=== PATIENT | male | born 1945 | race Caucasian/White ===

== ENCOUNTER → 2024-09-16 07:57 | Outpatient (REF) | payer MEDICARE, OTHER, SELFPAY | LOC: RAD 07:57 | PROVIDERS: ATTENDING PHYSICIAN Internal Medicine Cardiovascular Disease; FAMILY PHYSICIAN Internal Medicine | DX: I71.40 Abdominal aortic aneurysm, without rupture, unspecified (principal) | CPT/HCPCS: 76770 ==

== ENCOUNTER → 2024-09-18 11:57 | Outpatient (REF) | payer MEDICARE, OTHER, SELFPAY ==
[2024-09-18 14:14] LABS: Blood Urea Nitrogen 17 mg/dl (9-20); Calcium 9.8 mg/dl (8.4-10.2); Carbon Dioxide 25 mmol/L (22-30); Chloride 102 mmol/L (98-107); Glucose 88 mg/dl (70-99); Potassium 4.5 mmol/L (3.5-5.1); Sodium 140 mmol/L (135-145); eGFR > 60.00
== END ==
LOC: REG 11:57
PROVIDERS: ATTENDING PHYSICIAN Surgery Vascular Surgery; FAMILY PHYSICIAN Internal Medicine
DX: I71.43 Infrarenal abdominal aortic aneurysm, without rupture (principal)
CPT/HCPCS: 36415; 80048

== ENCOUNTER → 2024-09-20 16:02 | Outpatient (REF) | payer MEDICARE, OTHER, SELFPAY | LOC: RAD 16:02 | PROVIDERS: ATTENDING PHYSICIAN Surgery Vascular Surgery; FAMILY PHYSICIAN Internal Medicine; OTHER PHYSICIAN Internal Medicine Cardiovascular Disease | DX: I71.43 Infrarenal abdominal aortic aneurysm, without rupture (principal) | CPT/HCPCS: 74174; Q9967 ==

== ENCOUNTER 2024-11-15 06:54 | Inpatient (IN) | payer MEDICARE, OTHER, SELFPAY ==
[2024-11-11 10:40] VITALS: BMI 35.1
[2024-11-11 11:14] LABS: % Basophils 1.2 % (0-2); % Eosinophils 6.4 % (0-6); % Immature Granulocytes 0.4 % (0-0.5); % Monocytes 10.4 % (1.7-9.3); % Neutrophils 57.8 % (42.2-75.2); Absolute Basophils 0.1 10^3/uL (0-0.2); Absolute Eosinophils 0.3 10^3/uL (0-0.7); Absolute Lymphocytes 1.3 10^3/uL (1.2-3.4); Absolute Monocytes 0.5 10^3/uL (0.1-0.6); Absolute Neutrophils 2.9 10^3/uL (1.4-6.5); Hematocrit 35.4 % (39.0-52.0); Hemoglobin 12.6 g/dL (13.0-18.0); Mean Corpuscular Hgb 31.3 pg (27.0-31.0); Mean Corpuscular Volume 89.4 fL (80.0-94.0); Mean Platelet Volume 9.9 fL (7.4-10.4); Nucleated Red Blood Cells % 0 % (-); Platelet Count 128 10^3/uL (130-400); Red Blood Cell Count 4.01 10^6/uL (4.70-6.10); Red Cell Dist. Width 13.9 % (11.5-14.5); White Blood Cell Count 5.2 10^3/uL (4.8-10.8)
[2024-11-11 11:16] LABS: INR 1.07; PT 14.2 Sec (11.4-14.6)
[2024-11-11 11:17] LABS: APTT 36.8 Sec (23.4-35.0)
[2024-11-11 11:41] LABS: Blood Urea Nitrogen 15 mg/dl (9-20); Carbon Dioxide 29 mmol/L (22-30); Chloride 102 mmol/L (98-107); Estimated Creatinine Clearance 76 ml/min; Glucose 91 mg/dl (70-99); Potassium 4.3 mmol/L (3.5-5.1); Sodium 137 mmol/L (135-145); eGFR > 60.00
[2024-11-15] VITALS (16 sets, daily range): BP systolic 93–135; BP diastolic 59–93
[2024-11-15] MEDS: BACTROBAN NASAL 1 GRAM NASAL (07:25)
[2024-11-15] MEDS: PERIDEX 0.12% ORAL RINSE 15 ML PO (07:25)
[2024-11-15] MEDS: NSS 500 IV (07:26)
--- NOTE | 2024-11-15 07:29 | HP.FOC2 ---
Focused History & Physical
Chief Complaint
HPI:
Chief Complaint: AAA (abdominal aortic aneurysm)
HPI / Indication for Planned Procedure: This is a 79-year-old male significant past medical history of AAA, hypertension, dyslipidemia, low HDL, hypertriglycerides, pericarditis, Spears's esophagus, GERD, sleep apnea, and benign prostatic
hypertrophy who presents to [facility] for scheduled endovascular aortic aneurysm repair with Dr. Marco Knight III, access will be bilateral percutaneous femoral with [place] stent graft. Patient denies recent illness, trauma, and
hospitalization. Denies recent fever, chills, cough, shortness of breath, chest pain, abdominal pain, nausea, and vomiting. Reports he is at his baseline health with no recent medication changes.
Relevant Past Medical History: Hypertension and Other (dyslipidemia, low HDL, hypertriglycerides, pericarditis, Spears's esophagus, GERD, sleep apnea, and benign prostatic hypertrophy, AAA, PVCs)
Relevant Social History: Negative (Greater than 10 years ago smoker)
Relevant Family History: Positive for (CAD, bladder cancer)
Relevant Past Surgical History: Positive for (Colonoscopy, endoscopy, cholecystectomy, umbilical hernia repair)
Review of Systems
Review of Pertinent Systems: All Systems Negative
Medication
See Medication form for detailed medications: Yes
Medication List (including Herbals & OTC):
carvedilol 6.25 mg tablet 6.25 mg PO BID 11/07/24
cholecalciferol (vitamin D3) 50 mcg (2,000 unit) tablet (Vitamin D3) 50 mcg PO DAILY 11/07/24
finasteride 5 mg tablet 5 mg PO DAILY 11/07/24
magnesium oxide 400 mg PO BID 11/07/24
multivitamin 1 tab PO DAILY 11/07/24
omeprazole 20 mg tablet,delayed release 20 mg PO DAILY 11/07/24
potassium chloride 10 mEq tablet,extended release 10 meq PO DAILY 11/07/24
rosuvastatin 5 mg tablet 5 mg PO .EVERY OTHER DAY 11/07/24
tamsulosin 0.4 mg capsule 0.4 mg PO DAILY 11/07/24
Medications Reviewed: Yes
Allergies and Reactions
Patient has Allergies: No
Noted Allergies and Reactions:
Allergy/AdvReac Type Severity Reaction Status Date / Time
No Known Allergies Allergy Unverified 11/07/24 11:46
Pertinent Physical Exam
All Other Systems: Negative
Head/Neck: Normal
Lungs: Normal (Bilateral lungs clear to auscultation)
Heart: Normal (RRR)
Abdomen: Normal (Nontender and none distended)
Extremities: Normal (Right DP +1 palpable, left DP +2 palpable)
Neurological: Normal
Diagnosis / Assessment
Assessment: 79-year-old male with infrarenal abdominal aortic aneurysm measuring 5.3 cm
Plan / Procedure
Plan: Will proceed with scheduled endovascular abdominal aortic aneurysm repair with Dr. Marco Knight III
Anesthesia/Sedation to be done by Anesthesia Provider: Yes
--- NOTE | 2024-11-15 08:31 | W.SUR.PREOP ---
Pre-Operative Surgical Note
-
I have examined this patient prior to the performance of the scheduled procedure.
The patient's condition is unchanged from the time of the current History and
Physical and the patient is able to undergo the scheduled procedure.
[2024-11-15 09:35] LABS: ACT-LR - POC 298 Seconds (116-155)
[2024-11-15 10:18] LABS: ACT-LR - POC 265 Seconds (116-155)
--- NOTE | 2024-11-15 10:42 | W.IMMPOSTOP ---
Surgical Immed Post Op Note
-
Primary Surgeon: Eugene
Assisting Surgeon: Pham
Pre-op Diagnosis: Infrarenal abdominal aortic aneurysm
Post-op Diagnosis: Infrarenal abdominal aortic aneurysm
Procedure Performed: Endovascular abdominal aortic aneurysm repair
Anesthesia Type: General
Specimen / Cultures: None
Estimated Blood Loss: 2 cc
Complications: None
Operative Findings: Successful deployment of EVAR [place] stent with deployment of stent to ipsilateral and contralateral iliac limbs
--- NOTE | 2024-11-15 11:54 | OR.RPT ---
Operative Report
Operative Report
Date of Operation: 11/15/2024
Pre Op Diagnosis: Infrarenal abdominal aortic aneurysm
Post Op Diagnosis: Infrarenal abdominal aortic aneurysm
Procedure:
1.) Percutaneous endovascular repair of infrarenal abdominal aortic aneurysm:
����������� GORE Excluder 23 mm x 14.5 mm x 12 cm
����������� GORE 16 mm x 14 cm (LEFT iliac limb)
����������� GORE 18 mm x 12 cm (RIGHT iliac limb)
2.) Introduce wire/catheter abdominal aorta from femoral arterial access (BILATERAL)
3.) Ultrasound-guided percutaneous femoral access (BILATERAL)
Surgeon: Marco Knight III, MD
Fire Extinguisher Mechanic: Charlie Nath MD PGY1
Fluoroscopy:
23.3 minutes
979 mGy
DAP 310.5
Anesthesia: General
Complications: None
History and Indications for Procedure: 79-year-old male with infrarenal abdominal aortic aneurysm.� He was brought to the operating room for endovascular repair
Procedure in Detail: Ismael Franklin was correctly identified and placed supine on the operating table. After adequate induction of anesthesia the abdomen, pelvis and bilateral groins were positioned, prepped and draped in the usual sterile fashion.
Preoperative antibiotics were administered. A timeout procedure was performed with the nursing and anesthesia staff confirming the patient�s identity as well as the nature and laterality of the procedure.
Under ultrasound guidance, bilateral femoral artery sheath access was obtained. The arteries were patent. Ultrasound images of the femoral arteries were saved to the medical record. A pre-close technique was performed bilaterally with 2 offset
Proglide closure devices. The sutures were secured and tucked under surgical towels for use at the end of the case. The patient was systemically heparinized.
From the right a KMP femoral access a KMP catheter and Bentson wire were advanced to the proximal descending thoracic aorta. The wire was exchanged out through the catheter for a Lunderquist wire. From the left femoral access a KMP catheter and
Bentson wire were advanced to the proximal descending thoracic aorta. The wire was exchanged out through the catheter for a Lunderquist wire. Over the stiff wire on the right an 16 Fr Dry Seal sheath was placed. Over the stiff wire on the left a 12
Fr Dry Seal sheath was placed. Both sheath tips were advanced into the aortic aneurysm sac. A marker pigtail catheter was then placed for angiographic purposes through the left femoral sheath and the stiff wire removed to allow it to fall into a
more natural position that would mimic the position during contralateral gate cannulation. The C-arm was then rotated back and forth laterally in order to view the sheath locations relative to one another to assist in orienting the main body.
The aortic main body device was then properly oriented outside the body under fluoro. The 23 mm x 14.5 mm x 12 cm aortic main body device was then loaded onto the right femoral Lunderquist wire and advanced into the abdominal aorta. Appropriate
cranio-caudal C-arm positioning was performed based on preop imaging. With the device in the approximate position an aortogram was performed and identified the origins of the renal arteries bilaterally. The delivery system was then positioned such
that the radiopaque markers were just distal to the lowest renal artery. The ipsilateral sheath was pulled back to below the distal limb marker. The pigtail catheter was pulled back into the aneurysm. The first stage of main body deployment to the
contralateral gate was then performed.
The C-arm was re-oriented to view the contralateral gate. Using the partially formed pigtail catheter poking out of the 12 Fr sheath and a glide wire, the contralateral gate was cannulated easily. The wire and catheter were advanced into the main
body. The pigtail was spun to confirm proper positioning in the main body lumen. Another aortogram was performed at this point to confirm proper positioning of the main body below the renal arteries. �The main body had slipped down slightly relative
to the desired proximal landing zone just below the renal arteries.� Therefore the main body was re-constrained and advanced proximally under roadmap guidance and magnification. �With the device in the desired location the proximal main body
constraining mechanism was released by dialing out the handle. Another aortogram with the pigtail under magnification demonstrated the graft in the desired location. The pigtail catheter was then advanced into the proximal descending thoracic aorta
and a Lunderquist was placed. The 12 Fr sheath was pulled back and a retrograde arteriogram was then performed with the marker pigtail catheter on the stiff wire. The left iliac bifurcation was visualized and lengths were measured for the
contralateral iliac limb. A 16 mm x 14 cm iliac limb was inserted on the left under fluoro. Proper overlap was obtained. The limb was deployed under roadmap guidance without difficulty.
The remainder of the main body and ipsilateral limb deployment was then performed. The delivery system was carefully removed over the wire under fluoro. A marker pigtail catheter was placed on the right Lunderquist wire. The 16 [place] sheath was
pulled back and a retrograde arteriogram was then performed with the marker pigtail catheter on the stiff wire. The right iliac bifurcation was visualized and lengths were measured for the ipsilateral iliac limb extension. A 18 mm x 12 cm iliac limb
was inserted on the right under fluoro. Proper overlap was obtained. The limb was deployed under roadmap guidance without difficulty.
A [place] molding balloon was then inserted from each femoral access, one side at a time. The proximal main body seal zone, all areas of overlap, both iliac limbs and both distal iliac seal zones were profiled with the balloon. The balloon was
readvanced into the main body and the Lunderquist wire removed. A pigtail catheter was inserted and advanced to the proximal main body.
A completion aortogram demonstrated an excellent technical result. The aneurysm was excluded. No endoleaks were seen. There was brisk flow through the stent and iliac limbs. The renal arteries were widely patent bilaterally. The iliac bifurcations
were preserved bilaterally.
The Proglide sutures were secured bilaterally after removing the sheaths and wires. Protamine was administered. Additional pressure was applied to the puncture sites bilaterally for 10 minutes. Hemostasis was achieved bilaterally.
Sterile dressings were applied.
The patient tolerated the procedure well and was taken to the PACU in stable condition.
Attestation: I was present and responsible for the entire procedure
Marco Knight III, MD
[facility]
[phone] (mowc)
[2024-11-15] MEDS: NSS 1000 IV (11:56)
--- NOTE | 2024-11-15 12:29 | PTCARENOTE ---
recd from PACU via bed, settled, see admission documentation. pulse signals palpable x 4, groin punctures glue maintained, soft, non-tender. art line zero and ayla, cuff pressures noted. flat per MD order. sweet draining. no distress. presently
family now visiting.
[2024-11-15] MEDS: ASPIR LOW (ENTERIC COATED) 81 MG PO (12:37)
--- NOTE | 2024-11-15 13:50 | CON.INTV ---
Consultation
Consultation Request
Date/Time Consultation Requested: 11/15/2024-2 PM
Date/Time Consultation Performed: 11/15/2024-2 PM
Requesting Provider: Vascular surgery
Performing Provider: Dr. Dominguez
Reason for Consultation: Postoperative critical care management
Medical History
-
Chief Complaint: PAD
History of Present Illness:
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
Past Medical History
Past Medical History: None (Hypertension. Hyperlipidemia. History of pericarditis. GERD. Spears's esophagus. ARETHA. BPH. AAA. Cholecystectomy 2018. Umbilical hernia 2019. Hernia repair 2019.)
Social History
Tobacco: Former Smoker (Quit 42 years ago)
Alcohol: Occasional
Drug: None
Living: With Family
Occupational Exposures: No known asbestos exposure
Environmental Exposures: No known tuberculosis exposure
Family History
Family History: Reviewed & Not Pertinent, CAD (Premature CAD) and Other (Father-CAD, diabetes, hypertension. Mother-bladder cancer.)
Allergies / Home Medications
Allergies
Allergy/AdvReac Type Severity Reaction Status Date / Time
No Known Allergies Allergy Unverified 11/07/24 11:46
Home Medications
�Medication �Instructions �Recorded �Confirmed �Last Taken �Type
carvedilol 6.25 mg tablet 6.25 mg PO BID 11/07/24 11/15/24 11/15/24 05:30 History
cholecalciferol (vitamin D3) 50 50 mcg PO DAILY 11/07/24 11/15/24 11/14/24 08:00 History
mcg (2,000 unit) tablet (Vitamin
D3)
finasteride 5 mg tablet 5 mg PO DAILY 11/07/24 11/15/24 11/14/24 08:00 History
magnesium oxide 400 mg PO BID 11/07/24 11/15/24 11/14/24 20:00 History
multivitamin 1 tab PO DAILY 11/07/24 11/15/24 11/14/24 08:00 History
omeprazole 20 mg tablet,delayed 20 mg PO DAILY 11/07/24 11/15/24 11/14/24 12:00 History
release
potassium chloride 10 mEq 10 meq PO DAILY 11/07/24 11/15/24 11/14/24 08:00 History
tablet,extended release
rosuvastatin 5 mg tablet 5 mg PO .EVERY OTHER DAY 11/07/24 11/15/24 11/14/24 08:00 History
tamsulosin 0.4 mg capsule 0.4 mg PO DAILY 11/07/24 11/15/24 11/14/24 20:00 History
Review of Systems
-
Unable to Obtain full review of systems at this time due to: Other (Per HPI)
Vitals / Labs / Diagnostic Testing
Vital Signs
Temp Pulse Resp BP Pulse Ox
97.6 F 58 14 104/93 93
11/15/24 12:00 11/15/24 12:45 11/15/24 12:45 11/15/24 12:00 11/15/24 12:56
Lab Data
11/11/24 10:48
11/11/24 10:48
Diagnostic Testing:
Physical Exam
-
Exam:
Well-nourished and well-developed in no apparent distress
HEENT-atraumatic, normocephalic
Neck-supple, no JVD, no bruit
Heart-regular rate and rhythm-no murmurs, rubs or gallops
Chest-clear to auscultation, no wheezes, crackles
Back-no tenderness
Abdomen-soft, nontender, nondistended, no hepatosplenomegaly
Extremities-no cyanosis, clubbing, edema and good peripheral pulses
Integument-intact, no rashes, lesions or ecchymosis
Neurology-alert and oriented, nonfocal motor and sensory exam
Assessment
-
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
Infrarenal AAA
Status post EVAR-Dr. Knight 11/15/2024
Mild [id number] 12.6
Mild thrombocytopenia-platelet 128
Conditions present prior to admission:
Hypertension.
Hyperlipidemia.
History of pericarditis.
GERD.
Spears's esophagus.
ARETHA.
BPH.
AAA.
Cholecystectomy 2018. Umbilical hernia 2019. Hernia repair 2019.
Plan
Postoperative surgical intensive care unit monitoring
Supplemental oxygen as needed
Incentive spirometry
Aspiration precautions
Neuro and vascular checks per protocol
Monitor blood pressure/perfusion pressures and pulses closely
Vascular surgery following-correspondence and operative notes reviewed
DVT prophylaxis
Early nutrition
Early mobilization
Reviewed with at the bedside
Outpatient sleep disordered breathing/ARETHA/CPAP [id number] with Dr. Natalie Aleman-has an appointment next week
Critical care statement: A total of 55 minutes of critical care time was provided for this patient today. This includes management of unstable vital signs, evaluation of the patient at bedside, reviewing the patient's pertinent medical records
including radiographs, microbiology, laboratory evaluations, and discussion with primary team, consultants, pharmacy, nutrition, physical therapy, case management, charge nurse, critical care nursing, and respiratory therapy.
Diagnostic data:
Chest x-ray 11/11/2024-NAD
CT abdomen and pelvis 09/20/2024-infrarenal AAA measuring 5.1 cm, small aneurysms bilateral renal arteries, bilateral renal cysts, pulmonary basilar scarring/fibrosis associated with cylindrical bronchiectatic changes
Echocardiogram 08/17/2022-EF 60-65%, no valvular disease
Data Reviewed
-
EKG: Report reviewed by me
Radiology: Report reviewed by me
CT Scan: Report reviewed by me
Medical Tests (Nuc Med, Echo etc): Report reviewed by me
Old Records: Reviewed
Critical Care Time (in minutes): 55
--- NOTE | 2024-11-15 16:44 | PTCARENOTE ---
ambulated in hallway, tolerated, back to chair. no c/o.
--- NOTE | 2024-11-15 17:03 | W.PN.UPDATE ---
Update Note
Progress Note Update
Patient doing extremely well postoperatively. Tolerating ambulation, and p.o. intake. Denies pain at bilateral groin sites, nausea, abdominal pain, or difficulty with ambulation. Successful spontaneous void following Knight catheter removal.
Radial arterial monitoring site CDI. Per attending Dr. Marco Knight possible discharge later this evening pending his evaluation.
--- NOTE | 2024-11-15 18:12 | W.PN.UPDATE ---
Update Note
Progress Note Update
Looks great
No complaints
Sitting in chair
'I feel like I didnt even have surgery'
Groins soft
Vitals normal/stable
Will discharge home
I'll followup with him over the weekend via telephone.
Aspirin
[id number]
--- NOTE | 2024-11-15 18:29 | PTCARENOTE ---
seen by Dr. Knight in room. plan reviewed. questions answered. discharge paperwork reviewed. family here to ride home. IVs out, getting dressed.
--- NOTE | 2024-11-18 15:29 | W.DCSUMMARY ---
Discharge Summary
Discharge Data
Date of Admission: 11/15/24
Date of Discharge: 11/15/24
-
Pending Results: No
Hospital Course
Attending: Marco Knight III, MD
Consultants: Pulmonary medicine
Allergies: NKDA
Procedure with date: Percutaneous endovascular repair of infrarenal abdominal aortic aneurysm: GORE Excluder 23 mm x 14.5 mm x 12 cm, GORE 16 mm x 14 cm (LEFT iliac limb), GORE 18 mm x 12 cm (RIGHT iliac limb). Introduce wire/catheter abdominal
aorta from femoral arterial access (BILATERAL). Ultrasound-guided percutaneous femoral access (BILATERAL) 11/15/2024 Dr. Marco Knight III, MD
History of present illness: The patient is an 79 -year-old male with multiple medical conditions including: hypertension, dyslipidemia, low HDL, hypertriglycerides, pericarditis, Spears's esophagus, GERD, sleep apnea, and benign prostatic
hypertrophy, AAA, and PVCs. Patient presented on 11/15/2024 for scheduled procedure with Dr. Marco Knight III. Patient presented at baseline health with no reports of recent illness or trauma.
Hospital Course: Briefly, the patient underwent scheduled endovascular pair of infrarenal abdominal aorta aneurysm without complications, and recovered in PACU. Following recovery phase one and two patient was transferred to intensive care unit per
protocol for continued hemodynamic monitoring. Deboning Team Leader consulted to aid in medical management from a critical care perspective. Following appropriate postoperative recovery timeframe arterial line and Knight catheter removed. Patient with
spontaneous void following removal of Knight catheter. Bilateral groin puncture sites remained clean dry and intact with no evidence of hematoma. As the day progressed patient continued to markedly well, and was tolerating p.o. intake denying any
surgical pain. Vital signs remained stable. Patient tolerated ambulation without difficulty. Decision was made to allow patient to be discharged home.
Prescriptions and follow up appointment are included in the DC summary flare maker note. All instructions were given to the patient in both written and verbal form and the patient expressed understanding.
Discharge Plan
-
Patient Disposition: Home (Routine Discharge)
Discharge Diagnosis/Procedures: Endovascular repair of abdominal aortic aneurysm
Condition: Good
Diet: As tolerated
Activity: No strenuous activity
Additional Activity: No strenuous activity for 2 weeks, no lifting greater than 10 pounds for 2 weeks
Driving Restrictions: No driving for 48 hours
Bathing Restrictions: OK to Shower
Stand Alone Forms: DC Instr - Vascular OR
Referrals:
Flora Trujillo PA-C [Specified Professional Personl] - 11/28/24 1:00 pm
Dutch Irwin MD [Family Provider] -
Prescriptions:
New
aspirin 81 mg Tablet,Delayed Release (Dr/Ec)
81 mg PO DAILY Qty: 90 0RF
Continued
multivitamin Tablet
1 tab PO DAILY
carvedilol 6.25 mg Tablet
6.25 mg PO BID
potassium chloride 10 mEq Tablet Extended Release
10 meq PO DAILY
tamsulosin 0.4 mg Capsule
0.4 mg PO DAILY
finasteride 5 mg Tablet
5 mg PO DAILY
rosuvastatin 5 mg Tablet
5 mg PO .EVERY OTHER DAY
omeprazole 20 mg Tablet,Delayed Release (Dr/Ec)
20 mg PO DAILY
cholecalciferol (vitamin D3) [Vitamin D3] 50 mcg (2,000 unit) Tablet
50 mcg PO DAILY
magnesium oxide 400 mg magnesium Tablet
400 mg PO BID
Discharge Orders:
Discharge Patient (As Directed); Ordered 11/15/24
Ordered By: Eunice Kimble
Discharge Date and Time
Discharge Date/Time: 11/15/24 18:48
Print Language: LAO
== END 2024-11-15 18:48 | disposition home or self-care (01) | DRG 269 ==
LOC: ICU 06:54
PROVIDERS: ADMITTING PHYSICIAN Surgery Vascular Surgery; CONSULT PHYSICIAN Internal Medicine Critical Care Medicine; FAMILY PHYSICIAN Internal Medicine
PROC: B4101ZZ Fluoroscopy of Abdominal Aorta using Low Osmolar Contrast (ICD-10-PCS; 2024-11-15)
PROC: 04V03DZ Restriction of Abdominal Aorta with Intraluminal Device, Percutaneous Approach (ICD-10-PCS; 2024-11-15)
DX: I71.43 Infrarenal abdominal aortic aneurysm, without rupture (principal); I10 Essential (primary) hypertension; K21.9 Gastro-esophageal reflux disease without esophagitis; N40.0 Benign prostatic hyperplasia without lower urinary tract symptoms; E78.5 Hyperlipidemia, unspecified; K22.70 Barrett's esophagus without dysplasia; G47.33 Obstructive sleep apnea (adult) (pediatric); D64.9 Anemia, unspecified; D69.6 Thrombocytopenia, unspecified; Z86.79 Personal history of other diseases of the circulatory system; Z80.52 Family history of malignant neoplasm of bladder; Z82.49 Family history of ischemic heart disease and other diseases of the circulatory system; Z90.49 Acquired absence of other specified parts of digestive tract; Z87.891 Personal history of nicotine dependence
CPT/HCPCS: 34705; 34713; 36415; 71046; 80048; 85025; 85610; 85730; 86850; 86900; 86901; C1725; C1760; C1769; C1894; Q9967

== ENCOUNTER → 2024-12-10 08:24 | Outpatient (REF) | payer MEDICARE, OTHER, SELFPAY | LOC: RAD 08:24 | PROVIDERS: ATTENDING PHYSICIAN Registered Nurse; FAMILY PHYSICIAN Internal Medicine | DX: I71.43 Infrarenal abdominal aortic aneurysm, without rupture (principal); Z98.890 Other specified postprocedural states | CPT/HCPCS: 74174; Q9967 ==

== ENCOUNTER 2024-12-20 05:12 | Emergency (ER) | payer MEDICARE, OTHER, SELFPAY ==
[2024-12-20] VITALS (9 sets, daily range): BP systolic 111–136; BP diastolic 65–85; BMI 31.6
[2024-12-20 05:56] LABS: COVID-19 Antigen Negative (Negative)
--- NOTE | 2024-12-20 06:33 | ED.GENMED ---
History of Present Illness
General
Chief Complaint: Chest Pain
Time Seen by Provider: 12/20/24 06:33
History of Present Illness
History of Present Illness:
TIME OF INITIAL ENCOUNTER: 6:35 AM
HPI: The patient has been coughing over the last couple of weeks. About a month ago, he had a uneventful infrarenal AAA repair with Dr. Knight. There were no complications at that time. More recently over the last couple of days he has been having
chest discomfort that worsens with coughing, worsens with position changes. He had low-grade temps of '99 or 100'.
EXAM:
GENERAL: Well appearing in no distress, the patient appears uncomfortable when he tries to flex forward
HEENT: Moist oral mucosa
CARDIOVASCULAR: No murmurs, normal heart rate, regular rhythm, No chest wall tenderness
PULMONARY: No respiratory distress, breath sounds are clear and equal, there is some very faint rales at the bases
ABDOMEN: Soft with no peritoneal signs, no tenderness
NEUROLOGIC: Excellent strength all extremities, no coordination deficits
PSYCHIATRIC: Appropriate mental status, normal insight and judgement
EXTREMITIES: Nontender, no edema, moves all extremities equally
SKIN: No rash, no lesions
NUMBER AND COMPLEXITY OF PROBLEMS ADDRESSED AT THE ENCOUNTER
� Chronic conditions affecting care: GERD, Spears's esophagus, hyperlipidemia, has had bowel blockage in the past, infrarenal AAA repair 2024
� Acute Exacerbation and/or Progression of Chronic Illness: This is an acute problem
� Differential Diagnosis includes: Bronchitis, chest wall pain, chest pain related to coughing
AMOUNT AND/OR COMPLEXITY OF DATA TO BE REVIEWED AND ANALYZED
� I performed an independent evaluation of and my interpretation is:
EKG: Sinus 65, normal axis, no acute ST abnormality
CT:
X-rays: Chest x-ray by my read suggest atelectasis
Laboratory Studies: White count normal, hemoglobin slightly lower than prior at 10.4, chemistries unremarkable, troponin less than 0.012, COVID and flu negative
Other:
� Review of other/old records: I reviewed old records, the patient's hemoglobin was higher 1 month ago 12.6
� Clinical information was obtained by an independent historian: None needed
� Prescriptions/Medications Considered but not given:
� Further testing considered but not performed:
RISK OF COMPLICATIONS AND/OR MORBIDITY OR MORTALITY OF PATIENT MANAGEMENT
� Social determinants of health affecting care: Lives at home
� Discussion with other providers:
� Escalation of care including admission/observation vs risk of discharge considered: The patient was given Toradol.
ANY OTHER UPDATES:
10:40 AM: I reassessed patient and the patient now reports improvement with his pain that he had in his chest. Suspect noncardiac etiology as troponin and EKG are normal and he does report improvement after Toradol was given.
Phy Exam
Physical Exam
Physical Exam:
See HPI
Scores
Heart Score for Chest Pain Patients
STEMI patient?: Not applicable
Sepsis
Sepsis Screening
Sepsis Assessment: Sepsis Ruled Out
Sepsis Screen
Sepsis Screen: Sepsis Ruled Out
Date: 12/20/24
Time: 12:43
Course
Orders/Labs/Results
Orders:
Orders
12/20/24 05:15
EKG [Electrocardiogram (*1)] Urgent
Reason for Study: Chest Pain
12/20/24 05:16
EKG- Treatment ONCE
12/20/24 05:32
COVID-19 Antigen Urgent
Source: Nasal Swab
Influenza A+B Rapid Molecular Urgent
ANG Source: Nasal Swab
Specimen Description:
12/20/24 05:39
Chest [CR Chest - 2 Views ] Urgent
Comment:
Reason For Exam: chest pain
12/20/24 06:53
Complete Blood Count/With Diff Urgent
Comprehensive Metabolic Panel Urgent
Troponin I Urgent
12/20/24 06:54
Ketorolac [Toradol] 15 mg IV NOW STA
Abnormal Lab Results
12/20/24
06:53
RBC 3.45 L 10^6/uL
(4.70-6.10)
Hgb 10.4 L g/dL
(13.0-18.0)
Hct 30.9 L %
(39.0-52.0)
Abs Immat Gran (auto) 0.1 H 10^3/uL
(0-0.05)
Absolute Neuts (auto) 8.1 H 10^3/uL
(1.4-6.5)
Absolute Lymphs (auto) 1.0 L 10^3/uL
(1.2-3.4)
Absolute Monos (auto) 0.8 H 10^3/uL
(0.1-0.6)
Neutrophils % 79.5 H %
(42.2-75.2)
Lymphocytes % 9.6 L %
(20.5-51.1)
Glucose 124 H mg/dl
(70-99)
12/20/24 06:53
12/20/24 06:53
Vital Signs
Initial and Last Documented VS:
Initial Vital Signs
Temp Pulse Resp BP Pulse Ox
37.3 C 72 22 131/80 97
12/20/24 05:24 12/20/24 05:24 12/20/24 05:24 12/20/24 05:24 12/20/24 05:24
Last Documented Vital Signs
Temp Pulse Resp BP Pulse Ox
36.9 C 76 20 131/85 96
12/20/24 10:59 12/20/24 10:59 12/20/24 10:59 12/20/24 10:59 12/20/24 10:59
*Critical Care Note
Total Time (30-74mins, 75-104mins- exclusive of procedures): Not Applicable
ED Attending Note
-
Portions of this chart may have been created with voice recognition software.� Occasional wrong word or��sound alike� substitutions may have occurred due to the inherent limitations of voice recognition software.
Discharge Plan
Departure
Patient Disposition: Home (Routine Discharge)
Date of Disposition: 12/20/24
Time of Disposition: 10:38
Patient with high blood pressure during this ER visit?: Yes
Discharge Problem:
Acute chest wall pain
Prescriptions:
No Action
multivitamin Tablet
1 tab PO DAILY
carvedilol 6.25 mg Tablet
6.25 mg PO BID
potassium chloride 10 mEq Tablet Extended Release
10 meq PO DAILY
tamsulosin 0.4 mg Capsule
0.4 mg PO DAILY
finasteride 5 mg Tablet
5 mg PO DAILY
rosuvastatin 5 mg Tablet
5 mg PO .EVERY OTHER DAY
omeprazole 20 mg Tablet,Delayed Release (Dr/Ec)
20 mg PO DAILY
cholecalciferol (vitamin D3) [Vitamin D3] 50 mcg (2,000 unit) Tablet
50 mcg PO DAILY
magnesium oxide 400 mg magnesium Tablet
400 mg PO BID
aspirin 81 mg Tablet,Delayed Release (Dr/Ec)
81 mg PO DAILY Qty: 90 0RF
Referrals:
Dutch Irwin MD [Family Provider] -
Activity Restrictions/Additional Instructions:
I suspect that your pain is coming from the chest wall related to coughing. Your white blood cell count is normal. I will call you later if the radiologist sees signs of pneumonia (I did not see any clear sign of pneumonia). Cardiac blood work
and EKG showed no sign of heart attack. Consider intermittent use of Aleve. You did receive a dose of Toradol earlier today.
Interventions
Interventions:
*Risk Screen - Suicide Last Done: 12/20/24 05:24
*General Assessment Last Done: 12/20/24 05:53
*Neglect/Abuse Screening Last Done: 12/20/24 10:59
ED- Fall Risk Assessment Last Done: 12/20/24 05:53
*ED COVID-19 Vaccine History Last Done: 12/20/24 05:53
*Nursing Disposition Last Done: 12/20/24 10:59
ED- Cardiac Assessment Last Done: 12/20/24 05:53
Discharge Date and Time
Discharge Date/Time: 12/20/24 11:00
Print Language: PORTUGUESE
[2024-12-20] MEDS: TORADOL 15 MG IV (06:57)
[2024-12-20 07:02] LABS: % Basophils 0.5 % (0-2); % Eosinophils 1.6 % (0-6); % Immature Granulocytes 0.5 % (0-0.5); % Lymphocytes 9.6 % (20.5-51.1); % Monocytes 8.3 % (1.7-9.3); % Neutrophils 79.5 % (42.2-75.2); Absolute Basophils 0.1 10^3/uL (0-0.2); Absolute Eosinophils 0.2 10^3/uL (0-0.7); Absolute Immature Granulocytes 0.1 10^3/uL (0-0.05); Absolute Monocytes 0.8 10^3/uL (0.1-0.6); Absolute Neutrophils 8.1 10^3/uL (1.4-6.5); Hematocrit 30.9 % (39.0-52.0); Hemoglobin 10.4 g/dL (13.0-18.0); Mean Corp Hgb Conc. 33.7 g/dL (33.0-37.0); Mean Corpuscular Hgb 30.1 pg (27.0-31.0); Mean Corpuscular Volume 89.6 fL (80.0-94.0); Mean Platelet Volume 8.9 fL (7.4-10.4); Nucleated Red Blood Cells % 0 % (-); Platelet Count 133 10^3/uL (130-400); Red Blood Cell Count 3.45 10^6/uL (4.70-6.10); Red Cell Dist. Width 13.5 % (11.5-14.5); White Blood Cell Count 10.1 10^3/uL (4.8-10.8)
[2024-12-20 07:15] LABS: ALT (SGPT) 25 U/L (0-50); AST (SGOT) 22 U/L (17-59); Albumin 3.6 g/dl (3.5-5.0); Alkaline Phosphatase 84 U/L (38-126); Blood Urea Nitrogen 12 mg/dl (9-20); Calcium 8.9 mg/dl (8.4-10.2); Carbon Dioxide 28 mmol/L (22-30); Chloride 102 mmol/L (98-107); Estimated Creatinine Clearance 103 ml/min; Glucose 124 mg/dl (70-99); Potassium 4.1 mmol/L (3.5-5.1); Sodium 137 mmol/L (135-145); Total Bilirubin 1.1 mg/dl (0.2-1.3); Total Protein 6.6 g/dl (6.3-8.2); eGFR > 60.00
[2024-12-20 07:26] LABS: Troponin I < 0.012 ng/ml
== END 2024-12-20 11:00 | disposition home or self-care (01) ==
LOC: EMR 05:12
PROVIDERS: Student in an Organized Health Care Education/Training Program; EMERGENCY PHYSICIAN Emergency Medicine; FAMILY PHYSICIAN Internal Medicine
DX: R07.89 Other chest pain (principal)
CPT/HCPCS: 99283; 96374; 71046; 80053; 84484; 85025; 87502; 87811; 93005

== ENCOUNTER 2025-01-06 20:06 | Inpatient (IN) | payer MEDICARE, OTHER, SELFPAY ==
[2025-01-06 20:25] VITALS: BMI 30.7
--- NOTE | 2025-01-06 20:47 | PTCARENOTE ---
Rec'd pt from ambulance stretcher, pt pulled over into the bed. AAOx3, 95% on RA. NSR-SB on cardiac surgeon. BP stable 134/70 on LUE. Pt denies pain/SOB/discomfort at this time. Pt encouraged to alert staff if this changes. Dr. Godfrey to bedside
to assess pt. Pt requests water and crackers at this time, but denies any complaints. Pt oriented to room and call massey system. Admission questions as documented. Awaiting Dr. jaquez.
--- NOTE | 2025-01-06 20:55 | HPS.HSE ---
Family Physician
-
Family Physician: INTERVIEWE UNKNOWN - PT NOT
Chief Complaint
-
back pain
History of Present Illness
79-year-old male past medical history of infrarenal abdominal arctic aneurysm status post percutaneous endovascular repair on 11/15, hypertension, hyperlipidemia, pericarditis, Spears's esophagus, GERD, sleep apnea on CPAP, BPH, PVCs, presenting
with pain in his bilateral back described as aching. This started a week ago patient has also been constipated so his primary care physician gave him MiraLAX and Dulcolax. He has still been constipated.
Pain was worse so he came to [facility]. He had CT scan there which showed endoleak and possible aortitis. Case was discussed with Dr. Golden who recommended patient be transferred here.
Patient denies any fevers or chills, chest pain or shortness of breath. No dizziness, lightheadedness or palpitations. No nausea or vomiting.
Medical History
Past Medical History
Past Medical History: Reports Other ( infrarenal abdominal arctic aneurysm status post percutaneous endovascular repair on 11/15, hypertension, hyperlipidemia, pericarditis, Spears's esophagus, GERD, sleep apnea on CPAP, BPH, PVCs)
Past Surgical History: Reports Other (Colonoscopy, endoscopy, cholecystectomy, umbilical hernia repair))
Social History
Tobacco: Non-smoker
Alcohol: None
Drug: None
Family History
Family History: Not pertinent
Allergies / Home Medications
Allergies reflects when Allergies were last updated in [employer].
Home Medications with original date entered in [employer]
Allergy/Medication List:
Allergies
Allergy/AdvReac Type Severity Reaction Status Date / Time
No Known Allergies Allergy Verified 12/20/24 05:24
Home Medications
carvedilol 6.25 mg tablet 6.25 mg PO BID 11/07/24
cholecalciferol (vitamin D3) 50 mcg (2,000 unit) tablet (Vitamin D3) 50 mcg PO DAILY 11/07/24
finasteride 5 mg tablet 5 mg PO DAILY 11/07/24
magnesium oxide 400 mg PO BID 11/07/24
multivitamin 1 tab PO DAILY 11/07/24
omeprazole 20 mg tablet,delayed release 20 mg PO DAILY 11/07/24
potassium chloride 10 mEq tablet,extended release 10 meq PO DAILY 11/07/24
rosuvastatin 5 mg tablet 5 mg PO .EVERY OTHER DAY 11/07/24
tamsulosin 0.4 mg capsule 0.4 mg PO DAILY 11/07/24
aspirin 81 mg tablet,delayed release 81 mg PO DAILY #90 tabs 11/15/24
Review of Systems
-
History Source: Patient
A 12 point ROS was completed and negative except as noted: Yes
Constitutional: Reports No Symptoms
EENT: Reports No Symptoms
Respiratory: Reports No Symptoms
Cardiac: Reports No Symptoms
Abdomen/GI: Reports No Symptoms
: Reports No Symptoms
Musculoskeletal: Reports No Symptoms
Skin: Reports No Symptoms
Neurological: Reports No Symptoms
Endocrine: Reports No Symptoms
Hematologic/Lymphatic: Reports No Symptoms
Psych: Reports No Symptoms
Physical Exam
Vital Signs
Vital Signs
Temp Pulse Resp Pulse Ox
98.2 F 58 21 95
01/06/25 20:25 01/06/25 20:33 01/06/25 20:33 01/06/25 20:33
Physical Exam
General: Well Developed, Well Nourished and No Apparent Distress
HEENT: NormoCephalic, Moist mucous membranes and Atraumatic
Respiratory: Clear
Cardiac: S1/S2 and Regular Rhythm; No Murmur or Rub
GI: Soft, Non Tender, Non Distended and Normal Bowel Sounds; No Organomegaly
Rectal: Deferred by Provider
Musculoskeletal: No Clubbing, No Cyanosis and No Edema
Skin: No Rash
Neuro: Nonfocal/grossly intact
Data Reviewed
-
Lab Data: Labs Reviewed by me
Old Records: Reviewed
Impression/Plan
-
IMPRESSION:
PLAN:
# Possible endoleak versus aortitis
# Infrarenal abdominal aortic aneurysm status post percutaneous endovascular repair on 11/15
-CT scan abdomen pelvis shows circumferential stranding adjacent to the proximal aspect of the aortic graft proximal to the aneurysm sac
-Vascular recommends blood cultures
-Monitoring with repeat CTA in 1 or 2 days
-Continue aspirin, statin
# Constipation
-Continue MiraLAX, Dulcolax
History of PVCs
History of pericarditis
Essential hypertension
-Continue Coreg
Hyperlipidemia
-continue statin
Spears's esophagus/GERD
-Continue omeprazole
Obstructive sleep apnea
-Continue CPAP
BPH
-Continue tamsulosin, finasteride
Full code
DVT prophylaxis-heparin
Regular diet
[2025-01-06 21:31] LABS: % Basophils 0.7 % (0-2); % Eosinophils 3.2 % (0-6); % Immature Granulocytes 0.4 % (0-0.5); % Lymphocytes 14.9 % (20.5-51.1); % Monocytes 9.7 % (1.7-9.3); % Neutrophils 71.1 % (42.2-75.2); Absolute Basophils 0.1 10^3/uL (0-0.2); Absolute Eosinophils 0.3 10^3/uL (0-0.7); Absolute Lymphocytes 1.2 10^3/uL (1.2-3.4); Absolute Monocytes 0.8 10^3/uL (0.1-0.6); Absolute Neutrophils 5.7 10^3/uL (1.4-6.5); Hematocrit 29.5 % (39.0-52.0); Hemoglobin 9.9 g/dL (13.0-18.0); Mean Corp Hgb Conc. 33.6 g/dL (33.0-37.0); Mean Corpuscular Hgb 29.2 pg (27.0-31.0); Mean Platelet Volume 8.7 fL (7.4-10.4); Nucleated Red Blood Cells % 0 % (-); Platelet Count 205 10^3/uL (130-400); Red Blood Cell Count 3.39 10^6/uL (4.70-6.10); Red Cell Dist. Width 13.3 % (11.5-14.5); White Blood Cell Count 8.1 10^3/uL (4.8-10.8)
[2025-01-06 21:36] VITALS: BP 125/71
[2025-01-06] MEDS: COREG 6.25 MG PO (21:37)
[2025-01-06] MEDS: MAGNESIUM OXIDE 500 MG PO (21:38)
[2025-01-06 21:56] LABS: Blood Urea Nitrogen 14 mg/dl (9-20); Calcium 9.4 mg/dl (8.4-10.2); Carbon Dioxide 25 mmol/L (22-30); Chloride 99 mmol/L (98-107); Estimated Creatinine Clearance 96 ml/min; Glucose 102 mg/dl (70-99); Potassium 4.4 mmol/L (3.5-5.1); Sodium 135 mmol/L (135-145); eGFR > 60.00
[2025-01-06 22:28] VITALS: PULSE 82
[2025-01-07] VITALS (12 sets, daily range): BP systolic 94–112; BP diastolic 59–72; PULSE 58; BMI 30.7
[2025-01-07] MEDS: PERCOCET 5/325 1 TABLET PO ×5 (00:16→22:07)
[2025-01-07 05:54] LABS: % Basophils 0.7 % (0-2); % Eosinophils 4.5 % (0-6); % Immature Granulocytes 0.3 % (0-0.5); % Lymphocytes 17.8 % (20.5-51.1); % Monocytes 13.4 % (1.7-9.3); % Neutrophils 63.3 % (42.2-75.2); Absolute Basophils 0.1 10^3/uL (0-0.2); Absolute Eosinophils 0.3 10^3/uL (0-0.7); Absolute Lymphocytes 1.2 10^3/uL (1.2-3.4); Absolute Monocytes 0.9 10^3/uL (0.1-0.6); Absolute Neutrophils 4.3 10^3/uL (1.4-6.5); Hematocrit 30.3 % (39.0-52.0); Hemoglobin 10.2 g/dL (13.0-18.0); Mean Corp Hgb Conc. 33.7 g/dL (33.0-37.0); Mean Corpuscular Hgb 29.4 pg (27.0-31.0); Mean Corpuscular Volume 87.3 fL (80.0-94.0); Mean Platelet Volume 8.6 fL (7.4-10.4); Nucleated Red Blood Cells % 0 % (-); Platelet Count 191 10^3/uL (130-400); Red Blood Cell Count 3.47 10^6/uL (4.70-6.10); Red Cell Dist. Width 13.5 % (11.5-14.5); White Blood Cell Count 6.9 10^3/uL (4.8-10.8)
[2025-01-07 06:12] LABS: ALT (SGPT) 61 U/L (0-50); AST (SGOT) 48 U/L (17-59); Albumin 3.5 g/dl (3.5-5.0); Alkaline Phosphatase 132 U/L (38-126); Blood Urea Nitrogen 17 mg/dl (9-20); Calcium 9.3 mg/dl (8.4-10.2); Carbon Dioxide 27 mmol/L (22-30); Chloride 101 mmol/L (98-107); Estimated Creatinine Clearance 96 ml/min; Glucose 98 mg/dl (70-99); Potassium 4.6 mmol/L (3.5-5.1); Sodium 136 mmol/L (135-145); Total Bilirubin 1.1 mg/dl (0.2-1.3); Total Protein 6.6 g/dl (6.3-8.2); eGFR > 60.00
[2025-01-07] MEDS: CRESTOR 5 MG PO (07:39)
[2025-01-07] MEDS: VITAMIN D3 (cholecalciferol) 50 MCG PO (07:39)
[2025-01-07] MEDS: KCL 10 MEQ PO (07:40)
[2025-01-07] MEDS: PROSCAR 5 MG PO (07:41)
[2025-01-07] MEDS: ASPIR LOW (ENTERIC COATED) 81 MG PO (07:42)
[2025-01-07] MEDS: COREG 6.25 MG PO (07:42)
[2025-01-07] MEDS: PROTONIX 40 MG PO (07:42)
[2025-01-07] MEDS: THERAGRAN 1 TABLET PO (07:42)
[2025-01-07] MEDS: MAG-TAB SR 84 MG PO ×2 (07:42→20:33)
[2025-01-07] MEDS: HEPARIN 5000 UNITS SC ×2 (07:43→20:33)
[2025-01-07] MEDS: MIRALAX PO (07:50)
--- NOTE | 2025-01-07 08:54 | PTCARENOTE ---
Patient received from [employer] food shift lead. Patient resting comfortably in bed. AAO, VSS. No events noted overnight. Complaints of pain in mid to lower back, see MAR. Currently on Room Air. Awaiting vascular consult. No tests scheduled at this time.
Call massey in reach.
--- NOTE | 2025-01-07 13:15 | CON.VAS ---
Addendum entered and electronically signed by Marco Knight III, MD 01/07/25 19:25:
This patient was seen and examined in collaboration with BILL Harris. I agree with the history and physical exam as well as the assessment and plan. I have the following additions:
Well-known to me
Recent EVAR
Uncomplicated postop course
Postop scan unremarkable the exception of small type II endoleak
Presented to outside emergency room with low back pain
CT there demonstrated inflammatory changes around the proximal infrarenal aortic neck
No recent infections or infectious symptoms
White count normal
No instrumentation or surgical procedures
He denies abdominal pain
Denies epigastric pain
No history of gastric ulcer disease. He does have a history of Spears's and has had upper endoscopies in the past
No vomiting
No GI bleeding
On physical exam he is well-appearing
No acute distress
Nontoxic
Nonlabored breathing
Abdomen is soft and nontender
CT scan personally reviewed. Agree there is hazy inflammatory stranding around the proximal infrarenal aortic neck. No abscess or fluid collection identified. No obvious infection source in the abdomen. Duodenum anterior to the inflammatory
process.
Labs remarkable for elevated inflammatory markers
Continue workup for inflammatory causes
Consider rheum consult
Given proximity of duodenum to the inflammation consider GI consult for upper endoscopy to evaluate third portion of the duodenum for inflammation however in the absence of abdominal pain I suspect this would be unlikely
Continue infectious workup
Will follow along
Call with questions or concerns
Signed:
Marco Knight III, MD
[facility]
[phone] ([phone])
Original Note:
Consultation
Consultation Request
Date/Time Consultation Performed: 01/07/25 1300
Requesting Provider: Hospitalist
Performing Provider: Eunice Kimble, CLERICAL WAREHOUSE WORKER-C for Marco Knight III, MD
Reason for Consultation: CT scan with evidence concerning for aortitis status post EVAR
Medical History
-
Chief Complaint: Lower back pain
History of Present Illness:
This is a 71-year-old male with significant past medical history for hypertension, dyslipidemia, low HDL, hypertriglycerides, pericarditis, Spears's esophagus, GERD, sleep apnea, and benign prostatic hypertrophy, AAA, and PVCs who was an ED to ED
transfer following CT evidence of aortitis at [facility]. Patient states that roughly a couple days to go to a week ago he started experiencing back pain in his lower back right upper buttocks described as aching, and when he began to
experience constipation along with back pain he was concerned for bowel blockage as he is experienced this in the past. He called his PCP who recommended ED evaluation and he presented to [facility], at [facility] CT scan
demonstrated endoleak with possible aortitis prompting transfer to [facility]. Patient denies accompanying nausea, vomiting, fever, chills, malaise, diarrhea, cough, and abdominal pain. However, he does note this a.m. he experienced
burning with urination, but following initial urination in the morning he has not experienced burning since. Denies increase in frequency of urination. Patient is known to our vascular surgical group as he underwent an EVAR on 11/15/2024.
Past Medical History
Past Medical History: GERD, HTN and Other (Dyslipidemia, low HDL, hypertriglycerides, pericarditis, Spears's esophagus, sleep apnea, benign prostate hypertrophy, AAA status post EVAR, PVCs)
Past Surgical History: Other (Colonoscopy, endoscopy, cholecystectomy, umbilical hernia repair)
Social History
Tobacco: Non-Smoker
Alcohol: None
Drug: None
Allergies / Home Medications
Allergy/AdvReac Type Severity Reaction Status Date / Time
No Known Allergies Allergy Verified 12/20/24 05:24
�Medication �Instructions �Recorded �Confirmed �Type
carvedilol 6.25 mg tablet 6.25 mg PO BID Blood Pressure 11/07/24 01/06/25 History
cholecalciferol (vitamin D3) 50 50 mcg PO DAILY Supplement 11/07/24 01/06/25 History
mcg (2,000 unit) tablet (Vitamin
D3)
finasteride 5 mg tablet 5 mg PO DAILY Urinary Issue 11/07/24 01/06/25 History
magnesium oxide 400 mg PO BID Electrolyte Repletion 11/07/24 01/06/25 History
multivitamin 1 tab PO DAILY Supplement 11/07/24 01/06/25 History
omeprazole 20 mg tablet,delayed 20 mg PO DAILY Gastrointestinal 11/07/24 01/06/25 History
release Issue
potassium chloride 10 mEq 10 meq PO DAILY Electrolyte 11/07/24 01/06/25 History
tablet,extended release Repletion
rosuvastatin 5 mg tablet 5 mg PO .EVERY OTHER DAY High 11/07/24 01/06/25 History
Cholesterol
tamsulosin 0.4 mg capsule 0.4 mg PO DAILY Urinary Issue 11/07/24 01/06/25 History
aspirin 81 mg tablet,delayed 81 mg PO DAILY #90 tabs 11/15/24 01/06/25 Rx
release
Review of Systems
-
History Source: Patient
Constitutional: Reports No Symptoms
EENT: Reports No Symptoms
Respiratory: Reports No Symptoms
Cardiac: Reports No Symptoms
Abdomen/GI: Reports No Symptoms
: Reports Dysuria (Occurred once this morning)
Musculoskeletal: Reports Other (Reports lower back pain described as an ache)
Skin: Reports No Symptoms
Neurological: Reports No Symptoms
Endocrine: Reports No Symptoms
Physical Exam
Vital Signs
Temp Pulse Resp BP Pulse Ox
97.9 F 56 17 112/70 92
01/07/25 11:51 01/07/25 07:42 01/07/25 06:00 01/07/25 07:42 01/07/25 09:28
Lab Results
01/07/25 05:29
01/07/25 05:29
Physical Exam
General: No Apparent Distress
HEENT: Normocephalic, Anicteric and Atraumatic
Respiratory: Non Labored Respirations
Cardiac: Negative JVD
GI: Soft, Non Tender and Non Distended
Musculoskeletal: No Edema
Skin: Warm
Neuro: AO x 3
Psych: Calm
Pulses: Bilateral Dorsalis Pedis: +2 and Bilateral Posterior Tibial: +1
Assessment / Plan
-
Assessment: 79-year-old male status post EVAR on 11/15/2024, reporting roughly 1 week of lower back pain with CT scan concerning for aortitis
Plan:
Initiate broad-spectrum antibiotics
Obtain inflammatory markers
Continue observation
I performed this shared service with the attending. I evaluated the patient [id number] and have entered clinical documentation as shown in the encounter note. I performed the following component(s):�history and physical exam. Note that medical
decision making is not final until attested by vascular attending.
--- NOTE | 2025-01-07 13:24 | PHA.VAN.IN ---
Assessment
- Assessment
Renal Function: Appears similar to baseline
Concomitant Antimicrobials: piperacillin/tazobactam
AUC Dosing Plan
- Dosing Variables
Dosing Weight (kg): 92
Dosing CrCl (ml/min): 96
Vd coefficient (L/kg): 0.7
- Empiric Dosing
Initial / Loading Dose: 2000mg - administration pending
Maintenance Regimen: Vanc 1250mg Q12H
Estimated AUC (mcg*h/mL): 491
Estimated Peak (mcg*h/mL): 30.5
Estimated Trough (mcg/ml): 12.6
Estimated Half Life (H): 8.2
- Monitoring
No levels ordered at this time: consider levels in next few days
Pharmacokinetics Vancomycin I
- -
Patient Age: 79
Patient Sex: Male
Vancomycin Day #: 1
Indication: Skin And Soft Tissue
Requesting Provider: Scooter Kimble
Pertinent Antimicrobial Allergies:
NKDA
Height / Weight:
Height 5 ft 8 in
Actual Weight 91.6 kg
Pertinent Past Medical History: BMI ~31
- Vital Signs / Lab Results
Temp Pulse Resp BP Pulse Ox
97.9 F 56 17 112/70 92
01/07/25 11:51 01/07/25 07:42 01/07/25 06:00 01/07/25 07:42 01/07/25 09:28
Lab Results - Hematology
01/06/25 01/07/25
21:23 05:29
WBC 8.1 6.9
Lab Results - Chemistry
01/06/25 01/07/25
21:23 05:29
BUN 14 17
Creatinine 0.7 0.7
Estimated Creat Clear 96 96
Albumin 3.5
[2025-01-07 14:40] LABS: Erythrocyte Sed Rate 93 mm/hour (0-20)
[2025-01-07] MEDS: ZOSYN 50 IV ×2 (14:41→20:34)
[2025-01-07] MEDS: VANCOCIN 540 MG IV (14:42)
[2025-01-07 15:05] LABS: Urine Albumin 1+ (Neg - Trace); Urine Bilirubin Negative (Negative); Urine Character Clear (Clear); Urine Color Yellow; Urine Glucose Negative (Negative); Urine Ketone 1+ (Negative); Urine Leukocyte Negative (Negative); Urine Nitrite Negative (Negative); Urine Occult Blood Negative (Negative); Urine Urobilinogen Negative (Neg - 1+)
[2025-01-07 15:15] LABS: Urine Mucus Many
[2025-01-07 15:18] LABS: Urine Granular Cast 0-2 /LPF (0); Urine Red Blood Cell 0-2 /HPF (0-2); Urine Squamous Cell 0-2 /LPF (Few)
--- NOTE | 2025-01-07 15:20 | W.PN.HOSP.TC ---
Today's Communication/Plan
-
blood cultures
bd spectrum abx
vascular recs
Assessment / Plan
Assessment / Plan
PLAN:
# Possible endoleak versus aortitis
# Infrarenal abdominal aortic aneurysm status post percutaneous endovascular repair on 11/15
-CT scan abdomen pelvis shows circumferential stranding adjacent to the proximal aspect of the aortic graft proximal to the aneurysm sac
-Blood cultures
-Abx
-inflammatory markers
-Continue aspirin, statin
# Constipation
-Continue MiraLAX, Dulcolax
History of PVCs
History of pericarditis
Essential hypertension
-Continue Coreg
Hyperlipidemia
-continue statin
Spears's esophagus/GERD
-Continue omeprazole
Obstructive sleep apnea
-Continue CPAP
BPH
-Continue tamsulosin, finasteride
Full code
DVT prophylaxis-heparin
Regular diet
Anticipated Discharge: > 48 hours
Subjective/Interval History
-
Date of Service: January 07, 2025
No acute events overnight
Objective Data
-
Labs:
Laboratory Results
01/07/25
05:29
WBC 6.9
Hgb 10.2 L
Hct 30.3 L
Plt Count 191
Sodium 136
Potassium 4.6
Chloride 101
Carbon Dioxide 27
BUN 17
Creatinine 0.7
Glucose 98
Calcium 9.3
Total Bilirubin 1.1
AST 48
ALT 61 H
Alkaline Phosphatase 132 H
Vital Signs:
Vital Signs
Temp Pulse Resp BP Pulse Ox
98.1 F 56 17 112/70 92
01/07/25 15:01 01/07/25 07:42 01/07/25 06:00 01/07/25 07:42 01/07/25 09:28
I&O
01/06/25 01/07/25 01/08/25
06:59 06:59 06:59
Intake Total 480 / 480
Output Total 150 / 150
Balance 330 / 330
Review of Systems
-
History Source: Patient
All other systems: Not reviewed unless documented
Data Reviewed
-
Diagnostic Radiology: Report Reviewed by me
CT Scan: Report Reviewed by me
Labs: Labs Reviewed by me
[2025-01-07] MEDS: FLOMAX 0.4 MG PO (20:33)
[2025-01-07] MEDS: COREG PO (21:43)
--- NOTE | 2025-01-07 22:33 | PTCARENOTE ---
assumed care of pt from olivia MAYORGA. Pt aaox3. NSR on monitor. 97% on RA. Pt c/o 5/10 pain in his back, PRN medication given per Rx (see DEC). Hygiene completed. Pt resting in bed with call massey in reach.
[2025-01-08] VITALS (13 sets, daily range): BP systolic 101–132; BP diastolic 58–75; PULSE 62–77
[2025-01-08] MEDS: ZOSYN 50 IV ×4 (02:49→19:50)
[2025-01-08] MEDS: PERCOCET 5/325 1 TABLET PO ×5 (02:57→23:14)
[2025-01-08] MEDS: VANCOCIN 275 MG IV ×2 (05:32→18:13)
[2025-01-08] MEDS: KCL 10 MEQ PO (07:53)
[2025-01-08] MEDS: MAG-TAB SR 84 MG PO ×2 (07:53→19:48)
[2025-01-08] MEDS: THERAGRAN 1 TABLET PO (07:53)
[2025-01-08] MEDS: PROTONIX 40 MG PO (07:53)
[2025-01-08] MEDS: COREG PO ×2 (07:54→20:27)
[2025-01-08] MEDS: VITAMIN D3 (cholecalciferol) 50 MCG PO (07:55)
[2025-01-08] MEDS: ASPIR LOW (ENTERIC COATED) 81 MG PO (07:55)
[2025-01-08] MEDS: MIRALAX 17 GRAMS PO (07:55)
[2025-01-08] MEDS: PROSCAR 5 MG PO (07:55)
--- NOTE | 2025-01-08 07:57 | W.PN.VS ---
Addendum entered and electronically signed by Henrique Golden MD 01/08/25 13:46:
Seen and examined with BRITNEY Kimble. Agree with findings and plan as noted below. Discussed extensively with the patient CT findings, management plan, and answered all his questions to his satisfaction.
Original Note:
Today's Communication / Plan
-
Seen and assessed with Dr. Golden
Assessment/Plan
-
Suspected aortitis
Plan:
-Rheumatology consult
-CTA repeat tomorrow
-Continue broad-spectrum antibiotics for now
Subjective Data
-
Date of Service: January 08, 2025
Patient seen at bedside this a.m. with Dr. Golden. Patient offers no complaints at this time. No events overnight.
Objective Data
-
Vital Signs
Temp Pulse Resp BP Pulse Ox
98.6 F 50 13 109/58 95
01/08/25 07:22 01/08/25 06:00 01/08/25 06:00 01/08/25 06:00 01/08/25 06:00
Intake and Output
01/07/25 01/08/25 01/09/25
06:59 06:59 06:59
Intake Total 480 / 480 1200 / 1200
Output Total 150 / 150 600 / 600
Balance 330 / 330 600 / 600
Intake:
Oral fluids 480 / 480 600 / 600
IV piggybacks 600 / 600
Output:
Urine, Voided 150 / 150 600 / 600
Other:
Number of approximated MODERATE 1
amounts of urine
Lab Results
01/07/25 05:29
01/07/25 05:29
Calcium 9.3 mg/dl (8.4-10.2) 01/07/25 05:29
Total Bilirubin 1.1 mg/dl (0.2-1.3) 01/07/25 05:29
AST 48 U/L (17-59) 01/07/25 05:29
ALT 61 U/L (0-50) H 01/07/25 05:29
Alkaline Phosphatase 132 U/L (38-126) H 01/07/25 05:29
Total Protein 6.6 g/dl (6.3-8.2) 01/07/25 05:
Albumin 3.5 g/dl (3.5-5.0) 01/07/25 05:29
Physical Exam
-
AAOx3
No tachypnea on room air
No tachycardia
Abdomen soft, nontender, nondistended
Denies pain at this time
[2025-01-08] MEDS: HEPARIN 5000 UNITS SC ×2 (08:00→19:48)
--- NOTE | 2025-01-08 09:11 | PHA.VAN.FU ---
Vancomycin Assessment / Plan
- Assessment
Renal Function: No New Labs Today
In the past 24 hrs, patient has been: Afebrile
Concomitant Antimicrobials: piperacillin/tazobactam
- Dosing Plan
Continue: Vanc 1250mg Q12H
- Monitoring Plan
No level(s) ordered at this time: consider levels in next few days
- Follow Up
Pharmacy will continue to follow.
Vancomycin Follow UP
- -
Patient Age: 79
Patient Sex: Male
Vancomycin Day #: 2
Indication: Skin And Soft Tissue
Requesting Provider: Scooter Kimble
Pertinent Antimicrobial Allergies:
NKDA
Height / Weight:
Height 5 ft 8 in
Actual Weight 91.6 kg
Pertinent Past Medical History: BMI ~31
- Vital Signs / Lab Results
Temp Pulse Resp BP Pulse Ox
98.6 F 56 13 109/58 95
01/08/25 07:22 01/08/25 07:54 01/08/25 06:00 01/08/25 06:00 01/08/25 06:00
Lab Results - Hematology
01/06/25 01/07/25
21:23 05:29
WBC 8.1 6.9
Lab Results - Chemistry
01/06/25 01/07/25
21:23 05:29
BUN 14 17
Creatinine 0.7 0.7
Estimated Creat Clear 96 96
Albumin 3.5
Lab Results - Urine
01/07/25
14:51
Urine Nitrite (Reflex) Negative
Leukocyte Esterase Rfl Negative
Ur Squamous Epith Cells 0-2
Microbiology Results
01/07/25 17:43 Nasal Screen MRSA (PCR) - Final
Nose MRSA not detected - performed by PCR methodology.
01/06/25 22:03 Blood Culture - Preliminary
Blood/Venous No Growth in 24 hours- Final report to follow
01/06/25 21:23 Blood Culture - Preliminary
Blood/Venous No Growth in 24 hours- Final report to follow
--- NOTE | 2025-01-08 14:38 | W.PN.HOSP.TC ---
Addendum entered and electronically signed by Jose Pierce MD 01/08/25 18:10:
Engaging with [facility] for transfer
Original Note:
Today's Communication/Plan
-
cta tomorrow
Assessment / Plan
Assessment / Plan
PLAN:
# Possible endoleak versus aortitis
# Infrarenal abdominal aortic aneurysm status post percutaneous endovascular repair on 11/15
-CT scan abdomen pelvis shows circumferential stranding adjacent to the proximal aspect of the aortic graft proximal to the aneurysm sac
-Blood cultures
-Abx
-inflammatory markers
-Continue aspirin, statin
-CTA repeat tomorrow
-If needs rheumatology, will transfer out
# Constipation
-Continue MiraLAX, Dulcolax
History of PVCs
History of pericarditis
Essential hypertension
-Continue Coreg
Hyperlipidemia
-continue statin
Spears's esophagus/GERD
-Continue omeprazole
Obstructive sleep apnea
-Continue CPAP
BPH
-Continue tamsulosin, finasteride
Full code
DVT prophylaxis-heparin
Regular diet
Anticipated Discharge: Within 24 hours
Subjective/Interval History
-
Date of Service: January 08, 2025
No acute events
Objective Data
-
Vital Signs:
Vital Signs
Temp Pulse Resp BP Pulse Ox
97.9 F 56 13 109/58 97
01/08/25 11:14 01/08/25 07:54 01/08/25 06:00 01/08/25 06:00 01/08/25 14:12
I&O
01/07/25 01/08/25 01/09/25
06:59 06:59 06:59
Intake Total 480 / 480 1200 / 1200
Output Total 150 / 150 600 / 600
Balance 330 / 330 600 / 600
Review of Systems
-
History Source: Patient
All other systems: Not reviewed unless documented
Data Reviewed
-
Diagnostic Radiology: Report Reviewed by me
CT Scan: Report Reviewed by me
Labs: Labs Reviewed by me
--- NOTE | 2025-01-08 15:31 | CM ---
internal audit senior manager reviewed patient's chart and met with patient and patient reports that he was admitted from home where he lives with his spouse. Patient resides in a split level home 4-5 steps in and then 5-6 steps to bedroom and bathroom, patient
drives.
PCP: Dr. Dutch Irwin
Pharmacy: [facility] in [place]
Plan; Home when stable, no needs.
--- NOTE | 2025-01-08 16:09 | W.PN.UPDATE ---
Update Note
Progress Note Update
Note rheumatology consult called, however we spoke to the on-duty compensation business partner. They no longer are an inpatient service. However when Case briefly discussed with them, she recommended that this patient be evaluated by an inpatient rheumatology
team. (Based on concern for vasculitis/aortitis). In addition she recommended holding off on any prophylactic treatment with steroids until further workup is entailed. She noted that based on the fact that inpatient service does not exist at
[place], recommended transfer to one of the [facility] tertiary care facilities, [facility] (they have a vasculitis center). Discussed with patient and his all of this. Discussed based on some diagnostic uncertainty
and concern for aortitis (no obvious or definitive diagnosis of aortic infection), I think I would defer to rheumatology group regarding the definitive management here. They understand. They are amenable to this. I spoke to the hospitalist as
well.
--- NOTE | 2025-01-08 18:39 | W.DS.TRANS ---
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
-
Discharge Instructions:
Instructions:
Stand-Alone Forms:
Changes to Home Medications: No
Discharge Medications:
DC Medications w/original date entered in [employer]
carvedilol 6.25 mg tablet 6.25 mg PO BID Blood Pressure 11/07/24
cholecalciferol (vitamin D3) 50 mcg (2,000 unit) tablet (Vitamin D3) 50 mcg PO DAILY Supplement 11/07/24
finasteride 5 mg tablet 5 mg PO DAILY Urinary Issue 11/07/24
magnesium oxide 400 mg PO BID Electrolyte Repletion 11/07/24
multivitamin 1 tab PO DAILY Supplement 11/07/24
omeprazole 20 mg tablet,delayed release 20 mg PO DAILY Gastrointestinal Issue 11/07/24
potassium chloride 10 mEq tablet,extended release 10 meq PO DAILY Electrolyte Repletion 11/07/24
rosuvastatin 5 mg tablet 5 mg PO .EVERY OTHER DAY High Cholesterol 11/07/24
tamsulosin 0.4 mg capsule 0.4 mg PO DAILY Urinary Issue 11/07/24
aspirin 81 mg tablet,delayed release 81 mg PO DAILY #90 tabs 11/15/24
Home Medication Changes
na
Pending Results: Yes
--- NOTE | 2025-01-08 18:39 | PTCARENOTE ---
see nursing flowsheet. pt medicated x 2 with percocet for lower back pain level 5 to 6 with adequate pain relief. sinus ladan with pvcs noted, occasional bigeminy.possible transfer to another facility d/t need for rhematology consult. report given
to [facility].
[2025-01-08] MEDS: FLOMAX 0.4 MG PO (19:48)
--- NOTE | 2025-01-08 22:30 | PTCARENOTE ---
Assumed care of pt from olivia MAYORGA. Pt aaox3. NSR on monitor w/ PVCs. 95% on RA. Pt c/o 04/08 aching pain in his lower back, PRN medication given per Rx (see DEC). Hygiene completed. Pt resting in bed with call massey in reach.
[2025-01-09] VITALS (17 sets, daily range): BP systolic 88–126; BP diastolic 50–79; PULSE 56–65; BMI 30.7
--- NOTE | 2025-01-09 01:17 | PTCARENOTE ---
This RN provided information on pt to Lora from [facility]. Pt is still awaiting bed and per worker, hospital is currently at capacity.
[2025-01-09] MEDS: ZOSYN 50 IV ×4 (02:57→20:14)
[2025-01-09 03:27] LABS: Hematocrit 29.7 % (39.0-52.0); Hemoglobin 10.2 g/dL (13.0-18.0); Mean Corp Hgb Conc. 34.3 g/dL (33.0-37.0); Mean Corpuscular Hgb 29.7 pg (27.0-31.0); Mean Corpuscular Volume 86.3 fL (80.0-94.0); Mean Platelet Volume 8.7 fL (7.4-10.4); Platelet Count 174 10^3/uL (130-400); Red Blood Cell Count 3.44 10^6/uL (4.70-6.10); Red Cell Dist. Width 13.4 % (11.5-14.5); White Blood Cell Count 7.7 10^3/uL (4.8-10.8)
[2025-01-09 03:46] LABS: ALT (SGPT) 52 U/L (0-50); AST (SGOT) 39 U/L (17-59); Albumin 3.2 g/dl (3.5-5.0); Alkaline Phosphatase 154 U/L (38-126); Blood Urea Nitrogen 15 mg/dl (9-20); Calcium 9.2 mg/dl (8.4-10.2); Carbon Dioxide 25 mmol/L (22-30); Chloride 101 mmol/L (98-107); Estimated Creatinine Clearance 61 ml/min; Glucose 109 mg/dl (70-99); Potassium 4.2 mmol/L (3.5-5.1); Sodium 135 mmol/L (135-145); Total Protein 6.3 g/dl (6.3-8.2); eGFR > 60.00
--- NOTE | 2025-01-09 04:01 | PTCARENOTE ---
This RN provided an update on pt to [facility] [place]. Waiting on a bed for the pt at this time
[2025-01-09] MEDS: PERCOCET 5/325 1 TABLET PO ×4 (05:40→23:55)
[2025-01-09] MEDS: VANCOCIN 275 MG IV (05:41)
[2025-01-09] MEDS: COREG 6.25 MG PO (07:30)
[2025-01-09] MEDS: CRESTOR 5 MG PO (07:30)
[2025-01-09] MEDS: MIRALAX 17 GRAMS PO (07:30)
[2025-01-09] MEDS: KCL 10 MEQ PO (07:30)
[2025-01-09] MEDS: ASPIR LOW (ENTERIC COATED) 81 MG PO (07:30)
[2025-01-09] MEDS: HEPARIN 5000 UNITS SC ×2 (07:30→20:14)
[2025-01-09] MEDS: PROTONIX 40 MG PO (07:30)
[2025-01-09] MEDS: VITAMIN D3 (cholecalciferol) 50 MCG PO (07:30)
[2025-01-09] MEDS: MAG-TAB SR 84 MG PO ×2 (07:30→20:13)
[2025-01-09] MEDS: PROSCAR 5 MG PO (07:30)
[2025-01-09] MEDS: THERAGRAN 1 TABLET PO (07:30)
--- NOTE | 2025-01-09 08:08 | W.PN.UPDATE ---
Addendum entered and electronically signed by Henrique Golden MD 01/09/25 14:54:
Seen and examined with BRITNEY Valenzuela. Seen earlier this a.m. this is a late entry. Agree with findings below except with the 1 modification that the patient did not complain about 8 out of 10 testicular pain (that was an error). He actually complains
that his pain for the last few days is improved. He still has to take the pain medicines but the pain medicine now gets him back to 100% of pain relief whereas prior was only getting to about 80% at most. His exam is still benign with no
tenderness on abdominal exam. Repeat CT scan today as discussed below. And potential transfer for inpatient rheumatology evaluation pending as well.
Original Note:
Update Note
Progress Note Update
Patient seen this a.m. with Dr. Golden at bedside. Patient had complained of 8 out of 10 testicular pain overnight which has now resolved. Patient states he has been taking pain medicine for back pain for the past few days and believes his pain has
been reducing and requiring less pain medication.
Patient is set for transfer to [facility] when bed available.
While here we will recheck CT scan today.
--- NOTE | 2025-01-09 09:36 | PHA.VAN.FU ---
Vancomycin Assessment / Plan
- Assessment
Renal Function: SCR Increasing
WBC's are: WNL
In the past 24 hrs, patient has been: Afebrile
Concomitant Antimicrobials: piperacillin/tazobactam
- Dosing Plan
Adjust Regimen to: dosing by level due to SCR increase > 0.3
BUN stable, UOP okay - will switch to dose by level and assess random around when next dose would be due
Possible transfer noted
- Monitoring Plan
Random Level: 01/09 1600
- Follow Up
Pharmacy will continue to follow.
Vancomycin Follow UP
- -
Patient Age: 79
Patient Sex: Male
Vancomycin Day #: 3
Indication: Skin And Soft Tissue
Requesting Provider: Scooter Kimble
Pertinent Antimicrobial Allergies:
NKDA
Height / Weight:
Height 5 ft 8 in
Actual Weight 91.6 kg
Pertinent Past Medical History: BMI ~31
- Vital Signs / Lab Results
Temp Pulse Resp BP Pulse Ox
98.0 F 57 14 112/79 97
01/09/25 07:17 01/09/25 04:00 01/09/25 04:00 01/09/25 04:00 01/09/25 04:00
Lab Results - Hematology
01/06/25 01/07/25 01/09/25
21:23 05:29 03:06
WBC 8.1 6.9 7.7
Lab Results - Chemistry
01/06/25 01/07/25 01/09/25
21:23 05:29 03:06
BUN 14 17 15
Creatinine 0.7 0.7 1.1
Estimated Creat Clear 96 96 61
Albumin 3.5 3.2 L
Microbiology Results
01/06/25 22:03 Blood Culture - Preliminary
Blood/Venous No Growth in 48 hours- Final report to follow
01/06/25 21:23 Blood Culture - Preliminary
Blood/Venous No Growth in 48 hours- Final report to follow
01/07/25 17:43 Nasal Screen MRSA (PCR) - Final
Nose MRSA not detected - performed by PCR methodology.
--- NOTE | 2025-01-09 11:47 | W.PN.HOSP.TC ---
Today's Communication/Plan
-
CT Chest/Abd/Pelv Angio today
Transfer
Assessment / Plan
Assessment / Plan
PLAN:
# Possible endoleak versus aortitis
# Infrarenal abdominal aortic aneurysm status post percutaneous endovascular repair on 11/15
-CT scan abdomen pelvis shows circumferential stranding adjacent to the proximal aspect of the aortic graft proximal to the aneurysm sac
-Blood cultures negative
-concern for possible vasculitis
-cont empiric Abx for now
-inflammatory markers elevated
-Continue aspirin, statin
-CTA chest/a/p today at request of OSH
-Tx pending for higher level of care/rheumatology eval: At this time - They have requested not to start steroids as may blunt inflammatory markers;
# Constipation
-Continue MiraLAX, Dulcolax
History of PVCs
History of pericarditis
Essential hypertension
-Continue Coreg
Hyperlipidemia
-continue statin
Spears's esophagus/GERD
-Continue omeprazole
Obstructive sleep apnea
-Continue CPAP
BPH
-Continue tamsulosin, finasteride
Full code
DVT prophylaxis-heparin
Regular diet
More than 30 minutes spent in discharge including
Final examination of the patient
Summarizing hospital stay
Instructions for continuing care to all relevant caregivers
Preparation of discharge records, prescriptions, and referral forms
Total time spent (35 in minutes):
Anticipated Discharge: Today
Subjective/Interval History
-
Date of Service: January 09, 2025
No acute events, still having persistent 5/6 back pain. Had 8 out of 10 testicular pain which has resolved.
Objective Data
-
Labs:
Laboratory Results
01/09/25
03:06
WBC 7.7
Hgb 10.2 L
Hct 29.7 L
Plt Count 174
Sodium 135
Potassium 4.2
Chloride 101
Carbon Dioxide 25
BUN 15
Creatinine 1.1
Glucose 109 H
Calcium 9.2
Total Bilirubin 1.0
AST 39
ALT 52 H
Alkaline Phosphatase 154 H
Vital Signs:
Vital Signs
Temp Pulse Resp BP Pulse Ox
98.1 F 63 16 126/78 98
01/09/25 10:00 01/09/25 10:00 01/09/25 10:00 01/09/25 10:00 01/09/25 10:00
I&O
01/08/25 01/09/25 01/10/25
06:59 06:59 06:59
Intake Total 1200 / 1200 1095 / 1095
Output Total 600 / 600 450 / 450
Balance 600 / 600 645 / 645
Review of Systems
-
History Source: Patient
All other systems: Not reviewed unless documented
Data Reviewed
-
Diagnostic Radiology: Report Reviewed by me
CT Scan: Report Reviewed by me
Labs: Labs Reviewed by me
--- NOTE | 2025-01-09 11:55 | W.DS.TRANS ---
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
-
Discharge Instructions:
Instructions:
Stand-Alone Forms:
Changes to Home Medications: Yes
Discharge Medications:
DC Medications w/original date entered in [employer]
carvedilol 6.25 mg tablet 6.25 mg PO BID Blood Pressure 11/07/24
cholecalciferol (vitamin D3) 50 mcg (2,000 unit) tablet (Vitamin D3) 50 mcg PO DAILY Supplement 11/07/24
finasteride 5 mg tablet 5 mg PO DAILY Urinary Issue 11/07/24
magnesium oxide 400 mg PO BID Electrolyte Repletion 11/07/24
multivitamin 1 tab PO DAILY Supplement 11/07/24
omeprazole 20 mg tablet,delayed release 20 mg PO DAILY Gastrointestinal Issue 11/07/24
potassium chloride 10 mEq tablet,extended release 10 meq PO DAILY Electrolyte Repletion 11/07/24
rosuvastatin 5 mg tablet 5 mg PO .EVERY OTHER DAY High Cholesterol 11/07/24
tamsulosin 0.4 mg capsule 0.4 mg PO DAILY Urinary Issue 11/07/24
aspirin 81 mg tablet,delayed release 81 mg PO DAILY #90 tabs 11/15/24
Home Medication Changes
Vancomycin, Zosyn added
Pending Results: No
--- NOTE | 2025-01-09 15:08 | PTCARENOTE ---
Patient AAOx3. C/o lower back pain relieved by PRN percocet. NSR to NSB on monitor with PVCs and brief period of ventricular bigeminy. BPs soft at times. Still without BM, doculax ordered. Patient making needs known. Awaiting CT scan and transfer to
another hospital when bed available. Will continue to closely monitor.
[2025-01-09 18:07] LABS: Vancomycin Random 19.9 ug/ml
[2025-01-09] MEDS: COREG PO (20:13)
[2025-01-09] MEDS: FLOMAX 0.4 MG PO (20:13)
--- NOTE | 2025-01-09 23:06 | PTCARENOTE ---
Assumed care of pt from olivia RN. Pt aaox3. NSR on monitor. 98% on RA. Pt ambulated to bathroom and had a small BM. Hygiene completed. Pt resting in bed with call massey in reach.
[2025-01-10] VITALS: BP 96/82
[2025-01-10] MEDS: ZOSYN 50 IV ×2 (01:22→07:58)
[2025-01-10 02:00] VITALS: BP 121/65
[2025-01-10 04:00] VITALS: BP 118/79
[2025-01-10] MEDS: PERCOCET 5/325 1 TABLET PO ×4 (04:09→16:33)
[2025-01-10 06:13] LABS: Vancomycin Random 15.3 ug/ml
[2025-01-10 07:57] VITALS: BP 123/80
[2025-01-10] MEDS: COREG PO (07:57)
[2025-01-10] MEDS: ASPIR LOW (ENTERIC COATED) 81 MG PO (07:58)
[2025-01-10] MEDS: HEPARIN 5000 UNITS SC (07:58)
[2025-01-10] MEDS: MIRALAX 17 GRAMS PO (07:58)
[2025-01-10] MEDS: PROSCAR 5 MG PO (07:58)
[2025-01-10] MEDS: KCL 10 MEQ PO (07:58)
[2025-01-10] MEDS: PROTONIX 40 MG PO (07:58)
[2025-01-10] MEDS: MAG-TAB SR 84 MG PO (07:58)
[2025-01-10] MEDS: VITAMIN D3 (cholecalciferol) 50 MCG PO (07:58)
[2025-01-10] MEDS: THERAGRAN 1 TABLET PO (07:58)
--- NOTE | 2025-01-10 08:16 | PTCARENOTE ---
Patient received from night order selector. Patient resting comfortably in bed. AAO, VSS. No events noted overnight. Continues with complaints of pain in mid to lower back, see MAR. Currently on Room Air. Awaiting transfer to [facility] consult. No furthers
tests scheduled at this time. Call massey in reach.
--- NOTE | 2025-01-10 09:27 | W.PN.HOSP.TC ---
Today's Communication/Plan
-
Vascular following
AM labs pending
empiric Abx
pending transfer to [facility]
Assessment / Plan
Assessment / Plan
PLAN:
# Possible endoleak versus aortitis
# Infrarenal abdominal aortic aneurysm status post percutaneous endovascular repair on 11/15
-CT scan abdomen pelvis shows circumferential stranding adjacent to the proximal aspect of the aortic graft proximal to the aneurysm sac
-CTA: Moderate circumferential wall thickening of the infrarenal abdominal aorta at the proximal end of an infrarenal abdominal aortic endograft suggesting inflammation or infection (ACUTE AORTITIS) which appears new from 12/10/2024. TYPE II
ENDOLEAKS in the [place] aneurysm sac which appear to be arising from both the inferior mesenteric artery and a right-sided lumbar artery. [place] aneurysm sac measuring 5.1 cm diameter without definitive interval change.
-Blood cultures negative
-concern for possible vasculitis
-cont empiric Abx for now
-inflammatory markers elevated
-Continue aspirin, statin
-Tx pending for higher level of care/rheumatology eval: At this time - They have requested not to start steroids as may blunt inflammatory markers
-accepting physician at [facility] is Dr. Valdes - internal medicine.
# Constipation
-Continue MiraLAX, Dulcolax
History of PVCs
History of pericarditis
Essential hypertension
-Continue Coreg
Hyperlipidemia
-continue statin
Spears's esophagus/GERD
-Continue omeprazole
Obstructive sleep apnea
-Continue CPAP
BPH
-Continue tamsulosin, finasteride
Full code
DVT prophylaxis-heparin
Regular diet
More than 30 minutes spent in discharge including
Final examination of the patient
Summarizing hospital stay
Instructions for continuing care to all relevant caregivers
Preparation of discharge records, prescriptions, and referral forms
Total time spent (in minutes): 35
Anticipated Discharge: Within 24 hours
Subjective/Interval History
-
Date of Service: January 10, 2025
Offers no complaints other than constipation
pending transfer to [facility] for rheum/vascular eval
Objective Data
-
Vital Signs:
Vital Signs
Temp Pulse Resp BP Pulse Ox
98.7 F 78 19 123/80 94
01/10/25 07:19 01/10/25 08:00 01/10/25 08:00 01/10/25 07:57 01/10/25 08:00
I&O
01/09/25 01/10/25 01/11/25
06:59 06:59 06:59
Intake Total 1095 / 1095 480 / 480
Output Total 450 / 450 1450 / 1450
Balance 645 / 645 -970 / -970
Physical Exam
-
General: No Apparent Distress
HEENT: Normocephalic and Atraumatic
Respiratory: Negative Wheezes
Cardiac: Regular Rhythm and S1/S2
GI: Soft
Genito-urinary: No Costovertebral Tender
Neuro: AO x 3
Hematologic / Lymphatic: No Lymphadenopathy
Psych: Calm
Data Reviewed
-
Total Time Spent with Patient (in minutes): 42
Labs: Labs Reviewed by me
--- NOTE | 2025-01-10 09:32 | PHA.VAN.FU ---
Vancomycin Assessment / Plan
- Assessment
Renal Function: SCR Increasing
WBC's are: WNL
In the past 24 hrs, patient has been: Afebrile
Concomitant Antimicrobials: piperacillin/tazobactam
- Assessment - Therapeutic Drug Monitoring
Random Level: 15.3 - drawn ~10.5H after previous level of 19.9
Calculated ke: 0.0247
Calculated half life (H): 28.1
Patient likely not at steady state due to increase in SCR --> expect half-life to increase further
- Dosing Plan
Dosing by Level: Hold off on dosing today (given increase in SCR, will hold off on further dosing today)
- Monitoring Plan
Random Level: 01/11 0600
- Follow Up
Pharmacy will continue to follow.
Vancomycin Follow UP
- -
Patient Age: 79
Patient Sex: Male
Vancomycin Day #: 4
Indication: Skin And Soft Tissue
Requesting Provider: Scooter Kimble
Pertinent Antimicrobial Allergies:
NKDA
Height / Weight:
Height 5 ft 8 in
Actual Weight 91.6 kg
Pertinent Past Medical History: BMI ~31
- Vital Signs / Lab Results
Temp Pulse Resp BP Pulse Ox
98.7 F 78 19 123/80 94
01/10/25 07:19 01/10/25 08:00 01/10/25 08:00 01/10/25 07:57 01/10/25 08:00
Lab Results - Hematology
01/09/25
03:06
WBC 7.7
Lab Results - Chemistry
01/09/25
03:06
BUN 15
Creatinine 1.1
Estimated Creat Clear 61
Albumin 3.2 L
Microbiology Results
01/06/25 22:03 Blood Culture - Preliminary
Blood/Venous No Growth in 72 hours- Final report to follow
01/06/25 21:23 Blood Culture - Preliminary
Blood/Venous No Growth in 72 hours- Final report to follow
01/07/25 17:43 Nasal Screen MRSA (PCR) - Final
Nose MRSA not detected - performed by PCR methodology.
Therapeutic Drug Monitoring
Random Vancomycin 15.3 ug/ml 01/10/25 04:12
[2025-01-10 10:00] VITALS: BP 118/72
--- NOTE | 2025-01-10 12:50 | PTCARENOTE ---
SUSSY and Nguyễn given clinical updates. Still awaiting a bed to become available at either location.
[2025-01-10 12:53] LABS: Hematocrit 28.1 % (39.0-52.0); Hemoglobin 9.4 g/dL (13.0-18.0); Mean Corp Hgb Conc. 33.5 g/dL (33.0-37.0); Mean Corpuscular Hgb 29.2 pg (27.0-31.0); Mean Corpuscular Volume 87.3 fL (80.0-94.0); Mean Platelet Volume 8.9 fL (7.4-10.4); Platelet Count 200 10^3/uL (130-400); Red Blood Cell Count 3.22 10^6/uL (4.70-6.10); Red Cell Dist. Width 13.5 % (11.5-14.5); White Blood Cell Count 9.4 10^3/uL (4.8-10.8)
[2025-01-10 13:24] LABS: Blood Urea Nitrogen 17 mg/dl (9-20); Calcium 9.1 mg/dl (8.4-10.2); Carbon Dioxide 27 mmol/L (22-30); Chloride 101 mmol/L (98-107); Estimated Creatinine Clearance 45 ml/min; Glucose 127 mg/dl (70-99); Sodium 135 mmol/L (135-145); eGFR 47.36
[2025-01-10] MEDS: NSS 1000 IV (15:29)
--- NOTE | 2025-01-10 16:39 | CM ---
Patient with Dx Possible endoleak versus aortitis, Infrarenal AAA s/p percutaneous endovascular repair on 11/15. Room air.
Notified by Dr Chadwick patient is pending [facility] Transfer - all forms completed, no ETA on when he may go there.
Plan transfer to [facility] when bed available.
--- NOTE | 2025-01-10 18:23 | PTCARENOTE ---
Report given to MUKESH Sanchez @ [facility].
[2025-01-10 18:28] VITALS: BP 130/72
--- NOTE | 2025-01-10 19:35 | PTCARENOTE ---
Patient transferred to [facility] via EMS.
== END 2025-01-10 19:58 | disposition short-term general hospital (02) | DRG 316 ==
LOC: IMU 20:06
PROVIDERS: Internal Medicine; Nurse Practitioner; ADMITTING PHYSICIAN Hospitalist; ATTENDING PHYSICIAN Internal Medicine; OTHER PHYSICIAN Surgery Vascular Surgery
PROC: 5A09357 Assistance with Respiratory Ventilation, Less than 24 Consecutive Hours, Continuous Positive Airway Pressure (ICD-10-PCS; 2025-01-06)
DX: I97.89 Other postprocedural complications and disorders of the circulatory system, not elsewhere classified (principal); I77.6 Arteritis, unspecified; M54.50 Low back pain, unspecified; G47.33 Obstructive sleep apnea (adult) (pediatric); I10 Essential (primary) hypertension; E78.5 Hyperlipidemia, unspecified; Y83.2 Surgical operation with anastomosis, bypass or graft as the cause of abnormal reaction of the patient, or of later complication, without mention of misadventure at the time of the procedure; K22.70 Barrett's esophagus without dysplasia; K21.9 Gastro-esophageal reflux disease without esophagitis; N40.0 Benign prostatic hyperplasia without lower urinary tract symptoms; I49.3 Ventricular premature depolarization; K59.00 Constipation, unspecified; Z86.79 Personal history of other diseases of the circulatory system
CPT/HCPCS: 71275; 74174; 80048; 80053; 80202; 81003; 81015; 85025; 85027; 85652; 86140; 87040; 87641; 94660; Q9967

== ENCOUNTER 2025-01-19 17:29 | Inpatient (IN) | payer MEDICARE, OTHER, SELFPAY ==
[2025-01-19] VITALS (10 sets, daily range): BP systolic 110–150; BP diastolic 72–83; BMI 30.2; BMI 29.0
--- NOTE | 2025-01-19 13:16 | ED.GENMED ---
History of Present Illness
General
Chief Complaint: Abdominal Symptoms
Time Seen by Provider: 01/19/25 12:51
History of Present Illness
History of Present Illness:
79-year-old male with history of hypertension, hyperlipidemia, and recent AAA repair on 11/15/2024 presenting for lower abdominal pain and dizziness. Patient reports that the abdominal pain has been present for the past week. Patient had hospital
admission on 01/06 to 01/10, admitted for lower back pain, at which time he was found to have type II endoleak with aortitis. Patient had been transferred to [facility] on 01/10 for workup of aortitis. Patient notes that he was discharged on Monday, 2
days ago. He notes that he was not discharged on any medications and notes that his workup was allegedly unremarkable. He started having the pain while he was at [facility], was being treated with oxycodone. Upon discharge, he was not given a
prescription for pain meds so pain has persisted. Denies chest pain or difficulty breathing. Denies fever, nausea, vomiting. He has been having some constipation. He called vascular surgery who advised to come to the hospital today.
Phy Exam
Physical Exam
Physical Exam:
General: Well-appearing, no clinical signs of dehydration, nontoxic and in no acute distress
HEENT: protecting airway
Neck: appears supple
CV: Normal heart rate, regular rhythm
Resp: No accessory muscle use, no increased work of breathing, lungs clear to auscultation bilaterally
Abd: Soft and non-distended, no tenderness to palpation
Extremities: No deformities, no swelling
Neuro: alert, no focal neurologic deficit
: deferred
Rectal: deferred
Psych: Normal affect
Skin: Intact
Course
Orders/Labs/Results
Orders:
Orders
01/19/25 13:07
CT Chest/abd/pelvis Angio W/wo Urgent
Comment:
Reason For Exam: lower abdominal pain, hx AAA repair and endoleak
01/19/25 13:12
Electrocardiogram (*1) Urgent
Reason for Study: Abdominal Pain
EKG- Treatment ONCE
01/19/25 13:14
Complete Blood Count/With Diff Urgent
Comprehensive Metabolic Panel Urgent
PTT Urgent
Prothrombin Time Urgent
01/19/25 13:15
Morphine Sulfate 4 mg IV NOW STA
01/19/25 15:40
Morphine Sulfate 4 mg IV NOW STA
Abnormal Lab Results
01/19/25
13:14
RBC 3.66 L 10^6/uL
(4.70-6.10)
Hgb 10.5 L g/dL
(13.0-18.0)
Hct 31.3 L %
(39.0-52.0)
Abs Immat Gran (auto) 0.1 H 10^3/uL
(0-0.05)
Absolute Neuts (auto) 8.8 H 10^3/uL
(1.4-6.5)
Absolute Lymphs (auto) 1.0 L 10^3/uL
(1.2-3.4)
Absolute Monos (auto) 0.7 H 10^3/uL
(0.1-0.6)
Neutrophils % 81.2 H %
(42.2-75.2)
Lymphocytes % 8.8 L %
(20.5-51.1)
APTT 45.3 H Sec
(23.4-35.0)
Sodium 134 L mmol/L
(135-145)
Glucose 150 H mg/dl
(70-99)
ALT 85 H U/L
(0-50)
Alkaline Phosphatase 262 H U/L
(38-126)
01/19/25 13:14
01/19/25 13:14
Vital Signs
Initial and Last Documented VS:
Initial Vital Signs
Temp Pulse Resp BP Pulse Ox
97.4 F 75 18 129/77 96
01/19/25 12:37 01/19/25 12:37 01/19/25 12:37 01/19/25 12:37 01/19/25 12:37
Last Documented Vital Signs
Temp Pulse Resp BP Pulse Ox
97.4 F 63 16 129/82 97
01/19/25 12:37 01/19/25 16:00 01/19/25 16:00 01/19/25 16:00 01/19/25 16:00
MDM/Problems Addressed
MDM/Problems Addressed:
79-year-old male with history of hypertension, hyperlipidemia, AAA repair with complication of type II endoleak presenting to the emergency department for lower abdominal pain. Vital signs on arrival are normal.
On exam, patient is resting comfortably, no acute distress or discomfort. EMR reviewed, with AAA repair done here 11/15/24, no reported complications, however patient return to the hospital in 01/06 with lower back pain which time he was found to
have aortitis and type II endoleak, transferred to [place] for further rheumatologic workup. Per patient, no significant findings on woke up, had not been discharged on any steroids or pain medications. Patient had called vascular surgery reporting
that he was still having pain, which been present for the past week. Ultimately suspect the pain is still from aortitis. Plan for repeat CT imaging to ensure no additional complicating features and consultation with vascular surgery.
16:00 -CT without any significant change to aortic graft, continued visualization of endoleak. However, inflammation to the aorta appears to have worsened. Will discuss with vascular surgery on-call for management. Ultimate plan for admission
with vascular surgery on consult
*Critical Care Note
Total Time (30-74mins, 75-104mins- exclusive of procedures): Not Applicable
ED Attending Note
-
Portions of this chart may have been created with voice recognition software.� Occasional wrong word or��sound alike� substitutions may have occurred due to the inherent limitations of voice recognition software.
Discharge Plan
Departure
Prescriptions:
No Action
multivitamin Tablet
1 tab PO DAILY
carvedilol 6.25 mg Tablet
6.25 mg PO BID
potassium chloride 10 mEq Tablet Extended Release
10 meq PO DAILY
tamsulosin 0.4 mg Capsule
0.4 mg PO DAILY
Patient Comments:
Pt states he takes HS
finasteride 5 mg Tablet
5 mg PO DAILY
rosuvastatin 5 mg Tablet
5 mg PO .EVERY OTHER DAY
omeprazole 20 mg Tablet,Delayed Release (Dr/Ec)
20 mg PO DAILY
cholecalciferol (vitamin D3) [Vitamin D3] 50 mcg (2,000 unit) Tablet
50 mcg PO DAILY
magnesium oxide 400 mg magnesium Tablet
400 mg PO BID
aspirin 81 mg Tablet,Delayed Release (Dr/Ec)
81 mg PO DAILY Qty: 90 0RF
Referrals:
Dutch Irwin MD [Family Provider] -
Interventions
Interventions:
*Risk Screen - Suicide Last Done: 01/19/25 13:12
*General Assessment Last Done: 01/19/25 13:12
AL-Urnnec-Idwetpwvgy Assessment Last Done: 01/19/25 13:26
Discharge Date and Time
Print Language: FAROESE
[2025-01-19] MEDS: MORPHINE SULFATE 4 MG IV ×2 (13:19→16:07)
[2025-01-19 13:36] LABS: ALT (SGPT) 85 U/L (0-50); AST (SGOT) 57 U/L (17-59); Albumin 3.7 g/dl (3.5-5.0); Alkaline Phosphatase 262 U/L (38-126); Blood Urea Nitrogen 19 mg/dl (9-20); Calcium 9.9 mg/dl (8.4-10.2); Carbon Dioxide 27 mmol/L (22-30); Chloride 98 mmol/L (98-107); Estimated Creatinine Clearance 66 ml/min; Glucose 150 mg/dl (70-99); INR 1.11; PT 14.6 Sec (11.4-14.6); Potassium 5.1 mmol/L (3.5-5.1); Sodium 134 mmol/L (135-145); Total Bilirubin 0.6 mg/dl (0.2-1.3); Total Protein 7.1 g/dl (6.3-8.2); eGFR > 60.00
[2025-01-19 13:37] LABS: APTT 45.3 Sec (23.4-35.0)
[2025-01-19 13:45] LABS: Hematocrit 31.3 % (39.0-52.0); Hemoglobin 10.5 g/dL (13.0-18.0); Mean Corp Hgb Conc. 33.5 g/dL (33.0-37.0); Mean Corpuscular Hgb 28.7 pg (27.0-31.0); Mean Corpuscular Volume 85.5 fL (80.0-94.0); Mean Platelet Volume 8.6 fL (7.4-10.4); Platelet Count 248 10^3/uL (130-400); Red Blood Cell Count 3.66 10^6/uL (4.70-6.10); Red Cell Dist. Width 13.5 % (11.5-14.5); White Blood Cell Count 10.8 10^3/uL (4.8-10.8)
[2025-01-19 13:55] LABS: % Basophils 0.5 % (0-2); % Eosinophils 2.4 % (0-6); % Immature Granulocytes 0.5 % (0-0.5); % Lymphocytes 8.8 % (20.5-51.1); % Monocytes 6.6 % (1.7-9.3); % Neutrophils 81.2 % (42.2-75.2); Absolute Basophils 0.1 10^3/uL (0-0.2); Absolute Eosinophils 0.3 10^3/uL (0-0.7); Absolute Immature Granulocytes 0.1 10^3/uL (0-0.05); Absolute Monocytes 0.7 10^3/uL (0.1-0.6); Absolute Neutrophils 8.8 10^3/uL (1.4-6.5); Nucleated Red Blood Cells % 0 % (-)
--- NOTE | 2025-01-19 17:19 | HPS.HSE ---
Family Physician
-
Family Physician: Dutch Irwin
Chief Complaint
-
abdominal pain
History of Present Illness
79-year-old male past medical history of aortitis with type II endoleak, concern for vasculitis, constipation, PVCs, pericarditis, essential hypertension, hyperlipidemia, Spears's esophagus, GERD, obstructive sleep apnea, BPH, presenting for lower
abdominal pain. He has had been having abdominal pain sometimes in the groin area sometimes in his lower back has been getting worse.
He was admitted from 01/06-01/10 for lower back pain at which time he was found to have type II endoleak with aortitis. He was treated with empiric antibiotics. He was discharged 2 days ago. He reports that he was seen by the monitor and storage bin tender but
workup was largely unremarkable. He was not treated with steroids any other medications.
He was on oxycodone for pain but not given prescription for pain so pain has persisted. He denies any chest pain or shortness of breath. [place] fever nausea or vomiting. He called vascular surgery who told him to come to the hospital today.
Medical History
Past Medical History
Past Medical History: Reports Other (aortitis with type II endoleak, concern for vasculitis, constipation, PVCs, pericarditis, essential hypertension, hyperlipidemia, Spears's esophagus, GERD, obstructive sleep apnea, BPH,)
Past Surgical History: Reports None
Social History
Tobacco: Non-smoker
Alcohol: None
Drug: None
Family History
Family History: Not pertinent
Allergies / Home Medications
Allergies reflects when Allergies were last updated in [employer].
Home Medications with original date entered in [employer]
Allergy/Medication List:
Allergies
Allergy/AdvReac Type Severity Reaction Status Date / Time
No Known Allergies Allergy Verified 01/19/25 13:11
Home Medications
carvedilol 6.25 mg tablet 6.25 mg PO BID Blood Pressure 11/07/24
cholecalciferol (vitamin D3) 50 mcg (2,000 unit) tablet (Vitamin D3) 50 mcg PO DAILY Supplement 11/07/24
finasteride 5 mg tablet 5 mg PO DAILY Urinary Issue 11/07/24
magnesium oxide 400 mg PO BID Electrolyte Repletion 11/07/24
multivitamin 1 tab PO DAILY Supplement 11/07/24
omeprazole 20 mg tablet,delayed release 20 mg PO DAILY Gastrointestinal Issue 11/07/24
potassium chloride 10 mEq tablet,extended release 10 meq PO DAILY Electrolyte Repletion 11/07/24
rosuvastatin 5 mg tablet 5 mg PO .EVERY OTHER DAY High Cholesterol 11/07/24
tamsulosin 0.4 mg capsule 0.4 mg PO DAILY Urinary Issue 11/07/24
aspirin 81 mg tablet,delayed release 81 mg PO DAILY #90 tabs 11/15/24
Review of Systems
-
History Source: Patient
A 12 point ROS was completed and negative except as noted: Yes
Constitutional: Reports No Symptoms
EENT: Reports No Symptoms
Respiratory: Reports No Symptoms
Cardiac: Reports No Symptoms
Abdomen/GI: Reports See HPI
: Reports No Symptoms
Musculoskeletal: Reports No Symptoms
Skin: Reports No Symptoms
Neurological: Reports No Symptoms
Endocrine: Reports No Symptoms
Hematologic/Lymphatic: Reports No Symptoms
Psych: Reports No Symptoms
Physical Exam
Vital Signs
Vital Signs
Temp Pulse Resp BP Pulse Ox
97.4 F 63 16 129/82 97
01/19/25 12:37 01/19/25 16:00 01/19/25 16:00 01/19/25 16:00 01/19/25 16:00
Physical Exam
General: Well Developed, Well Nourished and No Apparent Distress
HEENT: NormoCephalic, Moist mucous membranes and Atraumatic
Respiratory: Clear
Cardiac: S1/S2 and Regular Rhythm; No Murmur or Rub
GI: Soft, Non Tender, Non Distended and Normal Bowel Sounds; No Organomegaly
Rectal: Deferred by Provider
Musculoskeletal: No Clubbing, No Cyanosis and No Edema
Skin: No Rash
Neuro: Nonfocal/grossly intact
Laboratory Results
-
01/19/25 13:14
01/19/25 13:14
Laboratory Results
PT 14.6 Sec (11.4-14.6) 01/19/25 13:14
INR 1.11 01/19/25 13:14
APTT 45.3 Sec (23.4-35.0) H 01/19/25 13:14
Total Bilirubin 0.6 mg/dl (0.2-1.3) 01/19/25 13:14
AST 57 U/L (17-59) 01/19/25 13:14
ALT 85 U/L (0-50) H 01/19/25 13:14
Alkaline Phosphatase 262 U/L (38-126) H 01/19/25 13:14
Data Reviewed
-
Lab Data: Labs Reviewed by me
Old Records: Reviewed
Impression/Plan
-
IMPRESSION:
PLAN:
# Concern for worsening aortitis
# Persistent endoleak
# Infrarenal abdominal aortic aneurysm status post percutaneous endovascular repair on 11/15
-CT chest abdomen pelvis today shows stable position of the aortabiliac stent graft, excluded aneurysm sac measures 5.1 cm in diameter unchanged from prior, circumferential soft tissue thickening redemonstrated on the proximal end of the endograft
and appears increased compared to the previous exam, mild contrast material again noted within the anterior posterior aspects of the excluded aneurysmal sac indicating an endoleak likely type II
-Recently had unremarkable workup and no treatment offered by rheumatology after transfer to [place]
-Check ESR and CRP
-Dilaudid for pain
-Vascular surgery consulted
-Likely needs steroids
History of constipation
History of PVCs
History of pericarditis
Essential hypertension
-Continue Coreg
Hyperlipidemia
-Continue statin
Spears's esophagus/GERD
Obstructive sleep apnea
BPH
-Continue tamsulosin, finasteride
Chronic anemia
-Stable
Full code
DVT prophylaxis�heparin
Regular diet
[2025-01-19] MEDS: MORPHINE SULFATE 2 MG IV (18:37)
[2025-01-19 18:50] LABS: Erythrocyte Sed Rate 103 mm/hour (0-20)
[2025-01-19] MEDS: HEPARIN 5000 UNITS SC (20:22)
[2025-01-19] MEDS: FLOMAX 0.4 MG PO (21:43)
[2025-01-19] MEDS: DILAUDID 0.5 MG IV (21:43)
[2025-01-20] MEDS: MORPHINE SULFATE 2 MG IV ×2 (01:37→05:55)
[2025-01-20 02:59] VITALS: BP 115/79
[2025-01-20] MEDS: ZOFRAN 4 MG IV (05:54)
[2025-01-20 06:42] LABS: Hematocrit 35.6 % (39.0-52.0); Hemoglobin 11.8 g/dL (13.0-18.0); Mean Corp Hgb Conc. 33.1 g/dL (33.0-37.0); Mean Corpuscular Hgb 28.8 pg (27.0-31.0); Mean Corpuscular Volume 86.8 fL (80.0-94.0); Mean Platelet Volume 8.5 fL (7.4-10.4); Platelet Count 302 10^3/uL (130-400); Red Cell Dist. Width 13.8 % (11.5-14.5); White Blood Cell Count 11.8 10^3/uL (4.8-10.8)
[2025-01-20 07:14] LABS: ALT (SGPT) 97 U/L (0-50); AST (SGOT) 68 U/L (17-59); Albumin 3.9 g/dl (3.5-5.0); Alkaline Phosphatase 292 U/L (38-126); Blood Urea Nitrogen 20 mg/dl (9-20); Calcium 10.2 mg/dl (8.4-10.2); Carbon Dioxide 24 mmol/L (22-30); Chloride 98 mmol/L (98-107); Estimated Creatinine Clearance 59 ml/min; Glucose 103 mg/dl (70-99); Potassium 5.3 mmol/L (3.5-5.1); Sodium 134 mmol/L (135-145); Total Bilirubin 0.8 mg/dl (0.2-1.3); Total Protein 7.9 g/dl (6.3-8.2); eGFR > 60.00
[2025-01-20 07:20] LABS: % Basophils 0.7 % (0-2); % Eosinophils 2.3 % (0-6); % Immature Granulocytes 0.4 % (0-0.5); % Lymphocytes 9.2 % (20.5-51.1); % Neutrophils 78.4 % (42.2-75.2); Absolute Basophils 0.1 10^3/uL (0-0.2); Absolute Eosinophils 0.3 10^3/uL (0-0.7); Absolute Immature Granulocytes 0.1 10^3/uL (0-0.05); Absolute Lymphocytes 1.1 10^3/uL (1.2-3.4); Absolute Monocytes 1.1 10^3/uL (0.1-0.6); Absolute Neutrophils 9.3 10^3/uL (1.4-6.5); Nucleated Red Blood Cells % 0 % (-)
[2025-01-20 07:45] VITALS: BP 130/80
[2025-01-20] MEDS: VITAMIN D3 (cholecalciferol) 50 MCG PO (08:34)
[2025-01-20] MEDS: CRESTOR 20 MG PO (08:34)
[2025-01-20] MEDS: COREG 6.25 MG PO ×2 (08:34→21:02)
[2025-01-20] MEDS: THERAGRAN 1 TABLET PO (08:35)
[2025-01-20] MEDS: HEPARIN 5000 UNITS SC ×2 (08:35→21:01)
[2025-01-20] MEDS: MAG-TAB SR 84 MG PO (08:35)
[2025-01-20] MEDS: PROSCAR 5 MG PO (08:35)
[2025-01-20] MEDS: ASPIR LOW (ENTERIC COATED) 81 MG PO (08:35)
[2025-01-20] MEDS: ULTRAM 50 MG PO (08:45)
[2025-01-20] MEDS: NSS 1000 IV (09:55)
[2025-01-20] MEDS: ZOSYN 50 IV (09:55)
--- NOTE | 2025-01-20 09:55 | PHA.VAN.IN ---
Assessment
- Assessment
Renal Function: Appears similar to baseline (SCr slightly elevated 1 vs ~0.7)
Concomitant Antimicrobials: piperacillin/tazobactam
- Previous Dosing Experience
Early this month, patient was on Vanc 1250mg Q12H but SCR increased by > 0.3 and was switched to dosing by level
Prior to 4th maintenance dose of 1250mg Q12H, random level was 19.9
Repeat level the next AM was 15.3, which provided half-life of 28H
SCr peaked at 1.5 last admission and is currently at 1 but remains above prior baseline (~0.7)
Plan
- Plan
Initial / Loading Dose: 2000mg - administration pending
Maintenance Regimen: dosing by level to assess clearance
Monitoring: random 01/21 0600
Pharmacokinetics Vancomycin I
- -
Patient Age: 79
Patient Sex: Male
Vancomycin Day #: 1
Indication: Gi / Intra-Abdominal
Requesting Provider: Jocelyn Valenzuela
Pertinent Antimicrobial Allergies:
NKDA
Height / Weight:
Height 5 ft 8 in
Actual Weight 86.636 kg
- Vital Signs / Lab Results
Temp Pulse Resp BP Pulse Ox
98.8 F 75 18 130/80 96
01/20/25 07:45 01/20/25 07:45 01/20/25 07:45 01/20/25 07:45 01/20/25 07:45
Lab Results - Hematology
01/19/25 01/20/25
13:14 05:46
WBC 10.8 11.8 H
Lab Results - Chemistry
01/19/25 01/20/25
13:14 05:46
BUN 19 20
Creatinine 1.0 1.0
Estimated Creat Clear 66 59
Albumin 3.7 3.9
[2025-01-20] MEDS: DILAUDID 0.5 MG IV ×4 (09:56→23:18)
--- NOTE | 2025-01-20 09:59 | W.PN.HOSP.TC ---
Today's Communication/Plan
-
See plan
Assessment / Plan
Assessment / Plan
Impression:
Presented with persistent lower abdominal, lower back and groin pain.
Arthritis with type II endoleak.
Status post EVAR of infrarenal abdominal aortic aneurysm 11/15/2024.
Hyponatremia
Hyperkalemia
Other conditions:
Hypertension.
Hyperlipidemia.
History of pericarditis.
GERD.
Spears's esophagus.
ARETHA.
BPH.
AAA.
Cholecystectomy 2018. Umbilical hernia 2019. Hernia repair 2019.
Plan:
CTA:
Aortobiiliac endograft with a similar appearance of type II endoleak and stable size of the excluded aneurysm sac compared to the recent CTA from 01/09/2025. Circumferential soft tissue thickening about the proximal end of the infrarenal abdominal
aortic endograft appears increased and again raises the possibility for acute aortitis, which may be on an infectious or inflammatory basis.
Concern for acute aortitis with differential diagnosis infection, rheumatologic (less likely with the endovascular stent on the site)
Recently transferred to [facility] for rheumatologic evaluation, although was not placed on any immunosuppressive therapy. Will obtain medical records
Currently afebrile, nontoxic-appearing, although with persistent lower abdominal pain.
Discussed with vascular surgery.
Repeat blood cultures
UA.
Following inflammatory markers
Consider additional imaging with MRI of the abdomen
Consider empiric broad-spectrum antibiotics after cultures are ongoing
ID consultation
Would consider empiric steroid treatment only if workup leaning away from infectious etiology.
As per vascular surgery consideration of GI consultation for endoscopy given proximity of duodenum to endovascular stent
Pain control with addition of oxycodone, hydromorphone IV for breakthrough
Bowel regimen
Hyponatremia.
Suspect high ADH state in the settings of persistent pain.
Check urine osmolarity and urine sodium.
Follow BMP
Hyperkalemia.
Potassium 5.3. Monitor closely.
IV fluids
If persistent, consider a low potassium diet and further workup
Essential hypertension
Continue Coreg.
Dyslipidemia
Continue statin.
BPH: Continue Proscar and Flomax.
GERD
Continue PPI
DVT prophylaxis: Heparin
Full code
Anticipated Discharge: > 48 hours
Subjective/Interval History
-
Date of Service: January 20, 2025
Objective Data
-
Labs:
Laboratory Results
01/20/25
05:46
WBC 11.8 H
Hgb 11.8 L
Hct 35.6 L
Plt Count 302 D
Sodium 134 L
Potassium 5.3 H
Chloride 98
Carbon Dioxide 24
BUN 20
Creatinine 1.0
Glucose 103 H
Calcium 10.2
Total Bilirubin 0.8
AST 68 H
ALT 97 H
Alkaline Phosphatase 292 H
Vital Signs:
Vital Signs
Temp Pulse Resp BP Pulse Ox
98.8 F 75 18 130/80 96
01/20/25 07:45 01/20/25 07:45 01/20/25 07:45 01/20/25 07:45 01/20/25 07:45
I&O
01/19/25 01/20/25 01/21/25
06:59 06:59 06:59
Intake Total 480 / 480
Balance 480 / 480
Physical Exam
-
General: Well Developed and No Apparent Distress
HEENT: Normocephalic, Atraumatic and Moist Mucous Membranes
Respiratory: Clear to Auscultation
Cardiac: Regular Rhythm and S1/S2; Negative Murmur, Rub or Gallop
GI: Soft, Nontender, Nondistended and Normal Bowel Sounds; Negative Organomegaly
Rectal: Deferred by Provider
Musculoskeletal: No Clubbing, No Cyanosis and No Edema
Skin: Negative Rash
Neuro: Nonfocal/Grossly Intact
--- NOTE | 2025-01-20 10:32 | CM ---
Patient seen bedside.
IA completed.
Patient lives with spouse in a split level home, no steps to enter.
No assistive devices.
Patient dives.
Patient had VN approx 2 years ago with knee replacement, not sure which agency.
Patient independent prior to admission without assistive devices.
Daughter will transport home.
PCP: Dr Irwin
Pharmacy: [facility]
Plan: home no needs anticipated.
[2025-01-20 10:51] VITALS: BMI 29.0
[2025-01-20 11:58] VITALS: BP 122/68
[2025-01-20] MEDS: PROTONIX 40 MG PO (12:00)
[2025-01-20] MEDS: VANCOCIN 540 MG IV (12:02)
[2025-01-20] MEDS: MIRALAX 17 GRAMS PO (14:15)
[2025-01-20 14:35] LABS: Urine Albumin 2+ (Neg - Trace); Urine Bilirubin Negative (Negative); Urine Character Clear (Clear); Urine Color Yellow; Urine Glucose Negative (Negative); Urine Ketone 1+ (Negative); Urine Leukocyte Negative (Negative); Urine Nitrite Negative (Negative); Urine Occult Blood Negative (Negative); Urine Urobilinogen Negative (Neg - 1+)
[2025-01-20 14:43] LABS: Urine Red Blood Cell 0-2 /HPF (0-2); Urine White Cell 0-2 /HPF (0-5)
--- NOTE | 2025-01-20 14:50 | CON.VAS ---
Addendum entered and electronically signed by Marco Knight III, MD 01/20/25 16:28:
This patient was seen and examined in collaboration with BILL Stover. I agree with the history and physical exam as well as the assessment and plan. I have the following additions:
Readmitted yesterday with bilateral suprapubic and groin pain. Perhaps lower abdomen
He has similar distribution of low back pain just above buttock muscles.
Recently admitted here and transferred to [facility] for rheumatologic evaluation for question of aortitis on CT scan ( does not provide inpatient Rheum consults).
The CT angiogram was reviewed personally
He has 2 small endoleak's, type II from the FOX and a lumbar branch
Nonspecific stranding around the proximal aortic neck which to me does not look worse than the previous scan
Infectious workup on prior admission was unremarkable
Follow-up infectious workup here is pending
His groin and suprapubic pain along with low back pain are well away from what would correlate with his radiographic findings in the proximal infrarenal aortic neck. In the region of his pain I do not identify any radiographic abnormality.
Continue to follow up on infectious workup
Pain management
Evalaute other sources of back and pelvic pain (L-spine, GI source)
? initiation of steroids for inflammation seen on CT
We will follow with you
Signed:
Marco Knight III, MD
[facility]
[phone] (donq)
Original Note:
Consultation
Consultation Request
Performing Provider: Eugene
Reason for Consultation: Aortitis/ Type II endoleak
Medical History
-
Chief Complaint: Pain
History of Present Illness:
71-year-old male with significant past medical history for hypertension, dyslipidemia, low HDL, hypertriglycerides, pericarditis, Spears's esophagus, GERD, sleep apnea, and benign prostatic hypertrophy, AAA, and PVCs who was
Recently here from 01/06/25-01/10/2025 then transferred to [facility] for vasculitis workup and they are vasculitis clinic. Patient was discharged from [facility] on 01/17/2025. Patient notes he had been on pain medication during his stay at [facility] and
was discharged without a prescription. Patient had 'intense pain' over the weekend which became unbearable Monday night and led to his ER admission. Patient had EVAR on 11/15/[address] Knight. He began with low back pain and suprapubic pain
around the first week of December and was seen in [facility]'s ER. He had a CT scan at that time that demonstrated an endoleak with possible aortitis prompting a transfer to our hospital at that time.
Patient states while inpatient at [facility] he was not started on steroids and the workup was negative. We have requested records. Patient seen at bedside this afternoon with Dr. Knight. Patient continues to complain of suprapubic and low back pain
when narcotics wear off. He states that when he is unmedicated the pain is 10 out of 10 and he cannot sit or stand comfortably. Denies upper and middle abdominal pain. Denies upper back pain. Afebrile.
Past Medical History
Past Medical History: GERD, HTN and Other (Dyslipidemia, low HDL, hypertriglyceridemia, pericarditis, Spears's esophagus, sleep apnea, benign prostate hypertrophy, AAA status post EVAR, PVCs)
Past Surgical History: Other (Colonoscopy, endoscopy, cholecystectomy, umbilical hernia repair)
Social History
Tobacco: Non-Smoker
Alcohol: None
Drug: None
Family History
Family History: Reviewed & Not Pertinent
Allergies / Home Medications
Allergy/AdvReac Type Severity Reaction Status Date / Time
No Known Allergies Allergy Verified 01/19/25 13:11
�Medication �Instructions �Recorded �Confirmed �Type
carvedilol 6.25 mg tablet 6.25 mg PO BID Blood Pressure 11/07/24 01/19/25 History
cholecalciferol (vitamin D3) 50 50 mcg PO DAILY Supplement 11/07/24 01/19/25 History
mcg (2,000 unit) tablet (Vitamin
D3)
finasteride 5 mg tablet 5 mg PO DAILY Urinary Issue 11/07/24 01/19/25 History
magnesium oxide 400 mg PO BID Electrolyte Repletion 11/07/24 01/19/25 History
omeprazole 20 mg tablet,delayed 20 mg PO NOON Gastrointestinal 11/07/24 01/19/25 History
release Issue
potassium chloride 10 mEq 10 meq PO DAILY Electrolyte 11/07/24 01/19/25 History
tablet,extended release Repletion
tamsulosin 0.4 mg capsule 0.4 mg PO HS Urinary Issue 11/07/24 01/19/25 History
aspirin 81 mg tablet,delayed 81 mg PO DAILY #90 tabs 11/15/24 01/19/25 Rx
release
acetaminophen 500 mg tablet 1,000 mg PO DAILYPRN PRN mild pain 01/19/25 01/19/25 History
bisacodyl 5 mg tablet,delayed 15 mg PO DAILYPRN PRN constipation 01/19/25 01/19/25 History
release (Dulcolax (bisacodyl))
polyethylene glycol 3350 17 gram 17 g PO DAILYPRN PRN constipation 01/19/25 01/19/25 History
oral powder packet
rosuvastatin 20 mg tablet 20 mg PO DAILY 01/19/25 01/19/25 History
therapeutic multivitamin 1 tab PO DAILY 01/19/25 01/19/25 History
tramadol 50 mg tablet 100 mg PO Q6HPRN PRN moderate pain 01/19/25 01/19/25 History
Review of Systems
-
History Source: Patient
All other systems: Negative unless noted
Constitutional: Reports No Symptoms
EENT: Reports No Symptoms
Respiratory: Reports No Symptoms
Cardiac: Reports No Symptoms
Vascular: Denies Leg Pain / Claudication
Abdomen/GI: Reports Abdominal Pain (Suprapubic)
: Reports No Symptoms
Musculoskeletal: Reports Other (Low back pain)
Endocrine: Reports No Symptoms
Physical Exam
Vital Signs
Temp Pulse Resp BP Pulse Ox
99.5 F 70 18 122/68 94
01/20/25 11:58 01/20/25 11:58 01/20/25 11:58 01/20/25 11:58 01/20/25 11:58
Lab Results
01/20/25 05:46
01/20/25 05:46
Physical Exam
General: No Apparent Distress
HEENT: Normocephalic and Atraumatic
Respiratory: Non Labored Respirations
Cardiac: Negative JVD
GI: Soft, Non Tender and Non Distended
Musculoskeletal: No Clubbing and No Cyanosis
Skin: Warm
Neuro: Awake, Alert and Oriented
Psych: Calm
Assessment / Plan
-
79-year-old male s/p EVAR (11/15/24) here with type II endoleak possible aortitis
Plan:
-IV antibiotics
-Blood cultures pending
-Records pending from [facility]
-Location of pain does not isela with radiographic abnormality, plan in evolution
-Pain management
Data Reviewed
-
Labs: Labs Reviewed by me
--- NOTE | 2025-01-20 14:58 | CON.ID ---
Consultation
-
Date/Time Consultation Requested: January 20, 2025 0955
Date/Time Consultation Performed: January 20, 2025 1500
Requesting Provider: Dr. Maikol Mtz
Performing Provider: Dr. Eunice Zarate
Reason for Consultation: Aortitis
Chief Complaint / Past History
Chief Complaint
Severe lower back pain and lower abdominal pain
History of Present Illness
79-year-old male with history of hypertension, BPH, infrarenal abdominal aortic aneurysm status post EVAR with stent graft November 15, 2024 who presented to the hospital January 19 due to severe lower back pain and anterior lower abdominal pain. His
history started approximately early January 06 when he developed acute pain across his lower back and lower abdominal pain. Symptoms thought to be due to constipation. He went to [facility] ER. CAT scan showed type II endoleak with inflammatory
changes concerning for aortitis. He was therefore transferred to [facility] January 06 and was placed on broad-spectrum antibiotics. Admission blood cultures were negative. Vasculitis was entertained and therefore he was transferred to ""[facility] on January 09 for rheumatological evaluation. He was told there was no infection. He was seen by production utility worker without a clear diagnosis, per patient. His pain was managed with OxyContin in the hospital. He was discharged without pain
medication. His pain then recurred and became severe. He therefore came to our hospital January 19. CAT scan angiogram of the abdomen and pelvis showed stable Type II endoleak with slightly increase of circumferential soft tissue thickening about
the proximal and of the infra renal abdominal aortic endograft compared to 01/09/25 CTA, again raising the possibility for acute aortitis which may be infectious or inflammatory. Vascular started Zosyn and vancomycin today. He denies any fevers or
chills. He is still constipated. No urine symptoms. No cough or shortness of breath. Positive weakness. Positive decreased appetite. No recent travel history. No ill contacts.
Past History
Additional Past Medical History:
Hypertension
HLD
History of pericarditis
Spears's esophagus
Sleep apnea
BPH
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
Cholecystectomy
Umbilical hernia repair
Allergy History:
No Known Allergies Allergy (Verified 01/19/25 13:11)
Medications Reviewed: Yes
Current Antibiotics:
None
Social History
Tobacco: Non-Smoker
Alcohol: None
Family History
Family History: Not Pertinent
Review of Systems
Review of Systems
General: Change in Appetite; Negative Fever or Chills
HEENT: Negative Sinus Problems, Headache or Pharyngitis
Cardiovascular: Negative Chest Pain or Dyspnea
Respiratory: Negative Dyspnea or Cough
Gasteroenterology: Negative Nausea, Vomiting or Diarrhea
Genital / Urological: Negative Dysuria or Flank Pain
Endocrine: Weakness and Fatigue
Skin / Hair / Nails: Negative Rash
Neurological: Negative Dizziness
All systems: All other systems were reviewed and were negative
Vital Signs
Temp Pulse Resp BP Pulse Ox
99.5 F 70 18 122/68 94
01/20/25 11:58 01/20/25 11:58 01/20/25 11:58 01/20/25 11:58 01/20/25 11:58
Physical Exam
Physical Exam
Constitutional: No Acute Distress
Head: Other (No frontal or max or sinus tenderness)
Eyes: No Conjunctival Hemorrhage
Pharynx: Benign
Cardiovascular: Regular Rate and S1/S2
Pulmonary: Clear
Gastrointestinal: Soft, Non Tender, Non Distended and Normal Bowel Sounds
Genito-Urinary: Negative Suprapubic Tenderness
Extremities: Negative Edema
Musculoskeletal: Negative Joint Swelling, Joint Effusion or Spinal Tenderness
Neurological: AO x 3; Negative Meningeal Signs
Lab / Diagnostic Study Results
01/20/25 05:46
01/20/25 05:46
Abs Immat Gran (auto) 0.1 10^3/uL (0-0.05) H 01/20/25 05:46
Absolute Neuts (auto) 9.3 10^3/uL (1.4-6.5) H 01/20/25 05:46
Absolute Lymphs (auto) 1.1 10^3/uL (1.2-3.4) L 01/20/25 05:46
Absolute Monos (auto) 1.1 10^3/uL (0.1-0.6) H 01/20/25 05:46
Absolute Basos (auto) 0.1 10^3/uL (0-0.2) 01/20/25 05:46
Immature Gran % 0.4 % (0-0.5) 01/20/25 05:46
Neutrophils % 78.4 % (42.2-75.2) H 01/20/25 05:46
Lymphocytes % 9.2 % (20.5-51.1) L 01/20/25 05:46
Monocytes % 9.0 % (1.7-9.3) 01/20/25 05:46
Eosinophils % 2.3 % (0-6) 01/20/25 05:46
Basophils % 0.7 % (0-2) 01/20/25 05:46
ESR 103 mm/hour (0-20) H 01/19/25 18:34
PT 14.6 Sec (11.4-14.6) 01/19/25 13:14
INR 1.11 01/19/25 13:14
C-Reactive Protein 141.60 mg/L (0.0-10.00) H 01/19/25 18:34
Ur Squamous Epith Cells 3-5 /LPF (Few) 01/20/25 14:26
Microbiology Results
Micro:
01/20/25 10:04 Blood Culture - Pending
Blood/Venous
01/19/25 CTA a/p: Aortobiiliac endograft with a similar appearance of type II endoleak and stable size of the excluded aneurysm sac compared to the recent CTA from 01/09/2025. Circumferential soft tissue thickening about the proximal end of the
infrarenal abdominal aortic endograft appears increased and again raises the possibility for acute aortitis, which may be on an infectious or inflammatory basis.
Assessment / Plan
# Hx of AAA EVAR 11/15/24
# Aortitis with inflammatory changes proximal endograft
# Severe low back pain and lower abdominal pain.
# Elevated ESR/CRP
- Blood cultures pending BUT UNFORTUNATELY DRAWN AFTER ANTIBIOTICS GIVEN ( Zoysn first set bcx; Vanco, Zosyn 2nd set of blood cx)
- DC antibiotics. Repeat blood cultures 72 hours or more after dc abx's.
- IF blood cultures COLLECTED OFF ABX's are negative, then unlikely endograft infection.
- In the meantime, recommend MRI of lumbar sacral spine to look for other potential source of back pain and lower abd pain.
-Obtain records from [facility].
Care Review
Plan reviewed with: Physician (Dr. Mtz)
[2025-01-20 15:19] VITALS: BP 113/70
[2025-01-20] MEDS: ZOSYN IV (16:44)
[2025-01-20 18:04] LABS: Urine Sodium 65 mmol/L (30-90)
[2025-01-20 18:06] LABS: Osmolality Urine 636 mOsm/kg (300-900)
[2025-01-20 19:03] VITALS: BP 115/63
[2025-01-20] MEDS: FLOMAX 0.4 MG PO (21:01)
[2025-01-20] MEDS: ROXICODONE 10 MG PO (21:01)
[2025-01-20 23:07] VITALS: BP 120/74
[2025-01-21] MEDS: DILAUDID 0.5 MG IV ×3 (03:20→12:40)
[2025-01-21 03:22] VITALS: BP 119/75
[2025-01-21] MEDS: DULCOLAX 15 MG PO ×2 (03:32→20:47)
[2025-01-21] MEDS: ROXICODONE 10 MG PO ×3 (05:40→22:48)
[2025-01-21 07:30] VITALS: BP 141/82
[2025-01-21 07:51] LABS: % Basophils 0.6 % (0-2); % Eosinophils 1.7 % (0-6); % Immature Granulocytes 0.4 % (0-0.5); % Lymphocytes 6.8 % (20.5-51.1); % Monocytes 9.4 % (1.7-9.3); % Neutrophils 81.1 % (42.2-75.2); Absolute Basophils 0.1 10^3/uL (0-0.2); Absolute Eosinophils 0.2 10^3/uL (0-0.7); Absolute Immature Granulocytes 0.1 10^3/uL (0-0.05); Absolute Lymphocytes 0.8 10^3/uL (1.2-3.4); Absolute Monocytes 1.1 10^3/uL (0.1-0.6); Absolute Neutrophils 9.4 10^3/uL (1.4-6.5); Hematocrit 29.7 % (39.0-52.0); Mean Corp Hgb Conc. 33.7 g/dL (33.0-37.0); Mean Corpuscular Hgb 28.9 pg (27.0-31.0); Mean Corpuscular Volume 85.8 fL (80.0-94.0); Mean Platelet Volume 8.6 fL (7.4-10.4); Nucleated Red Blood Cells % 0 % (-); Platelet Count 210 10^3/uL (130-400); Red Blood Cell Count 3.46 10^6/uL (4.70-6.10); Red Cell Dist. Width 13.9 % (11.5-14.5); White Blood Cell Count 11.6 10^3/uL (4.8-10.8)
[2025-01-21 08:16] LABS: Blood Urea Nitrogen 20 mg/dl (9-20); Calcium 9.1 mg/dl (8.4-10.2); Carbon Dioxide 23 mmol/L (22-30); Chloride 103 mmol/L (98-107); Estimated Creatinine Clearance 59 ml/min; Glucose 117 mg/dl (70-99); Potassium 4.5 mmol/L (3.5-5.1); Sodium 136 mmol/L (135-145); eGFR > 60.00
[2025-01-21] MEDS: CRESTOR 20 MG PO (08:39)
[2025-01-21] MEDS: ASPIR LOW (ENTERIC COATED) 81 MG PO (08:39)
[2025-01-21] MEDS: THERAGRAN 1 TABLET PO (08:39)
[2025-01-21] MEDS: COREG 6.25 MG PO ×2 (08:40→20:10)
[2025-01-21] MEDS: VITAMIN D3 (cholecalciferol) 50 MCG PO (08:40)
[2025-01-21] MEDS: PROSCAR 5 MG PO (08:40)
[2025-01-21] MEDS: MAG-TAB SR 84 MG PO (08:40)
[2025-01-21] MEDS: HEPARIN 5000 UNITS SC ×2 (08:41→20:10)
--- NOTE | 2025-01-21 09:17 | PN.CDI ---
CDI
- -
CDI:
Physician Documentation Request
Admit Date: 01/19/25 17:29
Dear Doctor Bibi,
Please review the following and provide your response in the progress notes.
Clinical Indicators:
Pt admitted with Aortitis.
01/20 Registered Dietitian Note: 'Chart reviewed due to consult pt with weight loss.
Pt reports has been in a lot of pain and not eating or sleeping.
Diet: regular appropriate to maxmize po intakes.
CBW: 191 bs BMI 29 overweight range (01/20).
Pts weight previous admission listed as 220 bs 11/11/24 reflective of a 29 lb (13%) weight loss in two months, significant per AND/ASPEN criteria.
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
If possible, please provide in your progress notes, additional specificity regarding the severity of the malnutrition:
Moderate Protein Calorie Malnutrition
Other (please specify)
Brule Criteria (ACP Hospitalist 2017)
2 or more criteria must be present for either
non severe or severe malnutrition
Note that the criteria differs related to the
presence of an acute or chronic illness
Chronic Illness
Energy Intake Non Severe: <75% for >1 month
Severe: <75% for >1 month
Weight Loss Non Severe: 5% over 1 month
7.5% over 3 months
10% over 6 months
20% over 1 year
Severe: >5% over 1 month
>7.5% over 3 months
>10% over 6 months
>20% over 1 year
Additional criteria that can be used to Determine if Mild or Moderate Malnutrition (Merck Manual 2018)
Use of terms such as suspected, likely, concern for, or probable (associated with a specific diagnosis that is being evaluated, monitored, or treated as if it exists) are acceptable and can be coded in the inpatient setting, when documented at the
time of discharge.
Thank you,
Jennifer Calixto RN, BSN
CDI Specialist
[employer]
Please use your independent medical judgment in providing your response.
[2025-01-21 11:19] VITALS: BP 102/62
[2025-01-21] MEDS: PROTONIX 40 MG PO (12:07)
[2025-01-21] MEDS: MIRALAX 17 GRAMS PO (14:58)
[2025-01-21 15:26] VITALS: BP 138/71
--- NOTE | 2025-01-21 15:48 | W.PN.HOSP.TC ---
Today's Communication/Plan
-
Ongoing workup for possible arteriolitis versus EVAR infection.
Blood cultures drawn after single dose of antibiotics and negative to date.
Observe off antibiotics for another 24 to 48 hours and repeat blood cultures again.
Adjust analgesic regimen
Follow BMP and CBC
Assessment / Plan
Assessment / Plan
Impression:
Presented with persistent lower abdominal, lower back and groin pain.
Arthritis with type II endoleak.
Status post EVAR of infrarenal abdominal aortic aneurysm 11/15/2024.
Hyponatremia
Hyperkalemia
Other conditions:
Hypertension.
Hyperlipidemia.
History of pericarditis.
GERD.
Spears's esophagus.
ARETHA.
BPH.
AAA.
Cholecystectomy 2018. Umbilical hernia 2019. Hernia repair 2019.
Plan:
CTA:
Aortobiiliac endograft with a similar appearance of type II endoleak and stable size of the excluded aneurysm sac compared to the recent CTA from 01/09/2025. Circumferential soft tissue thickening about the proximal end of the infrarenal abdominal
aortic endograft appears increased and again raises the possibility for acute aortitis, which may be on an infectious or inflammatory basis.
MR lumbar spine:
STIR hyperintense inflammatory changes about the aortobiiliac stent graft, which in correlation with the recent CT examination from 01/19/2025, again raises suspicion for aortitis.
Chronic mild degenerative changes of the lumbar spine.
Concern for acute aortitis with differential diagnosis infection, rheumatologic (less likely with the endovascular stent on the site)
Recently transferred to [facility] for rheumatologic evaluation, although was not placed on any immunosuppressive therapy. Will obtain medical records
Currently afebrile, nontoxic-appearing, although with persistent lower abdominal pain.
Discussed with vascular surgery.
Repeat blood cultures
UA unremarkable
Following inflammatory markers
MRI lumbar spine as above
Consider empiric broad-spectrum antibiotics after cultures are ongoing
Would consider empiric steroid treatment only if workup leaning away from infectious etiology.
As per vascular surgery consideration of GI consultation for endoscopy given proximity of duodenum to endovascular stent
Pain control with addition of oxycodone, hydromorphone IV for breakthrough
Bowel regimen
Hyponatremia.
Suspect high ADH state in the settings of persistent pain.
Urine awesome at 638
Improved
Hyperkalemia.
Potassium 5.3. Monitor closely.
Improved with IV fluids
Essential hypertension
Continue Coreg.
Dyslipidemia
Continue statin.
BPH: Continue Proscar and Flomax.
GERD
Continue PPI
DVT prophylaxis: Heparin
Full code
Anticipated Discharge: > 48 hours
Subjective/Interval History
-
Date of Service: January 21, 2025
Objective Data
-
Labs:
Laboratory Results
01/21/25
07:11
WBC 11.6 H
Hgb 10.0 L
Hct 29.7 L
Plt Count 210 D
Sodium 136
Potassium 4.5
Chloride 103
Carbon Dioxide 23
BUN 20
Creatinine 1.0
Glucose 117 H
Calcium 9.1
Vital Signs:
Vital Signs
Temp Pulse Resp BP Pulse Ox
97.7 F 74 18 138/71 97
01/21/25 15:26 01/21/25 15:26 01/21/25 15:26 01/21/25 15:26 01/21/25 15:26
I&O
01/20/25 01/21/25 01/22/25
06:59 06:59 06:59
Intake Total 480 / 480 1260 / 1260
Output Total 800 / 800
Balance 480 / 480 460 / 460
Physical Exam
-
General: Well Developed and No Apparent Distress
HEENT: Normocephalic, Atraumatic and Moist Mucous Membranes
Respiratory: Clear to Auscultation
Cardiac: Regular Rhythm and S1/S2; Negative Murmur, Rub or Gallop
GI: Soft, Nontender, Nondistended and Normal Bowel Sounds; Negative Organomegaly
Rectal: Deferred by Provider
Musculoskeletal: No Clubbing, No Cyanosis and No Edema
Skin: Negative Rash
Neuro: Nonfocal/Grossly Intact
--- NOTE | 2025-01-21 16:06 | W.PN.ID1 ---
Date of Service
Date of Service: January 21, 2025
Today's Communication
See below.
Assessment / Plan
# Hx of AAA EVAR 11/15/24
# Aortitis with inflammatory changes proximal endograft
# Severe low back pain and lower abdominal pain.
# Elevated ESR/CRP
-MRI L spine wo contrast: limited as pt unable to finish due to pain. + aortitis
- Blood cultures neg to date, BUT UNFORTUNATELY DRAWN AFTER ANTIBIOTICS GIVEN ( Zoysn first set bcx; Vanco, Zosyn 2nd set of blood cx)
- Antibiotics dc'd yesterday.
- Repeat bcx's x 2 tomorrow at 48 hours off antibiotic, then start empiric Unasyn.
- Awaiting records/Rheum eval from [facility]
# Conditions [employer]
Hypertension
HLD
History of pericarditis
Spears's esophagus
Sleep apnea
BPH
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
Cholecystectomy
Umbilical hernia repair
Chief Complaint
-: Leukocytosis and Other (Aortitis)
Subjective / Review of Systems
c/o severe low back pain - uncontrolled.
Vital Signs / Physical Exam
Vital Signs
Vital Signs
Temp Pulse Resp BP Pulse Ox
97.7 F 74 18 138/71 97
01/21/25 15:26 01/21/25 15:26 01/21/25 15:26 01/21/25 15:26 01/21/25 15:26
Physical Exam
Constitutional: Non-toxic
Eyes: Sclera Anicteric
Cardiovascular: Regular Rate and S1/S2
Pulmonary: Clear
Gastrointestinal: Soft, Non Tender and Non Distended
Genito-Urinary: Negative CVA Tenderness
Musculoskeletal: Negative Spinal Tenderness
Neurological: AO x 3
Objective Data
Lab Data
Lab Results
01/21/25 07:11
01/21/25 07:11
ESR 103 mm/hour (0-20) H 01/19/25 18:34
PT 14.6 Sec (11.4-14.6) 01/19/25 13:14
INR 1.11 01/19/25 13:14
APTT 45.3 Sec (23.4-35.0) H 01/19/25 13:14
Estimated Creat Clear 59 ml/min 01/21/25 07:11
Total Bilirubin 0.8 mg/dl (0.2-1.3) 01/20/25 05:46
AST 68 U/L (17-59) H 01/20/25 05:46
ALT 97 U/L (0-50) H 01/20/25 05:46
Alkaline Phosphatase 292 U/L (38-126) H 01/20/25 05:46
C-Reactive Protein 141.60 mg/L (0.0-10.00) H 01/19/25 18:34
Most recent labs reviewed.
Micro Results:
01/20/25 15:02 Blood Culture - Preliminary
Blood/Venous No Growth in 24 hours- Final report to follow
01/20/25 10:04 Blood Culture - Preliminary
Blood/Venous No Growth in 24 hours- Final report to follow
01/19/25 CTA a/p: Aortobiiliac endograft with a similar appearance of type II endoleak and stable size of the excluded aneurysm sac compared to the recent CTA from 01/09/2025. Circumferential soft tissue thickening about the proximal end of the
infrarenal abdominal aortic endograft appears increased and again raises the possibility for acute aortitis, which may be on an infectious or inflammatory basis.
12/23/24 Lumbar spine MRI wo contrast: Limited examination secondary to incomplete sequences. STIR hyperintense inflammatory changes about the aortobiiliac stent graft, which in correlation with the recent CT examination from 01/19/2025, again raises
suspicion for aortitis. Chronic mild degenerative changes of the lumbar spine.
Care Review
Plan reviewed with: Physician (Dr. Mtz)
[2025-01-21] MEDS: DILAUDID 1 MG IV ×2 (16:56→20:47)
[2025-01-21 20:02] VITALS: BP 155/74
[2025-01-21] MEDS: FLOMAX 0.4 MG PO (20:11)
[2025-01-21] MEDS: MELATONIN 5 MG PO (22:48)
[2025-01-21 23:38] VITALS: BP 134/75
[2025-01-22] MEDS: DILAUDID 1 MG IV ×3 (01:08→10:00)
[2025-01-22 03:16] VITALS: BP 107/64
[2025-01-22 07:55] VITALS: BP 112/66
[2025-01-22] MEDS: ASPIR LOW (ENTERIC COATED) 81 MG PO (09:59)
[2025-01-22] MEDS: COREG 6.25 MG PO ×2 (09:59→19:50)
[2025-01-22] MEDS: THERAGRAN 1 TABLET PO (09:59)
[2025-01-22] MEDS: VITAMIN D3 (cholecalciferol) 50 MCG PO (09:59)
[2025-01-22] MEDS: PROSCAR 5 MG PO (10:00)
[2025-01-22] MEDS: HEPARIN 5000 UNITS SC ×2 (10:00→19:50)
[2025-01-22] MEDS: MAG-TAB SR 84 MG PO (10:00)
[2025-01-22] MEDS: CRESTOR 20 MG PO (10:00)
[2025-01-22] MEDS: FLUSH (NSS) 1 FLUSH IV ×3 (10:01→17:33)
[2025-01-22] MEDS: MIRALAX 17 GRAMS PO (10:17)
[2025-01-22 10:29] LABS: % Basophils 0.6 % (0-2); % Eosinophils 2.7 % (0-6); % Immature Granulocytes 0.4 % (0-0.5); % Monocytes 9.4 % (1.7-9.3); % Neutrophils 77.9 % (42.2-75.2); Absolute Basophils 0.1 10^3/uL (0-0.2); Absolute Eosinophils 0.3 10^3/uL (0-0.7); Absolute Immature Granulocytes 0.1 10^3/uL (0-0.05); Absolute Lymphocytes 1.1 10^3/uL (1.2-3.4); Absolute Monocytes 1.1 10^3/uL (0.1-0.6); Absolute Neutrophils 9.4 10^3/uL (1.4-6.5); Hematocrit 31.8 % (39.0-52.0); Hemoglobin 10.4 g/dL (13.0-18.0); Mean Corp Hgb Conc. 32.7 g/dL (33.0-37.0); Mean Corpuscular Hgb 28.6 pg (27.0-31.0); Mean Corpuscular Volume 87.4 fL (80.0-94.0); Mean Platelet Volume 8.6 fL (7.4-10.4); Nucleated Red Blood Cells % 0 % (-); Platelet Count 257 10^3/uL (130-400); Red Blood Cell Count 3.64 10^6/uL (4.70-6.10); Red Cell Dist. Width 13.9 % (11.5-14.5); White Blood Cell Count 12.1 10^3/uL (4.8-10.8)
[2025-01-22 10:53] LABS: Blood Urea Nitrogen 19 mg/dl (9-20); Calcium 9.6 mg/dl (8.4-10.2); Carbon Dioxide 29 mmol/L (22-30); Chloride 97 mmol/L (98-107); Estimated Creatinine Clearance 54 ml/min; Glucose 161 mg/dl (70-99); Potassium 4.9 mmol/L (3.5-5.1); Sodium 136 mmol/L (135-145); eGFR > 60.00
[2025-01-22 11:00] VITALS: BP 123/72
[2025-01-22] MEDS: PROTONIX 40 MG PO (12:07)
[2025-01-22] MEDS: UNASYN IV ×3 (12:08→23:28)
[2025-01-22] MEDS: TYLENOL 1000 MG PO (13:29)
[2025-01-22] MEDS: MIRALAX PO (14:00)
[2025-01-22] MEDS: ROXICODONE 10 MG PO ×3 (14:04→22:19)
--- NOTE | 2025-01-22 14:26 | CM ---
Chart reviewed. Care ongoing at this time.
ID following
Plan: Anticipate home; no needs
--- NOTE | 2025-01-22 15:33 | W.PN.ID1 ---
Date of Service
Date of Service: January 22, 2025
Today's Communication
Start empric Unasyn
Assessment / Plan
# Hx of AAA EVAR 11/15/24
# Aortitis with inflammatory changes proximal endograft
# Severe low back (buttock) pain and suprapubic pain.
# Leukocytosis trending up
# Elevated ESR/CRP
-MRI L spine wo contrast: limited as pt unable to finish due to pain. + aortitis
- Blood cultures neg to date, BUT UNFORTUNATELY DRAWN AFTER ANTIBIOTICS GIVEN ( Zoysn first set bcx; Rafy Kirk 2nd set of blood cx)
-Repeat bcx's x 2 (off abx x 48hrs) pending
-Started empiric Unasyn.
- follow wbc, clinically.
- Reviewed [facility] hospital record 01/10- 01/11. Seen by Rheum who deemed aortitis was not due to vasculitis. ANCA, serine 3, myeloperoxidase negative. Seen by Vascular suspect post-op inflammatory changes. US retroperitoneum prostamegaly with
mass effect on bladder wall, small hypoechoic focus right posterior bladder wall appears contiguous with prostate.
# Conditions [employer]
Hypertension
HLD
History of pericarditis
Spears's esophagus
Sleep apnea
BPH
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
Cholecystectomy
Umbilical hernia repair
Chief Complaint
-: Leukocytosis and Other (Aortitis)
Subjective / Review of Systems
Still with severe low back pain. + constipation.
Vital Signs / Physical Exam
Vital Signs
Vital Signs
Temp Pulse Resp BP Pulse Ox
97.3 F 73 16 123/72 98
01/22/25 11:00 01/22/25 11:00 01/22/25 11:00 01/22/25 11:00 01/22/25 11:00
Physical Exam
Constitutional: Non-toxic
Cardiovascular: Regular Rate and S1/S2
Pulmonary: Clear
Gastrointestinal: Soft, Non Tender and Non Distended
Genito-Urinary: Negative CVA Tenderness
Musculoskeletal: Negative Spinal Tenderness
Neurological: AO x 3
Objective Data
Lab Data
Lab Results
01/22/25 09:53
01/22/25 09:53
ESR 103 mm/hour (0-20) H 01/19/25 18:34
PT 14.6 Sec (11.4-14.6) 01/19/25 13:14
INR 1.11 01/19/25 13:14
APTT 45.3 Sec (23.4-35.0) H 01/19/25 13:14
Estimated Creat Clear 54 ml/min 01/22/25 09:53
Total Bilirubin 0.8 mg/dl (0.2-1.3) 01/20/25 05:46
AST 68 U/L (17-59) H 01/20/25 05:46
ALT 97 U/L (0-50) H 01/20/25 05:46
Alkaline Phosphatase 292 U/L (38-126) H 01/20/25 05:46
C-Reactive Protein 141.60 mg/L (0.0-10.00) H 01/19/25 18:34
Most recent labs reviewed.
Micro Results:
01/20/25 15:02 Blood Culture - Preliminary
Blood/Venous No Growth in 48 hours- Final report to follow
01/22/25 10:29 Blood Culture - Pending
Blood/Venous
01/20/25 10:04 Blood Culture - Preliminary
Blood/Venous No Growth in 48 hours- Final report to follow
01/22/25 09:53 Blood Culture - Pending
Blood/Venous
01/19/25 CTA a/p: Aortobiiliac endograft with a similar appearance of type II endoleak and stable size of the excluded aneurysm sac compared to the recent CTA from 01/09/2025. Circumferential soft tissue thickening about the proximal end of the
infrarenal abdominal aortic endograft appears increased and again raises the possibility for acute aortitis, which may be on an infectious or inflammatory basis.
12/23/24 Lumbar spine MRI wo contrast: Limited examination secondary to incomplete sequences. STIR hyperintense inflammatory changes about the aortobiiliac stent graft, which in correlation with the recent CT examination from 01/19/2025, again raises
suspicion for aortitis. Chronic mild degenerative changes of the lumbar spine.
Care Review
Plan reviewed with: Physician (Dr. Mtz)
--- NOTE | 2025-01-22 15:48 | W.PN.HOSP.TC ---
Today's Communication/Plan
-
Blood culture redrawn
Initiated on Unasyn
Bladder scan rule out retention.
Will consider obtaining urology opinion on enlarged prostate possibly causing current symptoms.
Continue current analgesic regimen with oxycodone/IV Dilaudid for breakthrough pain.
Continue bowel regimen
Assessment / Plan
Assessment / Plan
Impression:
Presented with persistent lower abdominal, lower back and groin pain.
Arthritis with type II endoleak.
Status post EVAR of infrarenal abdominal aortic aneurysm 11/15/2024.
Hyponatremia
Hyperkalemia
Other conditions:
Hypertension.
Hyperlipidemia.
History of pericarditis.
GERD.
Spears's esophagus.
ARETHA.
BPH.
AAA.
Cholecystectomy 2018. Umbilical hernia 2019. Hernia repair 2019.
Plan:
CTA:
Aortobiiliac endograft with a similar appearance of type II endoleak and stable size of the excluded aneurysm sac compared to the recent CTA from 01/09/2025. Circumferential soft tissue thickening about the proximal end of the infrarenal abdominal
aortic endograft appears increased and again raises the possibility for acute aortitis, which may be on an infectious or inflammatory basis.
MR lumbar spine:
STIR hyperintense inflammatory changes about the aortobiiliac stent graft, which in correlation with the recent CT examination from 01/19/2025, again raises suspicion for aortitis.
Chronic mild degenerative changes of the lumbar spine.
Concern for acute aortitis with differential diagnosis infection, rheumatologic (less likely with the endovascular stent on the site)
Recently transferred to [facility] for rheumatologic evaluation, although was not placed on any immunosuppressive therapy. Will obtain medical records
Currently afebrile, nontoxic-appearing, although with persistent lower abdominal pain.
Discussed with vascular surgery.
UA unremarkable
Following inflammatory markers
MRI lumbar spine as above
Repeat blood culture drawn on 01/22.
Initiated empirically on Unasyn on 01/22
In review of your medical records from [facility] hospitalization 01/10 - 01/11: Patient had not unrevealing rheumatologic workup with negative serology and low clinical suspicion for vasculitis. Vascular surgery opinion at that time consistent with
possible post operative inflammatory changes. No intervention was performed. Additional imaging with ultrasound of the pelvis showed enlarged prostate compressing urinary bladder.
Hyponatremia.
Suspect high ADH state in the settings of persistent pain.
Urine awesome at 638
Improved
Hyperkalemia.
Potassium 5.3. Monitor closely.
Improved with IV fluids
Essential hypertension
Continue Coreg.
Dyslipidemia
Continue statin.
BPH: Continue Proscar and Flomax.
GERD
Continue PPI
DVT prophylaxis: Heparin
Full code
Anticipated Discharge: > 48 hours
Subjective/Interval History
-
Date of Service: January 22, 2025
Objective Data
-
Labs:
Laboratory Results
01/22/25
09:53
WBC 12.1 H
Hgb 10.4 L
Hct 31.8 L
Plt Count 257 D
Sodium 136
Potassium 4.9
Chloride 97 L
Carbon Dioxide 29
BUN 19
Creatinine 1.1
Glucose 161 H
Calcium 9.6
Vital Signs:
Vital Signs
Temp Pulse Resp BP Pulse Ox
97.3 F 73 16 123/72 98
01/22/25 11:00 01/22/25 11:00 01/22/25 11:00 01/22/25 11:00 01/22/25 11:00
I&O
01/21/25 01/22/25 01/23/25
06:59 06:59 06:59
Intake Total 1260 / 1260 1080 / 1080
Output Total 800 / 800 500 / 500
Balance 460 / 460 580 / 580
Physical Exam
-
General: Well Developed and No Apparent Distress
HEENT: Normocephalic, Atraumatic and Moist Mucous Membranes
Respiratory: Clear to Auscultation
Cardiac: Regular Rhythm and S1/S2; Negative Murmur, Rub or Gallop
GI: Soft, Nontender, Nondistended and Normal Bowel Sounds; Negative Organomegaly
Rectal: Deferred by Provider
Musculoskeletal: No Clubbing, No Cyanosis and No Edema
Skin: Negative Rash
Neuro: Nonfocal/Grossly Intact
[2025-01-22 15:50] VITALS: BP 109/66
--- NOTE | 2025-01-22 16:13 | PTCARENOTE ---
Pt AAO x3, HWANG well, ambulatory in room; sydnee well. VSS. On room air- pulse ox 96%, no SOB noted. Abd soft, rounded, sydnee PO, appetite fair; pt c/o lower abd/low back discomfort; mod relief from Roxicodone and IV Dilaudid. Voiding in BR without
difficulty. Resting in bed at present. Will continue to monitor.
[2025-01-22] MEDS: DULCOLAX 15 MG PO (19:49)
[2025-01-22] MEDS: FLOMAX 0.4 MG PO (22:19)
[2025-01-22 23:50] VITALS: BP 117/71
[2025-01-23] MEDS: DULCOLAX 10 MG RECTAL (00:29)
[2025-01-23] MEDS: ROXICODONE 10 MG PO ×3 (02:34→19:53)
[2025-01-23] MEDS: UNASYN IV ×3 (06:20→17:30)
[2025-01-23 08:02] VITALS: BP 112/67
[2025-01-23] MEDS: PROSCAR 5 MG PO (08:34)
[2025-01-23] MEDS: MIRALAX 17 GRAMS PO (08:34)
[2025-01-23] MEDS: CRESTOR 20 MG PO (08:35)
[2025-01-23] MEDS: ASPIR LOW (ENTERIC COATED) 81 MG PO (08:35)
[2025-01-23] MEDS: HEPARIN 5000 UNITS SC ×2 (08:35→19:54)
[2025-01-23] MEDS: MAG-TAB SR 84 MG PO (08:35)
[2025-01-23] MEDS: COREG 6.25 MG PO ×2 (08:35→19:52)
[2025-01-23] MEDS: THERAGRAN 1 TABLET PO (08:35)
[2025-01-23] MEDS: VITAMIN D3 (cholecalciferol) 50 MCG PO (08:35)
--- NOTE | 2025-01-23 11:01 | W.PN.ID1 ---
Date of Service
Date of Service: January 23, 2025
Today's Communication
See below.
Assessment / Plan
# Hx of AAA EVAR 11/15/24
# Aortitis with inflammatory changes proximal endograft
# Severe low back (buttock) pain and suprapubic pain.
# Leukocytosis trending up
# Elevated ESR/CRP
- Reviewed [facility] hospital record 01/10- 01/11. Seen by Rheum who deemed aortitis was not due to vasculitis. ANCA, serine 3, myeloperoxidase negative. Seen by Vascular suspect post-op inflammatory changes. US retroperitoneum prostatomegaly
with mass effect on bladder wall, small hypoechoic focus right posterior bladder wall appears contiguous with prostate.
-MRI L spine wo contrast: limited as pt unable to finish due to pain. + aortitis
- Blood cultures neg to date, BUT UNFORTUNATELY DRAWN AFTER ANTIBIOTICS GIVEN ( Zoysn first set bcx; Vanco, Zosyn 2nd set of blood cx)
-Repeat bcx's x 2 (off abx x 48hrs) negative to date.
- Continue empiric Unasyn (d1)
- Severe back pain improving on narcotics and abx.
- If back pain continues to improve with narcotic wean, then plan for 6 weeks IV Unasyn followed by po abx suppression for presumed endograft infection.
- follow wbc, clinically.
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
Hypertension
HLD
History of pericarditis
Spears's esophagus
Sleep apnea
BPH
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
Cholecystectomy
Umbilical hernia repair
Chief Complaint
-: Leukocytosis and Other (Aortitis)
Subjective / Review of Systems
Back pain appears to be improving.
c/o constipation despite bowel regimen.
Vital Signs / Physical Exam
Vital Signs
Vital Signs
Temp Pulse Resp BP Pulse Ox
98.5 F 72 18 112/67 94
01/23/25 08:02 01/23/25 08:02 01/23/25 08:02 01/23/25 08:02 01/23/25 08:02
Physical Exam
Constitutional: Comfortable
Cardiovascular: Regular Rate and S1/S2
Pulmonary: Clear
Gastrointestinal: Soft, Non Tender and Non Distended
Extremities: Negative Edema
Neurological: AO x 3
Objective Data
Lab Data
Lab Results
01/22/25 09:53
01/22/25 09:53
ESR 103 mm/hour (0-20) H 01/19/25 18:34
PT 14.6 Sec (11.4-14.6) 01/19/25 13:14
INR 1.11 01/19/25 13:14
APTT 45.3 Sec (23.4-35.0) H 01/19/25 13:14
Estimated Creat Clear 54 ml/min 01/22/25 09:53
Total Bilirubin 0.8 mg/dl (0.2-1.3) 01/20/25 05:46
AST 68 U/L (17-59) H 01/20/25 05:46
ALT 97 U/L (0-50) H 01/20/25 05:46
Alkaline Phosphatase 292 U/L (38-126) H 01/20/25 05:46
C-Reactive Protein 141.60 mg/L (0.0-10.00) H 01/19/25 18:34
Most recent labs reviewed.
Micro Results:
01/22/25 10:29 Blood Culture - Preliminary
Blood/Venous No Growth in 24 hours- Final report to follow
01/20/25 10:04 Blood Culture - Preliminary
Blood/Venous No Growth in 72 hours- Final report to follow
01/22/25 09:53 Blood Culture - Preliminary
Blood/Venous No Growth in 24 hours- Final report to follow
01/20/25 15:02 Blood Culture - Preliminary
Blood/Venous No Growth in 48 hours- Final report to follow
01/19/25 CTA a/p: Aortobiiliac endograft with a similar appearance of type II endoleak and stable size of the excluded aneurysm sac compared to the recent CTA from 01/09/2025. Circumferential soft tissue thickening about the proximal end of the
infrarenal abdominal aortic endograft appears increased and again raises the possibility for acute aortitis, which may be on an infectious or inflammatory basis.
12/23/24 Lumbar spine MRI wo contrast: Limited examination secondary to incomplete sequences. STIR hyperintense inflammatory changes about the aortobiiliac stent graft, which in correlation with the recent CT examination from 01/19/2025, again raises
suspicion for aortitis. Chronic mild degenerative changes of the lumbar spine.
Care Review
Plan reviewed with: Physician (Dr. Mtz)
[2025-01-23] MEDS: PROTONIX 40 MG PO (12:00)
--- NOTE | 2025-01-23 14:53 | W.PN.HOSP.TC ---
Today's Communication/Plan
-
Reports improvement of abdominal pain over the last 24 since initiation of IV antibiotics.
In addition analgesic regimen has been adjusted with patient education to take oral/oxycodone prior to request of IV hydromorphone for severe breakthrough pain
Continue IV antibiotics
Monitor WBC and temperature curve.
Bowel regimen including enema
Assessment / Plan
Assessment / Plan
Impression:
Presented with persistent lower abdominal, lower back and groin pain.
Arthritis with type II endoleak.
Status post EVAR of infrarenal abdominal aortic aneurysm 11/15/2024.
Hyponatremia
Hyperkalemia
Other conditions:
Hypertension.
Hyperlipidemia.
History of pericarditis.
GERD.
Spears's esophagus.
ARETHA.
BPH.
AAA.
Cholecystectomy 2018. Umbilical hernia 2019. Hernia repair 2019.
Plan:
CTA:
Aortobiiliac endograft with a similar appearance of type II endoleak and stable size of the excluded aneurysm sac compared to the recent CTA from 01/09/2025. Circumferential soft tissue thickening about the proximal end of the infrarenal abdominal
aortic endograft appears increased and again raises the possibility for acute aortitis, which may be on an infectious or inflammatory basis.
MR lumbar spine:
STIR hyperintense inflammatory changes about the aortobiiliac stent graft, which in correlation with the recent CT examination from 01/19/2025, again raises suspicion for aortitis.
Chronic mild degenerative changes of the lumbar spine.
Concern for acute aortitis with differential diagnosis infection, rheumatologic (less likely with the endovascular stent on the site)
Recently transferred to [facility] for rheumatologic evaluation, although was not placed on any immunosuppressive therapy. Will obtain medical records
Currently afebrile, nontoxic-appearing, although with persistent lower abdominal pain.
Discussed with vascular surgery.
UA unremarkable
Following inflammatory markers
MRI lumbar spine as above
Repeat blood culture drawn on 01/22.
Initiated empirically on Unasyn on 01/22
In review of your medical records from [facility] hospitalization 01/10 - 01/11: Patient had not unrevealing rheumatologic workup with negative serology and low clinical suspicion for vasculitis. Vascular surgery opinion at that time consistent with
possible post operative inflammatory changes. No intervention was performed. Additional imaging with ultrasound of the pelvis showed enlarged prostate compressing urinary bladder.
Hyponatremia.
Suspect high ADH state in the settings of persistent pain.
Urine awesome at 638
Improved
Hyperkalemia.
Potassium 5.3. Monitor closely.
Improved with IV fluids
Essential hypertension
Continue Coreg.
Dyslipidemia
Continue statin.
BPH: Continue Proscar and Flomax.
GERD
Continue PPI
DVT prophylaxis: Heparin
Full code
Anticipated Discharge: > 48 hours
Subjective/Interval History
-
Date of Service: January 23, 2025
Objective Data
-
Vital Signs:
Vital Signs
Temp Pulse Resp BP Pulse Ox
98.5 F 72 18 112/67 94
01/23/25 08:02 01/23/25 08:02 01/23/25 08:02 01/23/25 08:02 01/23/25 08:02
I&O
01/22/25 01/23/25 01/24/25
06:59 06:59 06:59
Intake Total 1080 / 1080 1380 / 1380
Output Total 500 / 500 675 / 675
Balance 580 / 580 705 / 705
--- NOTE | 2025-01-23 15:59 | W.PN.UPDATE ---
Update Note
Progress Note Update
Seen and evaluated. Patient has had continued pain on and off. Last night noted that he had significant discomfort requiring pain medications. However he had a narcotic this morning and has not required one since. He feels pain is significantly
improved now. He had bowel movements which seems of helped things. Again we discussed that his pain is in the bilateral lower quadrants and wraps around to the back. On exam, he is afebrile. He does not appear toxic in any way, he is in no acute
distress. His abdomen is soft, nondistended, nontender. He is not tender really directly over palpation deeply over the aorta.
Plan/ Likely aortitis/post implantation (EVAR) inflammatory response or RP inflammation. I reviewed the rheumatology records from [facility]. He was seen by vascular surgery there as well who are in agreement. Rheumatology felt
that he did not require any steroids. His CT scan I reviewed the images, not significantly changed periaortic inflammation in the superiormost aspect of the infrarenal aorta. His blood cultures remain negative, he remains afebrile. This does not
seem like an aortic infection. Consider anti-inflammatories if he still has continued pain (either NSAIDs [id number] or alternatively steroids).
[2025-01-23 16:04] VITALS: BP 124/67
[2025-01-23] MEDS: FLOMAX 0.4 MG PO (19:53)
[2025-01-23 23:00] VITALS: BP 121/72
[2025-01-24] MEDS: UNASYN IV ×5 (00:49→23:11)
[2025-01-24] MEDS: TYLENOL 1000 MG PO ×3 (02:20→19:15)
[2025-01-24 07:40] VITALS: BP 123/73
[2025-01-24] MEDS: MIRALAX PO (07:57)
[2025-01-24] MEDS: CRESTOR 20 MG PO (07:57)
[2025-01-24] MEDS: VITAMIN D3 (cholecalciferol) 50 MCG PO (07:58)
[2025-01-24] MEDS: THERAGRAN 1 TABLET PO (07:58)
[2025-01-24] MEDS: COREG 6.25 MG PO ×2 (07:58→20:15)
[2025-01-24] MEDS: HEPARIN 5000 UNITS SC ×2 (07:58→20:15)
[2025-01-24] MEDS: ASPIR LOW (ENTERIC COATED) 81 MG PO (07:58)
[2025-01-24] MEDS: PROSCAR 5 MG PO (07:58)
[2025-01-24 08:33] LABS: Hematocrit 29.9 % (39.0-52.0); Mean Corp Hgb Conc. 33.4 g/dL (33.0-37.0); Mean Corpuscular Hgb 28.7 pg (27.0-31.0); Mean Corpuscular Volume 85.7 fL (80.0-94.0); Mean Platelet Volume 8.5 fL (7.4-10.4); Platelet Count 233 10^3/uL (130-400); Red Blood Cell Count 3.49 10^6/uL (4.70-6.10); Red Cell Dist. Width 14.1 % (11.5-14.5); White Blood Cell Count 9.3 10^3/uL (4.8-10.8)
[2025-01-24] MEDS: MAG-TAB SR 84 MG PO (08:55)
[2025-01-24 09:05] LABS: Blood Urea Nitrogen 22 mg/dl (9-20); Calcium 9.6 mg/dl (8.4-10.2); Carbon Dioxide 29 mmol/L (22-30); Chloride 99 mmol/L (98-107); Estimated Creatinine Clearance 54 ml/min; Glucose 143 mg/dl (70-99); Potassium 4.4 mmol/L (3.5-5.1); Sodium 138 mmol/L (135-145); eGFR > 60.00
[2025-01-24 09:33] LABS: % Basophils 0.8 % (0-2); % Eosinophils 3.6 % (0-6); % Immature Granulocytes 0.4 % (0-0.5); % Lymphocytes 10.1 % (20.5-51.1); % Monocytes 9.4 % (1.7-9.3); % Neutrophils 75.7 % (42.2-75.2); Absolute Basophils 0.1 10^3/uL (0-0.2); Absolute Eosinophils 0.3 10^3/uL (0-0.7); Absolute Lymphocytes 0.9 10^3/uL (1.2-3.4); Absolute Monocytes 0.9 10^3/uL (0.1-0.6); Absolute Neutrophils 7.1 10^3/uL (1.4-6.5); Nucleated Red Blood Cells % 0 % (-)
--- NOTE | 2025-01-24 09:48 | W.PN.ID1 ---
Date of Service
Date of Service: January 24, 2025
Today's Communication
See below
Assessment / Plan
# Hx of AAA EVAR 11/15/24
# Aortitis with inflammatory changes proximal endograft
# Severe low back pain and suprapubic pain.
# Leukocytosis resolved
# Elevated ESR/CRP
- Reviewed [facility] hospital record 01/10- 01/11. Seen by Rheum who deemed aortitis was not due to vasculitis. ANCA, serine 3, myeloperoxidase negative. Seen by Vascular suspect post-op inflammatory changes. US retroperitoneum prostatomegaly
with mass effect on bladder wall, small hypoechoic focus right posterior bladder wall appears contiguous with prostate.
-MRI L spine wo contrast: limited as pt unable to finish due to pain. + aortitis
- Blood cultures neg to date, BUT UNFORTUNATELY DRAWN AFTER ANTIBIOTICS GIVEN ( Zoysn first set bcx; Vanco, Zosyn 2nd set of blood cx)
-Repeat bcx's x 2 (off abx x 48hrs) negative to date.
- Continue empiric Unasyn (d2 of 42)
- Severe back pain improving on abx suggestive of EVAR infection
- plan for 6 weeks IV Unasyn 3g IV q6h trough followed by po abx suppression for presumed endograft infection.
- Follow weekly ESR, CRP
-Place PICC
-Infusion sheet submitted to complex case manager.
-Anticipate DC Monday.
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
Hypertension
HLD
History of pericarditis
Spears's esophagus
Sleep apnea
BPH
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
Cholecystectomy
Umbilical hernia repair
Chief Complaint
-: Other (Aortitis)
Subjective / Review of Systems
Reports back pain improving. Decreasing narcotics.
Had BM this am.
Vital Signs / Physical Exam
Vital Signs
Vital Signs
Temp Pulse Resp BP Pulse Ox
97.6 F 72 16 130/70 98
01/24/25 07:40 01/24/25 07:58 01/24/25 07:40 01/24/25 07:58 01/24/25 07:40
Physical Exam
Constitutional: Comfortable
Cardiovascular: Regular Rate and S1/S2
Pulmonary: Clear
Gastrointestinal: Soft, Non Tender and Non Distended
Extremities: Negative Edema
Neurological: AO x 3
Objective Data
Lab Data
Lab Results
01/24/25 08:05
01/24/25 08:05
ESR 103 mm/hour (0-20) H 01/19/25 18:34
PT 14.6 Sec (11.4-14.6) 01/19/25 13:14
INR 1.11 01/19/25 13:14
APTT 45.3 Sec (23.4-35.0) H 01/19/25 13:14
Estimated Creat Clear 54 ml/min 01/24/25 08:05
Total Bilirubin 0.8 mg/dl (0.2-1.3) 01/20/25 05:46
AST 68 U/L (17-59) H 01/20/25 05:46
ALT 97 U/L (0-50) H 01/20/25 05:46
Alkaline Phosphatase 292 U/L (38-126) H 01/20/25 05:46
C-Reactive Protein 141.60 mg/L (0.0-10.00) H 01/19/25 18:34
Most recent labs reviewed.
Micro Results:
01/20/25 15:02 Blood Culture - Preliminary
Blood/Venous No Growth in 72 hours- Final report to follow
01/22/25 10:29 Blood Culture - Preliminary
Blood/Venous No Growth in 24 hours- Final report to follow
01/20/25 10:04 Blood Culture - Preliminary
Blood/Venous No Growth in 72 hours- Final report to follow
01/22/25 09:53 Blood Culture - Preliminary
Blood/Venous No Growth in 24 hours- Final report to follow
01/19/25 CTA a/p: Aortobiiliac endograft with a similar appearance of type II endoleak and stable size of the excluded aneurysm sac compared to the recent CTA from 01/09/2025. Circumferential soft tissue thickening about the proximal end of the
infrarenal abdominal aortic endograft appears increased and again raises the possibility for acute aortitis, which may be on an infectious or inflammatory basis.
12/23/24 Lumbar spine MRI wo contrast: Limited examination secondary to incomplete sequences. STIR hyperintense inflammatory changes about the aortobiiliac stent graft, which in correlation with the recent CT examination from 01/19/2025, again raises
suspicion for aortitis. Chronic mild degenerative changes of the lumbar spine.
--- NOTE | 2025-01-24 10:01 | CM ---
Addendum entered by Danica Parada 01/24/25 15:14:
PICC data and CXR report faxed to [facility] fax # [phone]
Addendum entered by Danica Parada 01/24/25 15:10:
Per [facility], patient's out of pocket cost will be ~ $145/week
Addendum entered by Danica Parada 01/24/25 11:08:
Per Attending, Discharge is anticipated on Monday
Clinicals faxed to [facility] (Lexie from [facility] aware of plan via phone)
VN referral sent to [facility] via [facility]
When available on the chart, PICC insertion documentation and Chest x-ray report needs to be faxed to [facility]
fax # [phone]
Original Note:
Plan: Discharge with home infusion therapy
[2025-01-24] MEDS: PROTONIX 40 MG PO (11:13)
[2025-01-24 15:40] VITALS: BP 128/73
--- NOTE | 2025-01-24 15:59 | W.PN.HOSP.TC ---
Addendum entered and electronically signed by Maikol Mtz MD 01/24/25 16:54:
Moderate protein calorie malnutrition
Original Note:
Today's Communication/Plan
-
Improved pain and trending down WBC since antibiotic initiation
Monitor on IV antibiotics for over the next 24 to 48 hours while inpatient with plan to transition to IV antibiotics at home to complete total of 6 weeks of treatment with assumption of endovascular infection
Adjust analgesic regimen
Bowel regimen
Assessment / Plan
Assessment / Plan
Impression:
Presented with persistent lower abdominal, lower back and groin pain.
Arthritis with type II endoleak.
Status post EVAR of infrarenal abdominal aortic aneurysm 11/15/2024.
Hyponatremia
Hyperkalemia
Other conditions:
Hypertension.
Hyperlipidemia.
History of pericarditis.
GERD.
Spears's esophagus.
ARETHA.
BPH.
AAA.
Cholecystectomy 2018. Umbilical hernia 2019. Hernia repair 2020.
Plan:
CTA:
Aortobiiliac endograft with a similar appearance of type II endoleak and stable size of the excluded aneurysm sac compared to the recent CTA from 01/09/2025. Circumferential soft tissue thickening about the proximal end of the infrarenal abdominal
aortic endograft appears increased and again raises the possibility for acute aortitis, which may be on an infectious or inflammatory basis.
MR lumbar spine:
STIR hyperintense inflammatory changes about the aortobiiliac stent graft, which in correlation with the recent CT examination from 01/19/2025, again raises suspicion for aortitis.
Chronic mild degenerative changes of the lumbar spine.
Concern for acute aortitis with differential diagnosis infection, rheumatologic (less likely with the endovascular stent on the site)
Recently transferred to [facility] for rheumatologic evaluation, although was not placed on any immunosuppressive therapy. Will obtain medical records
Currently afebrile, nontoxic-appearing, although with persistent lower abdominal pain.
Discussed with vascular surgery.
UA unremarkable
Following inflammatory markers
MRI lumbar spine as above
Repeat blood culture drawn on 01/22 negative to date
Initiated empirically on Unasyn on 01/22
In review of your medical records from [facility] hospitalization 01/10 - 01/11: Patient had not unrevealing rheumatologic workup with negative serology and low clinical suspicion for vasculitis. Vascular surgery opinion at that time consistent with
possible post operative inflammatory changes. No intervention was performed. Additional imaging with ultrasound of the pelvis showed enlarged prostate compressing urinary bladder.
Hyponatremia.
Suspect high ADH state in the settings of persistent pain.
Urine awesome at 638
Improved
Hyperkalemia.
Potassium 5.3. Monitor closely.
Improved with IV fluids
Essential hypertension
Continue Coreg.
Dyslipidemia
Continue statin.
BPH: Continue Proscar and Flomax.
GERD
Continue PPI
DVT prophylaxis: Heparin
Full code
Anticipated Discharge: > 48 hours
Subjective/Interval History
-
Date of Service: January 24, 2025
Objective Data
-
Labs:
Laboratory Results
01/24/25
08:05
WBC 9.3
Hgb 10.0 L
Hct 29.9 L
Plt Count 233
Sodium 138
Potassium 4.4
Chloride 99
Carbon Dioxide 29
BUN 22 H
Creatinine 1.1
Glucose 143 H
Calcium 9.6
Vital Signs:
Vital Signs
Temp Pulse Resp BP Pulse Ox
97.6 F 72 16 130/70 98
01/24/25 07:40 01/24/25 07:58 01/24/25 07:40 01/24/25 07:58 01/24/25 08:00
I&O
01/23/25 01/24/25 01/25/25
06:59 06:59 06:59
Intake Total 1380 / 1380 650 / 650 120 / 120
Output Total 675 / 675
Balance 705 / 705 650 / 650 120 / 120
Physical Exam
-
General: Well Developed and No Apparent Distress
HEENT: Normocephalic, Atraumatic and Moist Mucous Membranes
Respiratory: Clear to Auscultation
Cardiac: Regular Rhythm and S1/S2; Negative Murmur, Rub or Gallop
GI: Soft, Nontender, Nondistended and Normal Bowel Sounds; Negative Organomegaly
Rectal: Deferred by Provider
Musculoskeletal: No Clubbing, No Cyanosis and No Edema
Skin: Negative Rash
Neuro: Nonfocal/Grossly Intact
[2025-01-24] MEDS: ROXICODONE 10 MG PO ×2 (17:52→22:10)
[2025-01-24] MEDS: FLOMAX 0.4 MG PO (20:16)
[2025-01-24 23:40] VITALS: BP 131/52
[2025-01-25] MEDS: ROXICODONE 10 MG PO ×2 (02:39→20:20)
[2025-01-25 04:31] LABS: % Basophils 0.6 % (0-2); % Eosinophils 3.2 % (0-6); % Immature Granulocytes 0.3 % (0-0.5); % Lymphocytes 7.2 % (20.5-51.1); % Monocytes 8.5 % (1.7-9.3); % Neutrophils 80.2 % (42.2-75.2); Absolute Basophils 0.1 10^3/uL (0-0.2); Absolute Eosinophils 0.3 10^3/uL (0-0.7); Absolute Lymphocytes 0.7 10^3/uL (1.2-3.4); Absolute Monocytes 0.8 10^3/uL (0.1-0.6); Absolute Neutrophils 7.4 10^3/uL (1.4-6.5); Hematocrit 25.5 % (39.0-52.0); Hemoglobin 8.6 g/dL (13.0-18.0); Mean Corp Hgb Conc. 33.7 g/dL (33.0-37.0); Mean Corpuscular Hgb 28.8 pg (27.0-31.0); Mean Corpuscular Volume 85.3 fL (80.0-94.0); Mean Platelet Volume 8.5 fL (7.4-10.4); Nucleated Red Blood Cells % 0 % (-); Platelet Count 193 10^3/uL (130-400); Red Blood Cell Count 2.99 10^6/uL (4.70-6.10); White Blood Cell Count 9.3 10^3/uL (4.8-10.8)
[2025-01-25 04:57] LABS: Blood Urea Nitrogen 18 mg/dl (9-20); Calcium 8.8 mg/dl (8.4-10.2); Carbon Dioxide 27 mmol/L (22-30); Chloride 101 mmol/L (98-107); Estimated Creatinine Clearance 65 ml/min; Glucose 115 mg/dl (70-99); Potassium 3.8 mmol/L (3.5-5.1); Sodium 138 mmol/L (135-145); eGFR > 60.00
[2025-01-25] MEDS: UNASYN IV ×4 (05:40→23:20)
[2025-01-25] MEDS: DILAUDID 1 MG IV ×3 (05:45→14:49)
[2025-01-25 08:19] VITALS: BP 129/71
--- NOTE | 2025-01-25 08:46 | W.PN.ID1 ---
Date of Service
Date of Service: January 25, 2025
Today's Communication
Continue Unasyn.
Assessment / Plan
# Hx of AAA EVAR 11/15/24
# Aortitis with inflammatory changes proximal endograft
# Severe low back pain and suprapubic pain.
# Leukocytosis resolved
# Elevated ESR/CRP
- Reviewed [facility] hospital record 01/10- 01/11. Seen by Rheum who deemed aortitis was not due to vasculitis. ANCA, serine 3, myeloperoxidase negative. Seen by Vascular suspect post-op inflammatory changes. US retroperitoneum prostatomegaly
with mass effect on bladder wall, small hypoechoic focus right posterior bladder wall appears contiguous with prostate.
-MRI L spine wo contrast: limited as pt unable to finish due to pain. + aortitis
- Blood cultures neg to date, BUT UNFORTUNATELY DRAWN AFTER ANTIBIOTICS GIVEN ( Zoysn first set bcx; Vanco, Zosyn 2nd set of blood cx)
-Repeat bcx's x 2 (off abx x 48hrs) negative to date.
- Severe back pain recurred last night.
- CRP trending up.
- Continue empiric Unasyn (d3 of 42) for now.
- plan for 6 weeks IV Unasyn 3g IV q6h trough 03/05/25 followed by possible po abx suppression for presumed endograft infection.
- Follow weekly ESR, CRP
-Infusion sheet submitted to telehealth case manager.
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
Hypertension
HLD
History of pericarditis
Spears's esophagus
Sleep apnea
BPH
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
Cholecystectomy
Umbilical hernia repair
Chief Complaint
-: Other (Aortitis)
Subjective / Review of Systems
c/o severe pain last night.
Vital Signs / Physical Exam
Vital Signs
Vital Signs
Temp Pulse Resp BP Pulse Ox
98 F 53 18 129/71 98
01/25/25 08:19 01/25/25 08:19 01/25/25 08:19 01/25/25 08:19 01/25/25 08:19
Physical Exam
Constitutional: Comfortable
Cardiovascular: Regular Rate and S1/S2
Pulmonary: Clear
Gastrointestinal: Soft, Non Tender and Non Distended
Extremities: Negative Edema
Neurological: AO x 3
Lines: PICC (LUE)
Objective Data
Lab Data
Lab Results
01/25/25 04:17
01/25/25 04:17
ESR 103 mm/hour (0-20) H 01/19/25 18:34
PT 14.6 Sec (11.4-14.6) 01/19/25 13:14
INR 1.11 01/19/25 13:14
APTT 45.3 Sec (23.4-35.0) H 01/19/25 13:14
Estimated Creat Clear 65 ml/min 01/25/25 04:17
Total Bilirubin 0.8 mg/dl (0.2-1.3) 01/20/25 05:46
AST 68 U/L (17-59) H 01/20/25 05:46
ALT 97 U/L (0-50) H 01/20/25 05:46
Alkaline Phosphatase 292 U/L (38-126) H 01/20/25 05:46
C-Reactive Protein 210.70 mg/L (0.0-10.00) H 01/24/25 08:05
Most recent labs reviewed.
Micro Results:
01/20/25 15:02 Blood Culture - Preliminary
Blood/Venous No Growth in 4 days- Final report to follow
01/22/25 10:29 Blood Culture - Preliminary
Blood/Venous No Growth in 48 hours- Final report to follow
01/20/25 10:04 Blood Culture - Preliminary
Blood/Venous No Growth in 4 days- Final report to follow
01/22/25 09:53 Blood Culture - Preliminary
Blood/Venous No Growth in 48 hours- Final report to follow
01/19/25 CTA a/p: Aortobiiliac endograft with a similar appearance of type II endoleak and stable size of the excluded aneurysm sac compared to the recent CTA from 01/09/2025. Circumferential soft tissue thickening about the proximal end of the
infrarenal abdominal aortic endograft appears increased and again raises the possibility for acute aortitis, which may be on an infectious or inflammatory basis.
12/23/24 Lumbar spine MRI wo contrast: Limited examination secondary to incomplete sequences. STIR hyperintense inflammatory changes about the aortobiiliac stent graft, which in correlation with the recent CT examination from 01/19/2025, again raises
suspicion for aortitis. Chronic mild degenerative changes of the lumbar spine.
[2025-01-25] MEDS: FLUSH (NSS) 2 FLUSH IV (10:18)
[2025-01-25] MEDS: PROSCAR 5 MG PO (10:33)
[2025-01-25] MEDS: ASPIR LOW (ENTERIC COATED) 81 MG PO (10:33)
[2025-01-25] MEDS: CRESTOR 20 MG PO (10:33)
[2025-01-25] MEDS: MAG-TAB SR 84 MG PO (10:34)
[2025-01-25] MEDS: VITAMIN D3 (cholecalciferol) 50 MCG PO (10:34)
[2025-01-25] MEDS: THERAGRAN 1 TABLET PO (10:34)
[2025-01-25] MEDS: MIRALAX 17 GRAMS PO (10:34)
[2025-01-25] MEDS: HEPARIN 5000 UNITS SC ×2 (10:35→20:19)
[2025-01-25] MEDS: SENOKOT-S 1 TABLET PO ×2 (10:35→20:19)
[2025-01-25 10:42] VITALS: BP 126/64
[2025-01-25] MEDS: COREG PO (11:20)
--- NOTE | 2025-01-25 11:34 | PTCARENOTE ---
Pt's HR 53 on initial vital sign check this am, asymptomatic. Rechecked prior to administering ordered Coreg 6.25mg and HR 59. Discussed with Dr. Toro and he indicated to hold am dose of Coreg. Updated pt on plan, will monitor.
[2025-01-25] MEDS: PROTONIX 40 MG PO (13:04)
[2025-01-25] MEDS: TYLENOL 1000 MG PO ×2 (13:05→17:15)
--- NOTE | 2025-01-25 13:54 | W.PN.HOSP.TC ---
Today's Communication/Plan
-
Assessment / Plan
Assessment / Plan
General: No Apparent Distress, Comfortable and Conversant
HEENT: NormoCephalic, Moist mucous membranes, Atraumatic
Respiratory: Clear and Non Labored Respirations
Cardiac: S1/S2 and Regular Rhythm; No Rub or Gallop
GI: Soft, Non Tender, Non Distended and Normal Bowel Sounds
Musculoskeletal: No Edema, no deformity
: NO Knight
Neuro: Awake, Alert, AO x 3 and Nonfocal/grossly intact
Psych: Calm and Intact Judgment/Insight
Impression:
Presented with persistent lower abdominal, lower back and groin pain.
Aortitis with type II endoleak.
Status post EVAR of infrarenal abdominal aortic aneurysm 11/15/2024.
Hyponatremia
Hyperkalemia
Other conditions:
Hypertension.
Hyperlipidemia.
History of pericarditis.
GERD.
Spears's esophagus.
ARETHA.
BPH.
AAA.
Cholecystectomy 2018. Umbilical hernia 2019. Hernia repair 2020.
Plan:
CTA:
Aortobiiliac endograft with a similar appearance of type II endoleak and stable size of the excluded aneurysm sac compared to the recent CTA from 01/09/2025. Circumferential soft tissue thickening about the proximal end of the infrarenal abdominal
aortic endograft appears increased and again raises the possibility for acute aortitis, which may be on an infectious or inflammatory basis.
MR lumbar spine:
STIR hyperintense inflammatory changes about the aortobiiliac stent graft, which in correlation with the recent CT examination from 01/19/2025, again raises suspicion for aortitis.
Chronic mild degenerative changes of the lumbar spine.
Concern for acute aortitis with differential diagnosis infection, rheumatologic (less likely with the endovascular stent on the site)
Recently transferred to [facility] for rheumatologic evaluation, although was not placed on any immunosuppressive therapy. Will obtain medical records
Currently afebrile, nontoxic-appearing, although with persistent lower abdominal pain.
Discussed with vascular surgery.
UA unremarkable
Following inflammatory markers
MRI lumbar spine as above
Repeat blood culture drawn on 01/22 negative to date
Initiated empirically on Unasyn on 01/22
In review of your medical records from [facility] hospitalization 01/10 - 01/11: Patient had not unrevealing rheumatologic workup with negative serology and low clinical suspicion for vasculitis. Vascular surgery opinion at that time consistent with
possible post operative inflammatory changes. No intervention was performed. Additional imaging with ultrasound of the pelvis showed enlarged prostate compressing urinary bladder.
Added scheduled Tylenol to pain regimen
Anemia:
-Normocytic, appears acute on chronic
-Drop in hemoglobin from 10.0 yesterday to 8.6 today
-Will recheck H&H this afternoon, if persistently low or dropping further will check abdominal imaging to monitor for bleeding
Constipation:
-Added scheduled bowel regimen considering ongoing opiate pain medications
Hyponatremia.
Suspect high ADH state in the settings of persistent pain.
Urine awesome at 638
Resolved
Hyperkalemia.
Resolved
Essential hypertension
Continue Coreg.
Dyslipidemia
Continue statin.
BPH: Continue Proscar and Flomax.
GERD
Continue PPI
DVT prophylaxis: Heparin
Full code
Anticipated Discharge: 24 - 48 hours
Subjective/Interval History
-
Date of Service: January 25, 2025
Patient was seen and examined at bedside this morning. He continues to have lower abdominal and back pain. He gets mild and short acting relief with his current pain regimen. He also feels constipated.
Objective Data
-
Labs:
Laboratory Results
01/25/25
04:17
WBC 9.3
Hgb 8.6 L
Hct 25.5 L
Plt Count 193
Sodium 138
Potassium 3.8
Chloride 101
Carbon Dioxide 27
BUN 18
Creatinine 0.9
Glucose 115 H
Calcium 8.8
Vital Signs:
Vital Signs
Temp Pulse Resp BP Pulse Ox
98 F 59 18 126/64 98
01/25/25 08:19 01/25/25 10:42 01/25/25 08:19 01/25/25 10:42 01/25/25 09:00
I&O
01/24/25 01/25/25 01/26/25
06:59 06:59 06:59
Intake Total 650 / 650 1320 / 1320 240 / 240
Balance 650 / 650 1320 / 1320 240 / 240
Review of Systems
-
History Source: Patient
All other systems: Reviewed and negative
Abdomen/GI: Reports Abdominal Pain and Constipated
Musculoskeletal: Reports Joint Pain (Low back pain)
Physical Exam
-
General: No Apparent Distress
[2025-01-25 15:24] LABS: Hematocrit 25.2 % (39.0-52.0); Hemoglobin 8.5 g/dL (13.0-18.0)
[2025-01-25 15:51] VITALS: BP 119/70
[2025-01-25 19:31] VITALS: BP 102/53
[2025-01-25] MEDS: COREG 6.25 MG PO (20:19)
[2025-01-25 23:03] VITALS: BP 103/55
[2025-01-25] MEDS: FLOMAX 0.4 MG PO (23:20)
[2025-01-26 02:38] VITALS: BP 135/74
[2025-01-26] MEDS: DILAUDID 1 MG IV ×2 (02:39→07:55)
[2025-01-26] MEDS: UNASYN IV ×4 (05:32→23:04)
[2025-01-26 07:00] VITALS: BP 128/82
[2025-01-26] MEDS: FLUSH (NSS) 2 FLUSH IV (07:55)
[2025-01-26] MEDS: HEPARIN 5000 UNITS SC ×2 (08:02→20:24)
[2025-01-26] MEDS: PROSCAR 5 MG PO (08:02)
[2025-01-26] MEDS: MAG-TAB SR 84 MG PO (08:02)
[2025-01-26] MEDS: MIRALAX 17 GRAMS PO (08:02)
[2025-01-26] MEDS: CRESTOR 20 MG PO (08:02)
[2025-01-26] MEDS: ASPIR LOW (ENTERIC COATED) 81 MG PO (08:02)
[2025-01-26] MEDS: THERAGRAN 1 TABLET PO (08:03)
[2025-01-26] MEDS: SENOKOT-S 1 TABLET PO ×2 (08:03→20:24)
[2025-01-26] MEDS: TYLENOL 1000 MG PO ×3 (08:03→18:03)
[2025-01-26] MEDS: VITAMIN D3 (cholecalciferol) 50 MCG PO (08:03)
--- NOTE | 2025-01-26 09:34 | W.PN.ID1 ---
Date of Service
Date of Service: January 26, 2025
Today's Communication
Continue Unasyn.
Check CRP in am.
Assessment / Plan
# Hx of AAA EVAR 11/15/24
# Aortitis with inflammatory changes proximal endograft
# Severe low back pain and suprapubic pain.
# Leukocytosis resolved
# Elevated ESR/CRP
- Reviewed [facility] hospital record 01/10- 01/11. Seen by Rheum who deemed aortitis was not due to vasculitis. ANCA, serine 3, myeloperoxidase negative. Seen by Vascular suspect post-op inflammatory changes. US retroperitoneum prostatomegaly
with mass effect on bladder wall, small hypoechoic focus right posterior bladder wall appears contiguous with prostate.
-MRI L spine wo contrast: limited as pt unable to finish due to pain. + aortitis
- Blood cultures neg to date, BUT UNFORTUNATELY DRAWN AFTER ANTIBIOTICS GIVEN ( Zoysn first set bcx; Vanco, Zosyn 2nd set of blood cx)
-Repeat bcx's x 2 (off abx x 48hrs) negative to date.
- Continues to have back pain requiring oxycodone, Dilaudid, acetamenophen
- CRP trending up.
- Continue empiric Unasyn (d4 of 42) for now.
- plan for 6 weeks IV Unasyn 3g IV q6h trough 03/05/25 followed by possible po abx suppression for presumed endograft infection.
- Follow weekly ESR, CRP
-Infusion sheet submitted to pillowcase turner.
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
Hypertension
HLD
History of pericarditis
Spears's esophagus
Sleep apnea
BPH
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
Cholecystectomy
Umbilical hernia repair
Chief Complaint
-: Other (Aortitis)
Subjective / Review of Systems
Continues to have backpain.
Vital Signs / Physical Exam
Vital Signs
Vital Signs
Temp Pulse Resp BP Pulse Ox
99.0 F 55 18 128/82 97
01/26/25 07:00 01/26/25 07:00 01/26/25 07:00 01/26/25 07:00 01/26/25 07:00
Physical Exam
Constitutional: Comfortable
Cardiovascular: Regular Rate and S1/S2
Pulmonary: Clear
Gastrointestinal: Soft, Non Tender and Non Distended
Extremities: Negative Edema
Neurological: AO x 3
Lines: PICC (LUE)
Objective Data
Lab Data
ESR 103 mm/hour (0-20) H 01/19/25 18:34
PT 14.6 Sec (11.4-14.6) 01/19/25 13:14
INR 1.11 01/19/25 13:14
APTT 45.3 Sec (23.4-35.0) H 01/19/25 13:14
Estimated Creat Clear 65 ml/min 01/25/25 04:17
Total Bilirubin 0.8 mg/dl (0.2-1.3) 01/20/25 05:46
AST 68 U/L (17-59) H 01/20/25 05:46
ALT 97 U/L (0-50) H 01/20/25 05:46
Alkaline Phosphatase 292 U/L (38-126) H 01/20/25 05:46
C-Reactive Protein 210.70 mg/L (0.0-10.00) H 01/24/25 08:05
Most recent labs reviewed.
Micro Results:
01/20/25 15:02 Blood Culture - Final
Blood/Venous No Growth - Final Report
01/22/25 10:29 Blood Culture - Preliminary
Blood/Venous No Growth in 72 hours- Final report to follow
01/20/25 10:04 Blood Culture - Final
Blood/Venous No Growth - Final Report
01/22/25 09:53 Blood Culture - Preliminary
Blood/Venous No Growth in 72 hours- Final report to follow
01/19/25 CTA a/p: Aortobiiliac endograft with a similar appearance of type II endoleak and stable size of the excluded aneurysm sac compared to the recent CTA from 01/09/2025. Circumferential soft tissue thickening about the proximal end of the
infrarenal abdominal aortic endograft appears increased and again raises the possibility for acute aortitis, which may be on an infectious or inflammatory basis.
12/23/24 Lumbar spine MRI wo contrast: Limited examination secondary to incomplete sequences. STIR hyperintense inflammatory changes about the aortobiiliac stent graft, which in correlation with the recent CT examination from 01/19/2025, again raises
suspicion for aortitis. Chronic mild degenerative changes of the lumbar spine.
[2025-01-26 10:02] LABS: Hemoglobin 8.9 g/dL (13.0-18.0); Mean Corpuscular Hgb 28.6 pg (27.0-31.0); Mean Corpuscular Volume 86.8 fL (80.0-94.0); Mean Platelet Volume 9.1 fL (7.4-10.4); Platelet Count 197 10^3/uL (130-400); Red Blood Cell Count 3.11 10^6/uL (4.70-6.10); Red Cell Dist. Width 14.2 % (11.5-14.5); White Blood Cell Count 10.1 10^3/uL (4.8-10.8)
[2025-01-26 10:28] LABS: ALT (SGPT) 170 U/L (0-50); AST (SGOT) 78 U/L (17-59); Albumin 3.3 g/dl (3.5-5.0); Alkaline Phosphatase 352 U/L (38-126); Blood Urea Nitrogen 16 mg/dl (9-20); Carbon Dioxide 27 mmol/L (22-30); Chloride 101 mmol/L (98-107); Estimated Creatinine Clearance 65 ml/min; Glucose 123 mg/dl (70-99); Potassium 3.8 mmol/L (3.5-5.1); Sodium 138 mmol/L (135-145); Total Bilirubin 0.7 mg/dl (0.2-1.3); Total Protein 6.4 g/dl (6.3-8.2); eGFR > 60.00
[2025-01-26 10:41] LABS: % Basophils 0.9 % (0-2); % Eosinophils 3.4 % (0-6); % Immature Granulocytes 0.3 % (0-0.5); % Lymphocytes 6.9 % (20.5-51.1); % Monocytes 7.8 % (1.7-9.3); % Neutrophils 80.7 % (42.2-75.2); Absolute Basophils 0.1 10^3/uL (0-0.2); Absolute Eosinophils 0.3 10^3/uL (0-0.7); Absolute Lymphocytes 0.7 10^3/uL (1.2-3.4); Absolute Monocytes 0.8 10^3/uL (0.1-0.6); Absolute Neutrophils 8.1 10^3/uL (1.4-6.5); Nucleated Red Blood Cells % 0 % (-)
[2025-01-26 11:31] VITALS: BP 102/53
[2025-01-26] MEDS: COREG PO ×2 (12:01→20:24)
[2025-01-26] MEDS: ROXICODONE 10 MG PO ×2 (12:23→23:38)
[2025-01-26] MEDS: PROTONIX 40 MG PO (12:23)
--- NOTE | 2025-01-26 14:50 | W.PN.HOSP.TC ---
Today's Communication/Plan
-
Assessment / Plan
Assessment / Plan
General: No Apparent Distress, Comfortable and Conversant
HEENT: NormoCephalic, Moist mucous membranes, Atraumatic
Respiratory: Clear and Non Labored Respirations
Cardiac: S1/S2 and Regular Rhythm; No Rub or Gallop
GI: Soft, Non Tender, Non Distended and Normal Bowel Sounds
Musculoskeletal: No Edema, no deformity
: NO Knight
Neuro: Awake, Alert, AO x 3 and Nonfocal/grossly intact
Psych: Calm and Intact Judgment/Insight
Impression:
Presented with persistent lower abdominal, lower back and groin pain.
Aortitis with type II endoleak.
Status post EVAR of infrarenal abdominal aortic aneurysm 11/15/2024.
Hyponatremia
Hyperkalemia
Other conditions:
Hypertension.
Hyperlipidemia.
History of pericarditis.
GERD.
Spears's esophagus.
ARETHA.
BPH.
AAA.
Cholecystectomy 2018. Umbilical hernia 2019. Hernia repair 2020.
Plan:
CTA:
Aortobiiliac endograft with a similar appearance of type II endoleak and stable size of the excluded aneurysm sac compared to the recent CTA from 01/09/2025. Circumferential soft tissue thickening about the proximal end of the infrarenal abdominal
aortic endograft appears increased and again raises the possibility for acute aortitis, which may be on an infectious or inflammatory basis.
MR lumbar spine:
STIR hyperintense inflammatory changes about the aortobiiliac stent graft, which in correlation with the recent CT examination from 01/19/2025, again raises suspicion for aortitis.
Chronic mild degenerative changes of the lumbar spine.
Concern for acute aortitis with differential diagnosis infection, rheumatologic (less likely with the endovascular stent on the site)
Recently transferred to [facility] for rheumatologic evaluation, although was not placed on any immunosuppressive therapy. Will obtain medical records
Currently afebrile, nontoxic-appearing, although with persistent lower abdominal pain.
Discussed with vascular surgery.
UA unremarkable
Following inflammatory markers
MRI lumbar spine as above
Repeat blood culture drawn on 01/22 negative to date
Initiated empirically on Unasyn on 01/22
In review of your medical records from [facility] hospitalization 01/10 - 01/11: Patient had not unrevealing rheumatologic workup with negative serology and low clinical suspicion for vasculitis. Vascular surgery opinion at that time consistent with
possible post operative inflammatory changes. No intervention was performed. Additional imaging with ultrasound of the pelvis showed enlarged prostate compressing urinary bladder.
Added scheduled Tylenol to pain regimen
Will trial NSAIDs and add to schedule regimen if useful for pain control
Recheck CRP in the morning
Abnormal LFTs:
-Mixed hepatocellular and cholestatic pattern, mild
-Recent CT imaging from 01/09/2025 shows fatty liver, surgically absent gallbladder
-Will hold statin for now
-Okay to continue Tylenol for now however may need to reduce the dose
-LFTs were already uptrending prior to starting Unasyn
-If LFTs still uptrending then will need to obtain dedicated liver imaging and check serologies for hepatitis
Anemia:
-Normocytic, appears acute on chronic
-Drop in hemoglobin from 10.0 yesterday to 8.6 today, remained stable on subsequent labs
-Monitor for now, no need for recurrent imaging at this point
Constipation:
-Added scheduled bowel regimen considering ongoing opiate pain medications
-Now moving bowels, continue scheduled bowel regimen for now
Hyponatremia.
Suspect high ADH state in the settings of persistent pain.
Urine awesome at 638
Resolved
Hyperkalemia.
Resolved
Essential hypertension
Continue Coreg.
Dyslipidemia
Continue statin.
BPH: Continue Proscar and Flomax.
GERD
Continue PPI
DVT prophylaxis: Heparin
Full code
Anticipated Discharge: 24 - 48 hours
Subjective/Interval History
-
Date of Service: January 26, 2025
Patient was seen and examined at bedside this morning. As ongoing but improved lower abdominal and lower back discomfort. Had a bowel movement after initiating bowel regimen.
Objective Data
-
Labs:
Laboratory Results
01/26/25
08:40
WBC 10.1
Hgb 8.9 L
Hct 27.0 L
Plt Count 197
Sodium 138
Potassium 3.8
Chloride 101
Carbon Dioxide 27
BUN 16
Creatinine 0.9
Glucose 123 H
Calcium 9.0
Total Bilirubin 0.7
AST 78 H
ALT 170 H
Alkaline Phosphatase 352 H
Vital Signs:
Vital Signs
Temp Pulse Resp BP Pulse Ox
98.3 F 55 18 102/53 96
01/26/25 11:31 01/26/25 12:01 01/26/25 07:00 01/26/25 12:01 01/26/25 09:00
I&O
01/25/25 01/26/25 01/27/25
06:59 06:59 06:59
Intake Total 1320 / 1320 1160 / 1160
Balance 1320 / 1320 1160 / 1160
Review of Systems
-
History Source: Patient
All other systems: Reviewed and negative
Abdomen/GI: Reports Abdominal Pain (Lower abdominal pain)
Musculoskeletal: Reports Joint Pain (Low back pain)
Physical Exam
-
General: No Apparent Distress
[2025-01-26 15:00] VITALS: BP 125/72
[2025-01-26] MEDS: NSS 500 IV (15:27)
[2025-01-26] MEDS: TORADOL 15 MG IV (15:29)
[2025-01-26 22:12] VITALS: BP 112/62
[2025-01-26] MEDS: FLOMAX 0.4 MG PO (22:12)
[2025-01-26 23:00] VITALS: BP 121/57
[2025-01-27 04:28] LABS: ALT (SGPT) 121 U/L (0-50); AST (SGOT) 50 U/L (17-59); Albumin 2.9 g/dl (3.5-5.0); Alkaline Phosphatase 278 U/L (38-126); Blood Urea Nitrogen 17 mg/dl (9-20); Calcium 8.4 mg/dl (8.4-10.2); Carbon Dioxide 28 mmol/L (22-30); Chloride 104 mmol/L (98-107); Estimated Creatinine Clearance 65 ml/min; Glucose 113 mg/dl (70-99); Potassium 3.6 mmol/L (3.5-5.1); Sodium 139 mmol/L (135-145); Total Bilirubin 0.6 mg/dl (0.2-1.3); Total Protein 5.8 g/dl (6.3-8.2); eGFR > 60.00
[2025-01-27 04:34] LABS: Hematocrit 24.5 % (39.0-52.0); Hemoglobin 8.1 g/dL (13.0-18.0); Mean Corp Hgb Conc. 33.1 g/dL (33.0-37.0); Mean Corpuscular Hgb 28.3 pg (27.0-31.0); Mean Corpuscular Volume 85.7 fL (80.0-94.0); Mean Platelet Volume 8.4 fL (7.4-10.4); Platelet Count 150 10^3/uL (130-400); Red Blood Cell Count 2.86 10^6/uL (4.70-6.10); Red Cell Dist. Width 14.2 % (11.5-14.5); White Blood Cell Count 9.9 10^3/uL (4.8-10.8)
[2025-01-27] MEDS: UNASYN IV ×3 (05:12→17:27)
[2025-01-27] MEDS: ROXICODONE 10 MG PO ×2 (05:15→21:05)
[2025-01-27 07:26] LABS: % Basophils 0.5 % (0-2); % Eosinophils 3.5 % (0-6); % Immature Granulocytes 0.6 % (0-0.5); % Lymphocytes 8.8 % (20.5-51.1); % Monocytes 7.1 % (1.7-9.3); % Neutrophils 79.5 % (42.2-75.2); Absolute Basophils 0.1 10^3/uL (0-0.2); Absolute Eosinophils 0.4 10^3/uL (0-0.7); Absolute Immature Granulocytes 0.1 10^3/uL (0-0.05); Absolute Lymphocytes 0.9 10^3/uL (1.2-3.4); Absolute Monocytes 0.7 10^3/uL (0.1-0.6); Absolute Neutrophils 7.9 10^3/uL (1.4-6.5); Nucleated Red Blood Cells % 0 % (-)
[2025-01-27] MEDS: MIRALAX 17 GRAMS PO (08:00)
[2025-01-27] MEDS: SENOKOT-S 1 TABLET PO ×2 (08:00→20:59)
[2025-01-27] MEDS: THERAGRAN 1 TABLET PO (08:00)
[2025-01-27] MEDS: ASPIR LOW (ENTERIC COATED) 81 MG PO (08:00)
[2025-01-27] MEDS: PROSCAR 5 MG PO (08:01)
[2025-01-27] MEDS: VITAMIN D3 (cholecalciferol) 50 MCG PO (08:01)
[2025-01-27] MEDS: MAG-TAB SR 84 MG PO (08:01)
[2025-01-27] MEDS: HEPARIN 5000 UNITS SC ×2 (08:01→20:59)
[2025-01-27] MEDS: TYLENOL 1000 MG PO ×3 (08:01→17:26)
[2025-01-27] MEDS: COREG 6.25 MG PO ×2 (08:04→20:59)
[2025-01-27 08:12] VITALS: BP 111/69
[2025-01-27] MEDS: DILAUDID 1 MG IV (09:37)
--- NOTE | 2025-01-27 12:26 | CM ---
Addendum entered by Abbie Nix 01/27/25 15:05:
CM spoke w/ Lexie who shared that she met w/ patient and spouse bedside for the initial teaching and that patient will require a pump for abx administration. Lexie shared due to pharmacy needing to prepare medication and pump that the delivery will
be pushed back to 2 pm.
CM updated Yoon/[facility] of the push back time and confirmed nurse can start care tomorrow at 2 pm
Original Note:
Chart reviewed. Patient will d/c w/ home infusion for IV abx through [facility]. [facility] accepted for nursing.
CM followed up w/ Lexie/Samantha Rosado to confirm time frame of delivery for medication as patient is stable for d/c today. Per Lexie, delivery can occur tomorrow at noon, however, CM needs to ensure when [facility] will have an available nurse to
start care.
CM spoke w/ [facility] regarding d/c plan for patient. Per [facility], a nurse is available tomorrow at noon
PICC report and VN order submitted in [facility] as requested
Patient updated at bedside
IMM verbally reviewed, patient given copy, copy on chart
[facility]

[facility]

Plan: Home w/ IV abx through [facility]
[2025-01-27] MEDS: PROTONIX 40 MG PO (12:46)
--- NOTE | 2025-01-27 13:49 | W.PN.ID1 ---
Date of Service
Date of Service: January 27, 2025
Today's Communication
Continue Unasyn
Assessment / Plan
# Hx of AAA EVAR 11/15/24
# Aortitis with inflammatory changes proximal endograft
# Severe low back pain and suprapubic pain.
# Leukocytosis resolved
# Elevated ESR/CRP
- Reviewed [facility] hospital record 01/10- 01/11. Seen by Rheum who deemed aortitis was not due to vasculitis. ANCA, serine 3, myeloperoxidase negative. Seen by Vascular suspect post-op inflammatory changes. US retroperitoneum prostatomegaly
with mass effect on bladder wall, small hypoechoic focus right posterior bladder wall appears contiguous with prostate.
-MRI L spine wo contrast: limited as pt unable to finish due to pain. + aortitis
- Blood cultures neg to date, BUT UNFORTUNATELY DRAWN AFTER ANTIBIOTICS GIVEN ( Zosyn first set bcx; Vanco, Zosyn 2nd set of blood cx)
-Repeat bcx's x 2 (off abx x 48hrs) negative to date.
- Continues to have back pain requiring oxycodone, Dilaudid, acetaminophen
- CRP 142 ->211 ->159
- Continue empiric Unasyn (d4 of 42) for now.
- plan for 6 weeks IV Unasyn 3g IV q6h trough 03/05/25 followed by possible po abx suppression for presumed endograft infection.
- Follow weekly ESR, CRP
-Infusion sheet submitted to outsole caser.
# Elevated LFT's
- Transaminitis preceded start of Unasyn
- CT and MRI + fatty infiltration of liver
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
Hypertension
HLD
History of pericarditis
Spears's esophagus
Sleep apnea
BPH
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
Cholecystectomy
Umbilical hernia repair
Chief Complaint
-: Other (Aortitis)
Subjective / Review of Systems
Pain stable, no worse.
Vital Signs / Physical Exam
Vital Signs
Vital Signs
Temp Pulse Resp BP Pulse Ox
98.7 F 68 18 111/69 95
01/27/25 08:12 01/27/25 08:12 01/27/25 08:12 01/27/25 08:12 01/27/25 08:12
Physical Exam
Constitutional: No Acute Distress and Comfortable
Cardiovascular: Regular Rate and S1/S2
Pulmonary: Clear
Gastrointestinal: Soft, Non Tender and Non Distended
Extremities: Negative Edema
Neurological: AO x 3
Lines: PICC (LUE)
Objective Data
Lab Data
Lab Results
01/27/25 04:02
01/27/25 04:02
ESR 103 mm/hour (0-20) H 01/19/25 18:34
PT 14.6 Sec (11.4-14.6) 01/19/25 13:14
INR 1.11 01/19/25 13:14
APTT 45.3 Sec (23.4-35.0) H 01/19/25 13:14
Estimated Creat Clear 65 ml/min 01/27/25 04:02
Total Bilirubin 0.6 mg/dl (0.2-1.3) 01/27/25 04:02
AST 50 U/L (17-59) 01/27/25 04:02
ALT 121 U/L (0-50) H 01/27/25 04:02
Alkaline Phosphatase 278 U/L (38-126) H 01/27/25 04:02
C-Reactive Protein 159.40 mg/L (0.0-10.00) H 01/27/25 04:02
Most recent labs reviewed.
Micro Results:
01/22/25 10:29 Blood Culture - Final
Blood/Venous No Growth - Final Report
01/22/25 09:53 Blood Culture - Final
Blood/Venous No Growth - Final Report
01/20/25 15:02 Blood Culture - Final
Blood/Venous No Growth - Final Report
01/20/25 10:04 Blood Culture - Final
Blood/Venous No Growth - Final Report
01/19/25 CTA a/p: Aortobiiliac endograft with a similar appearance of type II endoleak and stable size of the excluded aneurysm sac compared to the recent CTA from 01/09/2025. Circumferential soft tissue thickening about the proximal end of the
infrarenal abdominal aortic endograft appears increased and again raises the possibility for acute aortitis, which may be on an infectious or inflammatory basis.
12/23/24 Lumbar spine MRI wo contrast: Limited examination secondary to incomplete sequences. STIR hyperintense inflammatory changes about the aortobiiliac stent graft, which in correlation with the recent CT examination from 01/19/2025, again raises
suspicion for aortitis. Chronic mild degenerative changes of the lumbar spine.
Care Review
Plan reviewed with: Physician (Dr. Mtz)
--- NOTE | 2025-01-27 15:32 | W.PN.HOSP.TC ---
Today's Communication/Plan
-
Continue antibiotics per
Arrangements for home antibiotic infusion is underway.
Adjust analgesic regimen with discontinuation of IV Dilaudid.
Continue oxycodone/Tylenol.
Continue bowel regimen per
Discharge planning
Assessment / Plan
Assessment / Plan
General: No Apparent Distress, Comfortable and Conversant
HEENT: NormoCephalic, Moist mucous membranes, Atraumatic
Respiratory: Clear and Non Labored Respirations
Cardiac: S1/S2 and Regular Rhythm; No Rub or Gallop
GI: Soft, Non Tender, Non Distended and Normal Bowel Sounds
Musculoskeletal: No Edema, no deformity
: NO Knight
Neuro: Awake, Alert, AO x 3 and Nonfocal/grossly intact
Psych: Calm and Intact Judgment/Insight
Impression:
Presented with persistent lower abdominal, lower back and groin pain.
Aortitis with type II endoleak.
Status post EVAR of infrarenal abdominal aortic aneurysm 11/15/2024.
Hyponatremia
Hyperkalemia
Other conditions:
Hypertension.
Hyperlipidemia.
History of pericarditis.
GERD.
Spears's esophagus.
ARETHA.
BPH.
AAA.
Cholecystectomy 2018. Umbilical hernia 2019. Hernia repair 2020.
Plan:
CTA:
Aortobiiliac endograft with a similar appearance of type II endoleak and stable size of the excluded aneurysm sac compared to the recent CTA from 01/09/2025. Circumferential soft tissue thickening about the proximal end of the infrarenal abdominal
aortic endograft appears increased and again raises the possibility for acute aortitis, which may be on an infectious or inflammatory basis.
MR lumbar spine:
STIR hyperintense inflammatory changes about the aortobiiliac stent graft, which in correlation with the recent CT examination from 01/19/2025, again raises suspicion for aortitis.
Chronic mild degenerative changes of the lumbar spine.
Concern for acute aortitis with differential diagnosis infection, rheumatologic (less likely with the endovascular stent on the site)
Recently transferred to [facility] for rheumatologic evaluation, although was not placed on any immunosuppressive therapy. Will obtain medical records
Currently afebrile, nontoxic-appearing, although with persistent lower abdominal pain.
Discussed with vascular surgery.
UA unremarkable
Following inflammatory markers
MRI lumbar spine as above
Repeat blood culture drawn on 01/22 negative to date
Initiated empirically on Unasyn on 01/22
In review of your medical records from [facility] hospitalization 01/10 - 01/11: Patient had not unrevealing rheumatologic workup with negative serology and low clinical suspicion for vasculitis. Vascular surgery opinion at that time consistent with
possible post operative inflammatory changes. No intervention was performed. Additional imaging with ultrasound of the pelvis showed enlarged prostate compressing urinary bladder.
Added scheduled Tylenol to pain regimen
Will trial NSAIDs and add to schedule regimen if useful for pain control
Recheck CRP in the morning
Abnormal LFTs:
-Mixed hepatocellular and cholestatic pattern, mild
-Recent CT imaging from 01/09/2025 shows fatty liver, surgically absent gallbladder
-Will hold statin for now
-Okay to continue Tylenol for now however may need to reduce the dose
-LFTs were already uptrending prior to starting Unasyn
-If LFTs still uptrending then will need to obtain dedicated liver imaging and check serologies for hepatitis
Anemia:
-Normocytic, appears acute on chronic
-Drop in hemoglobin from 10.0 yesterday to 8.6 today, remained stable on subsequent labs
-Monitor for now, no need for recurrent imaging at this point
Constipation:
-Added scheduled bowel regimen considering ongoing opiate pain medications
-Now moving bowels, continue scheduled bowel regimen for now
Hyponatremia.
Suspect high ADH state in the settings of persistent pain.
Urine awesome at 638
Resolved
Hyperkalemia.
Resolved
Essential hypertension
Continue Coreg.
Dyslipidemia
Continue statin.
BPH: Continue Proscar and Flomax.
GERD
Continue PPI
DVT prophylaxis: Heparin
Full code
Anticipated Discharge: Within 24 hours
Subjective/Interval History
-
Date of Service: January 27, 2025
Objective Data
-
Labs:
Laboratory Results
01/27/25
04:02
WBC 9.9
Hgb 8.1 L
Hct 24.5 L
Plt Count 150 D
Sodium 139
Potassium 3.6
Chloride 104
Carbon Dioxide 28
BUN 17
Creatinine 0.9
Glucose 113 H
Calcium 8.4
Total Bilirubin 0.6
AST 50
ALT 121 H
Alkaline Phosphatase 278 H
Vital Signs:
Vital Signs
Temp Pulse Resp BP Pulse Ox
98.7 F 68 18 111/69 95
01/27/25 08:12 01/27/25 08:12 01/27/25 08:12 01/27/25 08:12 01/27/25 08:12
I&O
01/26/25 01/27/25 01/28/25
06:59 06:59 06:59
Intake Total 1160 / 1160 1500 / 1500 240 / 240
Balance 1160 / 1160 1500 / 1500 240 / 240
Physical Exam
-
General: Well Developed and No Apparent Distress
HEENT: Normocephalic, Atraumatic and Moist Mucous Membranes
Respiratory: Clear to Auscultation
Cardiac: Regular Rhythm and S1/S2; Negative Murmur, Rub or Gallop
GI: Soft, Nontender, Nondistended and Normal Bowel Sounds; Negative Organomegaly
Rectal: Deferred by Provider
Musculoskeletal: No Clubbing, No Cyanosis and No Edema
Skin: Negative Rash
Neuro: Nonfocal/Grossly Intact
[2025-01-27 16:02] VITALS: BP 105/57
[2025-01-27] MEDS: FLOMAX 0.4 MG PO (20:59)
[2025-01-27 23:05] VITALS: BP 99/49
[2025-01-28] MEDS: UNASYN IV ×3 (00:17→12:00)
[2025-01-28] MEDS: ROXICODONE 10 MG PO ×2 (01:06→05:31)
[2025-01-28 07:45] VITALS: BP 146/72
[2025-01-28] MEDS: SENOKOT-S 1 TABLET PO (08:09)
[2025-01-28] MEDS: ASPIR LOW (ENTERIC COATED) 81 MG PO (08:09)
[2025-01-28] MEDS: MAG-TAB SR 84 MG PO (08:09)
[2025-01-28] MEDS: VITAMIN D3 (cholecalciferol) 50 MCG PO (08:09)
[2025-01-28] MEDS: MIRALAX 17 GRAMS PO (08:09)
[2025-01-28] MEDS: THERAGRAN 1 TABLET PO (08:09)
[2025-01-28] MEDS: TYLENOL 1000 MG PO ×2 (08:10→12:14)
[2025-01-28] MEDS: PROSCAR 5 MG PO (08:11)
[2025-01-28] MEDS: COREG 6.25 MG PO (08:11)
[2025-01-28] MEDS: HEPARIN 5000 UNITS SC (08:11)
--- NOTE | 2025-01-28 09:12 | W.PN.ID1 ---
Date of Service
Date of Service: January 28, 2025
Today's Communication
DC home today.
Follow up with me in 2 to 4 weeks.
Assessment / Plan
# Hx of AAA EVAR 11/15/24
# Aortitis with inflammatory changes proximal endograft
# Severe low back pain and suprapubic pain.
# Leukocytosis resolved
# Elevated ESR/CRP
- Reviewed [facility] hospital record 01/10- 01/11. Seen by Rheum who deemed aortitis was not due to vasculitis. ANCA, serine 3, myeloperoxidase negative. Seen by Vascular suspect post-op inflammatory changes. US retroperitoneum prostatomegaly
with mass effect on bladder wall, small hypoechoic focus right posterior bladder wall appears contiguous with prostate.
-MRI L spine wo contrast: limited as pt unable to finish due to pain. + aortitis
- Blood cultures neg to date, BUT UNFORTUNATELY DRAWN AFTER ANTIBIOTICS GIVEN ( Zosyn first set bcx; Vanco, Zosyn 2nd set of blood cx)
-Repeat bcx's x 2 (off abx x 48hrs) negative to date.
- Continues to have back pain requiring oxycodone, Dilaudid, acetaminophen
- CRP 142 ->211 ->159
- plan for 6 weeks IV Unasyn 3g IV q6h trough 03/05/25 followed by possible po abx suppression for presumed endograft infection.
- Follow weekly ESR, CRP
-Infusion sheet submitted to outsole caser.
# Elevated LFT's
- Transaminitis preceded start of Unasyn
- CT and MRI + fatty infiltration of liver
# Conditions HEAD WAITRESS
Hypertension
HLD
History of pericarditis
Spears's esophagus
Sleep apnea
BPH
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
Cholecystectomy
Umbilical hernia repair
Chief Complaint
-: Other (Aortitis)
Subjective / Review of Systems
Back pain this am due to late in getting Tylenol.
Vital Signs / Physical Exam
Vital Signs
Vital Signs
Temp Pulse Resp BP Pulse Ox
98.8 F 59 16 141/61 95
01/27/25 23:05 01/28/25 08:11 01/27/25 23:05 01/28/25 08:11 01/27/25 23:05
Physical Exam
Constitutional: No Acute Distress
Cardiovascular: Regular Rate and S1/S2
Pulmonary: Clear
Gastrointestinal: Soft, Non Tender and Non Distended
Extremities: Negative Edema
Musculoskeletal: Negative Spinal Tenderness
Neurological: AO x 3
Lines: PICC (LUE)
Objective Data
Lab Data
Lab Results
01/27/25 04:02
01/27/25 04:02
ESR 103 mm/hour (0-20) H 01/19/25 18:34
PT 14.6 Sec (11.4-14.6) 01/19/25 13:14
INR 1.11 01/19/25 13:14
APTT 45.3 Sec (23.4-35.0) H 01/19/25 13:14
Estimated Creat Clear 65 ml/min 01/27/25 04:02
Total Bilirubin 0.6 mg/dl (0.2-1.3) 01/27/25 04:02
AST 50 U/L (17-59) 01/27/25 04:02
ALT 121 U/L (0-50) H 01/27/25 04:02
Alkaline Phosphatase 278 U/L (38-126) H 01/27/25 04:02
C-Reactive Protein 159.40 mg/L (0.0-10.00) H 01/27/25 04:02
Most recent labs reviewed.
Micro Results:
01/22/25 10:29 Blood Culture - Final
Blood/Venous No Growth - Final Report
01/22/25 09:53 Blood Culture - Final
Blood/Venous No Growth - Final Report
01/20/25 15:02 Blood Culture - Final
Blood/Venous No Growth - Final Report
01/20/25 10:04 Blood Culture - Final
Blood/Venous No Growth - Final Report
01/19/25 CTA a/p: Aortobiiliac endograft with a similar appearance of type II endoleak and stable size of the excluded aneurysm sac compared to the recent CTA from 01/09/2025. Circumferential soft tissue thickening about the proximal end of the
infrarenal abdominal aortic endograft appears increased and again raises the possibility for acute aortitis, which may be on an infectious or inflammatory basis.
12/23/24 Lumbar spine MRI wo contrast: Limited examination secondary to incomplete sequences. STIR hyperintense inflammatory changes about the aortobiiliac stent graft, which in correlation with the recent CT examination from 01/19/2025, again raises
suspicion for aortitis. Chronic mild degenerative changes of the lumbar spine.
--- NOTE | 2025-01-28 09:37 | CM ---
Addendum entered by Flor Ward RN 01/28/25 10:30:
Spoke with patient and daughter at bedside. Daughter will provide transportation home.
Original Note:
Reviewed the chart notes. Home with IV abx through [facility] and [facility]. CM continues to be available to patient/family and is monitoring medical plan for needs at discharge.
Plan: Discharge to home.
[facility]

[facility]

Plan: Home w/ IV abx through [facility]
[2025-01-28] MEDS: ROXICODONE 15 MG PO (09:46)
[2025-01-28] MEDS: PROTONIX 40 MG PO (12:14)
--- NOTE | 2025-01-28 12:27 | W.DS.TRANS ---
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
-
Discharge Instructions:
Discharge Diagnosis/Procedures Aortitis with type II endoleak.
Status post EVAR of infrarenal abdominal aortic
aneurysm 11/15/2024.
Diet Regular
Instructions:
Stand-Alone Forms:
Changes to Home Medications: Yes
Discharge Medications:
DC Medications w/original date entered in [employer]
carvedilol 6.25 mg tablet 6.25 mg PO BID Blood Pressure 11/07/24
cholecalciferol (vitamin D3) 50 mcg (2,000 unit) tablet (Vitamin D3) 50 mcg PO DAILY Supplement 11/07/24
finasteride 5 mg tablet 5 mg PO DAILY Urinary Issue 11/07/24
magnesium oxide 400 mg PO BID Electrolyte Repletion 11/07/24
omeprazole 20 mg tablet,delayed release 20 mg PO NOON Gastrointestinal Issue 11/07/24
tamsulosin 0.4 mg capsule 0.4 mg PO HS Urinary Issue 11/07/24
aspirin 81 mg tablet,delayed release 81 mg PO DAILY #90 tabs 11/15/24
acetaminophen 500 mg tablet 1,000 mg PO DAILYPRN PRN mild pain 01/19/25
bisacodyl 5 mg tablet,delayed release (Dulcolax (bisacodyl)) 15 mg PO DAILYPRN PRN constipation 01/19/25
polyethylene glycol 3350 17 gram oral powder packet 17 g PO DAILYPRN PRN constipation 01/19/25
rosuvastatin 20 mg tablet 20 mg PO DAILY 01/19/25
therapeutic multivitamin 1 tab PO DAILY 01/19/25
Ampicillin/Sulbactam 3 G [Unasyn] 3 gm 240 mls/hr IV Q6H 01/28/25
oxycodone 15 mg tablet 15 mg PO Q4HPRN PRN moderate pain #30 tabs 01/28/25
Home Medication Changes
Antibiotics/Unasyn for total of 6 weeks of therapy.
Analgesic regimen with addition of oxycodone
Pending Results: No
== END 2025-01-28 13:15 | disposition home health service (06) | DRG 546 ==
LOC: 4 EAST ACU 17:29
PROVIDERS: Internal Medicine; Nurse Practitioner Acute Care; Radiology Diagnostic Radiology; ADMITTING PHYSICIAN Hospitalist; ATTENDING PHYSICIAN Internal Medicine; CONSULT PHYSICIAN Internal Medicine Infectious Disease; EMERGENCY PHYSICIAN Student in an Organized Health Care Education/Training Program; FAMILY PHYSICIAN Internal Medicine; OTHER PHYSICIAN Surgery Vascular Surgery
PROC: 02HV33Z Insertion of Infusion Device into Superior Vena Cava, Percutaneous Approach (ICD-10-PCS; 2025-01-24)
DX: I77.6 Arteritis, unspecified (principal); E44.0 Moderate protein-calorie malnutrition; T82.7XXA Infection and inflammatory reaction due to other cardiac and vascular devices, implants and grafts, initial encounter; E87.1 Hypo-osmolality and hyponatremia; I97.89 Other postprocedural complications and disorders of the circulatory system, not elsewhere classified; I10 Essential (primary) hypertension; E78.1 Pure hyperglyceridemia; K59.00 Constipation, unspecified; I49.3 Ventricular premature depolarization; K22.70 Barrett's esophagus without dysplasia; K21.9 Gastro-esophageal reflux disease without esophagitis; M54.50 Low back pain, unspecified; R10.2 Pelvic and perineal pain; G47.33 Obstructive sleep apnea (adult) (pediatric); N40.0 Benign prostatic hyperplasia without lower urinary tract symptoms; D63.8 Anemia in other chronic diseases classified elsewhere; T40.605A Adverse effect of unspecified narcotics, initial encounter; K75.81 Nonalcoholic steatohepatitis (NASH); Y83.1 Surgical operation with implant of artificial internal device as the cause of abnormal reaction of the patient, or of later complication, without mention of misadventure at the time of the procedure; Y92.9 Unspecified place or not applicable; R74.01 Elevation of levels of liver transaminase levels; E87.5 Hyperkalemia; Z79.82 Long term (current) use of aspirin; Z86.79 Personal history of other diseases of the circulatory system; Z90.49 Acquired absence of other specified parts of digestive tract; Z68.29 Body mass index [BMI] 29.0-29.9, adult
CPT/HCPCS: 71045; 71046; 71275; 72148; 74174; 80048; 80053; 81003; 81015; 83935; 84300; 85014; 85018; 85025; 85610; 85652; 85730; 86140; 87040; 93005; 96374; 96376; 99285; Q9967

== ENCOUNTER 2025-02-09 02:49 | Inpatient (IN) | payer MEDICARE, OTHER, SELFPAY ==
[2025-02-09] VITALS (7 sets, daily range): BP systolic 123–177; BP diastolic 70–87; PULSE 68; BMI 29.4
--- NOTE | 2025-02-09 03:10 | HPS.HSE ---
Family Physician
-
Family Physician: Dutch Irwin
Chief Complaint
-
DVT, endovascular abscess
History of Present Illness
This is a 79-year-old male who has a past medical history of BPH, hypertension, hyperlipidemia, GERD, obstructive sleep apnea, infrarenal AAA status post endovascular repair in October and recent admission and discharge for aortitis on prolonged IV
antibiotics (Unasyn) who is transferred from [facility] for management of a possible aortic abscess and a left upper extremity DVT. Patient accepted by Dr. Knight.
Patient the endovascular procedure in October. He was admitted last month with abdominal pain. Workup ultimately led to the diagnosis of aortitis for which patient was started on IV antibiotics. Was placed on Unasyn and a PICC line was inserted.
Patient was to continue on Unasyn for the next 6 weeks.
He presented to [facility] with PICC issue. Family, they were unable to flush the PICC in the afternoon and unable to start the new bag of antibiotic as usual. So he was told to come to the emergency department for evaluation.
Patient denies any pain fevers or chills. He denies any swelling or redness at the site. He denies any numbness or tingling.
While at [facility] patient had a left lower extremity ultrasound which showed a nonocclusive DVT in the left upper extremity. They realized that on one of the scans he had a prior endoleak and reached out to vascular surgery. Vascular surgery
here recommended that the patient will require anticoagulation. Did not think he had an active endoleak. He also noted a hemoglobin of 8.8. He had the left lower extremity PICC line removed. A right upper extremity PICC line was placed. Prior
to initiating anticoagulation the patient had a CT of the chest abdomen and pelvis. This new study showed a possible abscess of the graft measuring about 4.7 x 4.8 x 2.8 cm. They also noted an endoleak of the AAA of about 6 cm in maximum
dimension. Anticoagulation was held. Patient was then transferred to [facility].
Vital signs at 11 PM showed a blood pressure of 140/68, pulse of 56 respirate of 18 and a temperature of 97.9. And saturation was 98% on room air. Hemoglobin was 8.8 which is similar to the last 1 here that was 8.1. Platelet count of 158 and WBC
was 6.0. Electrolytes were normal. BUN/creatinine were 19 and 0.87 respectively.
PT was 1.1 with a PTT of 41. As stated patient had a left upper extremity DVT that was nonocclusive with thrombus surrounding the PICC line within the axillary and basilic veins.
Medical History
Past Medical History
Past Medical History: Reports Other (aortitis with type II endoleak, concern for vasculitis, constipation, PVCs, pericarditis, essential hypertension, hyperlipidemia, Spears's esophagus, GERD, obstructive sleep apnea, BPH,)
Past Surgical History: Reports None
Social History
Tobacco: Non-smoker
Alcohol: None
Drug: None
Family History
Family History: Not pertinent
Allergies / Home Medications
Allergies reflects when Allergies were last updated in [employer].
Home Medications with original date entered in [employer]
Allergy/Medication List:
Allergies
Allergy/AdvReac Type Severity Reaction Status Date / Time
No Known Allergies Allergy Verified 01/19/25 13:11
Home Medications
carvedilol 6.25 mg tablet 6.25 mg PO BID Blood Pressure 11/07/24
cholecalciferol (vitamin D3) 50 mcg (2,000 unit) tablet (Vitamin D3) 50 mcg PO DAILY Supplement 11/07/24
finasteride 5 mg tablet 5 mg PO DAILY Urinary Issue 11/07/24
magnesium oxide 400 mg PO BID Electrolyte Repletion 11/07/24
multivitamin 1 tab PO DAILY Supplement 11/07/24
omeprazole 20 mg tablet,delayed release 20 mg PO DAILY Gastrointestinal Issue 11/07/24
potassium chloride 10 mEq tablet,extended release 10 meq PO DAILY Electrolyte Repletion 11/07/24
rosuvastatin 5 mg tablet 5 mg PO .EVERY OTHER DAY High Cholesterol 11/07/24
tamsulosin 0.4 mg capsule 0.4 mg PO DAILY Urinary Issue 11/07/24
aspirin 81 mg tablet,delayed release 81 mg PO DAILY #90 tabs 11/15/24
Review of Systems
-
History Source: Patient
Constitutional: Reports No Symptoms
EENT: Reports No Symptoms
Respiratory: Reports No Symptoms
Cardiac: Reports No Symptoms
Abdomen/GI: Reports No Symptoms
: Reports No Symptoms
Musculoskeletal: Reports No Symptoms
Skin: Reports No Symptoms
Neurological: Reports No Symptoms
Endocrine: Reports No Symptoms
Hematologic/Lymphatic: Reports No Symptoms
Psych: Reports No Symptoms
Physical Exam
Physical Exam
General: Well Developed, Well Nourished, No Apparent Distress and Comfortable
HEENT: NormoCephalic, Anicteric, Moist mucous membranes and Atraumatic
Respiratory: Clear
Cardiac: S1/S2 and Regular Rhythm
GI: Soft, Non Tender, Non Distended and Normal Bowel Sounds
Rectal: Deferred by Provider
Genito-urinary: Deferred by me
Musculoskeletal: No Clubbing, No Cyanosis and No Edema
Skin: Warm
Neuro: AO x 3 and Nonfocal/grossly intact
Hematologic/Lymphatic: No Lymphadenopathy
Psych: Calm
Laboratory Results
-
See HPI
Data Reviewed
-
CT Scan: Report Reviewed by me
Ultrasound: Report Reviewed by me
Lab Data: Labs Reviewed by me
Old Records: Reviewed
Impression/Plan
-
IMPRESSION:
This is a 79-year-old with history of AAA status post endovascular repair in October, recently was admitted [facility] for aortitis status post prolonged antibiotics with Unasyn via her PICC line, 2 weeks after placement of PICC line there
was a malfunction of PICC line for which patient was seen at [facility] today and was found to have a left lower extremity DVT surrounding the PICC line. It was nonocclusive. PICC line was removed and a right PICC line was placed. Before starting
antibiotics patient had a screening CT of the chest abdomen pelvis which showed a fluid collection concerning for endovascular abscess. There was also expanding endoleak on the CT scan in comparison to the one that was done here about 2 weeks ago.
He is well-appearing, afebrile, he had no leukocytosis. Similar back pain radiating to the abdomen as before.
PLAN:
1. Abdominal periaortic/graft abscess - fluid collection concerning for abscess. No systemic signs, no localized symptoms and no GI symptoms. Clinical correlation is that patient did have abdominal pain earlier for which he was diagnosed with
aortitis and started on abx.
- admit to telemetry
- blood cultures
- follow up CT from [facility], further imaging per vascular
- as patient is stable, will keep on Unasyn pending cultures and possible drainage then broaden abx
- possible IRAD for drainage
- coags, type and screen, iron panel ordered
- continued pain control as per home regimen
- ID consultation
- Vascular consultation
2. HTN
- coreg 6.25, hold for pulse < 60
3. LUE DVT - Non-occlusive DVT associated with PICC in LUE. PICC removed. Patient requires AC. There appears to be increased size of endoleak compared to 2 weeks ago
- heparin gtt recommended but on hold for now pending vascular evaluation, we are awaiting the scans from [facility] to review the endoleak
4. BPH
- continue finasteride and tamsulosin
DVT PPX - SCDs for now pending initiation of heparin gtt
Code status - Full Code
--- NOTE | 2025-02-09 05:30 | PTCARENOTE ---
Received direct admit patient from [facility]. Dr. Perea in with patient.
--- NOTE | 2025-02-09 05:30 | PTCARENOTE ---
Received direct admit from [facility]. Dr. Amezquita in with patient.
[2025-02-09] MEDS: UNASYN IV ×3 (06:00→17:59)
[2025-02-09 06:47] LABS: % Basophils 0.8 % (0-2); % Eosinophils 5.3 % (0-6); % Immature Granulocytes 0.3 % (0-0.5); % Monocytes 10.3 % (1.7-9.3); % Neutrophils 67.3 % (42.2-75.2); Absolute Basophils 0.1 10^3/uL (0-0.2); Absolute Eosinophils 0.3 10^3/uL (0-0.7); Absolute Monocytes 0.7 10^3/uL (0.1-0.6); Absolute Neutrophils 4.3 10^3/uL (1.4-6.5); Hemoglobin 8.2 g/dL (13.0-18.0); Mean Corp Hgb Conc. 32.8 g/dL (33.0-37.0); Mean Corpuscular Hgb 28.5 pg (27.0-31.0); Mean Corpuscular Volume 86.8 fL (80.0-94.0); Mean Platelet Volume 8.7 fL (7.4-10.4); Nucleated Red Blood Cells % 0 % (-); Platelet Count 128 10^3/uL (130-400); Red Blood Cell Count 2.88 10^6/uL (4.70-6.10); Red Cell Dist. Width 15.6 % (11.5-14.5); Reticulocyte Count 2.3 % (0.4-2.8); White Blood Cell Count 6.4 10^3/uL (4.8-10.8)
[2025-02-09 06:48] LABS: INR 1.09; PT 14.4 Sec (11.4-14.6)
[2025-02-09 06:49] LABS: APTT 40.2 Sec (23.4-35.0)
[2025-02-09 07:19] LABS: Blood Urea Nitrogen 15 mg/dl (9-20); Calcium 9.1 mg/dl (8.4-10.2); Carbon Dioxide 25 mmol/L (22-30); Chloride 104 mmol/L (98-107); Estimated Creatinine Clearance 74 ml/min; Glucose 102 mg/dl (70-99); Iron 57 ug/dl (49-181); Magnesium 1.8 mg/dl (1.6-2.3); Potassium 4.1 mmol/L (3.5-5.1); Sodium 137 mmol/L (135-145); eGFR > 60.00
[2025-02-09 07:30] LABS: Percent Saturation 22 % (20-50); Total Iron Binding Capacity 251 ug/dl (261-462)
--- NOTE | 2025-02-09 07:56 | W.PN.UPDATE ---
Update Note
Progress Note Update
Ismael Franklin is well-known to me
Endovascular aortic aneurysm repair with uncomplicated inpatient postoperative course in October 2024
Postoperative surveillance CTA in November demonstrated intact aortic stent graft repair with small type II endoleak
Readmitted in December with back and abdominal pain
CT imaging showing ji aortic inflammatory change at the infrarenal neck on multiple scans without collections or evidence of abscess or clear sac infection
Culture workup was negative however we elected to treat with intravenous antibiotics given potential risk for an undiagnosed infection at the site. PICC line placed and IV ABX initiation. ID was following.
He re-presented to [facility] yesterday with an occluded PICC line and ipsilateral upper extremity DVT
PICC was removed there and a new line placed on the right
CT angiogram was performed at [facility] prior to initiating anticoagulation and per radiology report demonstrated interval development of periaortic fluid collection/abscess with ongoing endoleak.
He was transferred here to [facility] overnight for management of this
Unfortunately no images were sent with him from [facility]
On physical exam he is completely nontoxic
Stable hemodynamics
Abdomen is soft and nondistended
He is afebrile here
Labs reviewed
Normal white count
Creatinine normal
Will plan to repeat CT angiogram of the abdomen and pelvis here at [facility] this morning for review as I suspect this will be the most efficient way to obtain cross-sectional imaging of his aortic stent graft
Discussed potential options with him which may include explant of the aortic stent graft
Will evaluate imaging today and formulate a surgical plan
Continue ABX
Will need anticoagulation for the PICC associated UE DVT on the left (consider repeat LUE venous duplex here in vascular lab)
Marco Knight III, MD
Vascular Surgery
[facility]
[2025-02-09] MEDS: COREG 6.25 MG PO ×2 (10:04→20:20)
[2025-02-09] MEDS: PROSCAR 5 MG PO (10:04)
--- NOTE | 2025-02-09 10:42 | W.PN.UPDATE ---
Addendum entered and electronically signed by Kosta Aguilar MD 02/09/25 21:44:
Vascular surgery would like to obtain a PET CT further assess/confirm infection as there are no safe window for IR drain sampling.
Addendum entered and electronically signed by Kosta Aguilar MD 02/09/25 11:36:
Discussed with vascular surgery via [facility]. Start IV heparin drip for recent diagnosis at [facility] of a left upper extremity DVT at the previous PICC line site
Addendum entered and electronically signed by Kosta Aguilar MD 02/09/25 11:30:
Imaging reviewed by vascular surgery
Concern for organized infection with collection around the aortic neck. Vascular surgery will discuss explant with stent graft.
They have asked for cardiac clearance along with a 2D echo. Will go ahead and order both at this time though can be done not emergently as surgery is likely planned for middle of the week
Original Note:
Update Note
Progress Note Update
Was seen and examined at bedside
back pain under control, no new compalints. no overnight events
asking.waiting to hear some good news
informed him that we would need to repeat cta today as [facility] did not send over imaging studies
vascular surgery to eval
if noted to have paraaortic abcess then we will need to have IR eval for fluid sample/drain and potential explant of graft
at this time new picc line placed
on iv antibiotics
await culture data and have infectious diseases eval
nonbillable note
--- NOTE | 2025-02-09 11:58 | CON.ID ---
Consultation
-
Date/Time Consultation Requested: 02/09/25 5:42
Date/Time Consultation Performed: 02/09/25 11:58
Requesting Provider: Dr Perea
Performing Provider: Dr Manley
Reason for Consultation: perioaortic abscess/graft abscess
Chief Complaint / Past History
Chief Complaint
DVT, endovascular abscess
History of Present Illness
Mr Franklin is a 79 year old male with history of AAA s/p endovascular repair Nov 15, 2024. Then around January 06 he developed severe, acute pain in the lower back and abdomen, which he attributed to constipation. He went to [facility] where
CT scan showed type II endoleak with inflammatory changes possible aortitis, he was transferred here. Blood cultures x2 were done prior to initiation of antibiotics and finalized negative. After blood cultures obtained he was first started on
vancomycin 01/07, then 01/10 he was started on zosyn. 01/07 MRSA nasal screen was negative. Once blood cultures resulted negative, he was transferred to [facility] for vasculitis evaluation with rheumatology, ANCA, serine 3 and MPO were negative,
rheumatology service felt that vasculitis was ruled out. He was managed with oxycontin inpatient which was stopped on d/c however pain relapsed and worsened. He the represented to the ER, repeat CT scan showed stable Type II endoleak with
slightly increase of circumferential soft tissue thickening about the proximal and of the infra-renal abdominal aortic endograft compared to 01/09/25. CTA again raising the possibility for acute aortitis which may be infectious or inflammatory. MRI
of the spine without contrast was done evaluating for other causes of pain - limited as patient could not complete it - again with aortitis. Blood cultures were obtained however note these were after the initiation of antibiotics (zosyn first set
and vancomycin and zosyn prior to the second set). He was transitioned to unasyn with a plan to complete 6 weeks of therapy through 03/05/25 followed by suppression. He had planned follow up with Dr Zarate (ID) 02/13, however in the interim he
represented to [facility] ER because they were unable to flush his PICC line or start the afternoon bag of antibiotics. He redness, swelling of the PICC, no fevers or chills. At [facility] LLE US showed nonocclusive DVT. The PICC line
was removed there, and a right upper extremity PICC line was placed. Then patient had CT C/A/P showing possible abscess of the graft measuring about 4.7 x 4.8 x 2.8 cm, and endoleak of the AAA of about 6 cm in maximum dimension. His vascular
surgery Dr Knight was contacted here and the patient was transferred to [facility]. Blood cultures have not yet been obtained here but were ordered by me. He has continued on the prior to arrival unasyn
Since arrival here today 02/09 patient has been afebrile, bp stable, wbc count 6.4, hgb 8.2, plt 128, L shift resolved, cr 0.8, na 137, CT a/p with and without contrast: 'Pronounced inflammatory change within the retroperitoneum adjacent to the
superior portion of the aortic endograft. Peripheral enhancement with internal low attenuation, overall measuring approximately 5.9 cm mediolateral by 5 cm AP by 3 cm superior inferior. Significant increase in the enhancement and inflammatory change
compared to prior CT dated 01/19/2025. Findings likely represent stent graft infection with adjacent abscess' reviewed by vascular surgery and plans for explant of the graft, ID is consulted for assistance with management.
Past History
Additional Past Medical History:
aortitis with type II endoleak, concern for vasculitis, constipation, PVCs, pericarditis, essential hypertension, hyperlipidemia, Spears's esophagus, GERD, obstructive sleep apnea, BPH
Additional Past Surgical History:
as per hpi
Allergy History:
No Known Allergies Allergy (Verified 01/19/25 13:11)
Medications Reviewed: Yes
Social History
Tobacco: Non-Smoker
Alcohol: None
Drug: None
Family History
Family History: Not Pertinent
Review of Systems
Review of Systems
General: Negative Fever or Chills
All systems: All other systems were reviewed and were negative
Vital Signs
Temp Pulse Resp BP Pulse Ox
98.3 F 65 16 164/81 97
02/09/25 11:14 02/09/25 11:14 02/09/25 11:14 02/09/25 11:14 02/09/25 11:14
Physical Exam
Physical Exam
Constitutional: Chronically Ill
Cardiovascular: Regular Rate and S1/S2; Negative Murmur or Rub
Pulmonary: Clear and Symmetric; Negative Wheezes, Rales or Rhonchi
Gastrointestinal: Soft, Tender, Non Distended and Normal Bowel Sounds
Genito-Urinary: Other (groin incision site fully healed)
Skin: Warm and Dry; Negative Rash or Jaundice
Lines: PICC (Right AC fossa - no erythema, warmth, tenderness or swelling)
Lab / Diagnostic Study Results
02/09/25 06:32
Abs Immat Gran (auto) 0.0 10^3/uL (0-0.05) 02/09/25 06:32
Absolute Neuts (auto) 4.3 10^3/uL (1.4-6.5) 02/09/25 06:32
Absolute Lymphs (auto) 1.0 10^3/uL (1.2-3.4) L 02/09/25 06:32
Absolute Monos (auto) 0.7 10^3/uL (0.1-0.6) H 02/09/25 06:32
Absolute Basos (auto) 0.1 10^3/uL (0-0.2) 02/09/25 06:32
Immature Gran % 0.3 % (0-0.5) 02/09/25 06:32
Neutrophils % 67.3 % (42.2-75.2) 02/09/25 06:32
Lymphocytes % 16.0 % (20.5-51.1) L 02/09/25 06:32
Monocytes % 10.3 % (1.7-9.3) H 02/09/25 06:32
Eosinophils % 5.3 % (0-6) 02/09/25 06:32
Basophils % 0.8 % (0-2) 02/09/25 06:32
PT 14.4 Sec (11.4-14.6) 02/09/25 06:32
INR 1.09 02/09/25 06:32
Microbiology Results
Micro:
01/22 blood cultures x2 finalized negative
01/20 blood cultures x2 finalized negative
01/07 MRSA screen negative
01/06 blood cultures x2 finalized negative
Assessment / Plan
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
# Hx of AAA EVAR 11/15/24
# Severe low back pain and suprapubic pain.
# Leukocytosis resolved
# Elevated ESR/CRP
- repeat blood cultures x2
- recheck ESR and CRP
- please send aerobic, anaerobic, fungal and afb cultures from the graft when explanted, planned for possible surgery midweek
- will follow up TTE - anticipated vanda
- PICC was replaced at [facility] due to malfunction
- follow up any cultures from [facility]
- continue unasyn as patient stable at this time to maximize yield of future cultures, if there are fevers then please repeat blood cultures x2 while febrile
- appreciate vascular surgery
[2025-02-09] MEDS: PROTONIX 40 MG PO (12:31)
[2025-02-09] MEDS: ROXICODONE 15 MG PO ×2 (12:31→20:23)
[2025-02-09] MEDS: TYLENOL 650 MG PO ×2 (12:42→20:23)
--- NOTE | 2025-02-09 12:55 | CM ---
Addendum entered by Nishi De La Paz 02/09/25 13:35:
IMM signed and placed on chart.
Original Note:
CM reviewed chart and previous admit. Spoke with pt (Arthur) and . Explained role and discussed anticipated dc plan/options.
Pt w/pmhx significant for Aortic stent graft placement in Oct 2024. December's followup was negative however medical team elected
to treat with ivabx given potential risk for undiagnosed infection at site.
Pt dc'd from approx 2 wks ago on ivabx
He is open to [facility] for Unasyn [id number] via bulb until 03/15 with [facility] for [facility].
Dtr has been handling daily bulb changes at home. Yesterday she went to exchange the ivabx and line was occluded.
She spoke with HC and they advised ER admit.
Pt ruled in for DVT.
CT AP shows concerns for possible graft abscess.
Care on-going.
CM/SW will continue to follow to ensure a safe and timely dc.
[2025-02-09 13:08] LABS: Hematocrit 24.7 % (39.0-52.0); Hemoglobin 8.3 g/dL (13.0-18.0); Mean Corp Hgb Conc. 33.6 g/dL (33.0-37.0); Mean Corpuscular Hgb 28.7 pg (27.0-31.0); Mean Corpuscular Volume 85.5 fL (80.0-94.0); Mean Platelet Volume 8.9 fL (7.4-10.4); Platelet Count 123 10^3/uL (130-400); Red Blood Cell Count 2.89 10^6/uL (4.70-6.10); Red Cell Dist. Width 15.7 % (11.5-14.5); White Blood Cell Count 5.7 10^3/uL (4.8-10.8)
[2025-02-09 13:25] LABS: APTT 37.4 Sec (23.4-35.0)
[2025-02-09] MEDS: HEPARIN 25000 UNITS/250 ML IV (13:45)
--- NOTE | 2025-02-09 14:42 | CON.CAR ---
Consultation
Consultation Request
Date/Time Consultation Requested: 02/09/25
Date/Time Consultation Performed: 02/09/25
Requesting Provider: Dr Aguilar
Performing Provider: Dr Henriquez (Dr Barcenas)
Reason for Consultation: Preop risk stratifications
Medical History
-
Chief Complaint: Upper extremity edema
History of Present Illness:
79-year-old gentleman with a past medical history of hypertension, hyperlipidemia, GERD, ARETHA and recent endovascular repair of a infrarenal AAA in October by Dr. Knight who was transferred from [facility]. Patient has had a complicated
postoperative course including multiple hospitalizations for recurrent abdominal pain with evaluation suggesting aortitis and type II endoleak presumed to be of infectious etiology after rheumatologic evaluation at the hospital of [facility]. He presented to the [facility] for evaluation of PICC line with subsequent diagnosis of ipsilateral upper extremity DVT. CT angiogram was performed during this hospitalization demonstrating a reported interval development
of a periaortic fluid collection/abscess and ongoing endoleak. He was transferred here to be evaluated by Dr. Knight his vascular surgeon. We are asked to comment on his operative risk of possible explant of stent graft Timing TBD and assist in
providing an echocardiogram with evaluation.
He has been struggling with back pain to the groin since initial procedure in October. But, he is never limited by cp or sob. He is active at home at his split level. No history of issues with anesthesia in the past.
Past Medical History
Past Medical History: GERD, HTN, Hypercholesterolemia and Other (Pericarditis, ARETHA, BPH, Spears's esophagus)
Past Surgical History: Other (As above)
Social History
Tobacco: Former Smoker (quit 45 years ago)
Living: With Family
Family History
Family History: Reviewed & Not Pertinent
Allergies / Home Medications
Allergy/AdvReac Type Severity Reaction Status Date / Time
No Known Allergies Allergy Verified 01/19/25 13:11
�Medication �Instructions �Recorded �Confirmed �Type
carvedilol 6.25 mg tablet 6.25 mg PO BID Blood Pressure 11/07/24 02/09/25 History
cholecalciferol (vitamin D3) 50 50 mcg PO DAILY Supplement 11/07/24 02/09/25 History
mcg (2,000 unit) tablet (Vitamin
D3)
finasteride 5 mg tablet 5 mg PO DAILY Urinary Issue 11/07/24 02/09/25 History
magnesium oxide 400 mg PO BID Electrolyte Repletion 11/07/24 02/09/25 History
omeprazole 20 mg tablet,delayed 20 mg PO NOON Gastrointestinal 11/07/24 02/09/25 History
release Issue
tamsulosin 0.4 mg capsule 0.4 mg PO HS Urinary Issue 11/07/24 02/09/25 History
aspirin 81 mg tablet,delayed 81 mg PO DAILY #90 tabs 11/15/24 02/09/25 Rx
release
acetaminophen 500 mg tablet 1,000 mg PO DAILYPRN PRN mild pain 01/19/25 02/09/25 History
bisacodyl 5 mg tablet,delayed 15 mg PO DAILYPRN PRN constipation 01/19/25 02/09/25 History
release (Dulcolax (bisacodyl))
polyethylene glycol 3350 17 gram 17 g PO DAILYPRN PRN constipation 01/19/25 02/09/25 History
oral powder packet
rosuvastatin 20 mg tablet 20 mg PO DAILY 01/19/25 02/09/25 History
therapeutic multivitamin 1 tab PO DAILY 01/19/25 02/09/25 History
Ampicillin/Sulbactam 3 G [Unasyn] 240 mls/hr IV Q6H 01/28/25 02/09/25 Rx
3 gm
oxycodone 15 mg tablet 15 mg PO Q4HPRN PRN moderate pain 01/28/25 02/09/25 Rx
#30 tabs
Physical Exam
Vital Signs
Temp Pulse Resp BP Pulse Ox
98.3 F 65 16 164/81 97
02/09/25 11:14 02/09/25 11:14 02/09/25 11:14 02/09/25 11:14 02/09/25 11:14
Lab Results
02/09/25 12:59
02/09/25 06:32
Physical Exam
General: Well Developed and Well Nourished
Respiratory: Clear; Negative Wheezes, Crackles or Rhonchi
Cardiac: S1/S2 and Regular Rhythm; Negative Murmur, Rub or Peripheral Edema
GI: Soft and Non Tender
Neuro: AO x 3
Impression / Plan
-
AAA s/p endograft repair now with sbdominal periaortic/graft endoleak with possigle abscess:
-CTA planned for tomorrow
-IV abx as per ID
-Dr Knight to review best options after review of imaging
Preoperative risk stratification: He is active at home on a split level carrying loads without cp or sob. NO issues with anesthesia in the past, cannot do NSQIP as unclear what procedure he will need. He is acceptable risk for any procedure.
-update his echo
-update ecg in am
LUE DVT: heparin gtt initiated
HTN: continue bb
HLD:rosuvastatin on hold, will check lfts, as had been elevated
ARETHA
GERD
Data:
At [facility]: CT a/p with and without contrast: 'Pronounced inflammatory change within the retroperitoneum adjacent to the superior portion of the aortic endograft. Peripheral enhancement with internal low attenuation, overall measuring approximately 5.9
cm mediolateral by 5 cm AP by 3 cm superior inferior. Significant increase in the enhancement and inflammatory change compared to prior CT dated 01/19/2025. Findings likely represent stent graft infection with adjacent abscess'
TTE 08/17/2022 LVEF 60 to 65% normal RV no significant valve disease.
Data Reviewed
-
EKG: Tracing Personally Visualized and interpreted (01.19.35 NSR)
[2025-02-09 17:39] LABS: ALT (SGPT) 40 U/L (0-50); AST (SGOT) 33 U/L (17-59); Albumin 3.2 g/dl (3.5-5.0); Alkaline Phosphatase 196 U/L (38-126); Direct Bilirubin 0.3 mg/dl (0.0-0.4); Total Bilirubin 0.6 mg/dl (0.2-1.3); Total Protein 6.3 g/dl (6.3-8.2)
--- NOTE | 2025-02-09 20:16 | PTCARENOTE ---
pt had blood cx ordered on arrival and ordered was placed for them to be drawn from his foot. Phlebotomy and lab aware of order and called the unit to make sure that the order was in the chart for them to be drawn form foot and nurse assured them
that the order has been in since 0300. They did not come to draw labs, and when nurse called back in the lab to see if they got the tubes I was told no they don't have them. Nurse called IV team and ICU nurses to see if the blood draw could be done
from his foot. Sal MITCHELL from ER was able to come and get the blood cx at around 1830. Passed on report to night nurse for the second set of blood cultures. [employer] made aware of the situation and the delay of care.
[2025-02-09] MEDS: FLOMAX 0.4 MG PO (20:20)
[2025-02-09 20:34] LABS: APTT 139.5 Sec (23.4-35.0)
[2025-02-10] MEDS: UNASYN IV ×4 (00:22→18:08)
[2025-02-10 03:24] VITALS: BP 135/73
[2025-02-10 04:51] LABS: Erythrocyte Sed Rate 96 mm/hour (0-20)
[2025-02-10] MEDS: TYLENOL 650 MG PO ×2 (05:31→22:31)
[2025-02-10] MEDS: ROXICODONE 15 MG PO ×3 (05:31→22:29)
[2025-02-10 07:50] VITALS: BP 119/59
[2025-02-10] MEDS: HEPARIN 25000 UNITS/250 ML IV (08:01)
[2025-02-10] MEDS: SENOKOT-S 1 TABLET PO (08:02)
[2025-02-10] MEDS: PROSCAR 5 MG PO (08:02)
[2025-02-10] MEDS: COREG 6.25 MG PO ×2 (08:02→20:48)
--- NOTE | 2025-02-10 08:03 | W.PN.CD ---
Today's Communication / Plan
-
Echo pending
We will follow up after surgery; if questions prior please reach out.
Impression / Plan
-
AAA s/p endograft repair now with sbdominal periaortic/graft endoleak with possigle abscess:
-CTA pending
-IV abx as per ID
-Dr Knight to review best options after review of imaging
Preoperative risk stratification: He is active at home on a split level carrying loads without cp or sob. NO issues with anesthesia in the past, cannot do NSQIP as unclear what procedure he will need.
He is acceptable risk for any procedure; he has no significant symptoms of ischemia, HF, or arrhythmia.
-EKG and Echo today
LUE DVT: heparin gtt initiated
HTN: continue bb
HLD:rosuvastatin on hold, will check lfts, as had been elevated
ARETHA
GERD
Data:
At [facility]: CT a/p with and without contrast: 'Pronounced inflammatory change within the retroperitoneum adjacent to the superior portion of the aortic endograft. Peripheral enhancement with internal low attenuation, overall measuring approximately 5.9
cm mediolateral by 5 cm AP by 3 cm superior inferior. Significant increase in the enhancement and inflammatory change compared to prior CT dated 01/19/2025. Findings likely represent stent graft infection with adjacent abscess'
Subjective: Feels well anxious about upcoming surgery
TTE 08/17/2022 LVEF 60 to 65% normal RV no significant valve disease.
Physical Exam
Vital Signs/Labs
Vital Signs
Temp Pulse Resp BP Pulse Ox
98.5 F 60 18 119/59 95
02/10/25 07:50 02/10/25 07:50 02/10/25 07:50 02/10/25 07:50 02/10/25 07:50
02/09/25 02/10/25 02/11/25
06:59 06:59 06:59
Actual Weight 193 lb 6 oz
02/09/25 12:59
02/09/25 06:32
PT 14.4 Sec (11.4-14.6) 02/09/25 06:32
INR 1.09 02/09/25 06:32
APTT 108.0 Sec (23.4-35.0) H 02/10/25 04:27
Magnesium 1.8 mg/dl (1.6-2.3) 02/09/25 06:32
Physical Exam
Constitutional: No acute distress and Comfortable
EENT: Anicteric
Cardiovascular: Rhythm & rate is regular and Pedal edema is absent
Respiratory: Respiratory effort normal and Lungs clear to auscul.
GI: Soft
Neuro/Psych: AO x 3
Data Reviewed
-
Date of Service: February 10, 2025
Medical Decision Making: Reviewed Test Results
EKG: Tracing Personally Visualized and interpreted (sr)
Echo: Report Reviewed by me
Labs: Labs Reviewed by me
[2025-02-10] MEDS: MIRALAX 17 GRAMS PO (08:15)
--- NOTE | 2025-02-10 08:29 | CON.VAS ---
Addendum entered and electronically signed by Marco Knight III, MD 02/10/25 12:19:
This patient was seen and examined in collaboration with BILL Harris and BILL Stover. I agree with the history and physical exam as well as the assessment and plan. I have the following additions:
CT angiogram from 02-09 personally reviewed
The area around the proximal aortic neck appears to be evolving and now looks to have fluid collection
Perhaps a developing area of abscess
This was not seen on prior CT imaging
White count continues to be normal
Afebrile
Culture data has been completely negative to date
Reports that he continues to have low abd/back pain as he has had
Somewhat better with narcotics
Will discuss possible CT-guided needle aspiration of fluid in order to determine microbiology and target antibiotic therapy
I was clear with him that he may need explant of the aortic stent graft
Signed:
Marco Knight III, MD
Vascular Surgery
[facility]
Original Note:
Consultation
Consultation Request
Date/Time Consultation Requested: 02/10/25 8:36 AM
Performing Provider: Eugene
Reason for Consultation: Aortitis vs infected endograft
Medical History
-
Chief Complaint: Suprapubic and low back pain
History of Present Illness:
71-year-old male with significant past medical history for hypertension, dyslipidemia, low HDL, hypertriglycerides, pericarditis, Spears's esophagus, GERD, sleep apnea, and benign prostatic hypertrophy, AAA, and PVCs who was
Recently here from 01/06/25-01/10/2025 then transferred to [facility] for vasculitis workup (no significant findings). Following that pt was admitted here at [facility] again from 01/19-01/28 with same symptoms. Patient had EVAR on 11/15/2024 with
Eugene. He began with low back pain and suprapubic pain around the first week of December and was seen in [facility]'s ER. He had a CT scan at that time that demonstrated an endoleak with possible aortitis prompting a transfer to our
hospital at that time.
Patient seen at bedside this a.m. with Dr. Knight. Patient continues to complain of suprapubic and low back pain when narcotics wear off. He states that when he is unmedicated the pain is 10 out of 10 and he cannot sit or stand comfortably. Denies
upper and middle abdominal pain. Denies upper back pain. Afebrile.
CT imaging showing ji aortic inflammatory change at the infrarenal neck on multiple scans without collections or evidence of abscess or clear sac infection
Culture workup was negative however we elected to treat with intravenous antibiotics given potential risk for an undiagnosed infection at the site. PICC line placed and IV ABX initiation. ID was following.
He re-presented to [facility] yesterday with an occluded PICC line and ipsilateral upper extremity DVT
PICC was removed there and a new line placed on the right
CT angiogram was performed at [facility] prior to initiating anticoagulation and per radiology report demonstrated interval development of periaortic fluid collection/abscess with ongoing endoleak.
He was transferred here to [facility] overnight for management of this
Unfortunately no images were sent with him from [facility]
On physical exam he is completely nontoxic
Stable hemodynamics
Abdomen is soft and nondistended
He is afebrile here
Labs reviewed
Normal white count
Creatinine normal
Past Medical History
Past Medical History: GERD, HTN and Other (Dyslipidemia, low HDL, hypertriglyceridemia, pericarditis, Spears's esophagus, sleep apnea, benign prostate hypertrophy, AAA status post EVAR, PVCs)
Past Surgical History: Other (Colonoscopy, endoscopy, cholecystectomy, umbilical hernia repair)
Social History
Tobacco: Non-Smoker
Alcohol: None
Drug: None
Personal:
Living: With Family
Allergies / Home Medications
Allergy/AdvReac Type Severity Reaction Status Date / Time
No Known Allergies Allergy Verified 01/19/25 13:11
�Medication �Instructions �Recorded �Confirmed �Type
carvedilol 6.25 mg tablet 6.25 mg PO BID Blood Pressure 11/07/24 02/09/25 History
cholecalciferol (vitamin D3) 50 50 mcg PO DAILY Supplement 11/07/24 02/09/25 History
mcg (2,000 unit) tablet (Vitamin
D3)
finasteride 5 mg tablet 5 mg PO DAILY Urinary Issue 11/07/24 02/09/25 History
magnesium oxide 400 mg PO BID Electrolyte Repletion 11/07/24 02/09/25 History
omeprazole 20 mg tablet,delayed 20 mg PO NOON Gastrointestinal 11/07/24 02/09/25 History
release Issue
tamsulosin 0.4 mg capsule 0.4 mg PO HS Urinary Issue 11/07/24 02/09/25 History
aspirin 81 mg tablet,delayed 81 mg PO DAILY #90 tabs 11/15/24 02/09/25 Rx
release
acetaminophen 500 mg tablet 1,000 mg PO DAILYPRN PRN mild pain 01/19/25 02/09/25 History
bisacodyl 5 mg tablet,delayed 15 mg PO DAILYPRN PRN constipation 01/19/25 02/09/25 History
release (Dulcolax (bisacodyl))
polyethylene glycol 3350 17 gram 17 g PO DAILYPRN PRN constipation 01/19/25 02/09/25 History
oral powder packet
rosuvastatin 20 mg tablet 20 mg PO DAILY 01/19/25 02/09/25 History
therapeutic multivitamin 1 tab PO DAILY 01/19/25 02/09/25 History
Ampicillin/Sulbactam 3 G [Unasyn] 240 mls/hr IV Q6H 01/28/25 02/09/25 Rx
3 gm
oxycodone 15 mg tablet 15 mg PO Q4HPRN PRN moderate pain 01/28/25 02/09/25 Rx
#30 tabs
Review of Systems
-
History Source: Patient
All other systems: Negative unless noted
Constitutional: Denies Fever or Chills
EENT: Reports No Symptoms
Respiratory: Reports No Symptoms
Cardiac: Reports No Symptoms
Vascular: Denies Leg Pain / Claudication
Abdomen/GI: Reports Abdominal Pain (Suprapubic pain/low back pain)
Physical Exam
Vital Signs
Temp Pulse Resp BP Pulse Ox
98.5 F 66 18 119/59 95
02/10/25 07:50 02/10/25 08:02 02/10/25 07:50 02/10/25 08:02 02/10/25 07:50
Lab Results
02/09/25 12:59
02/09/25 06:32
Physical Exam
General: No Apparent Distress
HEENT: Normocephalic and Atraumatic
Respiratory: Non Labored Respirations
Cardiac: Negative JVD
GI: Soft, Non Tender, Non Distended and Other (Suprapubic pain)
Musculoskeletal: Other (Low back pain)
Skin: Warm
Neuro: Awake, Alert and Oriented
Psych: Calm
Assessment / Plan
-
Will plan to repeat CT angiogram of the abdomen and pelvis here at [facility] this morning for review as I suspect this will be the most efficient way to obtain cross-sectional imaging of his aortic stent graft
Discussed potential options with him which may include explant of the aortic stent graft
Will evaluate imaging today and formulate a surgical plan
Continue ABX
Will need anticoagulation for the PICC associated UE DVT on the left (consider repeat LUE venous duplex here in vascular lab)
Data Reviewed
-
CT Scan: Discussed with Patient
Labs: Labs Reviewed by me
--- NOTE | 2025-02-10 08:40 | W.PN.UPDATE ---
Update Note
Progress Note Update
Patient seen at bedside this a.m. with Dr. Knight. Discussed plans for potential radiology sampling of fluid if safe window can be found, PET CT, and echo pending for today. Will follow-up with patient with plan when scan complete.
[2025-02-10 10:47] LABS: APTT 144.2 Sec (23.4-35.0)
[2025-02-10 11:10] VITALS: BP 122/57
[2025-02-10] MEDS: PROTONIX 40 MG PO (11:15)
--- NOTE | 2025-02-10 14:11 | W.PN.HOSP.TC ---
Today's Communication/Plan
-
See [tarun
Assessment / Plan
Assessment / Plan
Impression:
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
Status post endovascular aortic repair for infrarenal abdominal aortic aneurysm October 2024.
Left upper extremity DVT secondary to PICC line
Other conditions:
1. Hypertension.
2. Dyslipidemia.
3. Prior history of pericarditis.
4. Gastroesophageal reflux disease and Spears's esophagus.
5. Obstructive sleep apnea.
6. Benign prostatic hyperplasia.
7. History of cholecystectomy in 2018.
Plan:
CT angio of abdomen and pelvis
1. Pronounced inflammatory change within the retroperitoneum adjacent to the superior portion of the aortic endograft. Peripheral enhancement with internal low attenuation, overall measuring approximately 5.9 cm mediolateral by 5 cm AP by 3 cm
superior inferior. Significant increase in the enhancement and inflammatory change compared to prior CT dated 01/19/2025. Findings likely represent stent graft infection with adjacent abscess.
2. 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 Excluded aneurysm sac measures 5.7 cm in greatest transverse dimension, slightly increased in size compared to prior CT dated 12/10/2024, at which time it measured 5.2 cm in greatest transverse
dimension.
3. Severe prostatic enlargement.
Presents with persistent lower abdomen and back pain unchanged since prior hospitalization.
Afebrile and hemodynamically stable.
All cultures negative to date.
With concern for infected stent, patient was discharged on Unasyn through 03/05/2025.
Repeated imaging as above.
Echo
Repeated blood culture pending
Plan is for additional evaluation with either PET CT or WBC nuclear scan. [facility] consultation for possibility of percutaneous sampling.
Potential option could involve surgical expiration with explant of the aortic stent graft
Continue Unasyn
Continue analgesia with Tylenol and oxycodone
Continue bowel regimen
Left upper extremity DVT secondary to PICC line. PICC line removed.
IV heparin
Essential hypertension
Continue Coreg
BPH continue Flomax and Proscar
Monitor for retention
Anticipated Discharge: > 48 hours
Subjective/Interval History
-
Date of Service: February 10, 2025
Objective Data
-
Labs:
Laboratory Results
02/10/25 02/10/25 02/10/25
04:27 10:19 18:00
APTT 108.0 H 144.2 H Pending
Vital Signs:
Vital Signs
Temp Pulse Resp BP Pulse Ox
97.9 F 74 18 122/57 98
02/10/25 11:10 02/10/25 11:10 02/10/25 11:10 02/10/25 11:10 02/10/25 11:10
I&O
02/09/25 02/10/25 02/11/25
06:59 06:59 06:59
Intake Total 386 / 386
Output Total 450 / 450
Balance -64 / -64
Physical Exam
-
General: Well Developed and No Apparent Distress
HEENT: Normocephalic, Atraumatic and Moist Mucous Membranes
Respiratory: Clear to Auscultation
Cardiac: Regular Rhythm and S1/S2; Negative Murmur, Rub or Gallop
GI: Soft, Nontender, Nondistended and Normal Bowel Sounds; Negative Organomegaly
Rectal: Deferred by Provider
Musculoskeletal: No Clubbing, No Cyanosis and No Edema
Skin: Negative Rash
Neuro: Nonfocal/Grossly Intact
--- NOTE | 2025-02-10 14:22 | PTCARENOTE ---
prn pain medication given for 9/10 back and groin pain this afternoon. pt oob to chair as tolerated. heparin gtt was going at 13ml/hr this morning. post PTT results heparin gtt held for an hour until noon and then decreased by 300units. heparin gtt
resumed this afternoon and is now going at 10ml/hr. pt and educated on gtt at bedside as well as his abx. pt with poor appetite at this time as well.
[2025-02-10 15:21] VITALS: BP 125/66
--- NOTE | 2025-02-10 15:42 | W.PN.ID1 ---
Date of Service
Date of Service: February 10, 2025
Today's Communication
- continue unasyn as patient stable at this time to maximize yield of future cultures, if there are fevers then please repeat blood cultures x2 while febrile
Assessment / Plan
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
# Hx of AAA EVAR 11/15/24
# Severe low back pain and suprapubic pain.
# Leukocytosis resolved
# Elevated ESR/CRP
- repeat blood cultures x2
- recheck ESR and CRP
- please send aerobic, anaerobic, fungal and afb cultures from the graft when explanted, planned for possible surgery midweek
- will follow up TTE - anticipated
- PICC was replaced at [facility] due to malfunction
- follow up any cultures from [facility]
- continue unasyn as patient stable at this time to maximize yield of future cultures, if there are fevers then please repeat blood cultures x2 while febrile
- appreciate vascular surgery
Chief Complaint
-: Other (aortitis)
Subjective / Review of Systems
afebrile
bp stable
tolerating current therapies
Vital Signs / Physical Exam
Vital Signs
Vital Signs
Temp Pulse Resp BP Pulse Ox
99.1 F 70 16 125/66 96
02/10/25 15:21 02/10/25 15:21 02/10/25 15:21 02/10/25 15:21 02/10/25 15:21
Physical Exam
Constitutional: No Acute Distress and Chronically Ill
Cardiovascular: Regular Rate and S1/S2; Negative Murmur or Rub
Pulmonary: Clear and Symmetric; Negative Wheezes or Rales
Gastrointestinal: Soft, Tender, Non Distended and Normal Bowel Sounds
Skin: Warm and Dry; Negative Rash or Jaundice
Objective Data
Lab Data
Lab Results
02/09/25 12:59
02/09/25 06:32
ESR 96 mm/hour (0-20) H 02/10/25 04:27
PT 14.4 Sec (11.4-14.6) 02/09/25 06:32
INR 1.09 02/09/25 06:32
APTT 144.2 Sec (23.4-35.0) H 02/10/25 10:19
Estimated Creat Clear 74 ml/min 02/09/25 06:32
Total Bilirubin 0.6 mg/dl (0.2-1.3) 02/09/25 06:32
AST 33 U/L (17-59) 02/09/25 06:32
ALT 40 U/L (0-50) 02/09/25 06:32
Alkaline Phosphatase 196 U/L (38-126) H 02/09/25 06:32
C-Reactive Protein Cancelled 02/10/25 04:27
Most recent labs reviewed.
Micro Results:
02/09/25 18:42 Blood Culture - Pending
Blood/Venous
02/09/25 20:15 Blood Culture - Pending
Blood/Venous
--- NOTE | 2025-02-10 16:06 | CM ---
Reviewed the chart notes. Per notes, possible possible surgery midweek. Continue on IV abx. CM continues to be available to patient/family and is monitoring medical plan for needs at discharge.
Plan: Discharge plans will depend on the patient's progress.
[2025-02-10 18:00] VITALS: BMI 29.4
[2025-02-10 18:50] LABS: APTT 84.5 Sec (23.4-35.0)
[2025-02-10 20:12] VITALS: BP 135/69
[2025-02-10] MEDS: FLOMAX 0.4 MG PO (20:48)
[2025-02-10 23:25] VITALS: BP 146/99
[2025-02-11] VITALS (7 sets, daily range): BP systolic 66–185; BP diastolic 59–78
[2025-02-11] MEDS: UNASYN IV ×4 (00:37→23:14)
[2025-02-11 01:30] LABS: APTT 86.7 Sec (23.4-35.0)
[2025-02-11 04:45] LABS: Hematocrit 23.3 % (39.0-52.0); Hemoglobin 7.6 g/dL (13.0-18.0); Mean Corp Hgb Conc. 32.6 g/dL (33.0-37.0); Mean Corpuscular Hgb 28.4 pg (27.0-31.0); Mean Corpuscular Volume 86.9 fL (80.0-94.0); Mean Platelet Volume 8.9 fL (7.4-10.4); Platelet Count 118 10^3/uL (130-400); Red Blood Cell Count 2.68 10^6/uL (4.70-6.10); Red Cell Dist. Width 16.2 % (11.5-14.5); White Blood Cell Count 4.7 10^3/uL (4.8-10.8)
[2025-02-11 04:55] LABS: APTT 123.4 Sec (23.4-35.0)
[2025-02-11 05:30] LABS: Blood Urea Nitrogen 14 mg/dl (9-20); Carbon Dioxide 27 mmol/L (22-30); Chloride 104 mmol/L (98-107); Estimated Creatinine Clearance 59 ml/min; Glucose 104 mg/dl (70-99); Potassium 3.8 mmol/L (3.5-5.1); Sodium 139 mmol/L (135-145); eGFR > 60.00
[2025-02-11] MEDS: TYLENOL 650 MG PO ×2 (08:53→22:10)
[2025-02-11] MEDS: ROXICODONE 15 MG PO ×2 (08:53→22:10)
[2025-02-11] MEDS: COREG 6.25 MG PO ×2 (08:54→20:00)
[2025-02-11] MEDS: PROSCAR 5 MG PO (08:54)
--- NOTE | 2025-02-11 09:16 | W.PN.ID1 ---
Date of Service
Date of Service: February 11, 2025
Today's Communication
See below.
Assessment / Plan
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
# Hx of AAA EVAR 11/15/24
# Severe low back pain and suprapubic pain.
# Leukocytosis resolved
# Elevated ESR/CRP
# LUE PICC DVT/malfunction -> dc'd at [facility]
- repeat blood cultures x2 neg to date (on Unasyn)
- CRP 210 ->159->41
- ESR 93->103->96
- For IR aspiration of fluid collection today. Hold Unasyn starting today; ideally should've held abx x several days to increase culture yield.
Check aerobic, anaerobic, fungal smear/cx, AFB.smear.
- follow up any cultures from [facility]
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
Hypertension
HLD
History of pericarditis
Spears's esophagus
Sleep apnea
BPH
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
Cholecystectomy
Umbilical hernia repair
Chief Complaint
-: Other (aortitis)
Subjective / Review of Systems
pain stable.
Vital Signs / Physical Exam
Vital Signs
Vital Signs
Temp Pulse Resp BP Pulse Ox
97.4 F 68 20 185/66 92
02/11/25 07:55 02/11/25 07:55 02/11/25 07:55 02/11/25 07:55 02/11/25 07:55
Physical Exam
Constitutional: No Acute Distress
Eyes: Negative Sclera Anicteric
Cardiovascular: Regular Rate and S1/S2
Pulmonary: Clear
Gastrointestinal: Soft, Non Tender, Non Distended and Normal Bowel Sounds
Genito-Urinary: Negative CVA Tenderness
Extremities: Negative Edema
Neurological: AO x 3
Lines: PICC (RUE no erythema)
Objective Data
Lab Data
Lab Results
02/11/25 04:12
02/11/25 04:12
ESR 96 mm/hour (0-20) H 02/10/25 04:27
PT 14.4 Sec (11.4-14.6) 02/09/25 06:32
INR 1.09 02/09/25 06:32
APTT 123.4 Sec (23.4-35.0) H 02/11/25 04:12
Estimated Creat Clear 59 ml/min 02/11/25 04:12
Total Bilirubin 0.6 mg/dl (0.2-1.3) 02/09/25 06:32
AST 33 U/L (17-59) 02/09/25 06:32
ALT 40 U/L (0-50) 02/09/25 06:32
Alkaline Phosphatase 196 U/L (38-126) H 02/09/25 06:32
C-Reactive Protein Cancelled 02/10/25 04:27
Most recent labs reviewed.
Micro Results:
02/09/25 20:15 Blood Culture - Preliminary
Blood/Venous No Growth in 24 hours- Final report to follow
02/09/25 18:42 Blood Culture - Preliminary
Blood/Venous No Growth in 24 hours- Final report to follow
02/09/25 CT a/p: Pronounced inflammatory change within the retroperitoneum adjacent to the superior portion of the aortic endograft. Peripheral enhancement with internal low attenuation, overall measuring approximately 5.9 cm mediolateral by 5 cm AP
by 3 cm superior inferior. Significant increase in the enhancement and inflammatory change compared to prior CT dated 01/19/2025. Findings likely represent stent graft infection with adjacent abscess. 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
Excluded aneurysm sac measures 5.7 cm in greatest transverse dimension, slightly increased in size compared to prior CT dated 12/10/2024, at which time it measured 5.2 cm in greatest transverse dimension. Severe prostatic enlargement.
--- NOTE | 2025-02-11 09:52 | W.PN.VS ---
Addendum entered and electronically signed by Marco Knight III, MD 02/11/25 10:57:
This patient was seen and examined in collaboration with BILL Harris. I agree with the history and physical exam as well as the assessment and plan. I have the following additions:
Discussed options for additional imaging with either PET/CT or tagged white cell scan.
We have encountered challenges obtaining either 1 of these studies for different reasons
Discussed case in detail with interventional radiology who feels they can safely sample fluid and therefore we will proceed with this approach
Patient stable with no new complaints today
I updated him and his family (via telephone) regarding the plan.
Signed:
Marco Knight III, MD
Vascular Surgery
[facility]
Original Note:
Today's Communication / Plan
-
Patient seen and examined at bedside with Dr. Marco Knight III, below plan reviewed with attending.
Assessment/Plan
-
Assessment: 79-year-old male status post EVAR with proximal aortic neck involvement possible fluid collection but remains afebrile and without leukocytosis
Plan:
Patient scheduled for IR today for sampling of fluid collection
Subjective Data
-
Date of Service: February 11, 2025
Patient seen at bedside, offers no complaints. Does endorse continued intermittent lower back pain. Denies fevers, chills, nausea, vomiting.
Objective Data
-
Vital Signs
Temp Pulse Resp BP Pulse Ox
97.4 F 68 20 185/66 92
02/11/25 07:55 02/11/25 07:55 02/11/25 07:55 02/11/25 07:55 02/11/25 07:55
Intake and Output
02/10/25 02/11/25 02/12/25
06:59 06:59 06:59
Intake Total 386 / 386 1209 / 1209
Output Total 450 / 450 875 / 875
Balance -64 / -64 334 / 334
Intake:
Oral fluids 840 / 840
IV fluids (Total) 146 / 146 129 / 129
IV piggybacks 240 / 240 240 / 240
Output:
Urine, Voided 450 / 450 875 / 875
Other:
Number of approximated MODERATE 1
amounts of urine
Lab Results
02/11/25 04:12
02/11/25 04:12
Calcium 9.0 mg/dl (8.4-10.2) 02/11/25 04:12
Magnesium 1.8 mg/dl (1.6-2.3) 02/09/25 06:32
Total Bilirubin 0.6 mg/dl (0.2-1.3) 02/09/25 06:32
Direct Bilirubin 0.3 mg/dl (0.0-0.4) 02/09/25 06:32
AST 33 U/L (17-59) 02/09/25 06:32
ALT 40 U/L (0-50) 02/09/25 06:32
Alkaline Phosphatase 196 U/L (38-126) H 02/09/25 06:32
Total Protein 6.3 g/dl (6.3-8.2) 02/09/25 06:32
Albumin 3.2 g/dl (3.5-5.0) L 02/09/25 06:32
Physical Exam
-
AAOx3
No tachypnea on room air
No tachycardia
Abdomen soft, nontender, nondistended
Denies pain at this time
[2025-02-11] MEDS: PROTONIX PO (11:43)
--- NOTE | 2025-02-11 13:11 | W.PN.UPDATE ---
Addendum entered and electronically signed by Jan Brink MD 02/11/25 13:40:
OK to restart heparin drip around 3:30 pm today.
Original Note:
Update Note
Progress Note Update
CT guided aspiration of fluid collection adjacent to superior portion of aortic graft, yielding 4 cc of blood tinged pus. Fluid sent for laboratory analysis.
--- NOTE | 2025-02-11 14:22 | PN.CDI ---
CDI
- -
CDI:
Physician Documentation Request
Admit Date: 02/09/25 02:49
Dear Doctor Bibi,
Patient admitted for possible aortic abscess.
H&P: 'He presented to [facility] with PICC issue. Family, they were unable to flush the PICC in the afternoon and unable to start the new bag of antibiotic as usual.While at [facility] patient had a left lower extremity ultrasound
which showed a nonocclusive DVT in the left upper extremity.'
02/10 Hospitalist PN: 'Left upper extremity DVT secondary to PICC line. PICC line removed. IV heparin'
Clarify which of the following accurately represents the acuity of the DVT. Possible options might include:
____ Acute
Chronic
____ Other
Use of terms such as suspected, likely, concern for, or probable (associated with a specific diagnosis that is being evaluated, monitored, or treated as if it exists) are acceptable and can be coded in the inpatient setting, when documented at the
time of discharge.
Thank you,
Tiffany Hennessy RN, BSN
CDI Specialist
Available via [place] text
Please use your independent medical judgment in providing your response.
[2025-02-11] MEDS: HEPARIN 25000 UNITS/250 ML IV (15:36)
--- NOTE | 2025-02-11 16:03 | CM ---
Reviewed the chart notes and spoke with the patient at the bedside. CM continues to be available to patient/family and is monitoring medical plan for needs at discharge.
Plan: Discharge plans will depend on the patient's progress.
--- NOTE | 2025-02-11 16:41 | W.PN.HOSP.TC ---
Today's Communication/Plan
-
Status post iRad aspiration of collection.
Resume antibiotics.
Resume heparin
Assessment / Plan
Assessment / Plan
Impression:
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
Status post endovascular aortic repair for infrarenal abdominal aortic aneurysm October 2024.
Left upper extremity DVT secondary to PICC line
Other conditions:
1. Hypertension.
2. Dyslipidemia.
3. Prior history of pericarditis.
4. Gastroesophageal reflux disease and Spears's esophagus.
5. Obstructive sleep apnea.
6. Benign prostatic hyperplasia.
7. History of cholecystectomy in 2018.
Plan:
CT angio of abdomen and pelvis
1. Pronounced inflammatory change within the retroperitoneum adjacent to the superior portion of the aortic endograft. Peripheral enhancement with internal low attenuation, overall measuring approximately 5.9 cm mediolateral by 5 cm AP by 3 cm
superior inferior. Significant increase in the enhancement and inflammatory change compared to prior CT dated 01/19/2025. Findings likely represent stent graft infection with adjacent abscess.
2. 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 Excluded aneurysm sac measures 5.7 cm in greatest transverse dimension, slightly increased in size compared to prior CT dated 12/10/2024, at which time it measured 5.2 cm in greatest transverse
dimension.
3. Severe prostatic enlargement.
Presents with persistent lower abdomen and back pain unchanged since prior hospitalization.
Afebrile and hemodynamically stable.
All cultures negative to date.
With concern for infected stent, patient was discharged on Unasyn through 03/05/2025.
Repeated imaging as above.
Echo
Repeated blood culture pending
Plan is for additional evaluation with either PET CT or WBC nuclear scan.
Status post CT-guided aspiration of fluid collection adjacent to superior portion of aortic graft, yielding 40 cc of blood-tinged pus on 02/11
Potential option could involve surgical expiration with explant of the aortic stent graft
Unasyn had been on hold since 02/11 for possible better culture yield with aspiration
Continue analgesia with Tylenol and oxycodone
Continue bowel regimen
Left upper extremity DVT secondary to PICC line. PICC line removed.
IV heparin
Essential hypertension
Continue Coreg
BPH continue Flomax and Proscar
Monitor for retention
Anticipated Discharge: > 48 hours
Subjective/Interval History
-
Date of Service: February 11, 2025
Objective Data
-
Labs:
Laboratory Results
02/11/25 02/11/25 02/11/25
04:12 11:10 22:00
WBC 4.7 L
Hgb 7.6 L
Hct 23.3 L
Plt Count 118 L
APTT 123.4 H Cancelled Pending
Sodium 139
Potassium 3.8
Chloride 104
Carbon Dioxide 27
BUN 14
Creatinine 1.0
Glucose 104 H
Calcium 9.0
Vital Signs:
Vital Signs
Temp Pulse Resp BP Pulse Ox
98.0 F 62 14 149/68 95
02/11/25 11:25 02/11/25 13:27 02/11/25 13:27 02/11/25 13:27 02/11/25 11:25
I&O
02/10/25 02/11/25 02/12/25
06:59 06:59 06:59
Intake Total 386 / 386 1209 / 1209 250 / 250
Output Total 450 / 450 875 / 875
Balance -64 / -64 334 / 334 250 / 250
Physical Exam
-
General: Well Developed and No Apparent Distress
HEENT: Normocephalic, Atraumatic and Moist Mucous Membranes
Respiratory: Clear to Auscultation
Cardiac: Regular Rhythm and S1/S2; Negative Murmur, Rub or Gallop
GI: Soft, Nontender, Nondistended and Normal Bowel Sounds; Negative Organomegaly
Rectal: Deferred by Provider
Musculoskeletal: No Clubbing, No Cyanosis and No Edema
Skin: Negative Rash
Neuro: Nonfocal/Grossly Intact
[2025-02-11] MEDS: FLOMAX 0.4 MG PO (20:01)
[2025-02-11 22:33] LABS: APTT 49.1 Sec (23.4-35.0)
[2025-02-11] MEDS: HEPARIN 7000 UNITS IV (23:11)
[2025-02-12 03:41] VITALS: BP 127/64
[2025-02-12] MEDS: UNASYN IV ×2 (06:15→12:26)
[2025-02-12] MEDS: ROXICODONE 15 MG PO ×3 (06:15→21:55)
[2025-02-12] MEDS: TYLENOL 650 MG PO ×3 (06:15→21:55)
[2025-02-12 06:23] LABS: % Basophils 0.8 % (0-2); % Eosinophils 7.9 % (0-6); % Immature Granulocytes 0.4 % (0-0.5); % Lymphocytes 25.7 % (20.5-51.1); % Monocytes 10.2 % (1.7-9.3); APTT > 200 Sec (23.4-35.0); Absolute Eosinophils 0.4 10^3/uL (0-0.7); Absolute Lymphocytes 1.2 10^3/uL (1.2-3.4); Absolute Monocytes 0.5 10^3/uL (0.1-0.6); Absolute Neutrophils 2.7 10^3/uL (1.4-6.5); Hemoglobin 7.7 g/dL (13.0-18.0); Mean Corp Hgb Conc. 32.1 g/dL (33.0-37.0); Mean Corpuscular Hgb 28.2 pg (27.0-31.0); Mean Corpuscular Volume 87.9 fL (80.0-94.0); Mean Platelet Volume 9.1 fL (7.4-10.4); Nucleated Red Blood Cells % 0 % (-); Platelet Count 121 10^3/uL (130-400); Red Blood Cell Count 2.73 10^6/uL (4.70-6.10); Red Cell Dist. Width 16.4 % (11.5-14.5); White Blood Cell Count 4.8 10^3/uL (4.8-10.8)
[2025-02-12 06:39] LABS: Blood Urea Nitrogen 15 mg/dl (9-20); Calcium 9.3 mg/dl (8.4-10.2); Carbon Dioxide 27 mmol/L (22-30); Chloride 107 mmol/L (98-107); Estimated Creatinine Clearance 65 ml/min; Glucose 90 mg/dl (70-99); Sodium 140 mmol/L (135-145); eGFR > 60.00
[2025-02-12 08:00] VITALS: BP 131/60
[2025-02-12] MEDS: COREG 6.25 MG PO ×2 (08:42→20:51)
[2025-02-12] MEDS: PROSCAR 5 MG PO (08:42)
--- NOTE | 2025-02-12 09:08 | W.PN.VS ---
Today's Communication / Plan
-
Discussed with Dr. Knight
Assessment/Plan
-
Assessment: 79-year-old male status post EVAR with proximal aortic neck involvement possible fluid collection but remains afebrile and without leukocytosis
Plan:
Cultures pending
Continue antibiotics, appreciate ID
Pain management
Surgical plan pending culture results
Subjective Data
-
Date of Service: February 12, 2025
Patient seen at bedside this a.m. Spoke with patient at length about possible surgical plans. No events overnight.
Objective Data
-
Vital Signs
Temp Pulse Resp BP Pulse Ox
98.4 F 62 18 131/60 97
02/12/25 08:00 02/12/25 08:42 02/12/25 08:00 02/12/25 08:42 02/12/25 08:00
Intake and Output
02/11/25 02/12/25 02/13/25
06:59 06:59 06:59
Intake Total 1209 / 1209 2360 / 2360
Output Total 875 / 875 475 / 475
Balance 334 / 334 1885 / 1885
Intake:
Oral fluids 840 / 840 2009
IV fluids (Total) 129 / 129 250 / 250
NSS 250 / 250
IV piggybacks 240 / 240 100 / 100
Output:
Urine, Voided 875 / 875 475 / 475
Other:
Number of approximated MODERATE 1 1
amounts of urine
Lab Results
02/12/25 05:09
02/12/25 05:09
Calcium 9.3 mg/dl (8.4-10.2) 02/12/25 05:09
Magnesium 1.8 mg/dl (1.6-2.3) 02/09/25 06:32
Total Bilirubin 0.6 mg/dl (0.2-1.3) 02/09/25 06:32
Direct Bilirubin 0.3 mg/dl (0.0-0.4) 02/09/25 06:32
AST 33 U/L (17-59) 02/09/25 06:32
ALT 40 U/L (0-50) 02/09/25 06:32
Alkaline Phosphatase 196 U/L (38-126) H 02/09/25 06:32
Total Protein 6.3 g/dl (6.3-8.2) 02/09/25 06:32
Albumin 3.2 g/dl (3.5-5.0) L 02/09/25 06:32
Physical Exam
-
AAOx3
No tachypnea on room air
No tachycardia
Abdomen soft, nontender, nondistended
Denies pain at this time
[2025-02-12 12:24] VITALS: BP 140/70
[2025-02-12] MEDS: PROTONIX 40 MG PO (12:26)
--- NOTE | 2025-02-12 13:59 | W.PN.HOSP.TC ---
Addendum entered and electronically signed by Maikol Mtz MD 02/12/25 14:28:
Quantification acute DVT.
Original Note:
Today's Communication/Plan
-
Antibiotics as per ID.
Awaiting vascular surgery decision on possible exploration.
Resume heparin for upper extremity DVT
Analgesia has been adequate on current regimen
Assessment / Plan
Assessment / Plan
Impression:
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
Status post endovascular aortic repair for infrarenal abdominal aortic aneurysm October 2024.
Left upper extremity DVT secondary to PICC line
Other conditions:
1. Hypertension.
2. Dyslipidemia.
3. Prior history of pericarditis.
4. Gastroesophageal reflux disease and Spears's esophagus.
5. Obstructive sleep apnea.
6. Benign prostatic hyperplasia.
7. History of cholecystectomy in 2017.
Plan:
CT angio of abdomen and pelvis
1. Pronounced inflammatory change within the retroperitoneum adjacent to the superior portion of the aortic endograft. Peripheral enhancement with internal low attenuation, overall measuring approximately 5.9 cm mediolateral by 5 cm AP by 3 cm
superior inferior. Significant increase in the enhancement and inflammatory change compared to prior CT dated 01/19/2025. Findings likely represent stent graft infection with adjacent abscess.
2. 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 Excluded aneurysm sac measures 5.7 cm in greatest transverse dimension, slightly increased in size compared to prior CT dated 12/10/2024, at which time it measured 5.2 cm in greatest transverse
dimension.
3. Severe prostatic enlargement.
Presents with persistent lower abdomen and back pain unchanged since prior hospitalization.
Afebrile and hemodynamically stable.
All cultures negative to date.
With concern for infected stent, patient was discharged on Unasyn through 03/05/2025.
Repeated imaging as above.
Echo 02/10 with normal LVEF and no valvular abnormalities.
Repeated blood culture negative to date
Status post CT-guided aspiration of fluid collection adjacent to superior portion of aortic graft, yielding 40 cc of blood-tinged pus on 02/11. Gram stain and cultures negative to date
Potential option could involve surgical expiration with explant of the aortic stent graft
Continue antibiotics as per ID
Continue analgesia with Tylenol and oxycodone
Continue bowel regimen
Left upper extremity DVT secondary to PICC line. PICC line removed.
IV heparin
Essential hypertension
Continue Coreg
BPH continue Flomax and Proscar
Monitor for retention
Anticipated Discharge: > 48 hours
Subjective/Interval History
-
Date of Service: February 12, 2025
Objective Data
-
Labs:
Laboratory Results
02/12/25 02/12/25
05:09 14:40
WBC 4.8
Hgb 7.7 L
Hct 24.0 L
Plt Count 121 L
APTT > 200 H* Pending
Sodium 140
Potassium 4.0
Chloride 107
Carbon Dioxide 27
BUN 15
Creatinine 0.9
Glucose 90
Calcium 9.3
Vital Signs:
Vital Signs
Temp Pulse Resp BP Pulse Ox
98.4 F 63 18 140/70 95
02/12/25 12:24 02/12/25 12:24 02/12/25 12:24 02/12/25 12:24 02/12/25 12:24
I&O
02/11/25 02/12/25 02/13/25
06:59 06:59 06:59
Intake Total 1209 / 1209 2360 / 2360
Output Total 875 / 875 475 / 475
Balance 334 / 334 1885 / 1885
Physical Exam
-
General: Well Developed and No Apparent Distress
HEENT: Normocephalic, Atraumatic and Moist Mucous Membranes
Respiratory: Clear to Auscultation
Cardiac: Regular Rhythm and S1/S2; Negative Murmur, Rub or Gallop
GI: Soft, Nontender, Nondistended and Normal Bowel Sounds; Negative Organomegaly
Rectal: Deferred by Provider
Musculoskeletal: No Clubbing, No Cyanosis and No Edema
Skin: Negative Rash
Neuro: Nonfocal/Grossly Intact
--- NOTE | 2025-02-12 14:07 | W.PN.ID1 ---
Date of Service
Date of Service: February 12, 2025
Today's Communication
Hold Unasyn (day 21) for now to maximize intra-op cx yield, if plan for endograft explant.
Assessment / Plan
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
# Hx of AAA EVAR 11/15/24
# Severe low back pain and suprapubic pain.
# Leukocytosis resolved
# Elevated ESR/CRP
# LUE PICC DVT/malfunction -> dc'd at [facility]
- repeat blood cultures x2 neg to date (on Unasyn)
- CRP 210 ->159->41
- ESR 93->103->96
- 02/11 aspirated aortic endograft fluid - 4cc bloody purulent fluid.
Aerobic gram stain: no org. Cx neg to date (on Unasyn)
anaerobic, fungal smear/cx, AFB smear/cx pending
- Hold Unasyn (day 21) for now to maximize intra-op cx yield, if plan for endograft explant.
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
Hypertension
HLD
History of pericarditis
Spears's esophagus
Sleep apnea
BPH
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
Cholecystectomy
Umbilical hernia repair
Chief Complaint
-: Other (aortitis)
Subjective / Review of Systems
Pain controlled.
Vital Signs / Physical Exam
Vital Signs
Vital Signs
Temp Pulse Resp BP Pulse Ox
98.4 F 63 18 140/70 95
02/12/25 12:24 02/12/25 12:24 02/12/25 12:24 02/12/25 12:24 02/12/25 12:24
Physical Exam
Constitutional: No Acute Distress
Eyes: Negative Sclera Anicteric
Cardiovascular: Regular Rate and S1/S2
Pulmonary: Clear
Gastrointestinal: Soft, Non Tender, Non Distended and Normal Bowel Sounds
Genito-Urinary: Negative CVA Tenderness
Extremities: Negative Edema
Musculoskeletal: Negative Spinal Tenderness
Neurological: AO x 3
Lines: PICC (RUE no erythema)
Objective Data
Lab Data
Lab Results
02/12/25 05:09
02/12/25 05:09
ESR 96 mm/hour (0-20) H 02/10/25 04:27
PT 14.4 Sec (11.4-14.6) 02/09/25 06:32
INR 1.09 02/09/25 06:32
APTT > 200 Sec (23.4-35.0) H* 02/12/25 05:09
Estimated Creat Clear 65 ml/min 02/12/25 05:09
Total Bilirubin 0.6 mg/dl (0.2-1.3) 02/09/25 06:32
AST 33 U/L (17-59) 02/09/25 06:32
ALT 40 U/L (0-50) 02/09/25 06:32
Alkaline Phosphatase 196 U/L (38-126) H 02/09/25 06:32
C-Reactive Protein Cancelled 02/10/25 04:27
Most recent labs reviewed.
Micro Results:
02/11/25 13:00 Anaerobic Culture - Preliminary
Abscess Culture pending. Anaerobic cultures are examined after 3
days incubation. Additional information to follow.
02/11/25 13:00 Wound Culture - Preliminary
Abscess No growth
Gram Stain - Preliminary
02/09/25 20:15 Blood Culture - Preliminary
Blood/Venous No Growth in 48 hours- Final report to follow
02/09/25 18:42 Blood Culture - Preliminary
Blood/Venous No Growth in 48 hours- Final report to follow
02/11/25 13:00 Fungal Smear - Pending
Abscess Fungal Culture - Preliminary
Culture in progress.
Positive cultures are reported as soon as detected.
Final report to follow in four to five weeks.
02/11/25 13:00 Acid Fast Bacilli Smear - Pending
Abscess Acid Fast Bacilli Culture - Pending
02/09/25 CT a/p: Pronounced inflammatory change within the retroperitoneum adjacent to the superior portion of the aortic endograft. Peripheral enhancement with internal low attenuation, overall measuring approximately 5.9 cm mediolateral by 5 cm AP
by 3 cm superior inferior. Significant increase in the enhancement and inflammatory change compared to prior CT dated 01/19/2025. Findings likely represent stent graft infection with adjacent abscess. 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
Excluded aneurysm sac measures 5.7 cm in greatest transverse dimension, slightly increased in size compared to prior CT dated 12/10/2024, at which time it measured 5.2 cm in greatest transverse dimension. Severe prostatic enlargement.
Care Review
Plan reviewed with: Physician (Dr. Mtz)
--- NOTE | 2025-02-12 14:55 | CM ---
Reviewed the chart notes and spoke with the patient at the bedside. IV abx has been discontinued at this time. CM continues to be available to patient/family and is monitoring medical plan for needs at discharge.
Plan: Discharge plans will depend on the patient's progress.
[2025-02-12 15:11] LABS: APTT 77.9 Sec (23.4-35.0)
[2025-02-12] MEDS: HEPARIN 25000 UNITS/250 ML IV (15:39)
[2025-02-12 16:00] VITALS: BP 143/61
[2025-02-12 19:34] VITALS: BP 159/72
[2025-02-12] MEDS: FLOMAX 0.4 MG PO (21:55)
[2025-02-12 22:46] LABS: APTT 52.7 Sec (23.4-35.0)
[2025-02-12] MEDS: HEPARIN 7000 UNITS IV (23:04)
[2025-02-12 23:28] VITALS: BP 127/66
[2025-02-13 03:31] VITALS: BP 118/64
[2025-02-13 05:10] LABS: Hemoglobin 7.5 g/dL (13.0-18.0); Mean Corp Hgb Conc. 32.6 g/dL (33.0-37.0); Mean Corpuscular Hgb 28.5 pg (27.0-31.0); Mean Corpuscular Volume 87.5 fL (80.0-94.0); Platelet Count 115 10^3/uL (130-400); Red Blood Cell Count 2.63 10^6/uL (4.70-6.10); Red Cell Dist. Width 16.4 % (11.5-14.5); White Blood Cell Count 5.1 10^3/uL (4.8-10.8)
[2025-02-13 05:45] LABS: APTT 195.4 Sec (23.4-35.0)
[2025-02-13] MEDS: TYLENOL 650 MG PO ×3 (05:51→22:03)
[2025-02-13] MEDS: ROXICODONE 15 MG PO ×3 (05:51→22:04)
[2025-02-13 06:53] LABS: Blood Urea Nitrogen 16 mg/dl (9-20); Calcium 9.2 mg/dl (8.4-10.2); Carbon Dioxide 24 mmol/L (22-30); Chloride 106 mmol/L (98-107); Estimated Creatinine Clearance 65 ml/min; Glucose 91 mg/dl (70-99); Potassium 3.8 mmol/L (3.5-5.1); Sodium 139 mmol/L (135-145); eGFR > 60.00
[2025-02-13 07:09] VITALS: BP 142/67
[2025-02-13] MEDS: PROSCAR 5 MG PO (09:23)
[2025-02-13] MEDS: COREG PO (09:24)
--- NOTE | 2025-02-13 11:17 | W.PN.ID1 ---
Date of Service
Date of Service: February 13, 2025
Today's Communication
See below.
Assessment / Plan
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
# Hx of AAA EVAR 11/15/24
# Severe low back pain and suprapubic pain.
# Leukocytosis resolved
# Elevated ESR/CRP
# LUE PICC DVT/malfunction -> dc'd at [facility]
- repeat blood cultures x2 neg to date (on Unasyn)
- CRP 210 ->159->41
- ESR 93->103->96
- 02/11 aspirated aortic endograft fluid - 4cc bloody purulent fluid.
Aerobic gram stain: no org. Cx neg to date (on Unasyn)
anaerobic, fungal smear/cx, AFB smear/cx pending
- Unasyn held on day 21 (02/12/25) to maximize intra-op cx yield, if plan for endograft explant.
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
Hypertension
HLD
History of pericarditis
Spears's esophagus
Sleep apnea
BPH
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
Cholecystectomy
Umbilical hernia repair
Chief Complaint
-: Other (aortitis)
Subjective / Review of Systems
No new complaints today. Stable.
Vital Signs / Physical Exam
Vital Signs
Vital Signs
Temp Pulse Resp BP Pulse Ox
98.0 F 57 16 142/67 96
02/13/25 07:09 02/13/25 09:24 02/13/25 07:09 02/13/25 09:24 02/13/25 11:15
Physical Exam
Constitutional: No Acute Distress
Eyes: Negative Sclera Anicteric
Cardiovascular: Regular Rate and S1/S2
Pulmonary: Clear
Gastrointestinal: Soft, Non Tender, Non Distended and Normal Bowel Sounds
Genito-Urinary: Negative CVA Tenderness
Extremities: Negative Edema
Musculoskeletal: Negative Spinal Tenderness
Neurological: AO x 3
Lines: PICC (RUE no erythema)
Objective Data
Lab Data
Lab Results
02/13/25 04:58
02/13/25 04:58
ESR 96 mm/hour (0-20) H 02/10/25 04:27
PT 14.4 Sec (11.4-14.6) 02/09/25 06:32
INR 1.09 02/09/25 06:32
APTT 195.4 Sec (23.4-35.0) H* 02/13/25 04:58
Estimated Creat Clear 65 ml/min 02/13/25 04:58
Total Bilirubin 0.6 mg/dl (0.2-1.3) 02/09/25 06:32
AST 33 U/L (17-59) 02/09/25 06:32
ALT 40 U/L (0-50) 02/09/25 06:32
Alkaline Phosphatase 196 U/L (38-126) H 02/09/25 06:32
C-Reactive Protein Cancelled 02/10/25 04:27
Most recent labs reviewed.
Micro Results:
02/09/25 20:15 Blood Culture - Preliminary
Blood/Venous No Growth in 72 hours- Final report to follow
02/09/25 18:42 Blood Culture - Preliminary
Blood/Venous No Growth in 72 hours- Final report to follow
02/11/25 13:00 Anaerobic Culture - Preliminary
Abscess Culture pending. Anaerobic cultures are examined after 3
days incubation. Additional information to follow.
02/11/25 13:00 Wound Culture - Preliminary
Abscess No growth
Gram Stain - Preliminary
02/11/25 13:00 Fungal Smear - Pending
Abscess Fungal Culture - Preliminary
Culture in progress.
Positive cultures are reported as soon as detected.
Final report to follow in four to five weeks.
02/11/25 13:00 Acid Fast Bacilli Smear - Pending
Abscess Acid Fast Bacilli Culture - Pending
02/09/25 CT a/p: Pronounced inflammatory change within the retroperitoneum adjacent to the superior portion of the aortic endograft. Peripheral enhancement with internal low attenuation, overall measuring approximately 5.9 cm mediolateral by 5 cm AP
by 3 cm superior inferior. Significant increase in the enhancement and inflammatory change compared to prior CT dated 01/19/2025. Findings likely represent stent graft infection with adjacent abscess. 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
Excluded aneurysm sac measures 5.7 cm in greatest transverse dimension, slightly increased in size compared to prior CT dated 12/10/2024, at which time it measured 5.2 cm in greatest transverse dimension. Severe prostatic enlargement.
[2025-02-13 11:28] VITALS: BP 147/75
[2025-02-13] MEDS: PROTONIX 40 MG PO (11:34)
--- NOTE | 2025-02-13 12:40 | W.PN.HOSP.TC ---
Today's Communication/Plan
-
Still pending aspirated fluid culture.
Assessment / Plan
Assessment / Plan
Impression:
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
Status post endovascular aortic repair for infrarenal abdominal aortic aneurysm October 2024.
Left upper extremity DVT secondary to PICC line
Other conditions:
1. Hypertension.
2. Dyslipidemia.
3. Prior history of pericarditis.
4. Gastroesophageal reflux disease and Spears's esophagus.
5. Obstructive sleep apnea.
6. Benign prostatic hyperplasia.
7. History of cholecystectomy in 2018.
Assessment/plan:
Aortitis with inflammatory changes proximal endograft with progression and possible abscess formation
CT angio of abdomen and pelvis
1. Pronounced inflammatory change within the retroperitoneum adjacent to the superior portion of the aortic endograft. Peripheral enhancement with internal low attenuation, overall measuring approximately 5.9 cm mediolateral by 5 cm AP by 3 cm
superior inferior. Significant increase in the enhancement and inflammatory change compared to prior CT dated 01/19/2025. Findings likely represent stent graft infection with adjacent abscess.
2. 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 Excluded aneurysm sac measures 5.7 cm in greatest transverse dimension, slightly increased in size compared to prior CT dated 12/10/2024, at which time it measured 5.2 cm in greatest transverse
dimension.
3. Severe prostatic enlargement.
Presents with persistent lower abdomen and back pain unchanged since prior hospitalization.
Afebrile and hemodynamically stable.
All cultures negative to date.
With concern for infected stent, patient was discharged on Unasyn through 03/05/2025.
Repeated imaging as above.
Echo 02/10 with normal LVEF and no valvular abnormalities.
Repeated blood culture negative to date
Status post CT-guided aspiration of fluid collection adjacent to superior portion of aortic graft, yielding 40 cc of blood-tinged pus on 02/11. Gram stain and cultures negative to date
Potential option could involve surgical expiration with explant of the aortic stent graft
Continue antibiotics as per ID
Continue analgesia with Tylenol and oxycodone
Continue bowel regimen
02/13
Still pending aspirated fluid culture.
Currently off antibiotic as per ID recommendations to maximize OR culture yield.
Acute blood loss anemia
Continue to monitor hemoglobin.
Transfuse if less than 7.
If patient going for vascular procedure will transfuse preoperatively
Left upper extremity DVT secondary to PICC line.
PICC line removed.
Current IV heparin
Essential hypertension
Continue Coreg
Bening Prostatic hyperplasia:
Continue Flomax and Proscar
Monitor for retention
CODE STATUS: Full code
DVT prophylaxis: Lovenox
Diet: Regular diet
Total time spent on today's encounter was 65 minutes which included time spent in counseling the patient/family regarding diagnosis and treatment plan as listed above, goals of care, and symptom management. Case was discussed with nursing staff,
specialists, and care coordinators/case management. All labs and imaging personally reviewed by me. Remainder the time spent in detailed review of previous records, lab data, imaging, and other medical provider documentation.
Anticipated Discharge: > 48 hours
Subjective/Interval History
-
Date of Service: February 13, 2025
Patient seen and examined at bedside by me this morning.
Denies any chest pain or shortness of breath.
Still having abdominal pain and back pain which controlled with current pain regimen.
Denies any nausea or vomiting.
Still pending aspirated fluid culture.
Objective Data
-
Labs:
Laboratory Results
02/13/25 02/13/25
04:58 13:15
WBC 5.1
Hgb 7.5 L
Hct 23.0 L
Plt Count 115 L
APTT 195.4 H* Pending
Sodium 139
Potassium 3.8
Chloride 106
Carbon Dioxide 24
BUN 16
Creatinine 0.9
Glucose 91
Calcium 9.2
Vital Signs:
Vital Signs
Temp Pulse Resp BP Pulse Ox
97.9 F 61 18 147/75 98
02/13/25 11:28 02/13/25 11:28 02/13/25 11:28 02/13/25 11:28 02/13/25 11:28
I&O
02/12/25 02/13/25 02/14/25
06:59 06:59 06:59
Intake Total 2360 / 2360 1896 / 1896
Output Total 475 / 475 350 / 350
Balance 1885 / 1885 1546 / 1546
Physical Exam
-
General: Well Developed, Well Nourished, No Apparent Distress and Comfortable
HEENT: Normocephalic, Atraumatic, Moist Mucous Membranes, No Ptosis, PERRLA and Nose Appears Normal
Respiratory: Clear to Auscultation and Non Labored Respirations
Cardiac: Regular Rhythm and S1/S2
Breast: Deferred by me
GI: Soft, Nontender, Nondistended and Normal Bowel Sounds
Genito-urinary: No Costovertebral Tender
Musculoskeletal: No Clubbing, No Cyanosis and No Edema
Skin: Warm
Neuro: Awake, Alert, Oriented, AO x 3 and No Motor Deficits
Psych: Calm
Data Reviewed
-
Diagnostic Radiology: Image personally visualized and interpreted and Report Reviewed by me
CT Scan: Image personally visualized and interpreted and Report Reviewed by me
Ultrasound: Image personally visualized and interpreted and Report Reviewed by me
MRI: Image personally visualized and interpreted and Report Reviewed by me
Medical Tests (Nuc Med, Echo etc): Image personally visualized and interpreted and Report Reviewed by me
Labs: Labs Reviewed by me
Old Records: Reviewed
[2025-02-13 13:33] LABS: APTT 73.3 Sec (23.4-35.0)
--- NOTE | 2025-02-13 15:09 | CM ---
Reviewed the chart notes. Await final cultures. CM continues to be available to patient/family and is monitoring medical plan for needs at discharge.
Plan: Discharge plans will depend on the patient's progress.
[2025-02-13 15:49] VITALS: BP 151/73
[2025-02-13] MEDS: HEPARIN 25000 UNITS/250 ML IV (17:31)
--- NOTE | 2025-02-13 18:21 | PTCARENOTE ---
Patient ambulatory in room and archibald this shift, hep gtt infusing at 9ml/hr through R PICC, PTT therapeutic this afternoon at 73.3. Patient c/o 06/08 lower back pain radiating to front abdomen relieved with PRN tylenol and oxycodone - see MAR for
documentation. Patient ringing appropriately, updated on plan of care, states no concerns at this time.
[2025-02-13 20:09] LABS: APTT 61.8 Sec (23.4-35.0)
[2025-02-13] MEDS: COREG 6.25 MG PO (20:17)
[2025-02-13 20:23] VITALS: BP 154/72
[2025-02-13] MEDS: HEPARIN 7000 UNITS IV (20:23)
[2025-02-13] MEDS: FLOMAX 0.4 MG PO (22:03)
[2025-02-13 23:41] VITALS: BP 138/76
[2025-02-14] VITALS (11 sets, daily range): BP systolic 123–156; BP diastolic 50–80
[2025-02-14 03:53] LABS: APTT > 200 Sec (23.4-35.0)
[2025-02-14 05:03] LABS: Hematocrit 24.2 % (39.0-52.0); Mean Corp Hgb Conc. 33.1 g/dL (33.0-37.0); Mean Corpuscular Hgb 28.6 pg (27.0-31.0); Mean Corpuscular Volume 86.4 fL (80.0-94.0); Platelet Count 109 10^3/uL (130-400); Red Cell Dist. Width 16.5 % (11.5-14.5); White Blood Cell Count 4.6 10^3/uL (4.8-10.8)
[2025-02-14 05:47] LABS: Blood Urea Nitrogen 12 mg/dl (9-20); Carbon Dioxide 25 mmol/L (22-30); Chloride 104 mmol/L (98-107); Estimated Creatinine Clearance 74 ml/min; eGFR > 60.00
[2025-02-14] MEDS: TYLENOL 650 MG PO ×3 (06:02→22:06)
[2025-02-14] MEDS: ROXICODONE 15 MG PO ×3 (06:02→22:08)
[2025-02-14 07:11] LABS: Calcium 9.4 mg/dl (8.4-10.2); Glucose 91 mg/dl (70-99); Potassium 3.8 mmol/L (3.5-5.1); Sodium 138 mmol/L (135-145)
[2025-02-14] MEDS: COREG PO (08:16)
[2025-02-14] MEDS: PROSCAR 5 MG PO (08:16)
--- NOTE | 2025-02-14 09:37 | W.PN.VS ---
Addendum entered and electronically signed by Marco Knight III, MD 02/14/25 15:56:
I had a long discussion with Mr. Franklin
Culture data all negative to date
Radiographic abnormality around the proximal infrarenal aortic neck explained
Inflammatory vs infectious
Abd/back pain persists requiring regular use of narcotics
Non toxic appearing
Stable
Will plan to observe through the weekend
Follow culture results
Off ABX
Transfuse 2 units PRBCs
Repeat CTA Monday
May have to proceed with surgical intervention regardless if continued pain but will discuss further after assessment/repeat scan early next week
Discussed with patient and hospitalist in detail
[id number]
PM@D Vascular Surgery
Original Note:
Today's Communication / Plan
-
Patient seen and examined with Dr. Marco Knight III, below plan reviewed with attending.
Assessment/Plan
-
Assessment: 79-year-old male status post EVAR with proximal aortic neck involvement possible fluid collection but remains afebrile and without leukocytosis
Plan:
Cultures pending, continue to follow
Appreciate ID recommendations
Pain management
Recommend repeat CT scan on Monday, surgical plan pending results
Patient with continued anemia while in patient recommend 2 UPRBC
Subjective Data
-
Date of Service: February 14, 2025
Patient seen and examined at bedside reports continued intermittent lower back pain, but remains well managed with current pain management medication. Denies fever, chills, nausea, and vomiting.
Objective Data
-
Vital Signs
Temp Pulse Resp BP Pulse Ox
98.5 F 56 18 134/74 100
02/14/25 07:30 02/14/25 08:16 02/14/25 03:40 02/14/25 08:16 02/14/25 07:30
Intake and Output
02/13/25 02/14/25 02/15/25
06:59 06:59 06:59
Intake Total 1896 / 1896 1919
Output Total 350 / 350 900 / 900
Balance 1546 / 1546 1020 / 1020
Intake:
Oral fluids 1680 / 1680 1919
IV piggybacks 216 / 216
Output:
Urine, Voided 350 / 350 900 / 900
Other:
Number of approximated MODERATE 3 1
amounts of urine
Number of unmeasured liquid
stools
Rectum 3
Lab Results
02/14/25 04:55
02/14/25 04:55
Calcium 9.4 mg/dl (8.4-10.2) 02/14/25 04:55
Magnesium 1.8 mg/dl (1.6-2.3) 02/09/25 06:32
Total Bilirubin 0.6 mg/dl (0.2-1.3) 02/09/25 06:32
Direct Bilirubin 0.3 mg/dl (0.0-0.4) 02/09/25 06:32
AST 33 U/L (17-59) 02/09/25 06:32
ALT 40 U/L (0-50) 02/09/25 06:32
Alkaline Phosphatase 196 U/L (38-126) H 02/09/25 06:32
Total Protein 6.3 g/dl (6.3-8.2) 02/09/25 06:32
Albumin 3.2 g/dl (3.5-5.0) L 02/09/25 06:32
Physical Exam
-
AAOx3
No tachypnea on room air
No tachycardia
Abdomen soft, nontender, nondistended
Denies pain at this time
--- NOTE | 2025-02-14 11:30 | PTCARENOTE ---
Addendum entered by Althea Monae RN 02/14/25 14:23:
pt with one unit of blood transfused successfully so far. pt now receiving second bag. at 1415 pt with 8/10 pain. prn pain medication given per orders. see MAR and TAR for proper documentation.
Original Note:
type and screen completed. pt receiving first bag of 2 units of PRBC. consents signed this morning and placed in his physical chart. blood verification done at bedside with another RN
[2025-02-14] MEDS: PROTONIX 40 MG PO (11:31)
--- NOTE | 2025-02-14 11:35 | W.PN.ID1 ---
Date of Service
Date of Service: February 14, 2025
Today's Communication
Repeat blood cx's Monday (off abx x 4.5d)
See below.
Assessment / Plan
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
# Hx of AAA EVAR 11/15/24
# Severe low back pain and suprapubic pain.
# Leukocytosis resolved
# Elevated ESR/CRP
# LUE PICC DVT/malfunction -> dc'd at [facility]
- repeat blood cultures x2 neg to date (on Unasyn)
- CRP 210 ->159->41
- ESR 93->103->96
- 02/11 aspirated aortic endograft fluid - 4cc bloody purulent fluid.
Aerobic gram stain: no org. Cx neg to date (on Unasyn)
anaerobic, fungal smear/cx, AFB smear neg/cx pending
- Unasyn held on day 21 (last dose 02/12/25, noon) to maximize intra-op cx yield, if plan for endograft explant.
- Repeat blood cx's x 2 Monday (will be off abx x 4.5 days).
- If no plans for explant of endograft, will consider replace Unasyn to Ertapenem, followed by life long oral suppressiom.
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
Hypertension
HLD
History of pericarditis
Spears's esophagus
Sleep apnea
BPH
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
Cholecystectomy
Umbilical hernia repair
Chief Complaint
-: Other (aortitis)
Subjective / Review of Systems
Pain stable. No diarrhea.
Vital Signs / Physical Exam
Vital Signs
Vital Signs
Temp Pulse Resp BP Pulse Ox
97.9 F 63 16 133/50 100
02/14/25 11:22 02/14/25 11:22 02/14/25 11:22 02/14/25 11:22 02/14/25 07:30
Physical Exam
Constitutional: Comfortable
Eyes: Negative Sclera Anicteric
Cardiovascular: Regular Rate and S1/S2
Pulmonary: Clear
Gastrointestinal: Soft, Non Tender, Non Distended and Normal Bowel Sounds
Genito-Urinary: Negative CVA Tenderness
Extremities: Negative Edema
Musculoskeletal: Negative Spinal Tenderness
Neurological: AO x 3
Lines: PICC (RUE no erythema)
Objective Data
Lab Data
Lab Results
02/14/25 04:55
02/14/25 04:55
ESR 96 mm/hour (0-20) H 02/10/25 04:27
PT 14.4 Sec (11.4-14.6) 02/09/25 06:32
INR 1.09 02/09/25 06:32
APTT > 200 Sec (23.4-35.0) H* 02/14/25 03:08
Estimated Creat Clear 74 ml/min 02/14/25 04:55
Total Bilirubin 0.6 mg/dl (0.2-1.3) 02/09/25 06:32
AST 33 U/L (17-59) 02/09/25 06:32
ALT 40 U/L (0-50) 02/09/25 06:32
Alkaline Phosphatase 196 U/L (38-126) H 02/09/25 06:32
C-Reactive Protein Cancelled 02/10/25 04:27
Most recent labs reviewed.
Micro Results:
02/11/25 13:00 Wound Culture - Preliminary
Abscess No growth
Gram Stain - Preliminary
02/11/25 13:00 Acid Fast Bacilli Smear - Preliminary
Abscess Acid Fast Bacilli Culture - Preliminary
02/09/25 20:15 Blood Culture - Preliminary
Blood/Venous No Growth in 4 days- Final report to follow
02/09/25 18:42 Blood Culture - Preliminary
Blood/Venous No Growth in 4 days- Final report to follow
02/11/25 13:00 Anaerobic Culture - Preliminary
Abscess Culture pending. Anaerobic cultures are examined after 3
days incubation. Additional information to follow.
02/11/25 13:00 Fungal Smear - Pending
Abscess Fungal Culture - Preliminary
Culture in progress.
Positive cultures are reported as soon as detected.
Final report to follow in four to five weeks.
02/09/25 CT a/p: Pronounced inflammatory change within the retroperitoneum adjacent to the superior portion of the aortic endograft. Peripheral enhancement with internal low attenuation, overall measuring approximately 5.9 cm mediolateral by 5 cm AP
by 3 cm superior inferior. Significant increase in the enhancement and inflammatory change compared to prior CT dated 01/19/2025. Findings likely represent stent graft infection with adjacent abscess. 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
Excluded aneurysm sac measures 5.7 cm in greatest transverse dimension, slightly increased in size compared to prior CT dated 12/10/2024, at which time it measured 5.2 cm in greatest transverse dimension. Severe prostatic enlargement.
--- NOTE | 2025-02-14 12:24 | W.PN.HOSP.TC ---
Today's Communication/Plan
-
Blood transfusion
Assessment / Plan
Assessment / Plan
Impression:
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
Status post endovascular aortic repair for infrarenal abdominal aortic aneurysm October 2024.
Left upper extremity DVT secondary to PICC line
Patient on heparin drip.
Hemoglobin dropped we will proceed with 2 units of blood transfusion.
Other conditions:
1. Hypertension.
2. Dyslipidemia.
3. Prior history of pericarditis.
4. Gastroesophageal reflux disease and Spears's esophagus.
5. Obstructive sleep apnea.
6. Benign prostatic hyperplasia.
7. History of cholecystectomy in 2017.
Assessment/plan:
Aortitis with inflammatory changes proximal endograft with progression and possible abscess formation
CT angio of abdomen and pelvis
1. Pronounced inflammatory change within the retroperitoneum adjacent to the superior portion of the aortic endograft. Peripheral enhancement with internal low attenuation, overall measuring approximately 5.9 cm mediolateral by 5 cm AP by 3 cm
superior inferior. Significant increase in the enhancement and inflammatory change compared to prior CT dated 01/19/2025. Findings likely represent stent graft infection with adjacent abscess.
2. 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 Excluded aneurysm sac measures 5.7 cm in greatest transverse dimension, slightly increased in size compared to prior CT dated 12/10/2024, at which time it measured 5.2 cm in greatest transverse
dimension.
3. Severe prostatic enlargement.
Presents with persistent lower abdomen and back pain unchanged since prior hospitalization.
Afebrile and hemodynamically stable.
All cultures negative to date.
With concern for infected stent, patient was discharged on Unasyn through 03/05/2025.
Repeated imaging as above.
Echo 02/10 with normal LVEF and no valvular abnormalities.
Repeated blood culture negative to date
Status post CT-guided aspiration of fluid collection adjacent to superior portion of aortic graft, yielding 40 cc of blood-tinged pus on 02/11. Gram stain and cultures negative to date
Potential option could involve surgical expiration with explant of the aortic stent graft
Continue antibiotics as per ID
Continue analgesia with Tylenol and oxycodone
Continue bowel regimen
02/13
Still pending aspirated fluid culture.
Currently off antibiotic as per ID recommendations to maximize OR culture yield.
Acute blood loss anemia
Continue to monitor hemoglobin.
Transfuse if less than 7.
If patient going for vascular procedure will transfuse preoperatively
02/14
Hemoglobin 8.0.
Will give 2 units of blood transfusion.
Left upper extremity DVT secondary to PICC line.
PICC line removed.
Current IV heparin
Essential hypertension
Continue Coreg
Bening Prostatic hyperplasia:
Continue Flomax and Proscar
Monitor for retention
CODE STATUS: Full code
DVT prophylaxis: Lovenox
Diet: Regular diet
Total time spent on today's encounter was 65 minutes which included time spent in counseling the patient/family regarding diagnosis and treatment plan as listed above, goals of care, and symptom management. Case was discussed with nursing staff,
specialists, and care coordinators/case management. All labs and imaging personally reviewed by me. Remainder the time spent in detailed review of previous records, lab data, imaging, and other medical provider documentation.
Anticipated Discharge: > 48 hours
Subjective/Interval History
-
Date of Service: February 14, 2025
Patient seen and examined at bedside, denies any chest pain or shortness of breath, no abdominal pain, no nausea, no vomiting, no diarrhea or constipation.
Hemoglobin 8.0, discussed with vascular surgery will proceed with 2 units of blood transfusion.
Objective Data
-
Labs:
Laboratory Results
02/14/25 02/14/25 02/14/25
03:08 04:55 12:11
WBC 4.6 L
Hgb 8.0 L
Hct 24.2 L
Plt Count 109 L
APTT > 200 H* Pending
Sodium 138
Potassium 3.8
Chloride 104
Carbon Dioxide 25
BUN 12
Creatinine 0.8
Glucose 91
Calcium 9.4
Vital Signs:
Vital Signs
Temp Pulse Resp BP Pulse Ox
98.2 F 65 16 123/72 100
02/14/25 11:38 02/14/25 11:38 02/14/25 11:38 02/14/25 11:38 02/14/25 07:30
I&O
02/13/25 02/14/25 02/15/25
06:59 06:59 06:59
Intake Total 1896 / 1896 1920 / 1920 0 / 0
Output Total 350 / 350 900 / 900
Balance 1546 / 1546 1020 / 1020 0 / 0
Physical Exam
-
General: Well Developed, Well Nourished, No Apparent Distress and Comfortable
HEENT: Normocephalic, Atraumatic, Moist Mucous Membranes, No Ptosis, PERRLA and Nose Appears Normal
Respiratory: Clear to Auscultation and Non Labored Respirations
Cardiac: Regular Rhythm and S1/S2
Breast: Deferred by me
GI: Soft, Nontender, Nondistended and Normal Bowel Sounds
Genito-urinary: No Costovertebral Tender
Musculoskeletal: No Clubbing, No Cyanosis and No Edema
Skin: Warm
Neuro: Awake, Alert, Oriented, AO x 3 and No Motor Deficits
Psych: Calm
Data Reviewed
-
Diagnostic Radiology: Image personally visualized and interpreted and Report Reviewed by me
CT Scan: Image personally visualized and interpreted and Report Reviewed by me
Ultrasound: Image personally visualized and interpreted and Report Reviewed by me
MRI: Image personally visualized and interpreted and Report Reviewed by me
Medical Tests (Nuc Med, Echo etc): Image personally visualized and interpreted and Report Reviewed by me
Labs: Labs Reviewed by me
Old Records: Reviewed
[2025-02-14 12:28] LABS: APTT 69.8 Sec (23.4-35.0)
[2025-02-14] MEDS: HEPARIN 3500 UNITS IV (12:53)
--- NOTE | 2025-02-14 14:45 | CM ---
Chart reviewed and still awaiting final cultures, possibly on Monday, patient ambulating in room and hallway.
Plan; Home pending blood cultures on Monday.
[2025-02-14 18:18] LABS: APTT 126.4 Sec (23.4-35.0)
[2025-02-14] MEDS: COREG 6.25 MG PO (20:46)
[2025-02-14] MEDS: HEPARIN 25000 UNITS/250 ML IV (20:48)
[2025-02-14] MEDS: FLOMAX 0.4 MG PO (21:43)
[2025-02-15] VITALS (7 sets, daily range): BP systolic 140–172; BP diastolic 67–92
[2025-02-15 00:48] LABS: APTT 74.3 Sec (23.4-35.0)
[2025-02-15] MEDS: ROXICODONE 15 MG PO ×3 (06:08→19:27)
[2025-02-15] MEDS: TYLENOL 650 MG PO ×3 (06:08→19:29)
[2025-02-15 06:33] LABS: Hematocrit 27.2 % (39.0-52.0); Hemoglobin 9.1 g/dL (13.0-18.0); Mean Corp Hgb Conc. 33.5 g/dL (33.0-37.0); Mean Corpuscular Hgb 28.7 pg (27.0-31.0); Mean Corpuscular Volume 85.8 fL (80.0-94.0); Mean Platelet Volume 8.6 fL (7.4-10.4); Platelet Count 106 10^3/uL (130-400); Red Blood Cell Count 3.17 10^6/uL (4.70-6.10); White Blood Cell Count 4.8 10^3/uL (4.8-10.8)
[2025-02-15 06:54] LABS: APTT 79.2 Sec (23.4-35.0)
[2025-02-15 07:22] LABS: Blood Urea Nitrogen 12 mg/dl (9-20); Carbon Dioxide 25 mmol/L (22-30); Chloride 105 mmol/L (98-107); Estimated Creatinine Clearance 74 ml/min; Glucose 103 mg/dl (70-99); Potassium 3.5 mmol/L (3.5-5.1); Sodium 138 mmol/L (135-145); eGFR > 60.00
[2025-02-15] MEDS: COREG 6.25 MG PO ×2 (08:58→19:27)
[2025-02-15] MEDS: PROSCAR 5 MG PO (08:58)
--- NOTE | 2025-02-15 10:41 | W.PN.ID1 ---
Date of Service
Date of Service: February 15, 2025
Today's Communication
Observe off antibiotics. Follow cultures.
Assessment / Plan
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
# Hx of AAA EVAR (11/15/24)
# Severe low back pain and suprapubic pain.
# Leukocytosis resolved
# Elevated ESR/CRP
# LUE PICC DVT/malfunction -> dc'd at [facility]
- repeat blood cultures x2 neg to date (on Unasyn)
- CRP 210 ->159->41
- ESR 93->103->96
- 02/11 aspirated aortic endograft fluid - 4cc bloody purulent fluid.
Aerobic gram stain: no org. Cx neg to date (on Unasyn)
anaerobic, fungal smear/cx, AFB smear neg/cx : pending
- Unasyn held on day 21 (last dose 02/12/25, noon) to maximize intra-op cx yield, if plan for endograft explant.
- Repeat blood cx's x 2 Monday (will be off abx x 4.5 days).
- If no plans for explant of endograft, will consider replace Unasyn to Ertapenem, followed by life long oral suppressiom.
# Conditions [employer]
Hypertension
HLD
History of pericarditis
Spears's esophagus
Sleep apnea
BPH
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
Cholecystectomy
Umbilical hernia repair
Chief Complaint
-: Other (aortitis)
Subjective / Review of Systems
Patient seen and examined. Reports some right groin discomfort. No other complaints of pain.
Review of Systems: No Fever, No Chills and No Chest Pain
Vital Signs / Physical Exam
Vital Signs
Vital Signs
Temp Pulse Resp BP Pulse Ox
97.6 F 65 16 149/78 95
02/15/25 07:45 02/15/25 08:58 02/15/25 07:45 02/15/25 08:58 02/15/25 07:45
Physical Exam
Constitutional: No Acute Distress, Comfortable and Non-toxic
Eyes: Sclera Anicteric
Lymph Nodes: Negative Lymphadenopathy
Cardiovascular: S1/S2; Negative S3/S4
Pulmonary: Non Labored
Gastrointestinal: Soft, Non Tender, Non Distended and Normal Bowel Sounds
Musculoskeletal: Negative Joint Swelling
Skin: Warm and Dry; Negative Rash
Neurological: Awake and Alert
Psychological: Calm
Objective Data
Lab Data
Lab Results
02/15/25 06:22
02/15/25 06:22
ESR 96 mm/hour (0-20) H 02/10/25 04:27
PT 14.4 Sec (11.4-14.6) 02/09/25 06:32
INR 1.09 02/09/25 06:32
APTT 79.2 Sec (23.4-35.0) H 02/15/25 06:22
Estimated Creat Clear 74 ml/min 02/15/25 06:22
Total Bilirubin 0.6 mg/dl (0.2-1.3) 02/09/25 06:32
AST 33 U/L (17-59) 02/09/25 06:32
ALT 40 U/L (0-50) 02/09/25 06:32
Alkaline Phosphatase 196 U/L (38-126) H 02/09/25 06:32
C-Reactive Protein Cancelled 02/10/25 04:27
Most recent labs reviewed.
Micro Results:
02/09/25 20:15 Blood Culture - Final
Blood/Venous No Growth - Final Report
02/09/25 18:42 Blood Culture - Final
Blood/Venous No Growth - Final Report
02/11/25 13:00 Fungal Smear - Final
Abscess No yeast or fungal elements seen.
Fungal Culture - Preliminary
Culture in progress.
Positive cultures are reported as soon as detected.
Final report to follow in four to five weeks.
02/11/25 13:00 Anaerobic Culture - Preliminary
Abscess Culture pending. Anaerobic cultures are examined after 3
days incubation. Additional information to follow.
02/11/25 13:00 Wound Culture - Preliminary
Abscess No growth
Gram Stain - Preliminary
02/11/25 13:00 Acid Fast Bacilli Smear - Preliminary
Abscess Acid Fast Bacilli Culture - Preliminary
Imaging:
02/09/25 CT a/p: Pronounced inflammatory change within the retroperitoneum adjacent to the superior portion of the aortic endograft. Peripheral enhancement with internal low attenuation, overall measuring approximately 5.9 cm mediolateral by 5 cm AP
by 3 cm superior inferior. Significant increase in the enhancement and inflammatory change compared to prior CT dated 01/19/2025. Findings likely represent stent graft infection with adjacent abscess. 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
Excluded aneurysm sac measures 5.7 cm in greatest transverse dimension, slightly increased in size compared to prior CT dated 12/10/2024, at which time it measured 5.2 cm in greatest transverse dimension. Severe prostatic enlargement.
--- NOTE | 2025-02-15 11:13 | W.PN.HOSP.TC ---
Today's Communication/Plan
-
repeat cultures Monday; off IV abx
repeat CT Monday
Assessment / Plan
Assessment / Plan
Impression:
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
Status post endovascular aortic repair for infrarenal abdominal aortic aneurysm October 2024.
Left upper extremity DVT secondary to PICC line
Patient on heparin drip.
Hemoglobin dropped we will proceed with 2 units of blood transfusion.
Other conditions:
1. Hypertension.
2. Dyslipidemia.
3. Prior history of pericarditis.
4. Gastroesophageal reflux disease and Spears's esophagus.
5. Obstructive sleep apnea.
6. Benign prostatic hyperplasia.
7. History of cholecystectomy in 2017.
Assessment/plan:
Aortitis with inflammatory changes proximal endograft with progression and possible abscess formation
CT angio of abdomen and pelvis
1. Pronounced inflammatory change within the retroperitoneum adjacent to the superior portion of the aortic endograft. Peripheral enhancement with internal low attenuation, overall measuring approximately 5.9 cm mediolateral by 5 cm AP by 3 cm
superior inferior. Significant increase in the enhancement and inflammatory change compared to prior CT dated 01/19/2025. Findings likely represent stent graft infection with adjacent abscess.
2. 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 Excluded aneurysm sac measures 5.7 cm in greatest transverse dimension, slightly increased in size compared to prior CT dated 12/10/2024, at which time it measured 5.2 cm in greatest transverse
dimension.
3. Severe prostatic enlargement.
Presents with persistent lower abdomen and back pain unchanged since prior hospitalization.
Afebrile and hemodynamically stable.
All cultures negative to date.
With concern for infected stent, patient was discharged on Unasyn through 03/05/2025.
Repeated imaging as above.
Echo 02/10 with normal LVEF and no valvular abnormalities.
Repeated blood culture negative to date
Status post CT-guided aspiration of fluid collection adjacent to superior portion of aortic graft, yielding 40 cc of blood-tinged pus on 02/11. Gram stain and cultures negative to date
Potential option could involve surgical expiration with explant of the aortic stent graft
off Abx as per ID to help yield better possible operative cultures. Repeat blood cultures Monday
CT pending Monday
Continue analgesia with Tylenol and oxycodone
Continue bowel regimen
Acute blood loss anemia
s/p 2 units PRBC
Left upper extremity DVT secondary to PICC line.
PICC line removed.
Currently on IV heparin - requires intensive monitoring of PTTs
Essential hypertension
Continue Coreg
Bening Prostatic hyperplasia:
Continue Flomax and Proscar
Monitor for retention
DVT ppx: IV heparin
Code: Full
Anticipated Discharge: > 48 hours
Subjective/Interval History
-
Date of Service: February 15, 2025
resting comfortably
Objective Data
-
Labs:
Laboratory Results
02/15/25 02/15/25
00:26 06:22
WBC 4.8
Hgb 9.1 L
Hct 27.2 L
Plt Count 106 L
APTT 74.3 H 79.2 H
Sodium 138
Potassium 3.5
Chloride 105
Carbon Dioxide 25
BUN 12
Creatinine 0.8
Glucose 103 H
Calcium 9.0
Vital Signs:
Vital Signs
Temp Pulse Resp BP Pulse Ox
97.6 F 65 16 149/78 95
02/15/25 07:45 02/15/25 08:58 02/15/25 07:45 02/15/25 08:58 02/15/25 07:45
I&O
02/14/25 02/15/25 02/16/25
06:59 06:59 06:59
Intake Total 1919 / 1919 2259 / 2259
Output Total 900 / 900 700 / 700
Balance 1020 / 1020 1560 / 1560
Physical Exam
-
General: No Apparent Distress
HEENT: Normocephalic and Atraumatic
Respiratory: Negative Wheezes
Cardiac: Regular Rhythm and S1/S2
GI: Soft and Nontender
Genito-urinary: No Costovertebral Tender
Neuro: AO x 3
Psych: Calm
Data Reviewed
-
Total Time Spent with Patient (in minutes): 42
Labs: Labs Reviewed by me
[2025-02-15] MEDS: PROTONIX 40 MG PO (12:37)
--- NOTE | 2025-02-15 13:14 | PTCARENOTE ---
pt with new upper thigh/ R groin pain that started last night into this morning. area is not warm to touch, swollen or red in color. pt able to walk to the bathroom this morning but currently at this time cannot do flexion or extension with his R
lower extremity. able to move leg side to side but unable to lift leg off of bed without 8/10 pain that is described as radiating and sharp. prn pain medication given at 1241. pt remains therapeutic on heparin gtt at this time going at 9ml/hr. pt BP
elevated this afternoon for 1100 vitals, rechecked at 1315 for 172/84, HR 62, afebrile and 99 on room air. pt is aaox3 in the room. at bedside. MD and vascular made aware of new pain.
--- NOTE | 2025-02-15 13:32 | W.PN.UPDATE ---
Update Note
Progress Note Update
RLE groin pain - likely muscular. Pulses intact. Will check venous dopplers. move up CT to today from Monday.
[2025-02-15] MEDS: FLEXERIL 5 MG PO ×2 (14:54→23:01)
[2025-02-15] MEDS: DILAUDID 0.25 MG IV (21:08)
[2025-02-15] MEDS: FLOMAX 0.4 MG PO (21:10)
[2025-02-15] MEDS: FLUSH (NSS) 2 FLUSH IV ×2 (21:10→23:27)
--- NOTE | 2025-02-15 21:53 | PTCARENOTE ---
Patient having severe pain in right groin/leg. Had a one time dose of 0.25 mg Dilaudid IV. Advised covering provider he is still in severe pain.
[2025-02-15] MEDS: DILAUDID 0.5 MG IV (23:25)
[2025-02-16] MEDS: HEPARIN 25000 UNITS/250 ML IV (00:24)
[2025-02-16] MEDS: ROXICODONE 15 MG PO ×5 (00:32→20:41)
[2025-02-16] MEDS: TYLENOL 650 MG PO ×5 (00:33→20:44)
[2025-02-16 03:23] VITALS: BP 148/67
[2025-02-16 05:17] LABS: Hematocrit 28.6 % (39.0-52.0); Hemoglobin 9.6 g/dL (13.0-18.0); Mean Corp Hgb Conc. 33.6 g/dL (33.0-37.0); Mean Corpuscular Hgb 28.9 pg (27.0-31.0); Mean Corpuscular Volume 86.1 fL (80.0-94.0); Platelet Count 113 10^3/uL (130-400); Red Blood Cell Count 3.32 10^6/uL (4.70-6.10); Red Cell Dist. Width 17.2 % (11.5-14.5); White Blood Cell Count 6.2 10^3/uL (4.8-10.8)
--- NOTE | 2025-02-16 05:25 | PTCARENOTE ---
Patient's pain is more controlled at this time. The combination of body positioning along with pain medications helps the most. Patient finally able to get some rest.
[2025-02-16 05:46] LABS: Blood Urea Nitrogen 10 mg/dl (9-20); Calcium 9.1 mg/dl (8.4-10.2); Carbon Dioxide 26 mmol/L (22-30); Chloride 104 mmol/L (98-107); Estimated Creatinine Clearance 74 ml/min; Glucose 122 mg/dl (70-99); Potassium 3.8 mmol/L (3.5-5.1); Sodium 139 mmol/L (135-145); eGFR > 60.00
[2025-02-16] MEDS: HEPARIN 7000 UNITS IV ×2 (06:13→20:30)
[2025-02-16 07:40] VITALS: BP 133/75
[2025-02-16] MEDS: COREG 6.25 MG PO ×2 (08:35→20:31)
[2025-02-16] MEDS: PROSCAR 5 MG PO (08:35)
[2025-02-16] MEDS: FLEXERIL 5 MG PO (08:35)
--- NOTE | 2025-02-16 10:11 | W.PN.VS ---
Today's Communication / Plan
-
conservative management
Assessment/Plan
-
Assessment: 79-year-old male status post EVAR with proximal aortic neck involvement possible fluid collection but remains afebrile and without leukocytosis
Plan:
Cultures pending, continue to follow
Appreciate ID recommendations
Pain management
CT reviewed
would continue to try conservative management if possible unless clear signs of infection present
Subjective Data
-
Date of Service: February 16, 2025
patient with right hip pain
denies abd pain
pain in leg worse with motion
Objective Data
-
Vital Signs
Temp Pulse Resp BP Pulse Ox
97.7 F 62 18 133/75 99
02/16/25 07:40 02/16/25 07:40 02/16/25 07:40 02/16/25 08:35 02/16/25 07:40
Intake and Output
02/15/25 02/16/25 02/17/25
06:59 06:59 06:59
Intake Total 2382 / 2382 1588 / 1588
Output Total 700 / 700 250 / 250
Balance 1682 / 1682 1338 / 1338
Intake:
Oral fluids 1200 / 1200 1480 / 1480
IV fluids (Total) 182 / 182 108 / 108
Blood products 500 / 500
Blood Product Amount Infused ( 500 / 500
mL)
Packed Rbc Leukoreduced Unit 250 / 250
[id number]
Packed Rbc Leukoreduced Unit 250 / 250
[id number]
Output:
Urine, Voided 700 / 700 250 / 250
Other:
Number of approximated MODERATE 2 2
amounts of urine
Lab Results
02/16/25 05:06
02/16/25 05:06
Calcium 9.1 mg/dl (8.4-10.2) 02/16/25 05:06
Magnesium 1.8 mg/dl (1.6-2.3) 02/09/25 06:32
Total Bilirubin 0.6 mg/dl (0.2-1.3) 02/09/25 06:32
Direct Bilirubin 0.3 mg/dl (0.0-0.4) 02/09/25 06:32
AST 33 U/L (17-59) 02/09/25 06:32
ALT 40 U/L (0-50) 02/09/25 06:32
Alkaline Phosphatase 196 U/L (38-126) H 02/09/25 06:32
Total Protein 6.3 g/dl (6.3-8.2) 02/09/25 06:32
Albumin 3.2 g/dl (3.5-5.0) L 02/09/25 06:32
Physical Exam
-
rrr
ctab
nt,nd,soft
+ femoral pulses bilat
ct reviewed - r psoas collection
sems to be most consistent with hematoma based on exam and labs. infection less likely
[2025-02-16 11:15] VITALS: BP 139/74
[2025-02-16] MEDS: PROTONIX 40 MG PO (12:16)
--- NOTE | 2025-02-16 13:17 | W.PN.HOSP.TC ---
Today's Communication/Plan
-
continue Flexeril prn
continue pain control
await Vascular recs
Assessment / Plan
Assessment / Plan
Impression:
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
Status post endovascular aortic repair for infrarenal abdominal aortic aneurysm October 2024.
Left upper extremity DVT secondary to PICC line
Patient on heparin drip.
Hemoglobin dropped we will proceed with 2 units of blood transfusion.
Other conditions:
1. Hypertension.
2. Dyslipidemia.
3. Prior history of pericarditis.
4. Gastroesophageal reflux disease and Spears's esophagus.
5. Obstructive sleep apnea.
6. Benign prostatic hyperplasia.
7. History of cholecystectomy in 2017.
Assessment/plan:
Aortitis with inflammatory changes proximal endograft with progression and possible abscess formation
CT angio of abdomen and pelvis
1. Pronounced inflammatory change within the retroperitoneum adjacent to the superior portion of the aortic endograft. Peripheral enhancement with internal low attenuation, overall measuring approximately 5.9 cm mediolateral by 5 cm AP by 3 cm
superior inferior. Significant increase in the enhancement and inflammatory change compared to prior CT dated 01/19/2025. Findings likely represent stent graft infection with adjacent abscess.
2. 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 Excluded aneurysm sac measures 5.7 cm in greatest transverse dimension, slightly increased in size compared to prior CT dated 12/10/2024, at which time it measured 5.2 cm in greatest transverse
dimension.
3. Severe prostatic enlargement.
Presents with persistent lower abdomen and back pain unchanged since prior hospitalization.
Afebrile and hemodynamically stable.
All cultures negative to date.
With concern for infected stent, patient was discharged on Unasyn through 03/05/2025.
Repeated imaging as above.
Echo 02/10 with normal LVEF and no valvular abnormalities.
Repeated blood culture negative to date
Status post CT-guided aspiration of fluid collection adjacent to superior portion of aortic graft, yielding 40 cc of blood-tinged pus on 02/11. Gram stain and cultures negative to date
Potential option could involve surgical expiration with explant of the aortic stent graft
off Abx as per ID to help yield better possible operative cultures. Repeat blood cultures Monday
CT repeat with R psoas fluid collection, infection vs abscess
Continue analgesia with Tylenol and oxycodone
Continue bowel regimen
Acute blood loss anemia
s/p 2 units PRBC
Left upper extremity DVT secondary to PICC line.
PICC line removed.
Currently on IV heparin - requires intensive monitoring of PTTs
Essential hypertension
Continue Coreg
Bening Prostatic hyperplasia:
Continue Flomax and Proscar
Monitor for retention
DVT ppx: IV heparin
Code: Full
Anticipated Discharge: > 48 hours
Subjective/Interval History
-
Date of Service: February 16, 2025
resting comfortably today, less R hip pain
Objective Data
-
Labs:
Laboratory Results
02/16/25 02/16/25
05:06 12:26
WBC 6.2
Hgb 9.6 L
Hct 28.6 L
Plt Count 113 L
APTT 62.0 H Pending
Sodium 139
Potassium 3.8
Chloride 104
Carbon Dioxide 26
BUN 10
Creatinine 0.8
Glucose 122 H
Calcium 9.1
Vital Signs:
Vital Signs
Temp Pulse Resp BP Pulse Ox
98.1 F 70 18 139/74 96
02/16/25 11:15 02/16/25 11:15 02/16/25 11:15 02/16/25 11:15 02/16/25 12:52
I&O
02/15/25 02/16/25 02/17/25
06:59 06:59 06:59
Intake Total 2382 / 2382 1588 / 1588
Output Total 700 / 700 250 / 250
Balance 1682 / 1682 1338 / 1338
Physical Exam
-
General: No Apparent Distress
HEENT: Normocephalic and Atraumatic
Respiratory: Negative Wheezes
Cardiac: Regular Rhythm and S1/S2
GI: Soft
Genito-urinary: No Costovertebral Tender
Neuro: AO x 3
Psych: Calm
Data Reviewed
-
Total Time Spent with Patient (in minutes): 41
Labs: Labs Reviewed by me
[2025-02-16 13:29] LABS: APTT > 200 Sec (23.4-35.0)
[2025-02-16 15:25] VITALS: BP 118/69
[2025-02-16] MEDS: FLEXERIL 10 MG PO (16:43)
[2025-02-16 19:00] VITALS: BP 139/79
[2025-02-16 19:46] LABS: APTT 51.8 Sec (23.4-35.0)
[2025-02-16] MEDS: FLOMAX 0.4 MG PO (22:24)
[2025-02-16 23:00] VITALS: BP 132/68
[2025-02-17] VITALS (7 sets, daily range): BP systolic 124–146; BP diastolic 66–106; PULSE 83; O2SAT 97
[2025-02-17] MEDS: HEPARIN 25000 UNITS/250 ML IV (01:33)
[2025-02-17] MEDS: FLEXERIL 10 MG PO ×3 (02:23→20:26)
[2025-02-17 02:51] LABS: APTT > 200 Sec (23.4-35.0)
[2025-02-17] MEDS: ROXICODONE 15 MG PO ×4 (04:33→22:09)
[2025-02-17] MEDS: TYLENOL 650 MG PO (04:34)
[2025-02-17 07:43] LABS: Hematocrit 26.5 % (39.0-52.0); Hemoglobin 9.2 g/dL (13.0-18.0); Mean Corp Hgb Conc. 34.7 g/dL (33.0-37.0); Mean Corpuscular Hgb 28.9 pg (27.0-31.0); Mean Corpuscular Volume 83.3 fL (80.0-94.0); Mean Platelet Volume 9.2 fL (7.4-10.4); Platelet Count 117 10^3/uL (130-400); Red Blood Cell Count 3.18 10^6/uL (4.70-6.10); Red Cell Dist. Width 17.3 % (11.5-14.5); White Blood Cell Count 6.4 10^3/uL (4.8-10.8)
--- NOTE | 2025-02-17 07:59 | W.PN.VS ---
Today's Communication / Plan
-
Discussed with Dr Knight
Assessment/Plan
-
Assessment: 79-year-old male status post EVAR with proximal aortic neck involvement possible fluid collection but remains afebrile and without leukocytosis
Plan:
Hold heparin drip for now
Cultures pending, some finalized negative, afebrile, no elevation in WBC
Pain management, added gabapentin this am
CT reviewed with Dr Knight
would continue to try conservative management if possible unless clear signs of infection present
Subjective Data
-
Date of Service: February 17, 2025
Pt seen at bedside this am. Pt complains of right groin pain, thigh numbness and burning. Saturdays CT showed right psoas hematoma.
Objective Data
-
Vital Signs
Temp Pulse Resp BP Pulse Ox
97.7 F 67 18 132/68 99
02/16/25 23:00 02/16/25 23:00 02/16/25 23:00 02/16/25 23:00 02/16/25 23:00
Intake and Output
02/16/25 02/17/25 02/18/25
06:59 06:59 06:59
Intake Total 1588 / 1588 1172 / 1172
Output Total 250 / 250
Balance 1338 / 1338 1172 / 1172
Intake:
Oral fluids 1480 / 1480 1080 / 1080
IV fluids (Total) 108 / 108 92 / 92
Output:
Urine, Voided 250 / 250
Other:
Number of approximated MODERATE 2 10
amounts of urine
Lab Results
02/17/25 07:31
Calcium 9.1 mg/dl (8.4-10.2) 02/16/25 05:06
Magnesium 1.8 mg/dl (1.6-2.3) 02/09/25 06:32
Total Bilirubin 0.6 mg/dl (0.2-1.3) 02/09/25 06:32
Direct Bilirubin 0.3 mg/dl (0.0-0.4) 02/09/25 06:32
AST 33 U/L (17-59) 02/09/25 06:32
ALT 40 U/L (0-50) 02/09/25 06:32
Alkaline Phosphatase 196 U/L (38-126) H 02/09/25 06:32
Total Protein 6.3 g/dl (6.3-8.2) 02/09/25 06:32
Albumin 3.2 g/dl (3.5-5.0) L 02/09/25 06:32
Physical Exam
-
AAOx3
No tachypnea on room air
No tachycardia
Abdomen soft, nontender, nondistended
Pt states his back and abd pain is controlled with pain meds but the right groin/thigh is painful/numb/burning sensation new overnight/this am
[2025-02-17] MEDS: NEURONTIN 100 MG PO ×3 (08:36→22:08)
[2025-02-17] MEDS: COREG 6.25 MG PO ×2 (08:37→20:26)
[2025-02-17] MEDS: PROSCAR 5 MG PO (08:37)
[2025-02-17 08:41] LABS: Blood Urea Nitrogen 14 mg/dl (9-20); Calcium 9.2 mg/dl (8.4-10.2); Carbon Dioxide 26 mmol/L (22-30); Chloride 104 mmol/L (98-107); Estimated Creatinine Clearance 74 ml/min; Glucose 118 mg/dl (70-99); Potassium 3.5 mmol/L (3.5-5.1); Sodium 138 mmol/L (135-145); eGFR > 60.00
[2025-02-17 09:16] LABS: APTT 42.9 Sec (23.4-35.0)
--- NOTE | 2025-02-17 10:03 | PTCARENOTE ---
pt heparin gtt discontinued this morning. pt is oob w minimal assist but is having increased amount of R groin pain when trying to get out of the bed. pt is aaox3 RA and pleasant. pt started on gabapentin TID today. pt reports decreased sensation
and some numbness to the RU thigh.
--- NOTE | 2025-02-17 10:07 | W.PN.ID1 ---
Date of Service
Date of Service: February 17, 2025
Today's Communication
Repeating blood cx's off abx.
Assessment / Plan
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
# Hx of AAA EVAR (11/15/24) -> Severe low back pain and suprapubic pain.
# Leukocytosis resolved
# Elevated ESR/CRP
# LUE PICC DVT/malfunction -> dc'd at [facility]
- repeat blood cultures x2 neg to date (on Unasyn)
- CRP 210 ->159->41
- ESR 93->103->96
- 02/11 aspirated aortic endograft fluid - 4cc bloody purulent fluid.
Aerobic gram stain: no org. Cx neg to date (on Unasyn). Anaerobic cx negative.
fungal smear/cx, AFB smear neg/cx : pending
- Unasyn held on day 21 (last dose 02/12/25, noon) to maximize intra-op cx yield, if plan for endograft explant.
- Repeat blood cx's x 2 today (will be off abx x 4.5 days).
- Repeat blood cx x 1 tomorrow am (off abx x 5.5 days)
- If no plans for explant of endograft, will consider replace Unasyn to Ertapenem, followed by life long oral suppression.
# Acute Right psoas muscle hematoma
# s/p blood loss anemia
# Conditions [employer]
Hypertension
HLD
History of pericarditis
Spears's esophagus
Sleep apnea
BPH
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
Cholecystectomy
Umbilical hernia repair
Chief Complaint
-: Other (aortitis)
Subjective / Review of Systems
c/o severe right groin/thigh pain
Vital Signs / Physical Exam
Vital Signs
Vital Signs
Temp Pulse Resp BP Pulse Ox
98.3 F 74 16 135/79 96
02/17/25 07:55 02/17/25 08:37 02/17/25 07:55 02/17/25 08:37 02/17/25 07:55
Objective Data
Lab Data
Lab Results
02/17/25 07:31
02/17/25 07:31
ESR 96 mm/hour (0-20) H 02/10/25 04:27
PT 14.4 Sec (11.4-14.6) 02/09/25 06:32
INR 1.09 02/09/25 06:32
APTT 42.9 Sec (23.4-35.0) H 02/17/25 08:40
Estimated Creat Clear 74 ml/min 02/17/25 07:31
Total Bilirubin 0.6 mg/dl (0.2-1.3) 02/09/25 06:32
AST 33 U/L (17-59) 02/09/25 06:32
ALT 40 U/L (0-50) 02/09/25 06:32
Alkaline Phosphatase 196 U/L (38-126) H 02/09/25 06:32
C-Reactive Protein Cancelled 02/10/25 04:27
Most recent labs reviewed.
Micro Results:
02/17/25 08:40 Blood Culture - Pending
Blood/Venous
02/17/25 07:31 Blood Culture - Pending
Blood/Venous
02/11/25 13:00 Wound Culture - Final
Abscess No growth
Gram Stain - Final
02/11/25 13:00 Anaerobic Culture - Final
Abscess NO ANAEROBES ISOLATED
02/09/25 20:15 Blood Culture - Final
Blood/Venous No Growth - Final Report
02/09/25 18:42 Blood Culture - Final
Blood/Venous No Growth - Final Report
02/11/25 13:00 Fungal Smear - Final
Abscess No yeast or fungal elements seen.
Fungal Culture - Preliminary
Culture in progress.
Positive cultures are reported as soon as detected.
Final report to follow in four to five weeks.
02/11/25 13:00 Acid Fast Bacilli Smear - Preliminary
Abscess Acid Fast Bacilli Culture - Preliminary
Imaging:
02/15/25 CT a/p: Interval development of asymmetric diffuse right psoas muscle enlargement/swelling. At least 2 intramuscular complex collections are demonstrated, as described. Suspicious for psoas evolving intramuscular hematomas, without active
hemorrhage identified. However, given the periaortic infectious/inflammatory changes, the possibility of complex collections related to abscess formation would be difficult to exclude with certainty. Stable inflammatory soft tissue stranding
associated with the proximal graft margin. However, the region of nonenhancement suspicious for abscess has decreased slightly in size.
02/09/25 CT a/p: Pronounced inflammatory change within the retroperitoneum adjacent to the superior portion of the aortic endograft. Peripheral enhancement with internal low attenuation, overall measuring approximately 5.9 cm mediolateral by 5 cm AP
by 3 cm superior inferior. Significant increase in the enhancement and inflammatory change compared to prior CT dated 01/19/2025. Findings likely represent stent graft infection with adjacent abscess. 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
Excluded aneurysm sac measures 5.7 cm in greatest transverse dimension, slightly increased in size compared to prior CT dated 12/10/2024, at which time it measured 5.2 cm in greatest transverse dimension. Severe prostatic enlargement.
--- NOTE | 2025-02-17 12:10 | W.PN.HOSP.TC ---
Today's Communication/Plan
-
off IV Heparin
repeat US per Vascular
follow cultures (off antibiotics)
pain control with Gabapentin, opiates, flexeril
PT/OT
Assessment / Plan
Assessment / Plan
Impression:
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
Status post endovascular aortic repair for infrarenal abdominal aortic aneurysm October 2024.
Left upper extremity DVT secondary to PICC line
Patient on heparin drip.
Hemoglobin dropped we will proceed with 2 units of blood transfusion.
Other conditions:
1. Hypertension.
2. Dyslipidemia.
3. Prior history of pericarditis.
4. Gastroesophageal reflux disease and Spears's esophagus.
5. Obstructive sleep apnea.
6. Benign prostatic hyperplasia.
7. History of cholecystectomy in 2017.
Assessment/plan:
Aortitis with inflammatory changes proximal endograft with progression and possible abscess formation
CT angio of abdomen and pelvis
1. Pronounced inflammatory change within the retroperitoneum adjacent to the superior portion of the aortic endograft. Peripheral enhancement with internal low attenuation, overall measuring approximately 5.9 cm mediolateral by 5 cm AP by 3 cm
superior inferior. Significant increase in the enhancement and inflammatory change compared to prior CT dated 01/19/2025. Findings likely represent stent graft infection with adjacent abscess.
2. 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 Excluded aneurysm sac measures 5.7 cm in greatest transverse dimension, slightly increased in size compared to prior CT dated 12/10/2024, at which time it measured 5.2 cm in greatest transverse
dimension.
3. Severe prostatic enlargement.
Presents with persistent lower abdomen and back pain unchanged since prior hospitalization.
Afebrile and hemodynamically stable.
All cultures negative to date.
With concern for infected stent, patient was discharged on Unasyn through 03/05/2025.
Repeated imaging as above.
Echo 02/10 with normal LVEF and no valvular abnormalities.
Repeated blood culture negative to date
Status post CT-guided aspiration of fluid collection adjacent to superior portion of aortic graft, yielding 40 cc of blood-tinged pus on 02/11. Gram stain and cultures negative to date
Potential option could involve surgical expiration with explant of the aortic stent graft
off Abx as per ID to help yield better possible operative cultures. Repeat blood cultures today and Monday
CT repeat with R psoas fluid collection consistent with hematoma per Vascular and Radiology
Continue analgesia with Tylenol and oxycodone, Flexeril, Gabapentin
Continue bowel regimen
Acute blood loss anemia
s/p 2 units PRBC
Left upper extremity DVT secondary to PICC line.
PICC line removed.
IV Heparin stopped by Vascular service.
repeat US planned
Essential hypertension
Continue Coreg
Bening Prostatic hyperplasia:
Continue Flomax and Proscar
Monitor for retention
DVT ppx: SCDs
Code: Full
Anticipated Discharge: > 48 hours
Subjective/Interval History
-
Date of Service: February 17, 2025
ongoing severe R groin/thigh pain and numbness with burning
Objective Data
-
Labs:
Laboratory Results
02/17/25 02/17/25 02/17/25
02:16 07:31 08:40
WBC 6.4
Hgb 9.2 L
Hct 26.5 L
Plt Count 117 L
APTT > 200 H* 42.9 H
Sodium 138
Potassium 3.5
Chloride 104
Carbon Dioxide 26
BUN 14
Creatinine 0.8
Glucose 118 H
Calcium 9.2
02/17/25
11:32
WBC
Hgb Pending
Hct Pending
Plt Count
APTT
Sodium
Potassium
Chloride
Carbon Dioxide
BUN
Creatinine
Glucose
Calcium
Vital Signs:
Vital Signs
Temp Pulse Resp BP Pulse Ox
97.6 F 75 16 146/106 98
02/17/25 11:35 02/17/25 11:35 02/17/25 11:35 02/17/25 11:35 02/17/25 11:35
I&O
02/16/25 02/17/25 02/18/25
06:59 06:59 06:59
Intake Total 1588 / 1588 1172 / 1172
Output Total 250 / 250
Balance 1338 / 1338 1172 / 1172
Physical Exam
-
General: No Apparent Distress
HEENT: Normocephalic and Atraumatic
Respiratory: Negative Wheezes
Cardiac: Regular Rhythm and S1/S2
Genito-urinary: No Costovertebral Tender
Neuro: AO x 3
Psych: Calm
Data Reviewed
-
Total Time Spent with Patient (in minutes): 45
Labs: Labs Reviewed by me
[2025-02-17] MEDS: PROTONIX 40 MG PO (12:13)
[2025-02-17 12:57] LABS: Hemoglobin 9.3 g/dL (13.0-18.0)
--- NOTE | 2025-02-17 15:12 | CM ---
Reviewed the chart notes. Per notes, repeat blood cultures today and Monday. PT/OT evaluations ordered. CM continues to be available to patient/family and is monitoring medical plan for needs at discharge.
Plan: Discharge plans will depend on the patient's progress.
[2025-02-17] MEDS: FLOMAX 0.4 MG PO (22:08)
[2025-02-18] VITALS (7 sets, daily range): BP systolic 115–160; BP diastolic 50–98; PULSE 73; O2SAT 99
[2025-02-18] MEDS: ROXICODONE 15 MG PO (05:36)
[2025-02-18 05:51] LABS: Blood Urea Nitrogen 16 mg/dl (9-20); Calcium 8.9 mg/dl (8.4-10.2); Carbon Dioxide 28 mmol/L (22-30); Chloride 104 mmol/L (98-107); Estimated Creatinine Clearance 74 ml/min; Glucose 104 mg/dl (70-99); Potassium 3.7 mmol/L (3.5-5.1); Sodium 139 mmol/L (135-145); eGFR > 60.00
[2025-02-18 08:07] LABS: Hematocrit 24.8 % (39.0-52.0); Hemoglobin 8.1 g/dL (13.0-18.0); Mean Corp Hgb Conc. 32.7 g/dL (33.0-37.0); Mean Corpuscular Hgb 28.9 pg (27.0-31.0); Mean Corpuscular Volume 88.6 fL (80.0-94.0); Red Cell Dist. Width 17.6 % (11.5-14.5); White Blood Cell Count 5.8 10^3/uL (4.8-10.8)
[2025-02-18] MEDS: NEURONTIN 100 MG PO ×3 (08:10→21:18)
[2025-02-18] MEDS: PROSCAR 5 MG PO (08:10)
[2025-02-18] MEDS: COREG 6.25 MG PO ×2 (08:10→20:17)
[2025-02-18] MEDS: FLEXERIL 10 MG PO ×2 (08:16→17:22)
[2025-02-18 09:39] LABS: Mean Platelet Volume 11.7 fL (7.4-10.4); Platelet Count 90 10^3/uL (130-400)
[2025-02-18] MEDS: PROTONIX 40 MG PO (11:38)
--- NOTE | 2025-02-18 13:36 | W.PN.ID1 ---
Date of Service
Date of Service: February 18, 2025
Today's Communication
Daily blood cx's off abx.
Assessment / Plan
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
# Hx of AAA EVAR (11/15/24) -> Severe low back pain and suprapubic pain.
# Leukocytosis resolved
# Elevated ESR/CRP
# LUE PICC DVT/malfunction -> dc'd at [facility]
- repeat blood cultures x2 neg to date (on Unasyn)
- CRP 210 ->159->41
- ESR 93->103->96
- 02/11 aspirated aortic endograft fluid - 4cc bloody purulent fluid.
Aerobic gram stain: many wbc, no org. Cx neg to date (on Unasyn). Anaerobic cx negative (on Unasyn)
fungal smear/cx, AFB smear neg/cx : pending
- Unasyn held on day 21 (last dose 02/12/25, noon) to maximize intra-op cx yield, if plan for endograft explant.
- Repeat blood cx's x 2 neg to date (off abx x 4.5 days).
- Repeat blood cx x 1 pending (off abx x 5.5 days)
- Continue to repeat bcx's daily off abx.
Anaerobes may take several days to turn positive.
- If no plans for explant of endograft, will consider replace Unasyn to Ertapenem, followed by life long oral suppression vs. watchful observation.
Will discuss with Dr. Knight.
# Acute Right psoas muscle hematoma
# s/p blood loss anemia
# Conditions [employer]IST[employer]
Hypertension
HLD
History of pericarditis
Spears's esophagus
Sleep apnea
BPH
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
Cholecystectomy
Umbilical hernia repair
Chief Complaint
-: Other (aortitis)
Subjective / Review of Systems
Right groin/thigh pain controlled with pain meds.
at bedside.
Vital Signs / Physical Exam
Vital Signs
Vital Signs
Temp Pulse Resp BP Pulse Ox
97.9 F 82 18 156/98 94
02/18/25 11:03 02/18/25 11:03 02/18/25 11:03 02/18/25 11:03 02/18/25 11:04
Physical Exam
Constitutional: No Acute Distress
Cardiovascular: Regular Rate and S1/S2
Pulmonary: Clear
Gastrointestinal: Soft, Non Tender and Non Distended
Extremities: Negative Edema
Neurological: AO x 3
Lines: PICC (RUE)
Objective Data
Lab Data
Lab Results
02/18/25 07:32
02/18/25 05:09
ESR 96 mm/hour (0-20) H 02/10/25 04:27
PT 14.4 Sec (11.4-14.6) 02/09/25 06:32
INR 1.09 02/09/25 06:32
APTT 42.9 Sec (23.4-35.0) H 02/17/25 08:40
Estimated Creat Clear 74 ml/min 02/18/25 05:09
Total Bilirubin 0.6 mg/dl (0.2-1.3) 02/09/25 06:32
AST 33 U/L (17-59) 02/09/25 06:32
ALT 40 U/L (0-50) 02/09/25 06:32
Alkaline Phosphatase 196 U/L (38-126) H 02/09/25 06:32
C-Reactive Protein Cancelled 02/10/25 04:27
Most recent labs reviewed.
Micro Results:
02/17/25 08:40 Blood Culture - Preliminary
Blood/Venous No Growth in 24 hours- Final report to follow
02/17/25 07:31 Blood Culture - Preliminary
Blood/Venous No Growth in 24 hours- Final report to follow
02/18/25 05:10 Blood Culture - Pending
Blood/Venous
02/11/25 13:00 Fungal Smear - Final
Abscess No yeast or fungal elements seen.
Fungal Culture - Preliminary
Culture in progress.
Positive cultures are reported as soon as detected.
Final report to follow in four to five weeks.
02/11/25 13:00 Wound Culture - Final
Abscess No growth
Gram Stain - Final
02/11/25 13:00 Anaerobic Culture - Final
Abscess NO ANAEROBES ISOLATED
02/09/25 20:15 Blood Culture - Final
Blood/Venous No Growth - Final Report
02/09/25 18:42 Blood Culture - Final
Blood/Venous No Growth - Final Report
02/11/25 13:00 Acid Fast Bacilli Smear - Preliminary
Abscess Acid Fast Bacilli Culture - Preliminary
Imaging:
02/15/25 CT a/p: Interval development of asymmetric diffuse right psoas muscle enlargement/swelling. At least 2 intramuscular complex collections are demonstrated, as described. Suspicious for psoas evolving intramuscular hematomas, without active
hemorrhage identified. However, given the periaortic infectious/inflammatory changes, the possibility of complex collections related to abscess formation would be difficult to exclude with certainty. Stable inflammatory soft tissue stranding
associated with the proximal graft margin. However, the region of nonenhancement suspicious for abscess has decreased slightly in size.
02/09/25 CT a/p: Pronounced inflammatory change within the retroperitoneum adjacent to the superior portion of the aortic endograft. Peripheral enhancement with internal low attenuation, overall measuring approximately 5.9 cm mediolateral by 5 cm AP
by 3 cm superior inferior. Significant increase in the enhancement and inflammatory change compared to prior CT dated 01/19/2025. Findings likely represent stent graft infection with adjacent abscess. 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
Excluded aneurysm sac measures 5.7 cm in greatest transverse dimension, slightly increased in size compared to prior CT dated 12/10/2024, at which time it measured 5.2 cm in greatest transverse dimension. Severe prostatic enlargement.
Care Review
Plan reviewed with: Physician (Dr. Chadwick)
--- NOTE | 2025-02-18 13:50 | W.PN.HOSP.TC ---
Today's Communication/Plan
-
pain control; reduce narc doses
continue Flexeril/Gabapentin
follow cultures. eventual antibiotic plan per ID/vascular
Assessment / Plan
Assessment / Plan
Impression:
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
Status post endovascular aortic repair for infrarenal abdominal aortic aneurysm October 2024.
Left upper extremity DVT secondary to PICC line
Patient on heparin drip.
Hemoglobin dropped we will proceed with 2 units of blood transfusion.
Other conditions:
1. Hypertension.
2. Dyslipidemia.
3. Prior history of pericarditis.
4. Gastroesophageal reflux disease and Spears's esophagus.
5. Obstructive sleep apnea.
6. Benign prostatic hyperplasia.
7. History of cholecystectomy in 2017.
Assessment/plan:
Aortitis with inflammatory changes proximal endograft with progression and possible abscess formation
CT angio of abdomen and pelvis
1. Pronounced inflammatory change within the retroperitoneum adjacent to the superior portion of the aortic endograft. Peripheral enhancement with internal low attenuation, overall measuring approximately 5.9 cm mediolateral by 5 cm AP by 3 cm
superior inferior. Significant increase in the enhancement and inflammatory change compared to prior CT dated 01/19/2025. Findings likely represent stent graft infection with adjacent abscess.
2. 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 Excluded aneurysm sac measures 5.7 cm in greatest transverse dimension, slightly increased in size compared to prior CT dated 12/10/2024, at which time it measured 5.2 cm in greatest transverse
dimension.
3. Severe prostatic enlargement.
Presents with persistent lower abdomen and back pain unchanged since prior hospitalization.
Afebrile and hemodynamically stable.
All cultures negative to date.
With concern for infected stent, patient was discharged on Unasyn through 03/05/2025.
Repeated imaging as above.
Echo 02/10 with normal LVEF and no valvular abnormalities.
Repeated blood culture negative to date
Status post CT-guided aspiration of fluid collection adjacent to superior portion of aortic graft, yielding 40 cc of blood-tinged pus on 02/11. Gram stain and cultures negative to date
Potential option could involve surgical expiration with explant of the aortic stent graft
off Abx as per ID to help yield better possible operative cultures. Repeat blood cultures per ID.
CT repeat with R psoas fluid collection consistent with hematoma per Vascular and Radiology. Follow Hb.
Continue analgesia with Tylenol and oxycodone, Flexeril, Gabapentin
Continue bowel regimen
Acute blood loss anemia
s/p 2 units PRBC
Left upper extremity DVT secondary to PICC line.
PICC line removed.
IV Heparin stopped by Vascular service due to hematoma
repeat US planned
Essential hypertension
Continue Coreg
Bening Prostatic hyperplasia:
Continue Flomax and Proscar
Monitor for retention
DVT ppx: SCDs
Code: Full
Anticipated Discharge: > 48 hours
Subjective/Interval History
-
Date of Service: February 18, 2025
pain improving
Objective Data
-
Labs:
Laboratory Results
02/18/25 02/18/25
05:09 07:32
WBC Cancelled 5.8
Hgb Cancelled 8.1 L
Hct Cancelled 24.8 L
Plt Count Cancelled 90 L D
Sodium 139
Potassium 3.7
Chloride 104
Carbon Dioxide 28
BUN 16
Creatinine 0.8
Glucose 104 H
Calcium 8.9
Vital Signs:
Vital Signs
Temp Pulse Resp BP Pulse Ox
97.9 F 82 18 156/98 94
02/18/25 11:03 02/18/25 11:03 02/18/25 11:03 02/18/25 11:03 02/18/25 11:04
I&O
02/17/25 02/18/25 02/19/25
06:59 06:59 06:59
Intake Total 1172 / 1172 1200 / 1200
Output Total 300 / 300
Balance 1172 / 1172 900 / 900
Physical Exam
-
General: No Apparent Distress
HEENT: Normocephalic
Respiratory: Negative Wheezes
Cardiac: Regular Rhythm and S1/S2
GI: Soft
Genito-urinary: No Costovertebral Tender
Neuro: AO x 3
Psych: Calm
Data Reviewed
-
Total Time Spent with Patient (in minutes): 41
Labs: Labs Reviewed by me
--- NOTE | 2025-02-18 14:23 | CM ---
Chart reviewed; Per PT, disposition recommendation is Home PT vs. No Needs
Case Management will monitor and support disposition needs/services accordingly
[2025-02-18 15:11] LABS: Hematocrit 25.8 % (39.0-52.0); Hemoglobin 8.5 g/dL (13.0-18.0); Mean Corp Hgb Conc. 32.9 g/dL (33.0-37.0); Mean Corpuscular Hgb 28.9 pg (27.0-31.0); Mean Corpuscular Volume 87.8 fL (80.0-94.0); Red Blood Cell Count 2.94 10^6/uL (4.70-6.10); Red Cell Dist. Width 17.3 % (11.5-14.5); White Blood Cell Count 6.2 10^3/uL (4.8-10.8)
[2025-02-18 16:01] LABS: Mean Platelet Volume 11.9 fL (7.4-10.4); Platelet Count 107 10^3/uL (130-400)
--- NOTE | 2025-02-18 19:36 | PTCARENOTE ---
Patient AAOX3 but confused conversation at times, forgetful and frequently needs reinforcement on plan of care. Patient's stating to this RN patient hallucinating seeing bugs on floor earlier in afternoon. MD made aware of patient's mentation,
PRN pain regimen adjusted per MD - see MAR. Patient's stating patient normally wears CPAP at home but has not worn CPAP for last week. This RN communicated with MD, order placed for CPAP HS by this RN. Patient states pain in R hip/leg has been
controlled with scheduled gabapentin and PRN flexeril this shift. Patient ambulatory in room to bathroom and chair with x1 assist, bed and chair alarms in place for patient safety.
[2025-02-18] MEDS: FLOMAX 0.4 MG PO (21:18)
[2025-02-19] VITALS (9 sets, daily range): BP systolic 122–140; BP diastolic 62–73; PULSE 68–105
[2025-02-19] MEDS: FLEXERIL 10 MG PO (05:18)
[2025-02-19 05:26] LABS: Hematocrit 23.2 % (39.0-52.0); Hemoglobin 7.6 g/dL (13.0-18.0); Mean Corp Hgb Conc. 32.8 g/dL (33.0-37.0); Mean Corpuscular Hgb 28.9 pg (27.0-31.0); Mean Corpuscular Volume 88.2 fL (80.0-94.0); Mean Platelet Volume 11.1 fL (7.4-10.4); Platelet Count 78 10^3/uL (130-400); Red Blood Cell Count 2.63 10^6/uL (4.70-6.10); Red Cell Dist. Width 17.3 % (11.5-14.5)
[2025-02-19 05:45] LABS: Blood Urea Nitrogen 21 mg/dl (9-20); Calcium 8.6 mg/dl (8.4-10.2); Carbon Dioxide 26 mmol/L (22-30); Chloride 102 mmol/L (98-107); Estimated Creatinine Clearance 65 ml/min; Glucose 116 mg/dl (70-99); Potassium 3.5 mmol/L (3.5-5.1); Sodium 138 mmol/L (135-145); eGFR > 60.00
[2025-02-19] MEDS: PROSCAR 5 MG PO (08:38)
[2025-02-19] MEDS: COREG 6.25 MG PO ×2 (08:39→21:16)
[2025-02-19] MEDS: NEURONTIN 100 MG PO ×3 (08:39→21:16)
--- NOTE | 2025-02-19 13:18 | W.PN.ID1 ---
Date of Service
Date of Service: February 19, 2025
Today's Communication
Observe off abx.
Assessment / Plan
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
# Hx of AAA EVAR (11/15/24) -> Severe low back pain and suprapubic pain.
# Leukocytosis resolved
# Elevated ESR/CRP
# LUE PICC DVT/malfunction -> dc'd at [facility]
- repeat blood cultures x2 neg to date (on Unasyn)
- CRP 210 ->159->41 (while on Unasyn)
- ESR 93->103->96 (while on Unasyn)
- 02/11 aspirated aortic endograft fluid - 4cc bloody purulent fluid.
Aerobic gram stain: many wbc, no org. Cx neg to date (on Unasyn). Anaerobic cx negative (on Unasyn)
fungal smear neg/cx pending, AFB smear neg/cx : pending
- Unasyn held on day 21 (last dose 02/12/25, noon) to maximize intra-op cx yield, if plan for endograft explant.
- Repeat blood cx's x 2 neg to date (off abx x 4.5 days).
- Repeat blood cx x 1 neg to date(off abx x 5.5 days)
- Blood cx pending (off abx x 6.6 days)
- Continue to repeat bcx's daily off abx.
Anaerobes may take several days to turn positive.
- Discussed with Dr. Knight and Dr. Chadwick. If blood cultures off abx remain negative, will observe closely without abx. Can obtain more blood cx's outpatient in a week or two.
If the graft is infected, it will eventually declare itself.
- Updated daughter at bedside.
# Acute Right psoas muscle hematoma
# s/p blood loss anemia
# Conditions [employer]IST
Hypertension
HLD
History of pericarditis
Spears's esophagus
Sleep apnea
BPH
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
Cholecystectomy
Umbilical hernia repair
Chief Complaint
-: Other (aortitis)
Subjective / Review of Systems
Daughter at bedside.
Pt very lethargic. Per daughter he was hallucinating.
Vital Signs / Physical Exam
Vital Signs
Vital Signs
Temp Pulse Resp BP Pulse Ox
98.0 F 68 18 122/62 98
02/19/25 13:03 02/19/25 13:03 02/19/25 13:03 02/19/25 13:03 02/19/25 13:03
Physical Exam
Constitutional: Non-toxic
Cardiovascular: Regular Rate and S1/S2
Pulmonary: Clear
Gastrointestinal: Soft, Non Tender and Non Distended
Extremities: Negative Edema
Neurological: Other (Drowsy, lethargic)
Lines: PICC (RUE)
Objective Data
Lab Data
Lab Results
02/19/25 05:05
02/19/25 05:05
ESR 96 mm/hour (0-20) H 02/10/25 04:27
PT 14.4 Sec (11.4-14.6) 02/09/25 06:32
INR 1.09 02/09/25 06:32
APTT 42.9 Sec (23.4-35.0) H 02/17/25 08:40
Estimated Creat Clear 65 ml/min 02/19/25 05:05
Total Bilirubin 0.6 mg/dl (0.2-1.3) 02/09/25 06:32
AST 33 U/L (17-59) 02/09/25 06:32
ALT 40 U/L (0-50) 02/09/25 06:32
Alkaline Phosphatase 196 U/L (38-126) H 02/09/25 06:32
C-Reactive Protein Cancelled 02/10/25 04:27
Most recent labs reviewed.
Micro Results:
02/17/25 08:40 Blood Culture - Preliminary
Blood/Venous No Growth in 48 hours- Final report to follow
02/17/25 07:31 Blood Culture - Preliminary
Blood/Venous No Growth in 48 hours- Final report to follow
02/19/25 05:05 Blood Culture - Pending
Blood/Venous
02/18/25 05:10 Blood Culture - Preliminary
Blood/Venous No Growth in 24 hours- Final report to follow
02/11/25 13:00 Fungal Smear - Final
Abscess No yeast or fungal elements seen.
Fungal Culture - Preliminary
Culture in progress.
Positive cultures are reported as soon as detected.
Final report to follow in four to five weeks.
02/11/25 13:00 Wound Culture - Final
Abscess No growth
Gram Stain - Final
02/11/25 13:00 Anaerobic Culture - Final
Abscess NO ANAEROBES ISOLATED
02/09/25 20:15 Blood Culture - Final
Blood/Venous No Growth - Final Report
02/09/25 18:42 Blood Culture - Final
Blood/Venous No Growth - Final Report
02/11/25 13:00 Acid Fast Bacilli Smear - Preliminary
Abscess Acid Fast Bacilli Culture - Preliminary
Imaging:
02/15/25 CT a/p: Interval development of asymmetric diffuse right psoas muscle enlargement/swelling. At least 2 intramuscular complex collections are demonstrated, as described. Suspicious for psoas evolving intramuscular hematomas, without active
hemorrhage identified. However, given the periaortic infectious/inflammatory changes, the possibility of complex collections related to abscess formation would be difficult to exclude with certainty. Stable inflammatory soft tissue stranding
associated with the proximal graft margin. However, the region of nonenhancement suspicious for abscess has decreased slightly in size.
02/09/25 CT a/p: Pronounced inflammatory change within the retroperitoneum adjacent to the superior portion of the aortic endograft. Peripheral enhancement with internal low attenuation, overall measuring approximately 5.9 cm mediolateral by 5 cm AP
by 3 cm superior inferior. Significant increase in the enhancement and inflammatory change compared to prior CT dated 01/19/2025. Findings likely represent stent graft infection with adjacent abscess. 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
Excluded aneurysm sac measures 5.7 cm in greatest transverse dimension, slightly increased in size compared to prior CT dated 12/10/2024, at which time it measured 5.2 cm in greatest transverse dimension. Severe prostatic enlargement.
Care Review
Plan reviewed with: Physician (Drs. Chadwick and Eugene ) and Other Provider (BILL Skaggs)
[2025-02-19] MEDS: PROTONIX 40 MG PO (13:55)
[2025-02-19] MEDS: FLEXERIL PO (14:01)
--- NOTE | 2025-02-19 14:39 | W.PN.HOSP.TC ---
Today's Communication/Plan
-
monitor Hb and consider blood transfusion tomorrow
wean pain meds
conservative management continues
follow cultures
tentative dc Monday
Assessment / Plan
Assessment / Plan
Impression:
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
Status post endovascular aortic repair for infrarenal abdominal aortic aneurysm October 2024.
Left upper extremity DVT secondary to PICC line
Patient on heparin drip.
Hemoglobin dropped we will proceed with 2 units of blood transfusion.
Other conditions:
1. Hypertension.
2. Dyslipidemia.
3. Prior history of pericarditis.
4. Gastroesophageal reflux disease and Spears's esophagus.
5. Obstructive sleep apnea.
6. Benign prostatic hyperplasia.
7. History of cholecystectomy in 2017.
Assessment/plan:
Aortitis with inflammatory changes proximal endograft with progression and possible abscess formation
CT angio of abdomen and pelvis
1. Pronounced inflammatory change within the retroperitoneum adjacent to the superior portion of the aortic endograft. Peripheral enhancement with internal low attenuation, overall measuring approximately 5.9 cm mediolateral by 5 cm AP by 3 cm
superior inferior. Significant increase in the enhancement and inflammatory change compared to prior CT dated 01/19/2025. Findings likely represent stent graft infection with adjacent abscess.
2. 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 Excluded aneurysm sac measures 5.7 cm in greatest transverse dimension, slightly increased in size compared to prior CT dated 12/10/2024, at which time it measured 5.2 cm in greatest transverse
dimension.
3. Severe prostatic enlargement.
Presents with persistent lower abdomen and back pain unchanged since prior hospitalization.
Afebrile and hemodynamically stable.
All cultures negative to date.
With concern for infected stent, patient was discharged on Unasyn through 03/05/2025.
Repeated imaging as above.
Echo 02/10 with normal LVEF and no valvular abnormalities.
Repeated blood culture negative to date
Status post CT-guided aspiration of fluid collection adjacent to superior portion of aortic graft, yielding 40 cc of blood-tinged pus on 02/11. Gram stain and cultures negative to date
Potential option could involve surgical expiration with explant of the aortic stent graft
off Abx as per ID to help yield better possible operative cultures. Repeat blood cultures per ID so far no growth to date.
CT repeat with R psoas fluid collection consistent with hematoma per Vascular and Radiology. Follow Hb.
Continue analgesia with Tylenol and oxycodone, Flexeril, Gabapentin
Continue bowel regimen
Acute blood loss anemia
s/p 2 units PRBC; may need additional blood
Left upper extremity DVT secondary to PICC line.
PICC line removed.
IV Heparin stopped by Vascular service due to hematoma
repeat US planned
Essential hypertension
Continue Coreg
Bening Prostatic hyperplasia:
Continue Flomax and Proscar
Monitor for retention
DVT ppx: SCDs
Code: Full
Anticipated Discharge: > 48 hours
Subjective/Interval History
-
Date of Service: February 19, 2025
pain controlled, on reduced pain med dosages
Objective Data
-
Labs:
Laboratory Results
02/19/25
05:05
WBC 6.0
Hgb 7.6 L
Hct 23.2 L
Plt Count 78 L D
Sodium 138
Potassium 3.5
Chloride 102
Carbon Dioxide 26
BUN 21 H
Creatinine 0.9
Glucose 116 H
Calcium 8.6
Vital Signs:
Vital Signs
Temp Pulse Resp BP Pulse Ox
98.0 F 68 18 122/62 98
02/19/25 13:03 02/19/25 13:03 02/19/25 13:03 02/19/25 13:03 02/19/25 13:03
I&O
02/18/25 02/19/25 02/20/25
06:59 06:59 06:59
Intake Total 1200 / 1200 1020 / 1020
Output Total 300 / 300 250 / 250
Balance 900 / 900 770 / 770
Physical Exam
-
General: No Apparent Distress
HEENT: Normocephalic and Atraumatic
Respiratory: Negative Wheezes
Cardiac: Regular Rhythm and S1/S2
GI: Soft and Nontender
Genito-urinary: No Costovertebral Tender
Neuro: AO x 3
Psych: Calm
Data Reviewed
-
Total Time Spent with Patient (in minutes): 42
Labs: Labs Reviewed by me
[2025-02-19] MEDS: FLEXERIL 5 MG PO (15:00)
--- NOTE | 2025-02-19 16:46 | CM ---
Chart reviewed and plan is to home with home care when stable, patient is current with [facility].
[facility].
[phone]
--- NOTE | 2025-02-19 16:51 | PTCARENOTE ---
Patient AAOx3 for this RN, forgetful at times but no confusion or hallucinations noted this shift, standby assist to ambulate in room and ringing appropriately. Hgb 7.6 on AM labs, repeat lab draws ordered for tomorrow AM per MD. Patient states R
hip discomfort is managed with PRN flexeril and has improved over last 24-48 hours, denies need for PRN PO oxycodone at this time.
[2025-02-19] MEDS: FLOMAX 0.4 MG PO (21:16)
[2025-02-20] VITALS (14 sets, daily range): BP systolic 120–159; BP diastolic 63–84; PULSE 74–77; O2SAT 99
[2025-02-20] MEDS: FLEXERIL 5 MG PO ×3 (02:00→20:35)
[2025-02-20 05:31] LABS: Hemoglobin 7.1 g/dL (13.0-18.0); Mean Corp Hgb Conc. 33.8 g/dL (33.0-37.0); Mean Corpuscular Hgb 29.1 pg (27.0-31.0); Mean Corpuscular Volume 86.1 fL (80.0-94.0); Mean Platelet Volume 9.5 fL (7.4-10.4); Platelet Count 95 10^3/uL (130-400); Red Blood Cell Count 2.44 10^6/uL (4.70-6.10); Red Cell Dist. Width 17.2 % (11.5-14.5); White Blood Cell Count 5.9 10^3/uL (4.8-10.8)
[2025-02-20 05:36] LABS: Blood Urea Nitrogen 17 mg/dl (9-20); Calcium 8.4 mg/dl (8.4-10.2); Carbon Dioxide 26 mmol/L (22-30); Chloride 103 mmol/L (98-107); Estimated Creatinine Clearance 74 ml/min; Glucose 118 mg/dl (70-99); Potassium 3.1 mmol/L (3.5-5.1); Sodium 137 mmol/L (135-145); eGFR > 60.00
[2025-02-20 06:14] LABS: Erythrocyte Sed Rate 103 mm/hour (0-20)
[2025-02-20] MEDS: NEURONTIN 100 MG PO ×3 (08:59→21:56)
[2025-02-20] MEDS: KCL 40 MEQ PO (08:59)
[2025-02-20] MEDS: PROSCAR 5 MG PO (08:59)
[2025-02-20] MEDS: COREG 6.25 MG PO ×2 (08:59→20:35)
--- NOTE | 2025-02-20 10:02 | W.PN.ID1 ---
Date of Service
Date of Service: February 20, 2025
Today's Communication
Continue to observe off abx. Follow blood cx's.
Assessment / Plan
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
# Hx of AAA EVAR (11/15/24) -> Severe low back pain and suprapubic pain.
# Leukocytosis resolved
# Elevated ESR/CRP
# LUE PICC DVT/malfunction -> dc'd at [facility]
- repeat blood cultures x2 neg to date (on Unasyn)
- CRP 210 ->159->41 (while on Unasyn)
- ESR 93->103->96 (while on Unasyn)
- 02/11 aspirated aortic endograft fluid - 4cc bloody purulent fluid.
Aerobic gram stain: many wbc, no org. Cx neg to date (on Unasyn). Anaerobic cx negative (on Unasyn)
fungal smear neg/cx pending, AFB smear neg/cx : pending
- Unasyn held on day 21 (last dose 02/12/25, noon) to maximize cx yield.
- 02/17 Repeat blood cx's x 2 neg to date (off abx x 4.5 days).
- 02/18 Repeat blood cx x 1 neg to date (off abx x 5.5 days)
- 02/19 Blood cx x1 GPC clusters (off abx x 6.6 days) ->awaiting identification. Continue to hold abx.
- 02/20 Blood cx x 1 pending
- Continue to repeat bcx's daily off abx.
# Acute Right psoas muscle hematoma
# s/p blood loss anemia
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
Hypertension
HLD
History of pericarditis
Spears's esophagus
Sleep apnea
BPH
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
Cholecystectomy
Umbilical hernia repair
Chief Complaint
-: Other (aortitis)
Subjective / Review of Systems
Pt alert today. Sitting up in chair.
No worsening right groin/thigh pain.
Vital Signs / Physical Exam
Vital Signs
Vital Signs
Temp Pulse Resp BP Pulse Ox
98.2 F 79 16 126/74 98
02/20/25 08:00 02/20/25 08:59 02/20/25 08:00 02/20/25 08:59 02/20/25 08:00
Physical Exam
Constitutional: No Acute Distress and Non-toxic
Cardiovascular: Regular Rate and S1/S2
Pulmonary: Clear
Gastrointestinal: Soft, Non Tender and Non Distended
Extremities: Negative Edema
Neurological: AO x 3
Lines: PICC (RUE)
Objective Data
Lab Data
Lab Results
02/20/25 05:07
02/20/25 05:07
ESR 103 mm/hour (0-20) H 02/20/25 05:07
PT 14.4 Sec (11.4-14.6) 02/09/25 06:32
INR 1.09 02/09/25 06:32
APTT 42.9 Sec (23.4-35.0) H 02/17/25 08:40
Estimated Creat Clear 74 ml/min 02/20/25 05:07
Total Bilirubin 0.6 mg/dl (0.2-1.3) 02/09/25 06:32
AST 33 U/L (17-59) 02/09/25 06:32
ALT 40 U/L (0-50) 02/09/25 06:32
Alkaline Phosphatase 196 U/L (38-126) H 02/09/25 06:32
C-Reactive Protein 54.50 mg/L (0.0-10.00) H 02/20/25 05:06
Most recent labs reviewed.
Micro Results:
02/17/25 08:40 Blood Culture - Preliminary
Blood/Venous No Growth in 72 hours- Final report to follow
02/19/25 05:05 Blood Culture - Preliminary
Blood/Venous Positive culture in progress
Gram Stain - Preliminary
02/17/25 07:31 Blood Culture - Preliminary
Blood/Venous No Growth in 72 hours- Final report to follow
02/18/25 05:10 Blood Culture - Preliminary
Blood/Venous No Growth in 48 hours- Final report to follow
02/20/25 05:06 Blood Culture - Pending
Blood/Venous
02/11/25 13:00 Fungal Smear - Final
Abscess No yeast or fungal elements seen.
Fungal Culture - Preliminary
Culture in progress.
Positive cultures are reported as soon as detected.
Final report to follow in four to five weeks.
02/11/25 13:00 Wound Culture - Final
Abscess No growth
Gram Stain - Final
02/11/25 13:00 Anaerobic Culture - Final
Abscess NO ANAEROBES ISOLATED
02/09/25 20:15 Blood Culture - Final
Blood/Venous No Growth - Final Report
02/09/25 18:42 Blood Culture - Final
Blood/Venous No Growth - Final Report
02/11/25 13:00 Acid Fast Bacilli Smear - Preliminary
Abscess Acid Fast Bacilli Culture - Preliminary
Imaging:
02/15/25 CT a/p: Interval development of asymmetric diffuse right psoas muscle enlargement/swelling. At least 2 intramuscular complex collections are demonstrated, as described. Suspicious for psoas evolving intramuscular hematomas, without active
hemorrhage identified. However, given the periaortic infectious/inflammatory changes, the possibility of complex collections related to abscess formation would be difficult to exclude with certainty. Stable inflammatory soft tissue stranding
associated with the proximal graft margin. However, the region of nonenhancement suspicious for abscess has decreased slightly in size.
02/09/25 CT a/p: Pronounced inflammatory change within the retroperitoneum adjacent to the superior portion of the aortic endograft. Peripheral enhancement with internal low attenuation, overall measuring approximately 5.9 cm mediolateral by 5 cm AP
by 3 cm superior inferior. Significant increase in the enhancement and inflammatory change compared to prior CT dated 01/19/2025. Findings likely represent stent graft infection with adjacent abscess. 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
Excluded aneurysm sac measures 5.7 cm in greatest transverse dimension, slightly increased in size compared to prior CT dated 12/10/2024, at which time it measured 5.2 cm in greatest transverse dimension. Severe prostatic enlargement.
Care Review
Plan reviewed with: Physician (Drs. Chadwick and Eugene)
--- NOTE | 2025-02-20 12:25 | CM ---
Reviewed the chart notes and spoke with the patient at the bedside. Referrals previously sent via [facility] for [facility]. Patient was current with [facility]. CM continues to be available to patient/family and is monitoring medical plan for
needs at discharge.
Plan: Discharge plans will depend on the patient's progress. Home with resumption of [facility] and [facility] for IV abx.
[facility]
[2025-02-20] MEDS: PROTONIX 40 MG PO (12:27)
--- NOTE | 2025-02-20 14:15 | W.PN.HOSP.TC ---
Today's Communication/Plan
-
follow culture reports/results
pain control
2 units PRBC
Assessment / Plan
Assessment / Plan
Impression:
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
Status post endovascular aortic repair for infrarenal abdominal aortic aneurysm October 2024.
Left upper extremity DVT secondary to PICC line
Patient on heparin drip.
Hemoglobin dropped we will proceed with 2 units of blood transfusion.
Other conditions:
1. Hypertension.
2. Dyslipidemia.
3. Prior history of pericarditis.
4. Gastroesophageal reflux disease and Spears's esophagus.
5. Obstructive sleep apnea.
6. Benign prostatic hyperplasia.
7. History of cholecystectomy in 2017.
Assessment/plan:
Aortitis with inflammatory changes proximal endograft with progression and possible abscess formation
CT angio of abdomen and pelvis
1. Pronounced inflammatory change within the retroperitoneum adjacent to the superior portion of the aortic endograft. Peripheral enhancement with internal low attenuation, overall measuring approximately 5.9 cm mediolateral by 5 cm AP by 3 cm
superior inferior. Significant increase in the enhancement and inflammatory change compared to prior CT dated 01/19/2025. Findings likely represent stent graft infection with adjacent abscess.
2. 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 Excluded aneurysm sac measures 5.7 cm in greatest transverse dimension, slightly increased in size compared to prior CT dated 12/10/2024, at which time it measured 5.2 cm in greatest transverse
dimension.
3. Severe prostatic enlargement.
Presents with persistent lower abdomen and back pain unchanged since prior hospitalization.
Afebrile and hemodynamically stable.
All cultures negative to date.
With concern for infected stent, patient was discharged on Unasyn through 03/05/2025.
Repeated imaging as above.
Echo 02/10 with normal LVEF and no valvular abnormalities.
Repeated blood culture negative to date
Status post CT-guided aspiration of fluid collection adjacent to superior portion of aortic graft, yielding 40 cc of blood-tinged pus on 02/11. Gram stain and cultures negative to date
Potential option could involve surgical expiration with explant of the aortic stent graft
off Abx as per ID to help yield better possible operative cultures. 02/19 blood cultures growing GPC in clusters - await speciation
CT repeat with R psoas fluid collection consistent with hematoma per Vascular and Radiology. Follow Hb.
Continue analgesia with Tylenol and oxycodone, Flexeril, Gabapentin
Continue bowel regimen
Acute blood loss anemia
s/p 2 units PRBC; 2 units additionally today
Left upper extremity DVT secondary to PICC line.
PICC line removed.
IV Heparin stopped by Vascular service due to hematoma
repeat US planned
Essential hypertension
Continue Coreg
Bening Prostatic hyperplasia:
Continue Flomax and Proscar
Monitor for retention
DVT ppx: SCDs
Code: Full
Anticipated Discharge: > 48 hours
Subjective/Interval History
-
Date of Service: February 20, 2025
pain better controlled with LOWER doses of pain meds
Hb 7.1 - 2 units ordered
1/2 bottles bacteremia from 02/19
Objective Data
-
Labs:
Laboratory Results
02/20/25
05:07
WBC 5.9
Hgb 7.1 L
Hct 21.0 L
Plt Count 95 L D
Sodium 137
Potassium 3.1 L
Chloride 103
Carbon Dioxide 26
BUN 17
Creatinine 0.8
Glucose 118 H
Calcium 8.4
Vital Signs:
Vital Signs
Temp Pulse Resp BP Pulse Ox
98.2 F 74 16 129/72 98
02/20/25 13:19 02/20/25 13:19 02/20/25 13:19 02/20/25 13:19 02/20/25 10:49
I&O
02/19/25 02/20/25 02/21/25
06:59 06:59 06:59
Intake Total 1020 / 1020 1080 / 1080 250 / 250
Output Total 250 / 250
Balance 770 / 770 1080 / 1080 250 / 250
Physical Exam
-
General: No Apparent Distress
HEENT: Normocephalic and Atraumatic
Respiratory: Negative Wheezes
Cardiac: Regular Rhythm and S1/S2
GI: Soft
Genito-urinary: No Costovertebral Tender
Musculoskeletal: No Edema
Neuro: AO x 3
Psych: Calm
Data Reviewed
-
Total Time Spent with Patient (in minutes): 42
Labs: Labs Reviewed by me
--- NOTE | 2025-02-20 14:53 | PN.CDI ---
CDI
- -
CDI:
Physician Documentation Request
Admit Date: 02/09/25 02:49
Dear Doctor Farrukh,
Patient admitted with aortitis.
02/20 Potassium level: 3.1
24 Potassium chloride 40 meq PO administered
Based on the above, could you clarify in the progress notes, the appropriate diagnosis, if significant, that supports the above abnormalities and additional evaluation, monitoring and/or treatment rendered:
Hypokalemia
Abnormal lab value insignificant
Other
Use of terms such as suspected, likely, concern for, or probable (associated with a specific diagnosis that is being evaluated, monitored, or treated as if it exists) are acceptable and can be coded in the inpatient setting, when documented at the
time of discharge.
Thank you,
Tiffany Hennessy RN, BSN
CDI Specialist
Available via [place] text
Please use your independent medical judgment in providing your response.
[2025-02-20] MEDS: FLOMAX 0.4 MG PO (21:56)
[2025-02-21] VITALS (8 sets, daily range): BP systolic 130–154; BP diastolic 67–76; PULSE 69
[2025-02-21] MEDS: FLEXERIL 5 MG PO (05:29)
[2025-02-21 05:33] LABS: Hematocrit 27.5 % (39.0-52.0); Hemoglobin 9.2 g/dL (13.0-18.0); Mean Corp Hgb Conc. 33.5 g/dL (33.0-37.0); Mean Corpuscular Volume 86.8 fL (80.0-94.0); Platelet Count 92 10^3/uL (130-400); Red Blood Cell Count 3.17 10^6/uL (4.70-6.10); Red Cell Dist. Width 17.2 % (11.5-14.5); White Blood Cell Count 5.7 10^3/uL (4.8-10.8)
[2025-02-21 05:50] LABS: Blood Urea Nitrogen 15 mg/dl (9-20); Calcium 8.4 mg/dl (8.4-10.2); Carbon Dioxide 25 mmol/L (22-30); Chloride 105 mmol/L (98-107); Estimated Creatinine Clearance 84 ml/min; Glucose 106 mg/dl (70-99); Potassium 3.3 mmol/L (3.5-5.1); Sodium 139 mmol/L (135-145); eGFR > 60.00
[2025-02-21] MEDS: NEURONTIN 100 MG PO ×3 (09:40→22:04)
[2025-02-21] MEDS: COREG 6.25 MG PO ×2 (09:40→20:38)
[2025-02-21] MEDS: PROSCAR 5 MG PO (09:40)
[2025-02-21] MEDS: KCL 40 MEQ PO (09:41)
--- NOTE | 2025-02-21 10:40 | PTOTSP ---
Pt is able to ambulate independently in hallway without an assistive device and is able to climb stairs with railing. Anticipate pt returning home when medically stable. Will sign off at this time.
--- NOTE | 2025-02-21 10:47 | W.PN.HOSP.TC ---
Addendum entered and electronically signed by Eder Chadwick MD 02/21/25 10:54:
hypokalemia - replete prn
Original Note:
Today's Communication/Plan
-
follow serial culture off Abx
prn oxycodone/Flexeril for pain control
continue PT/OT evals
follow Vascular recs
Assessment / Plan
Assessment / Plan
Impression:
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
Status post endovascular aortic repair for infrarenal abdominal aortic aneurysm October 2024.
Left upper extremity DVT secondary to PICC line
Patient on heparin drip.
Hemoglobin dropped we will proceed with 2 units of blood transfusion.
Other conditions:
1. Hypertension.
2. Dyslipidemia.
3. Prior history of pericarditis.
4. Gastroesophageal reflux disease and Spears's esophagus.
5. Obstructive sleep apnea.
6. Benign prostatic hyperplasia.
7. History of cholecystectomy in 2018.
Assessment/plan:
Aortitis with inflammatory changes proximal endograft with progression and possible abscess formation
CT angio of abdomen and pelvis
1. Pronounced inflammatory change within the retroperitoneum adjacent to the superior portion of the aortic endograft. Peripheral enhancement with internal low attenuation, overall measuring approximately 5.9 cm mediolateral by 5 cm AP by 3 cm
superior inferior. Significant increase in the enhancement and inflammatory change compared to prior CT dated 01/19/2025. Findings likely represent stent graft infection with adjacent abscess.
2. 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 Excluded aneurysm sac measures 5.7 cm in greatest transverse dimension, slightly increased in size compared to prior CT dated 12/10/2024, at which time it measured 5.2 cm in greatest transverse
dimension.
3. Severe prostatic enlargement.
Presents with persistent lower abdomen and back pain unchanged since prior hospitalization.
Afebrile and hemodynamically stable.
All cultures negative to date.
With concern for infected stent, patient was discharged on Unasyn through 03/05/2025.
Repeated imaging as above.
Echo 02/10 with normal LVEF and no valvular abnormalities.
Repeated blood culture negative to date
Status post CT-guided aspiration of fluid collection adjacent to superior portion of aortic graft, yielding 40 cc of blood-tinged pus on 02/11. Gram stain and cultures negative to date
Potential option could involve surgical expiration with explant of the aortic stent graft
off Abx as per ID to help yield better possible operative cultures. 02/19 blood cultures growing CoNS
CT repeat with R psoas fluid collection consistent with hematoma per Vascular and Radiology. Follow Hb.
Continue analgesia with Tylenol, Flexeril, Gabapentin
Continue bowel regimen
Acute blood loss anemia
s/p 2 units PRBC; 2 units additionally today
Left upper extremity DVT secondary to PICC line.
PICC line removed.
IV Heparin stopped by Vascular service due to hematoma
repeat US planned
Essential hypertension
Continue Coreg
Bening Prostatic hyperplasia:
Continue Flomax and Proscar
Monitor for retention
DVT ppx: SCDs
Code: Full
Anticipated Discharge: > 48 hours
Subjective/Interval History
-
Date of Service: February 21, 2025
resting comfortably
reports ineffective muscle pain control with Flexeril 5
Objective Data
-
Labs:
Laboratory Results
02/21/25
05:10
WBC 5.7
Hgb 9.2 L D
Hct 27.5 L
Plt Count 92 L
Sodium 139
Potassium 3.3 L
Chloride 105
Carbon Dioxide 25
BUN 15
Creatinine 0.7
Glucose 106 H
Calcium 8.4
Vital Signs:
Vital Signs
Temp Pulse Resp BP Pulse Ox
99.2 F 71 18 138/76 98
02/21/25 07:35 02/21/25 09:40 02/21/25 07:35 02/21/25 09:40 02/21/25 07:35
I&O
02/20/25 02/21/25 02/22/25
06:59 06:59 06:59
Intake Total 1080 / 1080 1999
Balance 1080 / 1080 1999
Physical Exam
-
General: No Apparent Distress
HEENT: Normocephalic and Atraumatic
Respiratory: Negative Wheezes
Cardiac: Regular Rhythm and S1/S2
GI: Soft and Nontender
Genito-urinary: No Costovertebral Tender
Neuro: AO x 3
Psych: Calm
Data Reviewed
-
Total Time Spent with Patient (in minutes): 42
Labs: Labs Reviewed by me
[2025-02-21] MEDS: PROTONIX 40 MG PO (11:35)
[2025-02-21] MEDS: FLEXERIL 10 MG PO ×2 (14:35→22:37)
--- NOTE | 2025-02-21 14:52 | CM ---
Reviewed the chart notes and spoke with the patient and spouse at the bedside. Per attending, here through w/e. CM continues to be available to patient/family and is monitoring medical plan for needs at discharge.
Plan: Discharge to home with [facility] and most likely IV abx via [facility].
--- NOTE | 2025-02-21 15:01 | W.PN.ID1 ---
Date of Service
Date of Service: February 21, 2025
Today's Communication
Continue to observe off abx.
Assessment / Plan
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
# Hx of AAA EVAR (11/15/24) -> Severe low back pain and suprapubic pain.
# Leukocytosis resolved
# Elevated ESR/CRP
# LUE PICC DVT/malfunction -> dc'd at [facility]
- repeat blood cultures x2 neg to date (on Unasyn)
- CRP 210 ->159->41 (while on Unasyn)
- ESR 93->103->96 (while on Unasyn)
- 02/11 aspirated aortic endograft fluid - 4cc bloody purulent fluid.
Aerobic gram stain: many wbc, no org. Cx neg to date (on Unasyn). Anaerobic cx negative (on Unasyn)
fungal smear neg/cx pending, AFB smear neg/cx : pending
- Unasyn held on day 21 (last dose 02/12/25, noon) to maximize cx yield.
- 02/17 Repeat blood cx's x 2 neg to date (off abx x 4.5 days).
- 02/18 Repeat blood cx x 1 neg to date (off abx x 5.5 days)
- 02/19 Blood cx x1 Coag-neg staph (off abx x 6.5 days).
Spoke to micro - 2 morphotypes, will work-up CoNS.
Possible contaminant.
- 02/20 Blood cx x 1 neg to date (off anx 7.5d)
- 02/21 Blood cx x 1 pending (off abx 8.5d)
- Ordered 2 sets of blood cx's for am.
- Continue to monitor off abx.
# Acute Right psoas muscle hematoma
# s/p blood loss anemia
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
Hypertension
HLD
History of pericarditis
Spears's esophagus
Sleep apnea
BPH
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
Cholecystectomy
Umbilical hernia repair
Chief Complaint
-: Other (aortitis)
Subjective / Review of Systems
Currently on Flexeril only for right thigh pain.
No further back pain nor lower abd pain. Ambulated yesterday.
Vital Signs / Physical Exam
Vital Signs
Vital Signs
Temp Pulse Resp BP Pulse Ox
98.6 F 74 18 136/74 97
02/21/25 11:40 02/21/25 11:40 02/21/25 11:40 02/21/25 11:40 02/21/25 11:40
Physical Exam
Constitutional: No Acute Distress and Comfortable
Eyes: No Conjunctival Hemorrhage and Sclera Anicteric
Cardiovascular: Regular Rate and S1/S2
Pulmonary: Clear
Gastrointestinal: Soft, Non Tender and Non Distended
Neurological: AO x 3
Lines: PICC (RUE)
Objective Data
Lab Data
Lab Results
02/21/25 05:10
02/21/25 05:10
ESR 103 mm/hour (0-20) H 02/20/25 05:07
PT 14.4 Sec (11.4-14.6) 02/09/25 06:32
INR 1.09 02/09/25 06:32
APTT 42.9 Sec (23.4-35.0) H 02/17/25 08:40
Estimated Creat Clear 84 ml/min 02/21/25 05:10
Total Bilirubin 0.6 mg/dl (0.2-1.3) 02/09/25 06:32
AST 33 U/L (17-59) 02/09/25 06:32
ALT 40 U/L (0-50) 02/09/25 06:32
Alkaline Phosphatase 196 U/L (38-126) H 02/09/25 06:32
C-Reactive Protein 54.50 mg/L (0.0-10.00) H 02/20/25 05:06
Most recent labs reviewed.
Micro Results:
02/19/25 05:05 Blood Culture - Preliminary
Blood/Venous Coagulase neg. staphylococcus
Gram Stain - Final
02/17/25 08:40 Blood Culture - Preliminary
Blood/Venous No Growth in 4 days- Final report to follow
02/17/25 07:31 Blood Culture - Preliminary
Blood/Venous No Growth in 4 days- Final report to follow
02/21/25 05:10 Blood Culture - Pending
Blood/Venous
02/18/25 05:10 Blood Culture - Preliminary
Blood/Venous No Growth in 72 hours- Final report to follow
02/20/25 05:06 Blood Culture - Preliminary
Blood/Venous No Growth in 24 hours- Final report to follow
02/11/25 13:00 Fungal Smear - Final
Abscess No yeast or fungal elements seen.
Fungal Culture - Preliminary
Culture in progress.
Positive cultures are reported as soon as detected.
Final report to follow in four to five weeks.
02/11/25 13:00 Wound Culture - Final
Abscess No growth
Gram Stain - Final
02/11/25 13:00 Anaerobic Culture - Final
Abscess NO ANAEROBES ISOLATED
02/09/25 20:15 Blood Culture - Final
Blood/Venous No Growth - Final Report
02/09/25 18:42 Blood Culture - Final
Blood/Venous No Growth - Final Report
02/11/25 13:00 Acid Fast Bacilli Smear - Preliminary
Abscess Acid Fast Bacilli Culture - Preliminary
Imaging:
02/15/25 CT a/p: Interval development of asymmetric diffuse right psoas muscle enlargement/swelling. At least 2 intramuscular complex collections are demonstrated, as described. Suspicious for psoas evolving intramuscular hematomas, without active
hemorrhage identified. However, given the periaortic infectious/inflammatory changes, the possibility of complex collections related to abscess formation would be difficult to exclude with certainty. Stable inflammatory soft tissue stranding
associated with the proximal graft margin. However, the region of nonenhancement suspicious for abscess has decreased slightly in size.
02/09/25 CT a/p: Pronounced inflammatory change within the retroperitoneum adjacent to the superior portion of the aortic endograft. Peripheral enhancement with internal low attenuation, overall measuring approximately 5.9 cm mediolateral by 5 cm AP
by 3 cm superior inferior. Significant increase in the enhancement and inflammatory change compared to prior CT dated 01/19/2025. Findings likely represent stent graft infection with adjacent abscess. 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
Excluded aneurysm sac measures 5.7 cm in greatest transverse dimension, slightly increased in size compared to prior CT dated 12/10/2024, at which time it measured 5.2 cm in greatest transverse dimension. Severe prostatic enlargement.
Care Review
Plan reviewed with: Physician (Drs. Chadwick and Eugene)
--- NOTE | 2025-02-21 15:44 | PTCARENOTE ---
Patient AAOX3 for this RN, forgetful at times but no confusion noted this shift, patient ambulatory in room with this RN and in [place] with PT, steady gait, ringing appropriately. Patient states R hip/thigh pain managed with PRN flexeril - see DEC.
[2025-02-21] MEDS: FLOMAX 0.4 MG PO (22:04)
[2025-02-22] VITALS (7 sets, daily range): BP systolic 135–162; BP diastolic 70–76
[2025-02-22] MEDS: TYLENOL 650 MG PO ×4 (04:21→19:46)
[2025-02-22 06:12] LABS: Blood Urea Nitrogen 15 mg/dl (9-20); Calcium 8.6 mg/dl (8.4-10.2); Carbon Dioxide 25 mmol/L (22-30); Chloride 106 mmol/L (98-107); Estimated Creatinine Clearance 84 ml/min; Glucose 112 mg/dl (70-99); Potassium 3.4 mmol/L (3.5-5.1); Sodium 139 mmol/L (135-145); eGFR > 60.00
[2025-02-22 06:17] LABS: Hematocrit 27.2 % (39.0-52.0); Hemoglobin 9.2 g/dL (13.0-18.0); Mean Corp Hgb Conc. 33.8 g/dL (33.0-37.0); Mean Corpuscular Hgb 28.9 pg (27.0-31.0); Mean Corpuscular Volume 85.5 fL (80.0-94.0); Mean Platelet Volume 10.1 fL (7.4-10.4); Platelet Count 71 10^3/uL (130-400); Red Blood Cell Count 3.18 10^6/uL (4.70-6.10); Red Cell Dist. Width 17.1 % (11.5-14.5); White Blood Cell Count 5.2 10^3/uL (4.8-10.8)
[2025-02-22] MEDS: FLEXERIL 10 MG PO ×3 (06:47→22:57)
[2025-02-22] MEDS: NEURONTIN 100 MG PO ×3 (08:39→22:08)
[2025-02-22] MEDS: COREG 6.25 MG PO ×2 (08:39→19:47)
[2025-02-22] MEDS: PROSCAR 5 MG PO (08:40)
--- NOTE | 2025-02-22 09:02 | W.PN.HOSP.TC ---
Today's Communication/Plan
-
follow ID and Vascular recs
continue pain control
Assessment / Plan
Assessment / Plan
Impression:
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
Status post endovascular aortic repair for infrarenal abdominal aortic aneurysm October 2024.
Left upper extremity DVT secondary to PICC line
Patient on heparin drip.
Hemoglobin dropped we will proceed with 2 units of blood transfusion.
Other conditions:
1. Hypertension.
2. Dyslipidemia.
3. Prior history of pericarditis.
4. Gastroesophageal reflux disease and Spears's esophagus.
5. Obstructive sleep apnea.
6. Benign prostatic hyperplasia.
7. History of cholecystectomy in 2017.
Assessment/plan:
Aortitis with inflammatory changes proximal endograft with progression and possible abscess formation
CT angio of abdomen and pelvis
1. Pronounced inflammatory change within the retroperitoneum adjacent to the superior portion of the aortic endograft. Peripheral enhancement with internal low attenuation, overall measuring approximately 5.9 cm mediolateral by 5 cm AP by 3 cm
superior inferior. Significant increase in the enhancement and inflammatory change compared to prior CT dated 01/19/2025. Findings likely represent stent graft infection with adjacent abscess.
2. 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 Excluded aneurysm sac measures 5.7 cm in greatest transverse dimension, slightly increased in size compared to prior CT dated 12/10/2024, at which time it measured 5.2 cm in greatest transverse
dimension.
3. Severe prostatic enlargement.
Presents with persistent lower abdomen and back pain unchanged since prior hospitalization.
Afebrile and hemodynamically stable.
All cultures negative to date.
With concern for infected stent, patient was discharged on Unasyn through 03/05/2025.
Repeated imaging as above.
Echo 02/10 with normal LVEF and no valvular abnormalities.
Repeated blood culture negative to date
Status post CT-guided aspiration of fluid collection adjacent to superior portion of aortic graft, yielding 40 cc of blood-tinged pus on 02/11. Gram stain and cultures negative to date
Potential option could involve surgical expiration with explant of the aortic stent graft
off Abx as per ID to help yield better possible operative cultures. 02/19 blood cultures growing CoNS
CT repeat with R psoas fluid collection consistent with hematoma per Vascular and Radiology. Follow Hb.
Continue analgesia with Tylenol, Flexeril, Gabapentin
Continue bowel regimen
Acute blood loss anemia
s/p 2 units PRBC; 2 units additionally today
Left upper extremity DVT secondary to PICC line.
PICC line removed.
IV Heparin stopped by Vascular service due to hematoma
repeat US planned
Essential hypertension
Continue Coreg
Bening Prostatic hyperplasia:
Continue Flomax and Proscar
Monitor for retention
DVT ppx: SCDs
Code: Full
Anticipated Discharge: 24 - 48 hours
Subjective/Interval History
-
Date of Service: February 22, 2025
pain stable
no complaints
Objective Data
-
Labs:
Laboratory Results
02/22/25
05:26
WBC 5.2
Hgb 9.2 L
Hct 27.2 L
Plt Count 71 L D
Sodium 139
Potassium 3.4 L
Chloride 106
Carbon Dioxide 25
BUN 15
Creatinine 0.7
Glucose 112 H
Calcium 8.6
Vital Signs:
Vital Signs
Temp Pulse Resp BP Pulse Ox
97.7 F 76 18 140/70 97
02/22/25 07:20 02/22/25 08:39 02/22/25 07:20 02/22/25 07:20 02/22/25 07:20
I&O
02/21/25 02/22/25 02/23/25
06:59 06:59 06:59
Intake Total 1999 840 / 840
Balance 1999 840 / 840
Physical Exam
-
General: No Apparent Distress
HEENT: Normocephalic and Atraumatic
Respiratory: Negative Wheezes
Cardiac: Regular Rhythm and S1/S2
GI: Soft
Genito-urinary: No Costovertebral Tender
Musculoskeletal: No Edema
Neuro: AO x 3
Hematologic / Lymphatic: No Lymphadenopathy
Psych: Calm
Data Reviewed
-
Total Time Spent with Patient (in minutes): 41
Labs: Labs Reviewed by me
--- NOTE | 2025-02-22 09:13 | W.PN.ID1 ---
Date of Service
Date of Service: February 22, 2025
Today's Communication
Anticipate dc picc, dc home tomorrow, if 02/20 to 02/22 blood cx's remain negative.
Assessment / Plan
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
# Hx of AAA EVAR (11/15/24) -> Severe low back pain and suprapubic pain.
# Leukocytosis resolved
# Elevated ESR/CRP
# LUE PICC DVT/malfunction -> dc'd at [facility]
- repeat blood cultures x2 neg (on Unasyn)
- CRP 210 ->159->41 (while on Unasyn)
- ESR 93->103->96 (while on Unasyn)
- 02/11 aspirated aortic endograft fluid - 4cc bloody purulent fluid.
Aerobic gram stain: many wbc, no org. Cx neg to date (on Unasyn). Anaerobic cx negative (on Unasyn)
fungal smear neg/cx pending, AFB smear neg/cx : pending
- Unasyn held on day 21 (last dose 02/12/25, noon) to maximize cx yield.
- 02/17 Repeat blood cx's x 2 neg to date (off abx x 4.5 days).
- 02/18 Repeat blood cx x 1 neg to date (off abx x 5.5 days)
- 02/19 Blood cx x1 Coag-neg staph (off abx x 6.5 days).
Spoke to micro - 2 morphotypes, will work-up CoNS.
Suspect contaminant.
- 02/20 Blood cx x 1 neg to date (off anx 7.5d)
- 02/21 Blood cx x 1 neg to date (off abx 8.5d)
- 02/22 Blood cx x 2 pending (off abx 9.5d)
- Two more sets of bcx's in am
- Continue to monitor off abx.
- Anticipate dc picc, dc home tomorrow, if 02/20 to 02/22 blood cx's remain negative.
# Acute Right psoas muscle hematoma
# s/p blood loss anemia
# Conditions [employer] S[employer]EN [employer]PA[employer]
Hypertension
HLD
History of pericarditis
Spears's esophagus
Sleep apnea
BPH
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
Cholecystectomy
Umbilical hernia repair
Chief Complaint
-: Other (aortitis)
Subjective / Review of Systems
Continues to feel better. Still with right thigh pain.
Vital Signs / Physical Exam
Vital Signs
Vital Signs
Temp Pulse Resp BP Pulse Ox
97.7 F 76 18 140/70 97
02/22/25 07:20 02/22/25 08:39 02/22/25 07:20 02/22/25 07:20 02/22/25 07:20
Physical Exam
Constitutional: No Acute Distress and Comfortable
Eyes: No Conjunctival Hemorrhage and Sclera Anicteric
Cardiovascular: Regular Rate and S1/S2
Pulmonary: Clear
Gastrointestinal: Soft, Non Tender and Non Distended
Neurological: AO x 3
Lines: PICC (RUE)
Objective Data
Lab Data
Lab Results
02/22/25 05:26
02/22/25 05:26
ESR 103 mm/hour (0-20) H 02/20/25 05:07
PT 14.4 Sec (11.4-14.6) 02/09/25 06:32
INR 1.09 02/09/25 06:32
APTT 42.9 Sec (23.4-35.0) H 02/17/25 08:40
Estimated Creat Clear 84 ml/min 02/22/25 05:26
Total Bilirubin 0.6 mg/dl (0.2-1.3) 02/09/25 06:32
AST 33 U/L (17-59) 02/09/25 06:32
ALT 40 U/L (0-50) 02/09/25 06:32
Alkaline Phosphatase 196 U/L (38-126) H 02/09/25 06:32
C-Reactive Protein 54.50 mg/L (0.0-10.00) H 02/20/25 05:06
Most recent labs reviewed.
Micro Results:
02/17/25 08:40 Blood Culture - Final
Blood/Venous No Growth - Final Report
02/19/25 05:05 Blood Culture - Preliminary
Blood/Venous Coagulase neg. staphylococcus
Gram Stain - Final
02/22/25 05:26 Blood Culture - Pending
Blood/Venous
02/22/25 06:44 Blood Culture - Pending
Blood/Venous
02/17/25 07:31 Blood Culture - Final
Blood/Venous No Growth - Final Report
02/21/25 05:10 Blood Culture - Preliminary
Blood/Venous No Growth in 24 hours- Final report to follow
02/18/25 05:10 Blood Culture - Preliminary
Blood/Venous No Growth in 4 days- Final report to follow
02/20/25 05:06 Blood Culture - Preliminary
Blood/Venous No Growth in 48 hours- Final report to follow
02/11/25 13:00 Fungal Smear - Final
Abscess No yeast or fungal elements seen.
Fungal Culture - Preliminary
Culture in progress.
Positive cultures are reported as soon as detected.
Final report to follow in four to five weeks.
02/11/25 13:00 Wound Culture - Final
Abscess No growth
Gram Stain - Final
02/11/25 13:00 Anaerobic Culture - Final
Abscess NO ANAEROBES ISOLATED
02/09/25 20:15 Blood Culture - Final
Blood/Venous No Growth - Final Report
02/09/25 18:42 Blood Culture - Final
Blood/Venous No Growth - Final Report
02/11/25 13:00 Acid Fast Bacilli Smear - Preliminary
Abscess Acid Fast Bacilli Culture - Preliminary
Imaging:
02/15/25 CT a/p: Interval development of asymmetric diffuse right psoas muscle enlargement/swelling. At least 2 intramuscular complex collections are demonstrated, as described. Suspicious for psoas evolving intramuscular hematomas, without active
hemorrhage identified. However, given the periaortic infectious/inflammatory changes, the possibility of complex collections related to abscess formation would be difficult to exclude with certainty. Stable inflammatory soft tissue stranding
associated with the proximal graft margin. However, the region of nonenhancement suspicious for abscess has decreased slightly in size.
02/09/25 CT a/p: Pronounced inflammatory change within the retroperitoneum adjacent to the superior portion of the aortic endograft. Peripheral enhancement with internal low attenuation, overall measuring approximately 5.9 cm mediolateral by 5 cm AP
by 3 cm superior inferior. Significant increase in the enhancement and inflammatory change compared to prior CT dated 01/19/2025. Findings likely represent stent graft infection with adjacent abscess. 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
Excluded aneurysm sac measures 5.7 cm in greatest transverse dimension, slightly increased in size compared to prior CT dated 12/10/2024, at which time it measured 5.2 cm in greatest transverse dimension. Severe prostatic enlargement.
Care Review
Plan reviewed with: Physician (Dr. Chadwick)
[2025-02-22] MEDS: PROTONIX 40 MG PO (12:59)
[2025-02-22] MEDS: FLOMAX 0.4 MG PO (22:08)
[2025-02-23] MEDS: TYLENOL 650 MG PO ×3 (03:15→12:15)
[2025-02-23 03:23] VITALS: BP 128/84
[2025-02-23 06:42] LABS: Hemoglobin 9.7 g/dL (13.0-18.0); Mean Corp Hgb Conc. 33.4 g/dL (33.0-37.0); Mean Corpuscular Hgb 28.9 pg (27.0-31.0); Mean Corpuscular Volume 86.3 fL (80.0-94.0); Mean Platelet Volume 8.8 fL (7.4-10.4); Platelet Count 103 10^3/uL (130-400); Red Blood Cell Count 3.36 10^6/uL (4.70-6.10); Red Cell Dist. Width 16.8 % (11.5-14.5)
[2025-02-23 07:15] VITALS: BP 151/90
[2025-02-23 07:19] LABS: Blood Urea Nitrogen 15 mg/dl (9-20); Calcium 8.6 mg/dl (8.4-10.2); Carbon Dioxide 24 mmol/L (22-30); Chloride 106 mmol/L (98-107); Estimated Creatinine Clearance 84 ml/min; Glucose 116 mg/dl (70-99); Potassium 3.4 mmol/L (3.5-5.1); Sodium 139 mmol/L (135-145); eGFR > 60.00
[2025-02-23] MEDS: NEURONTIN 100 MG PO (08:11)
[2025-02-23] MEDS: PROSCAR 5 MG PO (08:11)
[2025-02-23] MEDS: FLEXERIL 10 MG PO (08:11)
[2025-02-23] MEDS: KCL 40 MEQ PO (08:11)
[2025-02-23] MEDS: COREG 6.25 MG PO (08:11)
--- NOTE | 2025-02-23 08:40 | VATNOTE ---
VAT rounds: attempted to change pt's PICC dressing, pt states ID stated yesterday that PICC would probably be discontinued and pt would likely be discharged today. Confirmed with ID note from 02/22. Hold on PICC dressing change until pt seen today.
--- NOTE | 2025-02-23 09:09 | W.PN.HOSP.TC ---
Today's Communication/Plan
-
dc to home today after 02/22 bcx prelim negative; dc without picc
Assessment / Plan
Assessment / Plan
Impression:
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
Status post endovascular aortic repair for infrarenal abdominal aortic aneurysm October 2024.
Left upper extremity DVT secondary to PICC line
Patient on heparin drip.
Hemoglobin dropped we will proceed with 2 units of blood transfusion.
Other conditions:
1. Hypertension.
2. Dyslipidemia.
3. Prior history of pericarditis.
4. Gastroesophageal reflux disease and Spears's esophagus.
5. Obstructive sleep apnea.
6. Benign prostatic hyperplasia.
7. History of cholecystectomy in 2017.
Assessment/plan:
Aortitis with inflammatory changes proximal endograft with progression and possible abscess formation
CT angio of abdomen and pelvis
1. Pronounced inflammatory change within the retroperitoneum adjacent to the superior portion of the aortic endograft. Peripheral enhancement with internal low attenuation, overall measuring approximately 5.9 cm mediolateral by 5 cm AP by 3 cm
superior inferior. Significant increase in the enhancement and inflammatory change compared to prior CT dated 01/19/2025. Findings likely represent stent graft infection with adjacent abscess.
2. 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 Excluded aneurysm sac measures 5.7 cm in greatest transverse dimension, slightly increased in size compared to prior CT dated 12/10/2024, at which time it measured 5.2 cm in greatest transverse
dimension.
3. Severe prostatic enlargement.
Presents with persistent lower abdomen and back pain unchanged since prior hospitalization.
With concern for infected stent, patient was discharged on Unasyn through 03/05/2025.
Abx stopped
s/p IR aspiration and serial blood cultures NGTD (02/19 cultures deemed contamination since repeat cultures afterwards negative)
R psoas hematoma - conservative management. prn pain control
Acute blood loss anemia
s/p 4 units PRBC
Left upper extremity DVT secondary to PICC line.
PICC line removed.
IV Heparin stopped by Vascular service due to hematoma
repeat US with no clot
Essential hypertension
Continue Coreg
Bening Prostatic hyperplasia:
Continue Flomax and Proscar
Monitor for retention
DVT ppx: SCDs
Code: Full
More than 30 minutes spent in discharge including
Final examination of the patient
Summarizing hospital stay
Instructions for continuing care to all relevant caregivers
Preparation of discharge records, prescriptions, and referral forms
Total time spent (in minutes): 41
Anticipated Discharge: Today
Subjective/Interval History
-
Date of Service: February 23, 2025
pain controlled now with Flexeril, Gabapentin and Tylenol
no infectious symptoms
Bcx so far remain negative on recent repeats
Objective Data
-
Labs:
Laboratory Results
02/23/25
06:16
WBC 5.0
Hgb 9.7 L
Hct 29.0 L
Plt Count 103 L D
Sodium 139
Potassium 3.4 L
Chloride 106
Carbon Dioxide 24
BUN 15
Creatinine 0.7
Glucose 116 H
Calcium 8.6
Vital Signs:
Vital Signs
Temp Pulse Resp BP Pulse Ox
97.7 F 63 18 151/90 96
02/23/25 07:15 02/23/25 07:15 02/23/25 07:15 02/23/25 07:15 02/23/25 07:15
I&O
02/22/25 02/23/25 02/24/25
06:59 06:59 06:59
Intake Total 840 / 840 900 / 900
Balance 840 / 840 900 / 900
Physical Exam
-
General: No Apparent Distress
HEENT: Normocephalic and Atraumatic
Respiratory: Negative Wheezes
Cardiac: Regular Rhythm
GI: Soft and Nontender
Musculoskeletal: No Edema
Psych: Calm
Data Reviewed
-
Total Time Spent with Patient (in minutes): 42
Labs: Labs Reviewed by me
--- NOTE | 2025-02-23 09:40 | W.DS.TRANS ---
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
-
Discharge Instructions:
Discharge Diagnosis/Procedures PICC line associated DVT - resolved. R psoas
hematoma. anemia requiring 4 units blood. s/p
aortic endograft with fluid collection
Diet Regular
Activity As tolerated
Bathing Restrictions None
Instructions:
Stand-Alone Forms:
Changes to Home Medications: No
Discharge Medications:
DC Medications w/original date entered in [facility]
carvedilol 6.25 mg tablet 6.25 mg PO BID Blood Pressure 11/07/24
cholecalciferol (vitamin D3) 50 mcg (2,000 unit) tablet (Vitamin D3) 50 mcg PO DAILY Supplement 11/07/24
finasteride 5 mg tablet 5 mg PO DAILY Urinary Issue 11/07/24
magnesium oxide 400 mg PO BID Electrolyte Repletion 11/07/24
omeprazole 20 mg tablet,delayed release 20 mg PO NOON Gastrointestinal Issue 11/07/24
tamsulosin 0.4 mg capsule 0.4 mg PO HS Urinary Issue 11/07/24
aspirin 81 mg tablet,delayed release 81 mg PO DAILY #90 tabs 11/15/24
bisacodyl 5 mg tablet,delayed release (Dulcolax (bisacodyl)) 15 mg PO DAILYPRN PRN constipation 01/19/25
polyethylene glycol 3350 17 gram oral powder packet 17 g PO DAILYPRN PRN constipation 01/19/25
rosuvastatin 20 mg tablet 20 mg PO DAILY 01/19/25
therapeutic multivitamin 1 tab PO DAILY 01/19/25
acetaminophen 325 mg tablet 650 mg (2 x 325 mg) PO Q4HPRN PRN mild pain/CAZARES/temp> 100.4F #100 tabs 02/23/25
cyclobenzaprine 5 mg tablet 5 mg PO TID PRN muscle spasm #30 tabs 02/23/25
gabapentin 100 mg capsule 100 mg PO TID #90 caps 02/23/25
Home Medication Changes
Pending Results: No
Total time spent discharging patient (in min): 41
--- NOTE | 2025-02-23 10:14 | W.PN.ID1 ---
Date of Service
Date of Service: February 23, 2025
Today's Communication
Can dc PICC and dc home today.
Assessment / Plan
# Aortitis with inflammatory changes proximal endograft with progression
# Hx of AAA EVAR (11/15/24) -> Severe low back pain and suprapubic pain, now resolved.
# Leukocytosis resolved
# Elevated ESR/CRP
# LUE PICC DVT/malfunction -> dc'd at [facility]
- repeat blood cultures x2 neg (on Unasyn)
- CRP 210 ->159->41 (while on Unasyn) -> 54 (off abx)
- ESR 93->103->96 (while on Unasyn)
- 02/11 aspirated aortic endograft fluid - 4cc bloody purulent fluid.
Aerobic gram stain: many wbc, no org. Cx neg to date (on Unasyn). Anaerobic cx negative (on Unasyn)
fungal smear neg/cx pending, AFB smear neg/cx : pending
- Unasyn held on day 21 (last dose 02/12/25, noon) to maximize cx yield.
- 02/17 Repeat blood cx's x 2 neg to date (off abx x 4.5 days).
- 02/18 Repeat blood cx x 1 neg to date (off abx x 5.5 days)
- 02/19 Blood cx x1 Coag-neg staph (off abx x 6.5 days).
Spoke to micro - 2 morphotypes, will work-up CoNS.
Suspect contaminant.
- 02/20 Blood cx x 1 neg to date (off anx 7.5d)
- 02/21 Blood cx x 1 neg to date (off abx 8.5d)
- 02/22 Blood cx x 2 neg to date (off abx 9.5d)
- 02/23 Blood cx x 2 pending (off abx 10.5d)
- The single blood cx with 2 CoNS morphotypes were contaminant, since multiple subsequent blood cx's remain negative off abx.
- Can dc PICC and dc home today.
- Discussed watch for alarming symptoms.
# s/p Acute Right psoas muscle hematoma post endograft fluid aspiration
# s/p blood loss anemia
# Conditions [employer]
Hypertension
HLD
History of pericarditis
Spears's esophagus
Sleep apnea
BPH
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
Cholecystectomy
Umbilical hernia repair
Chief Complaint
-: Other (aortitis)
Subjective / Review of Systems
Feels well.
Vital Signs / Physical Exam
Vital Signs
Vital Signs
Temp Pulse Resp BP Pulse Ox
97.7 F 63 18 151/90 96
02/23/25 07:15 02/23/25 07:15 02/23/25 07:15 02/23/25 07:15 02/23/25 07:15
Physical Exam
Constitutional: No Acute Distress and Comfortable
Eyes: No Conjunctival Hemorrhage and Sclera Anicteric
Cardiovascular: Regular Rate and S1/S2
Pulmonary: Clear
Gastrointestinal: Soft, Non Tender and Non Distended
Neurological: AO x 3
Lines: PICC (RUE)
Objective Data
Lab Data
Lab Results
02/23/25 06:16
02/23/25 06:16
ESR 103 mm/hour (0-20) H 02/20/25 05:07
PT 14.4 Sec (11.4-14.6) 02/09/25 06:32
INR 1.09 02/09/25 06:32
APTT 42.9 Sec (23.4-35.0) H 02/17/25 08:40
Estimated Creat Clear 84 ml/min 02/23/25 06:16
Total Bilirubin 0.6 mg/dl (0.2-1.3) 02/09/25 06:32
AST 33 U/L (17-59) 02/09/25 06:32
ALT 40 U/L (0-50) 02/09/25 06:32
Alkaline Phosphatase 196 U/L (38-126) H 02/09/25 06:32
C-Reactive Protein 54.50 mg/L (0.0-10.00) H 02/20/25 05:06
Most recent labs reviewed.
Micro Results:
02/19/25 05:05 Blood Culture - Preliminary
Blood/Venous Staphylococcus hominis
Coagulase neg. staphylococcus
Gram Stain - Final
02/22/25 06:44 Blood Culture - Preliminary
Blood/Venous No Growth in 24 hours- Final report to follow
02/23/25 06:16 Blood Culture - Pending
Blood/Venous
02/23/25 06:18 Blood Culture - Pending
Blood/Venous
02/22/25 05:26 Blood Culture - Preliminary
Blood/Venous No Growth in 24 hours- Final report to follow
02/21/25 05:10 Blood Culture - Preliminary
Blood/Venous No Growth in 48 hours- Final report to follow
02/18/25 05:10 Blood Culture - Final
Blood/Venous No Growth - Final Report
02/20/25 05:06 Blood Culture - Preliminary
Blood/Venous No Growth in 72 hours- Final report to follow
02/17/25 08:40 Blood Culture - Final
Blood/Venous No Growth - Final Report
02/17/25 07:31 Blood Culture - Final
Blood/Venous No Growth - Final Report
02/11/25 13:00 Fungal Smear - Final
Abscess No yeast or fungal elements seen.
Fungal Culture - Preliminary
Culture in progress.
Positive cultures are reported as soon as detected.
Final report to follow in four to five weeks.
02/11/25 13:00 Wound Culture - Final
Abscess No growth
Gram Stain - Final
02/11/25 13:00 Anaerobic Culture - Final
Abscess NO ANAEROBES ISOLATED
02/09/25 20:15 Blood Culture - Final
Blood/Venous No Growth - Final Report
02/09/25 18:42 Blood Culture - Final
Blood/Venous No Growth - Final Report
02/11/25 13:00 Acid Fast Bacilli Smear - Preliminary
Abscess Acid Fast Bacilli Culture - Preliminary
Imaging:
02/15/25 CT a/p: Interval development of asymmetric diffuse right psoas muscle enlargement/swelling. At least 2 intramuscular complex collections are demonstrated, as described. Suspicious for psoas evolving intramuscular hematomas, without active
hemorrhage identified. However, given the periaortic infectious/inflammatory changes, the possibility of complex collections related to abscess formation would be difficult to exclude with certainty. Stable inflammatory soft tissue stranding
associated with the proximal graft margin. However, the region of nonenhancement suspicious for abscess has decreased slightly in size.
02/09/25 CT a/p: Pronounced inflammatory change within the retroperitoneum adjacent to the superior portion of the aortic endograft. Peripheral enhancement with internal low attenuation, overall measuring approximately 5.9 cm mediolateral by 5 cm AP
by 3 cm superior inferior. Significant increase in the enhancement and inflammatory change compared to prior CT dated 01/19/2025. Findings likely represent stent graft infection with adjacent abscess. 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
Excluded aneurysm sac measures 5.7 cm in greatest transverse dimension, slightly increased in size compared to prior CT dated 12/10/2024, at which time it measured 5.2 cm in greatest transverse dimension. Severe prostatic enlargement.
Care Review
Plan reviewed with: Physician (Dr. Chadwick)
[2025-02-23 11:35] VITALS: BP 124/76
[2025-02-23] MEDS: PROTONIX 40 MG PO (12:15)
== END 2025-02-23 13:12 | disposition home health service (06) | DRG 314 ==
LOC: 2 NORTH 02:49
PROVIDERS: General Practice; Hospitalist; Internal Medicine; Internal Medicine Infectious Disease; Nurse Practitioner Acute Care; ADMITTING PHYSICIAN Surgery Vascular Surgery; ATTENDING PHYSICIAN Internal Medicine; CONSULT PHYSICIAN Internal Medicine Cardiovascular Disease; CONSULT PHYSICIAN Student in an Organized Health Care Education/Training Program; FAMILY PHYSICIAN Internal Medicine
PROC: 5A09357 Assistance with Respiratory Ventilation, Less than 24 Consecutive Hours, Continuous Positive Airway Pressure (ICD-10-PCS; 2025-02-09)
PROC: 30243N1 Transfusion of Nonautologous Red Blood Cells into Central Vein, Percutaneous Approach (ICD-10-PCS; 2025-02-14)
DX: T82.7XXA Infection and inflammatory reaction due to other cardiac and vascular devices, implants and grafts, initial encounter (principal); K65.1 Peritoneal abscess; I82.622 Acute embolism and thrombosis of deep veins of left upper extremity; D62 Acute posthemorrhagic anemia; I97.89 Other postprocedural complications and disorders of the circulatory system, not elsewhere classified; T82.868A Thrombosis due to vascular prosthetic devices, implants and grafts, initial encounter; Y92.239 Unspecified place in hospital as the place of occurrence of the external cause; M79.81 Nontraumatic hematoma of soft tissue; Z86.79 Personal history of other diseases of the circulatory system; I77.6 Arteritis, unspecified; I10 Essential (primary) hypertension; E78.00 Pure hypercholesterolemia, unspecified; K21.9 Gastro-esophageal reflux disease without esophagitis; K22.70 Barrett's esophagus without dysplasia; G47.33 Obstructive sleep apnea (adult) (pediatric); N40.0 Benign prostatic hyperplasia without lower urinary tract symptoms; Y83.2 Surgical operation with anastomosis, bypass or graft as the cause of abnormal reaction of the patient, or of later complication, without mention of misadventure at the time of the procedure; K59.00 Constipation, unspecified; Y71.2 Prosthetic and other implants, materials and accessory cardiovascular devices associated with adverse incidents; Z79.82 Long term (current) use of aspirin; Z79.899 Other long term (current) drug therapy; Z87.891 Personal history of nicotine dependence; E87.6 Hypokalemia
CPT/HCPCS: 10160; 71045; 74174; 77012; 80048; 80053; 82248; 83540; 83550; 83735; 85014; 85018; 85025; 85027; 85045; 85610; 85652; 85730; 86140; 86850; 86900; 86901; 86920; 87015; 87040; 87070; 87075; 87102; 87116; 87147; 87150; 87186; 87205; 87206; 93005; 93306; 93970; 93971; 94660; 97116; 97162; 97167; 97530; 99152; 99153; P9016; Q9967

== ENCOUNTER → 2025-04-23 08:58 | Outpatient (REF) | payer MEDICARE, OTHER, SELFPAY ==
[2025-04-23 09:42] LABS: % Basophils 0.8 % (0-2); % Immature Granulocytes 0.2 % (0-0.5); % Monocytes 10.7 % (1.7-9.3); % Neutrophils 60.3 % (42.2-75.2); Absolute Basophils 0.1 10^3/uL (0-0.2); Absolute Eosinophils 0.4 10^3/uL (0-0.7); Absolute Lymphocytes 1.3 10^3/uL (1.2-3.4); Absolute Monocytes 0.6 10^3/uL (0.1-0.6); Absolute Neutrophils 3.6 10^3/uL (1.4-6.5); Hematocrit 30.5 % (39.0-52.0); Hemoglobin 10.3 g/dL (13.0-18.0); Mean Corp Hgb Conc. 33.8 g/dL (33.0-37.0); Mean Corpuscular Hgb 29.4 pg (27.0-31.0); Mean Corpuscular Volume 87.1 fL (80.0-94.0); Mean Platelet Volume 9.5 fL (7.4-10.4); Nucleated Red Blood Cells % 0 % (-); Platelet Count 111 10^3/uL (130-400); Red Cell Dist. Width 15.2 % (11.5-14.5)
[2025-04-23 10:43] LABS: Blood Urea Nitrogen 15 mg/dl (9-20); Calcium 8.7 mg/dl (8.4-10.2); Carbon Dioxide 24 mmol/L (22-30); Chloride 108 mmol/L (98-107); Glucose 92 mg/dl (70-99); Potassium 3.7 mmol/L (3.5-5.1); Sodium 139 mmol/L (135-145); eGFR > 60.00
[2025-04-23 11:16] LABS: Erythrocyte Sed Rate 55 mm/hour (0-20)
== END ==
LOC: REG 08:58
PROVIDERS: ATTENDING PHYSICIAN Surgery Vascular Surgery; FAMILY PHYSICIAN Internal Medicine
DX: I71.40 Abdominal aortic aneurysm, without rupture, unspecified (principal)
CPT/HCPCS: 36415; 80048; 85025; 85652; 86140

== ENCOUNTER → 2025-05-06 08:10 | Outpatient (REF) | payer MEDICARE, OTHER, SELFPAY | LOC: RAD 08:10 | PROVIDERS: ATTENDING PHYSICIAN Registered Nurse; FAMILY PHYSICIAN Internal Medicine | DX: I71.43 Infrarenal abdominal aortic aneurysm, without rupture (principal) | CPT/HCPCS: 74174; Q9967 ==

== ENCOUNTER → 2025-08-04 08:48 | Outpatient (REF) | payer MEDICARE, OTHER, SELFPAY ==
[2025-08-04 12:50] LABS: C-Reactive Protein 38.90 mg/L (0.0-10.00)
[2025-08-04 12:59] LABS: Hematocrit 31.1 % (39.0-52.0); Hemoglobin 10.4 g/dL (13.0-18.0); Mean Corp Hgb Conc. 33.4 g/dL (33.0-37.0); Mean Corpuscular Volume 86.6 fL (80.0-94.0); Platelet Count 143 10^3/uL (130-400); Red Cell Dist. Width 14.3 % (11.5-14.5)
[2025-08-04 13:17] LABS: Blood Urea Nitrogen 17 mg/dl (9-20); Calcium 9.0 mg/dl (8.4-10.2); Carbon Dioxide 28 mmol/L (22-30); Chloride 105 mmol/L (98-107); Glucose 105 mg/dl (70-99); Potassium 4.3 mmol/L (3.5-5.1); Sodium 138 mmol/L (135-145); eGFR > 60.00
== END ==
LOC: HWLAB 08:48
PROVIDERS: ATTENDING PHYSICIAN Surgery Vascular Surgery; FAMILY PHYSICIAN Internal Medicine
DX: I71.40 Abdominal aortic aneurysm, without rupture, unspecified (principal)
CPT/HCPCS: 36415; 80048; 85027; 85652; 86140

== ENCOUNTER → 2025-08-18 08:09 | Outpatient (REF) | payer MEDICARE, OTHER, SELFPAY | LOC: RAD 08:09 | PROVIDERS: ATTENDING PHYSICIAN Surgery Vascular Surgery; FAMILY PHYSICIAN Internal Medicine | DX: I71.40 Abdominal aortic aneurysm, without rupture, unspecified (principal) | CPT/HCPCS: 74174; Q9967 ==